=== PATIENT | female | born 1940 | race Caucasian/White ===

== ENCOUNTER → 2016-10-03 | Outpatient (CLI) | payer OTHER, MEDICARE ==
[~2016-10-03] MED LIST: CALC-20 PO; CLTP PO; GABA-112 PO; HYDR-5688 PO; MELO15TA4 PO; NCY50 PO; PRED10TA PO; PRMVC TOP; SIMV20TA2 PO; ULT50 PO; [UNRECOGNIZED DRUG - CODE] PO; citracel PO
--- NOTE | 2016-10-03 14:55 | MAMMOGRAPHY REPORT ---
BILATERAL DIGITAL SCREENING MAMMOGRAM WITH CAD: 10/03/2016 CLINICAL HISTORY: Routine screening. Patient has no complaints. TECHNIQUE: Bilateral CC and MLO views were obtained. Current study was also evaluated with a Comput er Aided Detection (CAD) system. COMPARISON: Comparison is made to exams dated: 10/01/2015 mammogram, 09/23/2014 mammogram, 08/29/2012 mammogram, 08/24/2011 mammogram, and 08/27/2010 mammogram - [facility]. BREAST COMPOSITION: There are scattered areas of fibroglandular density in both breasts. FINDINGS: There are a few scattered benign coarse calcifications and is stable groupings of benign- appearing coarse heterogeneous microcalcifications bilaterally. No new suspicious mass, architectur al distortion or cluster of microcalcifications is seen. IMPRESSION: ACR BI-RADS CATEGORY 1: NEGATIVE There is no mammographic evidence of malignancy. A 1 year screening mammogram is recommended. The p atient will receive written notification of the results. Approximately 10% of breast cancers are not detected with mammography. A negative mammographic repor t should not delay biopsy if a clinically suggestive mass is present. Tamiko Campos M.D. ay/:10/03/2016 12:45:48 Advanced Manufacturing Engineer: Joanne Jonas, [facility] letter sent: Normal 1/2 BI-RADS Code: ACR BI-RADS Category 1: Negative
== END | disposition home or self-care (01) ==
LOC: C.MAMM 10:36
PROVIDERS: ATTEND Internal Medicine
DX: Z12.31 Encounter for screening mammogram for malignant neoplasm of breast (principal)

== ENCOUNTER → 2016-12-28 | Outpatient (CLI) | payer OTHER, MEDICARE ==
--- NOTE | 2016-12-29 08:01 | CODING QUERY NO DIAGNOSIS ---
TREATMENT RENDERED WITHOUT A DIAGNOSIS To promote full compliance with coding requirements relating to patient care, physician participation is requested in all cases of steel manager uncertainty. Please assist us with providing a diagnosis/symptom for the test(s) below: A diagnosis/symptom was not documented on your Order. A valid diagnosis/symptom is required to bill all insurances. Please remember that we are unable to code a diagnosis of rule out, probable, possible, questionable, or suspected. Tests that require a diagnosis: DOS: 12/28/16 * AEROBIC GM STAIN C&S - LEFT FIRST DIGIT DIAGNOSIS: Provider Signature: Date: Thank you Alexandra Leonard [facility] Once completed, please kindly fax back to [phone] For questions please call [phone]
== END | disposition home or self-care (01) ==
LOC: C.LABSPEC 16:56
PROVIDERS: ATTEND Podiatrist Foot & Ankle Surgery
DX: M77.8 Other enthesopathies, not elsewhere classified (principal); M19.071 Primary osteoarthritis, right ankle and foot; Q66.89 Other specified congenital deformities of feet; R26.2 Difficulty in walking, not elsewhere classified

== ENCOUNTER 2017-01-10 00:06 | Emergency (ER) | payer OTHER, MEDICARE ==
[~2017-01-10] VITALS: Ht 152.4 cm; Wt 71.2 kg
[~2017-01-10 00:06] MED LIST changes: -CALC-20 PO; -HYDR-5688 PO; -MELO15TA4 PO; -PRED10TA PO; -ULT50 PO
[2017-01-10 00:09] VITALS: TEMP 36.4; Ht 152.4 cm; Wt 71.2 kg
[2017-01-10] MEDS ORDERED: CYCLOBENZAPRINE HCL 10 MG TAB PO STA (00:32)
[2017-01-10] MEDS ORDERED: METHYLPREDNISOLONE 125 MG VIAL IM STA (00:32)
[2017-01-10] MEDS ORDERED: HYDROCODONE/ACETAMOPHEN 5/325MG TAB PO STA (00:32)
--- NOTE | 2017-01-10 00:44 | EMERGENCY ROOM VISIT NOTE ---
History Report prepared by John: Brad Lowry Under the Supervision of: Dr. Columba Logan M.D. First contact with patient: 00:13 Chief Complaint: HIP PAIN Stated Complaint: RIGHT HIP/BACK PAIN RADIATING DOWN RT LEG History of Present Illness The patient is a 76 year old female who presents to the Emergency Room with complaints of worsening pain in her right lower back that began one night prior to arrival. She describes the pain as "sharp." Per the patient's the patient began to experience pain in the right lower back last night, which worsened throughout the day today. She was not able to lay down comfortably in bed this evening secondary to the pain. The pain is intermittently radiating down her right leg. She does not have good sensation in her right foot, but she notes that this is baseline for her. The patient's states that she did not do anything strenuous to cause the pain, and only went to [employer] and drove home from [place] yesterday. She has a history of right hip replacement and steel logan placement in the lumbar back. Source of History: patient Onset: One night WEASAND TRIMMER Position: back (lower (Right)) Quality: sharp Timing: worsening Note: Shooting down right leg. Review of Systems See HPI for pertinent positives & negatives. A total of 10 systems reviewed and were otherwise negative. Past Medical & Surgical Medical Problems: (1) DJD of left shoulder Surgical Problems: (1) History of hip replacement Family History Cancer Heart disease Hypertension Social History Smoking Status: Never Smoker Drug Use: none Marital Status: Housing Status: lives with significant other Occupation Status: retired Current/Historical Medications Scheduled Calcium Carbonate-Vitamin D (Calcium 600 + D), 1 TAB PO BID Estrogens, Conjugated (Premarin), 0.625 MG TOP 2XWK Gabapentin (Neurontin), 100 MG PO TID Meloxicam (Meloxicam), 15 MG PO DAILY Prednisone (Prednisone), 10 MG PO DIRECTED Simvastatin (Zocor), 20 MG PO QPM Scheduled PRN Hydrocodone/Acetaminophen 5MG/325MG (Emerson 5MG/325MG), 1 TABLET PO Q6 PRN for Pain Tramadol HCl (Tramadol HCl), 50-100 MG PO BID PRN for Pain Allergies Coded Allergies: Adhesives (Verified Allergy, Intermediate, RASH, 01/10/17) THE LONGER THE ADHESIVE IS ON THE SKIN, THE WORSE THE RASH BECOMES Diclofenac (Verified Adverse Reaction, Mild, GI upset, 01/10/17) Oxycodone (Verified Adverse Reaction, Mild, GI upset, 01/10/17) Pregabalin (Verified Adverse Reaction, Mild, GI upset, 01/10/17) Physical Exam Vital Signs Date Time Temp Pulse Resp B/P Pulse Ox O2 Delivery O2 Flow Rate FiO2 01/10/17 02:35 71 18 152/92 97 01/10/17 02:11 71 18 152/92 97 Room Air 01/10/17 00:09 36.4 92 20 171/77 98 Room Air Physical Exam Vital signs reviewed. General: Well-appearing female, in no significant distress. Ambulates with some discomfort HEENT: No scleral icterus, PERRLA, neck supple. Atraumatic. Cardiovascular: Regular rate and rhythm, no extra sounds. Pulmonary: Clear to auscultation bilaterally, normal work of breathing. Abdomen: Soft, nontender, nondistended, positive bowel sounds. Musculoskeletal: Atraumatic, no peripheral edema. Full strength in bilateral lower extremities. Chronic deformity to the bilateral feet Back: Tenderness over the low thoracic spine and the right buttock. Neurologic: Patient awake alert and oriented x 3, equal strength in all 4 extremities. Skin: Warm, dry, no rash Medical Decision & Procedures ER Provider Diagnostic Interpretation: X-ray results as stated below per interpretation by me and the radiologist: Hip X-ray: Mild degenerative changes, total hip arthroplasty in good location, no evidence of dislocation or fracture. Lumbar Spine: Significant degenerative change, post surgical changes, hardware in good position, no acute fracture. Thoracic Spine: Thoracic scoliosis present, significant arthritic change. No acute fracture visualized. Medications Administered Medications (Trade) Dose Ordered Sig/Michael Route Start Time Stop Time Status Last Admin Dose Admin Cyclobenzaprine HCl (Flexeril Tab) 5 mg NOW STAT PO 01/10/17 00:32 01/10/17 00:38 DC 01/10/17 00:46 5 MG Acetaminophen/ Hydrocodone Bitart (Emerson 5/325 Tab) 1 tab NOW STAT PO 01/10/17 00:32 01/10/17 00:38 DC 01/10/17 00:46 1 TAB Methylprednisolone Sodium Succinate (Solu-Medrol IV) 125 mg NOW STAT IM 01/10/17 00:32 01/10/17 00:38 DC 01/10/17 00:46 125 MG ED Course 0027: Past medical records reviewed. The patient was evaluated in room B2. A complete history and physical examination was performed. 0032: Ordered Solu-Medrol 125 mg IM, Acetaminophen 1 tablet PO, Cyclobenzaprine 5 mg PO. 0219: Upon reevaluation, the patient appeared to have improvement of her symptoms. I discussed findings with her and her . They verbalized agreement of the treatment plan. The patient was discharged home. Medical Decision Differential diagnosis: Etiologies such as musculoskeletal, disc herniation, fracture, aortic disease, metastatic disease, cord compression, discitis, infection, renal colic, gastrointestinal, acute exacerbation of chronic back pain, sciatica, cauda equina, as well as others were entertained. This patient was evaluated and appeared to be in no significant distress. Patient ambulated out of the bathroom with her cane. Physical examination reveals significant kyphosis and arthritic changes to the joints. Patient was medicated with oral Flexeril, Emerson and prednisone. X-rays were obtained of the thoracic and lumbar spine. These reveal significant degenerative changes with hardware seemingly in good position. There is no evidence of acute fracture to my interpretation. The x-ray of the right hip reveals hardware in good position. These images will be over read by radiology. On reevaluation, the patient was feeling much improved. She was lying comfortably in bed. She was able to ambulate without difficulty. She was discharged with a prescription for prednisone taper, Emerson to be used as needed for pain. She was discharged care of her and will follow-up with her primary care physician this week. She will return to the ER for worsening of symptoms or any medical concerns. Impression Primary Impression: Lumbar radiculopathy, acute Scribe Attestation The scribe's documentation has been prepared under my direction and personally reviewed by me in its entirety. I confirm that the note above accurately reflects all work, treatment, procedures, and medical decision making performed by me. Departure Information Dispostion Home / Self-Care Prescriptions Hydrocodone/Acetaminophen 5MG/325MG (Emerson 5MG/325MG) Tab 1 TABLET PO Q6 Y for Pain, #20 TAB Prov: Columba Logan M.D. 01/10/17 Prednisone (Prednisone) 10 Mg Tab 10 MG PO DIRECTED, #31 TAB 40 mg for 4 days, 30 mg for 3 days, 20 mg for 2 days, 10 mg for 2 days Prov: Columba Logan M.D. 01/10/17 Referrals Ilan Marina M.D. (PCP) Forms HOME CARE DOCUMENTATION FORM, IMPORTANT VISIT INFORMATION, WORK / SCHOOL INSTRUCTIONS Patient Instructions My [facility] Additional Instructions Diagnosis: Lumbar radiculopathy Prednisone 40 mg for 4 days, 30 mg for 3 days, 20 mg for 2 days, 10 mg for 2 days. Emerson one tablet every 4-6 hours as needed for severe pain. Tramadol every 6 hours as needed for less severe pain. Do not take this with the Emerson. Stop the meloxicam while you're on prednisone. Colace 100 mg twice daily as needed for stool softening. Follow-up with your physician this week for reevaluation. Return to the ER for worsening of symptoms or any medical concerns.
[2017-01-10] MEDS ORDERED: CALC-20 PO (01:01)
[2017-01-10] MEDS ORDERED: MELO15TA4 PO (01:03)
[2017-01-10] MEDS ORDERED: ULT50 PO (01:03)
[2017-01-10] MEDS ORDERED: HYDR-5688 PO (02:23)
[2017-01-10] MEDS ORDERED: PRED10TA PO (02:23)
[2017-01-10 02:35] VITALS: BP 152/92; PULSE 71; O2SAT 97
--- NOTE | 2017-01-10 06:52 | DIAGNOSTIC IMAGING REPORT ---
THORACIC SPINE 3 VIEWS HISTORY: Pain radiculopathy COMPARISON: None. FINDINGS: There is no fracture. Moderate S-shaped scoliosis. Thoracolumbar fixation type hardware. Degenerative disc change throughout. No compression deformity. IMPRESSION: Degenerative and postoperative change. No acute process. Electronically signed by: Glenn Sahu M.D. 01/10/2017 6:50 AM Dictated Date/Time: 01/10/2017 6:50 AM
--- NOTE | 2017-01-10 06:58 | DIAGNOSTIC IMAGING REPORT ---
RIGHT HIP UNILATERAL 2 VIEWS CLINICAL HISTORY: Right hip pain, s/p SULAIMAN Right trauma. Pain. COMPARISON: None. DISCUSSION: Total right hip arthroplasty in good position. No evidence for acetabular protrusion. No acute bony abnormality. There is no evidence for soft tissue swelling. IMPRESSION: No acute process status post total right hip arthroplasty Electronically signed by: Glenn Sahu M.D. 01/10/2017 6:56 AM Dictated Date/Time: 01/10/2017 6:54 AM
--- NOTE | 2017-01-10 07:00 | DIAGNOSTIC IMAGING REPORT ---
LUMBAR SPINE 5 VIEWS HISTORY: Pain lumbar radiculopathy COMPARISON: 08/16/2006 FINDINGS: There is no fracture. Evidence for near complete thoracolumbar decompression laminectomy and fusion. Vertebral body alignment is consistent with a mild levoscoliosis. Bony mineralization is somewhat diminished. There is no acute compression deformity. Degenerative disc changes noted throughout. IMPRESSION: Degenerative and postoperative change. Osteopenia. No acute bony abnormality. Electronically signed by: Glenn Sahu M.D. 01/10/2017 6:58 AM Dictated Date/Time: 01/10/2017 6:57 AM
== END 2017-01-10 02:35 | disposition home or self-care (01) ==
LOC: C.EDB 00:08
DX: M54.16 Radiculopathy, lumbar region (principal); Z96.641 Presence of right artificial hip joint; Z80.9 Family history of malignant neoplasm, unspecified; Z82.49 Family history of ischemic heart disease and other diseases of the circulatory system; Z79.899 Other long term (current) drug therapy

== ENCOUNTER → 2017-02-22 | Outpatient (CLI) | payer OTHER, MEDICARE ==
[~2017-02-22] MED LIST changes: +CALC-20 PO; -CLTP PO; +HYDR-5688 PO; +MELO15TA4 PO; -NCY50 PO; +PRED10TA PO; +ULT50 PO; -[UNRECOGNIZED DRUG - CODE] PO; -citracel PO
== END | disposition home or self-care (01) ==
LOC: C.LABSPEC 17:05
PROVIDERS: ATTEND Podiatrist Foot & Ankle Surgery
DX: L60.0 Ingrowing nail (principal)

== ENCOUNTER → 2017-03-21 | Outpatient (CLI) | payer OTHER, MEDICARE | END | disposition home or self-care (01) | LOC: C.LABSPEC 17:17 | PROVIDERS: ATTEND Podiatrist Foot & Ankle Surgery | DX: L60.0 Ingrowing nail (principal) ==

== ENCOUNTER → 2017-08-03 | Outpatient (CLI) | payer OTHER, MEDICARE ==
[~2017-08-03] MED LIST changes: -HYDR-5688 PO; -PRED10TA PO
[2017-08-03 13:41] LABS: BASO ABS # 0.06 K/uL (0-0.2); COMPLETE YES; EOS % 5.5 %; HEMATOCRIT 43.8 % (37-47); IG% 0.2 %; LYMPH % 32.4 %; LYMPH ABS # 1.95 K/uL (1.2-3.4); MEAN CELL VOLUME 94.4 fL (80-100); MEAN CORPUSCULAR HEMOGLOBIN 30.4 pg (25-34); MEAN CORPUSCULAR HGB CONC 32.2 g/dl (32-36); MEAN PLATELET VOLUME 11.8 fL (7.4-10.4); MONO % 8.1 %; NEUT % 52.8 %; PLATELET COUNT 182 K/uL (130-400); RED BLOOD COUNT 4.64 M/uL (4.2-5.4); WHITE BLOOD COUNT 6.02 K/uL (4.8-10.8)
[2017-08-03 14:13] LABS: ALT/SGPT 23 U/L (12-78); AST/SGOT 22 U/L (15-37); BLOOD UREA NITROGEN 19 mg/dl (7-18); BUN/CREATININE RATIO 20.1 (10-20); CALCIUM 9.1 mg/dl (8.5-10.1); CARBON DIOXIDE 30 mmol/L (21-32); CHLORIDE 106 mmol/L (98-107); CREATININE 0.93 mg/dl (0.60-1.20); GLUCOSE 90 mg/dl (70-99); POTASSIUM 3.7 mmol/L (3.5-5.1); SODIUM 140 mmol/L (136-145)
[2017-08-03 14:16] LABS: ALKALINE PHOSPHATASE 90 U/L (45-117)
== END | disposition home or self-care (01) ==
LOC: C.LABSPEC 12:33
PROVIDERS: ATTEND Internal Medicine
DX: E55.9 Vitamin D deficiency, unspecified (principal)

== ENCOUNTER → 2017-08-08 | Outpatient (CLI) | payer OTHER, MEDICARE | END | disposition home or self-care (01) | LOC: C.LABSPEC 12:50 | PROVIDERS: ATTEND Internal Medicine | DX: Z12.11 Encounter for screening for malignant neoplasm of colon (principal) ==

== ENCOUNTER → 2017-10-05 | Outpatient (CLI) | payer OTHER, MEDICARE ==
--- NOTE | 2017-10-05 14:38 | MAMMOGRAPHY REPORT ---
BILATERAL DIGITAL SCREENING MAMMOGRAM TOMOSYNTHESIS WITH CAD: 10/05/2017 CLINICAL HISTORY: Routine screening. Patient has no complaints. TECHNIQUE: Breast tomosynthesis in addition to standard 2D mammography was performed. Current study was also evaluated with a Computer Aided Detection (CAD) system. COMPARISON: Comparison is made to exams dated: 10/03/2016 mammogram, 10/01/2015 mammogram, 09/23/2014 ma mmogram, 08/30/2013 mammogram, 08/29/2012 mammogram, and 08/24/2011 mammogram - [facility]. BREAST COMPOSITION: There are scattered areas of fibroglandular density in both breasts. FINDINGS: No suspicious masses, calcifications, or areas of architectural distortion are noted in ei ther breast. There has been no significant interval change compared to prior exams. Bilateral asymme tries and bilateral benign-appearing calcifications are not significantly changed. IMPRESSION: ACR BI-RADS CATEGORY 2: BENIGN There is no mammographic evidence of malignancy. A 1 year screening mammogram is recommended. The pa tient will receive written notification of the results. Approximately 10% of breast cancers are not detected with mammography. A negative mammographic report should not delay biopsy if a clinically suggestive mass is present. Liv Patel M.D. /:10/05/2017 13:28:58 Graphic Design Manager: Ashley LAWLER)(Kushal), [facility] letter sent: Normal 1/2 BI-RADS Code: ACR BI-RADS Category 2: Benign
== END | disposition home or self-care (01) ==
LOC: C.MAMM 12:25
PROVIDERS: ATTEND Internal Medicine
DX: Z12.31 Encounter for screening mammogram for malignant neoplasm of breast (principal)

== ENCOUNTER → 2017-11-02 | Outpatient (CLI) | payer OTHER, MEDICARE ==
[~2017-11-02] MED LIST changes: +GADAVIST IV PRN
[2017-11-02 13:38] LABS: BLOOD UREA NITROGEN 19 mg/dl (7-18); CREATININE 1.12 mg/dl (0.60-1.20)
--- NOTE | 2017-11-02 15:59 | DIAGNOSTIC IMAGING REPORT ---
R LOWER EXTREMITY JOINT COM CLINICAL HISTORY: 77 years-old Female with RT ANKLE STRESS FRACTURE. COMPARISON: None. TECHNIQUE: Multiplanar, multi sequence MRI of the acute right ankle pain with concern for stress fracture. ankle was performed both with and without the use of 7 mL Gadavist. FINDINGS: Several sequences are motion degraded. LATERAL LIGAMENT COMPLEX: The anterior talofibular ligament is attenuated and only seen on image 21 series 11 with 5 mm corticated bone fragment seen near its attachment site about the talus suggesting chronic tear with chronic avulsion. The calcaneofibular ligament is also attenuated, likely chronically torn. The posterior talofibular ligament is intact. SYNDESMOTIC LIGAMENTS: The anterior-inferior tibiofibular ligament, interosseous membrane and posterior-inferior tibiofibular ligaments are intact. DELTOID LIGAMENT COMPLEX: The superficial and deep components of the deltoid ligament are thickened and mildly heterogeneous suggesting chronic tear with 4 mm corticated bone fragment along the medial talus at the talar insertion site also suggesting chronic avulsion. ANTERIOR TENDONS: The tibialis anterior, extensor hallucis longus and extensor digitorum longus tendons are normal in position, morphology and signal. LATERAL TENDONS: The peroneus longus and brevis tendons are intact. MEDIAL TENDONS: The posterior tibialis, flexor digitorum longus and flexor hallucis longus tendons are intact. Mild tendinosis of the tibialis posterior. Tenosynovitis of the tibialis posterior tendon. PLANTAR FASCIA: The medial and lateral bundles of the plantar fascia are thickened compatible with chronic plantar fasciitis. Moderate sized plantar enthesophyte. Mild edema is noted adjacent to the medial cord plantar fascia compatible with acute on chronic disease. No evidence of plantar fascial nodules. ACHILLES TENDON: Distal Achilles tendon is mildly thickened suggesting tendinosis. Trace fluid within the pre-Achilles bursa. SINUS TARSI: There is obliteration of the fat signal within the sinus tarsi. The spring ligament appears thickened. TARSAL TUNNEL: There are no obstructing lesions within the tarsal tunnel. BONE MARROW: There are multifocal advanced degenerative changes about the midfoot and hindfoot, notably involving the posterior subtalar joint where there are large subcortical cystic changes, moderate bone marrow edema and chondral thinning. Moderate bone marrow edema seen throughout the talar body with areas of chondral thinning and subchondral cystic change/edema throughout the anterior and middle subtalar joint as well. Moderate bone marrow edema involves the anterior process calcaneus and cuboid as well with severe joint space narrowing, chondral thinning and marginal spurring. No definite acute discrete fracture identified. Pes planus deformity with midfoot remodeling and hindfoot valgus. No osteochondral defect of the talar dome. SOFT TISSUES: Small joint effusion. Fluid is also noted within the posterior recess. Moderate subcutaneous edema is noted throughout the lower leg of unknown etiology. Mild enhancement of the synovium suggests synovitis. IMPRESSION: 1. No definite acute fracture identified. 2. Multifocal severe degenerative changes of the midfoot and hindfoot as above, notably involving the calcaneal cuboid and subtalar joints where there is severe chondral thinning, marginal spurring, joint space narrowing and subcortical cystic change/edema. 3. Pes planus deformity with increased talocalcaneal angle and hindfoot valgus. 4. Additional chronic appearing changes as above. 5. Motion degraded exam. 6. Joint effusion with synovial enhancement suggests synovitis. The above report was generated using voice recognition software. It may contain grammatical, syntax or spelling errors. Electronically signed by: Quirino Joseph M.D. 11/02/2017 3:58 PM Dictated Date/Time: 11/02/2017 2:56 PM
== END | disposition home or self-care (01) ==
LOC: C.MRI 12:39
PROVIDERS: ATTEND Podiatrist Foot & Ankle Surgery
DX: M84.374A Stress fracture, right foot, initial encounter for fracture (principal)

== ENCOUNTER 2022-04-13 15:22 | Inpatient (IN) ==
--- NOTE | 2022-04-13 15:37 | ED Triage Note ---
Date of Service April 13, 2022 History of Present Illness This patient was briefly evaluated while in triage. An abbreviated physical exam was performed. This patient is a 81-year-old Female with past medical history of HTN who presents to the ED for evaluation of elevated blood pressure. She was sent here by the fire investigator, who she was seeing due to an episode of vision changes a few days ago. She is on Lisinopril and states BP is usually well controlled on that. Physical Exam VITALS: Vitals are noted on the nurse's note and reviewed by myself. GENERAL: This is a 81-year-old female, in no acute distress, well-developed well-nourished. SKIN: The skin was without rashes. HEAD: Normocephalic atraumatic. EYES: Pupils equal round and reactive to light and accommodation. MOUTH: Mucous membranes moist. NECK: Supple without nuchal rigidity. HEART: Regular rate and rhythm without murmurs gallops or rubs. LUNGS: Clear to auscultation bilaterally without wheezes, rales or rhonchi. NEURO: Patient was alert and oriented to person place and time. Initial orders for labs and / or imaging were placed and patient was placed in the waiting area until a bed is available. Please see further documentation for the full ED course.
[2022-04-13 16:41] LABS: Basophils # (auto) 0.06 K/uL (0-0.2); Basophils % (auto) 0.8 %; Eosinophils # (auto) 0.24 K/uL (0-0.50); Hematocrit (blood only) 43.1 % (34.1-44.9); Hemoglobin 13.9 g/dl (12.0-16.0); Immature Granulocytes # (auto) 0.02 K/uL (0.00-0.02); Immature Granulocytes % (auto) 0.3 %; Lymphocytes # (auto) 2.21 K/uL (1.2-3.4); Lymphocytes % (auto) 27.8 %; Mean Corpuscular Hemoglobin 29.9 pg (25.0-34.0); Mean Corpuscular Hgb Conc 32.3 g/dL (32.0-36.0); Mean Corpuscular Volume 92.7 fL (80.0-100.0); Mean Platelet Volume 10.7 fL (9.4-12.3); Monocytes # (auto) 0.61 K/uL (0.24-0.82); Monocytes % (auto) 7.7 %; Neutrophils # (auto) 4.81 K/uL (1.4-6.5); Neutrophils % (auto) 60.4 %; Platelet Count 188 K/uL (130-400); RDW Coefficient of Variation 13.5 % (11.5-14.5); RDW Standard Deviation 46.2 fL (36.4-46.3); Red Blood Count 4.65 M/uL (3.93-5.22); White Blood Count 7.95 K/ul (4.8-10.8)
--- NOTE | 2022-04-13 16:56 | CT Scan Report ---
HEAD CT NONCONTRAST CT DOSE: 614.27 mGy.cm HISTORY: Hypertension, vision changes TECHNIQUE: Multiaxial CT images of the head were performed without the use of intravenous contrast. A utomated exposure control was utilized for this study. A dose lowering technique was utilized adheri ng to the principles of ALARA. Comparison: None. Findings: The paranasal sinuses and mastoid air cells are clear. The calvarium and skull base are int act. There is no mass, hematoma, midline shift. No definite acute infarct identified. White matter hy podensity is nonspecific but suggestive of microvascular ischemic change. The ventricles and sulci de monstrate mild age-related involutional changes. 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 Best seen on axial image 14 there appears to be a hyperdense focus in the region of the pr oximal left MCA. This could represent an acute thrombus. Impression: Small hyperdense focus in the region of the proximal left MCA which could represent an acute thrombus . Follow-up brain MRI recommended to exclude the possibility of an acute left MCA territory infarct. ACT 112: Negative or not required by law. Electronically signed by: Larry Torres M.D. 04/13/2022 4:54 PM
--- NOTE | 2022-04-13 16:56 | Electrocardiogram Report ---
Test Reason : Blood Pressure : / mmHG Vent. Rate : 069 BPM Atrial Rate : 069 BPM P-R Int : 198 ms QRS Dur : 088 ms QT Int : 406 ms P-R-T Axes : 055 -06 060 degrees QTc Int : 435 ms Poor data quality, interpretation may be adversely affected Normal sinus rhythm Normal ECG When compared with ECG of 12-NOV-2015 16:04, T wave amplitude has decreased in Inferior leads Nonspecific T wave abnormality, worse in Lateral leads Confirmed by Jose Rosario ([id number]) on 04/13/2022 4:56:29 PM Referred By: Confirmed By:Jose Rosario
[2022-04-13 17:06] LABS: Albumin Globulin Ratio 1.3 (0.9-2); Albumin Level 4.3 gm/dl (3.4-5.0); BUN Creatinine Ratio 27.1 (10-20); Bilirubin,Total 0.7 mg/dl (0.2-1.0); Calcium 10.1 mg/dl (8.5-10.1); Creatinine Clr Calc Pharmacy 39.7 ml/min; Est GFR (African American) 65.2 ml/min; Est GFR (Non-African American) 56.2 ml/min; Globulin 3.3 gm/dl (2.5-4.0); Potassium 3.9 mmol/L (3.5-5.1); Total Protein 7.6 gm/dl (6.0-8.3)
--- NOTE | 2022-04-13 17:46 | XRay Report ---
SINGLE VIEW CHEST CLINICAL HISTORY: Hypertension. FINDINGS: An AP, portable, upright chest radiograph is compared to study dated 10/14/2010. The heart i s enlarged noting atherosclerotic calcification of the thoracic aorta. The pulmonary vasculature is n oncongested. Chronic interstitial thickening is similar to previous. There is elevation of the right hemidiaphragm with bibasilar scarring/atelectasis. The lungs and pleural spaces are otherwise clear. No pneumothorax is seen. The skeletal structures are osteopenic. The bony thorax is grossly intact. A left shoulder arthroplasty is in place. Thoracolumbar spinal fusion hardware is in place. Cholecyste ctomy clips are noted in the right upper quadrant. IMPRESSION: Cardiomegaly with no active disease in the chest. ACT 112: Negative or not required by law. Electronically signed by: Gio Daily M.D. 04/13/2022 5:44 PM
--- NOTE | 2022-04-13 17:58 | Emergency Department Note ---
Impression & Plan Hypertensive emergency, Elevated troponin ED Provider Note NAME: SEVERIANO ANDINO AGE: 81 SEX: F : 1940 ARRIVES VIA: Walk-In INFORMANT: Patient ED PROVIDER(S): Zack Slade DO CHIEF COMPLAINT: HTN and spots in vision HPI: Patient is a 81-year-old female referred in by ophthalmology following evaluation. She was referred in as her blood pressures were elevated. She notes that Monday night through the weekend she was seeing some red spots in her eyes. She denies any headache or change in vision currently. This is all resolved. No chest pain or shortness of breath. No nausea, vomiting, or diarrhea. She does have a history of hypertension and takes lisinopril. No other exacerbating or remitting factors. ROS: See above HPI for pertinent positives & negatives. A total of 10 systems reviewed and were otherwise negative. PAST MEDICAL HISTORY:See Below PAST SURGICAL HISTORY:See Below FAMILY HISTORY:See Below SOCIAL HISTORY:See Below HOME MEDICATIONS:See Below ALLERGIES:See Below VITALS:See Below PHYSICAL EXAMINATION: GENERAL: Sitting up in bed, alert, well appearing, well nourished, no distress, non-toxic EYE EXAM: normal conjunctiva. PERRL and EOM's grossly intact. OROPHARYNX: no exudate, no erythema, lips, buccal mucosa, and tongue normal and mucous membranes are moist NECK: supple, no nuchal rigidity, no adenopathy, non-tender LUNGS: Clear to auscultation. Normal chest wall mechanics HEART: no murmurs, S1 normal and S2 normal ABDOMEN: abdomen soft, non-tender, normo-active bowel sounds, no masses, no rebound or guarding. BACK: Back is symmetrical on inspection and there is no deformity, no midline tenderness, no CVA tenderness. SKIN: no rashes and no bruising UPPER EXTREMITIES: upper extremities are grossly normal. LOWER EXTREMITIES: No pitting edema. NEURO EXAM: Normal sensorium, cranial nerves II-XII grossly intact, normal speech, no gross weakness of arms, no gross weakness of legs. Ambulates without difficulty MEDICAL DECISION MAKING: Patient 81-year-old female who presents ER for above-stated complaint. IV was established blood work is obtained. Systolic blood pressures were 240s. Labs show no significant leukocytosis or anemia. BMP was unremarkable. LFTs and bilirubin were unremarkable as well. Troponin was elevated at 61 which was obtained by the hospitalist upon admission but EKG was fairly unremarkable. CT head s and do favor this likely secondary to the elevated blood pressureshowed questionable occlusion consequently CTAs were obtained which were unremarkable. She had no chest pain or shortness of breath. She no urinary symptoms. COVID was negative. UA did have leuks whites and bacteria. Patient was given 1 dose of hydralazine while in the ER. systolics trended down to the 130s. She was given IV fluids following this by the hospitalist as she got a little lightheaded. Will defer to the hospitalist for treatment of the UA. Triage Nursing notes reviewed. Limited review of prior medical records performed Vital Signs: reviewed and remarkable for HTN Differential diagnosis: Benign hypertension, hypertensive emergency, cardiovascular pathology, toxicologic, pheochromocytoma, electrolyte abnormality, renal disease, endorgan damage, as well as other pathologies. ER treatment provided: See below Diagnostics interpreted by me: ECG: Sinus rhythm rate of 69 Left axis No PVCs QTC 435 Cardiac Monitoring: An order was placed for continuous cardiac monitoring. The monitor shows a rate of 70 with sinus rhythm. Laboratory studies: As stated above and show below. Imaging studies: CT of the head showed a questionable clot in the MCA. CTAs were negative. Consultation(s): Discussed with [facility] who recommended admission for further work-up Discussed with Milo Medel for further evaluation Procedures: none Critical Care: None Past Med/Surg History Medical History Gallbladder disease Osteoarthritis of knees, bilateral Surgical History History of back surgery History of right hip replacement History of shoulder surgery Social History Smoking Status: Never smoker Hx Alcohol Use: No Preferred Language: Belarusian Communication Ability: Effective Beliefs That Will Affect Care: None Current Living Situation: Spouse current occupational status: retired Feels Safe at Home: Yes Allergies Allergies Allergy/AdvReac Type Severity Reaction Status Date / Time adhesive Allergy Intermediate RASH Verified 04/13/22 18:34 capsaicin AdvReac Mild GI upset Verified 04/13/22 18:34 diclofenac AdvReac Mild GI upset Verified 04/13/22 18:34 Diclopak AdvReac Mild GI upset Verified 01/10/17 00:12 oxycodone AdvReac Mild GI upset Verified 04/13/22 18:34 pregabalin AdvReac Mild GI upset Verified 04/13/22 18:34 Home Meds Home Medications Medication Instructions Recorded Confirmed gabapentin 100 mg capsule 100 mg PO TID 07/27/18 04/13/22 meloxicam 15 mg tablet 15 mg PO QAM 07/27/18 04/13/22 simvastatin 20 mg tablet 20 mg PO PM 07/27/18 04/13/22 calcium carbonate 600 mg-vitamin 1 tab PO DAILY 04/13/22 04/13/22 D3 10 mcg (400 unit) tablet (Calcium 600 + D(3)) lisinopril 5 mg tablet 5 mg PO DAILY 04/13/22 04/13/22 multivitamin 1 tab PO DAILY 04/13/22 04/13/22 oxybutynin chloride 5 mg tablet 5 mg PO BID 04/13/22 04/13/22 pantoprazole 40 mg tablet,delayed 40 mg PO DAILY 04/13/22 04/13/22 release Results & Data (ED) Vital Signs Vital Signs - 24 hr 04/13/22 15:33 04/13/22 15:37 04/13/22 18:38 Temperature 36.8 C Temperature Source Temporal Artery Scan Pulse Rate 59 L 76 73 Pulse Rate from SpO2 Sensor Pulse Rhythm Regular Respiratory Rate 18 16 21 Respiratory Effort / Characteristics Non-Labored Spontaneous Respiratory Depth Normal Respiratory Pattern Regular Blood Pressure 208/90 H Blood Pressure Mean 129 Blood Pressure Position Sitting Pulse Oximetry 98 96 Oxygen Delivery Method Room Air Room Air Sepsis Recent Fever Within 48 Hours No Sepsis New/Unexplained Change in Mental Status No Sepsis Action Taken by Nursing No Action Required 04/13/22 18:40 04/13/22 18:50 04/13/22 19:00 Temperature Temperature Source Pulse Rate 72 69 74 Pulse Rate from SpO2 Sensor Pulse Rhythm Respiratory Rate 19 19 23 Respiratory Effort / Characteristics Respiratory Depth Respiratory Pattern Blood Pressure Blood Pressure Mean Blood Pressure Position Pulse Oximetry Oxygen Delivery Method Sepsis Recent Fever Within 48 Hours Sepsis New/Unexplained Change in Mental Status Sepsis Action Taken by Nursing 04/13/22 19:01 04/13/22 19:01 04/13/22 19:10 Temperature Temperature Source Pulse Rate 70 76 Pulse Rate from SpO2 Sensor Pulse Rhythm Respiratory Rate 19 24 Respiratory Effort / Characteristics Respiratory Depth Respiratory Pattern Blood Pressure 256/95 H Blood Pressure Mean 148 Blood Pressure Position Pulse Oximetry Oxygen Delivery Method Sepsis Recent Fever Within 48 Hours Sepsis New/Unexplained Change in Mental Status Sepsis Action Taken by Nursing 04/13/22 19:20 04/13/22 19:33 04/13/22 19:35 Temperature Temperature Source Pulse Rate 82 104 H Pulse Rate from SpO2 Sensor Pulse Rhythm Respiratory Rate 17 Respiratory Effort / Characteristics Respiratory Depth Respiratory Pattern Blood Pressure 125/78 Blood Pressure Mean 93 Blood Pressure Position Pulse Oximetry Oxygen Delivery Method Sepsis Recent Fever Within 48 Hours Sepsis New/Unexplained Change in Mental Status Sepsis Action Taken by Nursing 04/13/22 19:35 04/13/22 19:57 04/13/22 19:57 Temperature Temperature Source Pulse Rate 70 78 Pulse Rate from SpO2 Sensor 78 Pulse Rhythm Respiratory Rate 23 20 Respiratory Effort / Characteristics Respiratory Depth Respiratory Pattern Blood Pressure 162/66 H Blood Pressure Mean 98 Blood Pressure Position Pulse Oximetry 98 Oxygen Delivery Method Sepsis Recent Fever Within 48 Hours Sepsis New/Unexplained Change in Mental Status Sepsis Action Taken by Nursing 04/13/22 20:00 04/13/22 20:00 04/13/22 20:10 Temperature Temperature Source Pulse Rate 80 70 Pulse Rate from SpO2 Sensor 79 70 Pulse Rhythm Respiratory Rate 20 26 H Respiratory Effort / Characteristics Respiratory Depth Respiratory Pattern Blood Pressure 154/101 H Blood Pressure Mean 118 Blood Pressure Position Pulse Oximetry 97 95 Oxygen Delivery Method Sepsis Recent Fever Within 48 Hours Sepsis New/Unexplained Change in Mental Status Sepsis Action Taken by Nursing 04/13/22 20:17 04/13/22 20:17 04/13/22 20:20 Temperature Temperature Source Pulse Rate 68 67 Pulse Rate from SpO2 Sensor Pulse Rhythm Respiratory Rate 21 18 Respiratory Effort / Characteristics Respiratory Depth Respiratory Pattern Blood Pressure 130/51 L Blood Pressure Mean 77 Blood Pressure Position Pulse Oximetry Oxygen Delivery Method Sepsis Recent Fever Within 48 Hours Sepsis New/Unexplained Change in Mental Status Sepsis Action Taken by Nursing 04/13/22 20:30 04/13/22 20:30 04/13/22 20:43 Temperature Temperature Source Pulse Rate 66 Pulse Rate from SpO2 Sensor 64 76 Pulse Rhythm Respiratory Rate 22 Respiratory Effort / Characteristics Respiratory Depth Respiratory Pattern Blood Pressure 151/70 H Blood Pressure Mean 97 Blood Pressure Position Pulse Oximetry 92 88 L Oxygen Delivery Method Sepsis Recent Fever Within 48 Hours Sepsis New/Unexplained Change in Mental Status Sepsis Action Taken by Nursing 04/13/22 20:45 04/13/22 20:45 04/13/22 20:50 Temperature Temperature Source Pulse Rate 70 70 Pulse Rate from SpO2 Sensor 70 71 Pulse Rhythm Respiratory Rate 23 26 H Respiratory Effort / Characteristics Respiratory Depth Respiratory Pattern Blood Pressure 156/85 H Blood Pressure Mean 108 Blood Pressure Position Pulse Oximetry 97 97 Oxygen Delivery Method Sepsis Recent Fever Within 48 Hours Sepsis New/Unexplained Change in Mental Status Sepsis Action Taken by Nursing 04/13/22 21:00 04/13/22 21:31 Temperature Temperature Source Pulse Rate 69 74 Pulse Rate from SpO2 Sensor 69 Pulse Rhythm Respiratory Rate 17 18 Respiratory Effort / Characteristics Respiratory Depth Respiratory Pattern Blood Pressure 140/53 L Blood Pressure Mean Blood Pressure Position Pulse Oximetry 97 97 Oxygen Delivery Method Room Air Sepsis Recent Fever Within 48 Hours Sepsis New/Unexplained Change in Mental Status Sepsis Action Taken by Nursing Laboratory Data Result diagrams: 04/13/22 16:20 04/13/22 16:20 Lab Results 04/13/22 04/13/22 04/13/22 Range/Units 16:20 16:20 16:20 WBC 7.95 (4.8-10.8) K/ul RBC 4.65 (3.93-5.22) M/uL Hgb 13.9 (12.0-16.0) g/dl Hct 43.1 (34.1-44.9) % MCV 92.7 (80.0-100.0) fL MCH 29.9 (25.0-34.0) pg MCHC 32.3 (32.0-36.0) g/dL RDW Std Deviation 46.2 (36.4-46.3) fL RDW Coeff of Ruby 13.5 (11.5-14.5) % Plt Count 188 (130-400) K/uL MPV 10.7 (9.4-12.3) fL Immature Gran % (Auto) 0.3 % Neut % (Auto) 60.4 % Lymph % (Auto) 27.8 % [place] % (Auto) 7.7 % Eos % (Auto) 3.0 % Baso % (Auto) 0.8 % Neut # (Auto) 4.81 (1.4-6.5) K/uL Lymph # (Auto) 2.21 (1.2-3.4) K/uL [place] # (Auto) 0.61 (0.24-0.82) K/uL Eos # (Auto) 0.24 (0-0.50) K/uL Baso # (Auto) 0.06 (0-0.2) K/uL Immature Gran # (Auto) 0.02 (0.00-0.02) K/uL ESR (0-30) mm/hr Sodium 141 (136-145) mmol/L Potassium 3.9 (3.5-5.1) mmol/L Chloride 105 (98-107) mmol/L Carbon Dioxide 29 (21-32) mmol/L Anion Gap 7 (3-11) BUN 26 H (6-23) mg/dl Creatinine 0.96 (0.6-1.2) mg/dl Est Cr Clr Drug Dosing 39.7 ml/min Est GFR ( Amer) 65.2 ml/min Est GFR (Non-Af Amer) 56.2 ml/min BUN/Creatinine Ratio 27.1 H (10-20) Glucose 90 (70-99(Fasting)) mg/dl Calcium 10.1 (8.5-10.1) mg/dl Magnesium 2.0 (1.7-2.4) mg/dl Total Bilirubin 0.7 (0.2-1.0) mg/dl AST 24 (13-39) U/L ALT 15 (7-52) U/L Alkaline Phosphatase 82 (34-104) U/L Troponin I High Sens 11.6 (0-14) pg/ml C-Reactive Protein (0-0.5) mg/dl Total Protein 7.6 (6.0-8.3) gm/dl Albumin 4.3 (3.4-5.0) gm/dl Globulin 3.3 (2.5-4.0) gm/dl Albumin/Globulin Ratio 1.3 (0.9-2) Urine Color Urine Appearance (Clear) Urine pH (4.5-7.5) Ur Specific [place] (1.000-1.030) Urine Protein (Negative) Urine Glucose (UA) (Negative) Urine Ketones (Negative) Urine Blood (Negative) Urine Nitrite (Negative) Urine Bilirubin (Negative) Urine Urobilinogen (Negative) Ur Leukocyte Esterase (Negative) Urine WBC (Auto) (0-5) /hpf Urine RBC (Auto) (0-4) /hpf U Hyaline Cast (Auto) (0-5) /lpf U Epithel Cells (Auto) (0-5) /lpf Urine Bacteria (Auto) (Negative) SARS-CoV-2, RNA, NAAT (NEGATIVE) 04/13/22 04/13/22 04/13/22 Range/Units 16:20 17:48 18:21 WBC (4.8-10.8) K/ul RBC (3.93-5.22) M/uL Hgb (12.0-16.0) g/dl Hct (34.1-44.9) % MCV (80.0-100.0) fL MCH (25.0-34.0) pg MCHC (32.0-36.0) g/dL RDW Std Deviation (36.4-46.3) fL RDW Coeff of Ruby (11.5-14.5) % Plt Count (130-400) K/uL MPV (9.4-12.3) fL Immature Gran % (Auto) % Neut % (Auto) % Lymph % (Auto) % [place] % (Auto) % Eos % (Auto) % Baso % (Auto) % Neut # (Auto) (1.4-6.5) K/uL Lymph # (Auto) (1.2-3.4) K/uL [place] # (Auto) (0.24-0.82) K/uL Eos # (Auto) (0-0.50) K/uL Baso # (Auto) (0-0.2) K/uL Immature Gran # (Auto) (0.00-0.02) K/uL ESR 26 (0-30) mm/hr Sodium (136-145) mmol/L Potassium (3.5-5.1) mmol/L Chloride (98-107) mmol/L Carbon Dioxide (21-32) mmol/L Anion Gap (3-11) BUN (6-23) mg/dl Creatinine (0.6-1.2) mg/dl Est Cr Clr Drug Dosing ml/min Est GFR ( Amer) ml/min Est GFR (Non-Af Amer) ml/min BUN/Creatinine Ratio (10-20) Glucose (70-99(Fasting)) mg/dl Calcium (8.5-10.1) mg/dl Magnesium (1.7-2.4) mg/dl Total Bilirubin (0.2-1.0) mg/dl AST (13-39) U/L ALT (7-52) U/L Alkaline Phosphatase (34-104) U/L Troponin I High Sens 61.2 H* D (0-14) pg/ml C-Reactive Protein 3.76 H (0-0.5) mg/dl Total Protein (6.0-8.3) gm/dl Albumin (3.4-5.0) gm/dl Globulin (2.5-4.0) gm/dl Albumin/Globulin Ratio (0.9-2) Urine Color Yellow Urine Appearance Cloudy A (Clear) Urine pH 7.0 (4.5-7.5) Ur Specific [place] 1.008 (1.000-1.030) Urine Protein Negative (Negative) Urine Glucose (UA) Negative (Negative) Urine Ketones Trace H (Negative) Urine Blood Trace H (Negative) Urine Nitrite Negative (Negative) Urine Bilirubin Negative (Negative) Urine Urobilinogen Negative (Negative) Ur Leukocyte Esterase 3+ H (Negative) Urine WBC (Auto) >30 H (0-5) /hpf Urine RBC (Auto) 0-4 (0-4) /hpf U Hyaline Cast (Auto) 0 (0-5) /lpf U Epithel Cells (Auto) 5-10 H (0-5) /lpf Urine Bacteria (Auto) 4+ H (Negative) SARS-CoV-2, RNA, NAAT (NEGATIVE) 04/13/22 Range/Units 18:35 WBC (4.8-10.8) K/ul RBC (3.93-5.22) M/uL Hgb (12.0-16.0) g/dl Hct (34.1-44.9) % MCV (80.0-100.0) fL MCH (25.0-34.0) pg MCHC (32.0-36.0) g/dL RDW Std Deviation (36.4-46.3) fL RDW Coeff of [place] (11.5-14.5) % Plt Count (130-400) K/uL MPV (9.4-12.3) fL Immature Gran % (Auto) % Neut % (Auto) % Lymph % (Auto) % [place] % (Auto) % Eos % (Auto) % Baso % (Auto) % Neut # (Auto) (1.4-6.5) K/uL Lymph # (Auto) (1.2-3.4) K/uL [place] # (Auto) (0.24-0.82) K/uL Eos # (Auto) (0-0.50) K/uL Baso # (Auto) (0-0.2) K/uL Immature Gran # (Auto) (0.00-0.02) K/uL ESR (0-30) mm/hr Sodium (136-145) mmol/L Potassium (3.5-5.1) mmol/L Chloride (98-107) mmol/L Carbon Dioxide (21-32) mmol/L Anion Gap (3-11) BUN (6-23) mg/dl Creatinine (0.6-1.2) mg/dl Est Cr Clr Drug Dosing ml/min Est GFR ( Amer) ml/min Est GFR (Non-Af Amer) ml/min BUN/Creatinine Ratio (10-20) Glucose (70-99(Fasting)) mg/dl Calcium (8.5-10.1) mg/dl Magnesium (1.7-2.4) mg/dl Total Bilirubin (0.2-1.0) mg/dl AST (13-39) U/L ALT (7-52) U/L Alkaline Phosphatase (34-104) U/L Troponin I High Sens (0-14) pg/ml C-Reactive Protein (0-0.5) mg/dl Total Protein (6.0-8.3) gm/dl Albumin (3.4-5.0) gm/dl Globulin (2.5-4.0) gm/dl Albumin/Globulin Ratio (0.9-2) Urine Color Urine Appearance (Clear) Urine pH (4.5-7.5) Ur Specific [place] (1.000-1.030) Urine Protein (Negative) Urine Glucose (UA) (Negative) Urine Ketones (Negative) Urine Blood (Negative) Urine Nitrite (Negative) Urine Bilirubin (Negative) Urine Urobilinogen (Negative) Ur Leukocyte Esterase (Negative) Urine WBC (Auto) (0-5) /hpf Urine RBC (Auto) (0-4) /hpf U Hyaline Cast (Auto) (0-5) /lpf U Epithel Cells (Auto) (0-5) /lpf Urine Bacteria (Auto) (Negative) SARS-CoV-2, RNA, NAAT NEGATIVE (NEGATIVE) Administered Medications Discontinued Medications Aspirin (Aspirin Chew 324 Mg) 324 mg PO NOW STA Stop: 04/13/22 18:18 Last Admin: 04/13/22 18:32 Dose: 324 mg Documented By: QUINTON Hydralazine HCl (Hydralazine Hcl 20 Mg/Ml Vial) 10 mg IV NOW STA Stop: 04/13/22 18:50 Last Admin: 04/13/22 19:14 Dose: 10 mg Documented By: QUINTON Hydralazine HCl (Hydralazine Hcl 20 Mg/Ml Vial) 10 mg IV NOW STA Stop: 04/13/22 19:19 Last Admin: 04/13/22 19:46 Dose: Not Given Documented By: QUINTON Ioversol (Optiray 320 125ml) 120 ml IV ONCE ONE Stop: 04/13/22 19:49 Last Admin: 04/13/22 19:51 Dose: 120 ml Documented By: [facility] Imaging Data Radiologist's Impression: Chest X-Ray 04/13/22 15:37 SINGLE VIEW CHEST CLINICAL HISTORY: Hypertension. FINDINGS: An AP, portable, upright chest radiograph is compared to study dated 10/14/2010. The heart is enlarged noting atherosclerotic calcification of the thoracic aorta. The pulmonary vasculature is noncongested. Chronic interstitial thickening is similar to previous. There is elevation of the right hemidiaphragm with bibasilar scarring/atelectasis. The lungs and pleural spaces are otherwise clear. No pneumothorax is seen. The skeletal structures are osteopenic. The bony thorax is grossly intact. A left shoulder arthroplasty is in place. Thoracolumbar spinal fusion hardware is in place. Cholecystectomy clips are noted in the right upper quadrant. IMPRESSION: Cardiomegaly with no active disease in the chest. ACT 112: Negative or not required by law. Electronically signed by: Gio Daily M.D. 04/13/2022 5:[address] 04/13/22 15:[address] DOSE: 614.27 mGy.cm HISTORY: Hypertension, vision changes TECHNIQUE: Multiaxial CT images of the head were performed without the use of intravenous contrast. Automated exposure control was utilized for this study. A dose lowering technique was utilized adhering to the principles of ALARA. Comparison: None. Findings: The paranasal sinuses and mastoid air cells are clear. The calvarium and skull base are intact. There is no mass, hematoma, midline shift. No definite acute infarct identified. White matter hypodensity is nonspecific but suggestive of microvascular ischemic change. The ventricles and sulci demonstrate mild age-related involutional changes. 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 Best seen on axial image 14 there appears to be a hyperdense focus in the region of the proximal left MCA. This could represent an acute thrombus. Impression: Small hyperdense focus in the region of the proximal left MCA which could represent an acute thrombus. Follow-up brain MRI recommended to exclude the possibility of an acute left MCA territory infarct. ACT 112: Negative or not required by law. Electronically signed by: Larry Torres M.D. 04/13/2022 4:54 PM Head CTA 04/13/22 19:20 CT ANGIOGRAM OF THE BRAIN; CT ANGIOGRAM OF THE NECK CLINICAL HISTORY: Headache. Hypertension. Abnormal unenhanced CT of the brain. COMPARISON STUDY: Unenhanced CT of the brain performed the same day 04/13/2022. TECHNIQUE: Following the IV administration of 120 of Optiray 320, CT angiogram of the head and neck was performed from the aortic arch to the vertex. Images are reviewed in the axial, sagittal, and coronal planes. 3-D MIPS images are created and assessed. IV contrast was administered without complication. All measurements were calculated based on NASCET criteria. A dose lowering technique was utilized adhering to the principles of ALARA. CT DOSE: 387.03 mGy.cm FINDINGS: Brain parenchyma: There is age-related involutional change noting moderate to advanced subcortical and periventricular microangiopathic disease. There is no evidence of hemorrhage, mass effect, or acute territorial ischemia noting angiographic phase technique. A chronic lacunar infarct is noted in the right centrum semiovale. There is no evidence of enhancing mass lesion on the angiogram phase images. The ventricles, sulci, and cisterns are prominent secondary to involutional change. Palm-white matter differentiation is preserved. No extra-axial fluid collection is seen. Thoracic aorta: Visualized portions of the thoracic aorta are normal in caliber. The aortic arch demonstrates standard 3-vessel anatomy. Right carotid arterial system: The right common carotid artery is widely patent. There is advanced atherosclerotic plaque in the carotid bulb. This causes approximately 75% focal stenosis at the origin of the right internal carotid artery seen on axial image #110. The remainder of the right internal carotid artery is widely patent, as is the right external carotid artery. Left carotid arterial system: The left common carotid artery is widely patent, as are the left internal and external carotid arteries. Vertebral arteries: The vertebral arteries are widely patent bilaterally noting left-sided dominance. Subclavian arteries: Widely patent bilaterally. Intracranial vasculature: There is atherosclerotic calcification of the cavernous carotid arteries. The internal carotid arteries are patent at the skull base, as are the anterior and middle cerebral arteries bilaterally. There is a right posterior communicating artery. The vertebrobasilar system and posterior cerebral arteries are widely patent. The left vertebral artery is dominant. There is no aneurysm, high-grade stenosis, or focal vessel cut off seen throughout the intracranial circulation. Jugular veins: Patent bilaterally. Dural sinuses: Patent. Lung apices: Partially visualized upper lobe lung parenchyma appears clear. Soft tissues: The visualized pharyngeal soft tissues are normal in appearance noting angiographic phase technique. The oropharyngeal airway appears widely patent. The salivary and thyroid glands are normal in appearance. No cervical lymphadenopathy is seen. Skeletal structures: The skeletal structures are osteopenic. The calvarium appears intact. The cervical spine is maintained noting multilevel spondylosis. No lytic or blastic lesion is seen. Orbits: The bony orbits are intact. Orbital contents are normal as visualized noting bilateral ocular lens implants. Sinuses and mastoids: The paranasal sinuses are clear. The mastoid air cells are well pneumatized. IMPRESSION: 1 There is no evidence of hemorrhage, mass effect, or acute territorial ischemia noting angiographic phase technique. 2. Unremarkable CT angiogram of the brain. 3. There is approximately 75% focal stenosis at the origin of the right internal carotid artery. 4. Otherwise unremarkable CT angiogram of the neck. 5. Hyperdensity questioned involving the left middle cerebral artery on the unenhanced examination was artifactual. ACT 112: Negative or not required by law. Electronically signed by: Gio Daily M.D. 04/13/2022 8:15 PM Neck CTA 04/13/22 19:20 CT ANGIOGRAM OF THE BRAIN; CT ANGIOGRAM OF THE NECK CLINICAL HISTORY: Headache. Hypertension. Abnormal unenhanced CT of the brain. COMPARISON STUDY: Unenhanced CT of the brain performed the same day 04/13/2022. TECHNIQUE: Following the IV administration of 120 of Optiray 320, CT angiogram of the head and neck was performed from the aortic arch to the vertex. Images are reviewed in the axial, sagittal, and coronal planes. 3-D MIPS images are created and assessed. IV contrast was administered without complication. All measurements were calculated based on NASCET criteria. A dose lowering technique was utilized adhering to the principles of ALARA. CT DOSE: 387.03 mGy.cm FINDINGS: Brain parenchyma: There is age-related involutional change noting moderate to advanced subcortical and periventricular microangiopathic disease. There is no evidence of hemorrhage, mass effect, or acute territorial ischemia noting angiographic phase technique. A chronic lacunar infarct is noted in the right centrum semiovale. There is no evidence of enhancing mass lesion on the angiogram phase images. The ventricles, sulci, and cisterns are prominent secondary to involutional change. Palm-white matter differentiation is preserved. No extra-axial fluid collection is seen. Thoracic aorta: Visualized portions of the thoracic aorta are normal in caliber. The aortic arch demonstrates standard 3-vessel anatomy. Right carotid arterial system: The right common carotid artery is widely patent. There is advanced atherosclerotic plaque in the carotid bulb. This causes approximately 75% focal stenosis at the origin of the right internal carotid artery seen on axial image #110. The remainder of the right internal carotid artery is widely patent, as is the right external carotid artery. Left carotid arterial system: The left common carotid artery is widely patent, as are the left internal and external carotid arteries. Vertebral arteries: The vertebral arteries are widely patent bilaterally noting left-sided dominance. Subclavian arteries: Widely patent bilaterally. Intracranial vasculature: There is atherosclerotic calcification of the cavernous carotid arteries. The internal carotid arteries are patent at the skull base, as are the anterior and middle cerebral arteries bilaterally. There is a right posterior communicating artery. The vertebrobasilar system and posterior cerebral arteries are widely patent. The left vertebral artery is dominant. There is no aneurysm, high-grade stenosis, or focal vessel cut off seen throughout the intracranial circulation. Jugular veins: Patent bilaterally. Dural sinuses: Patent. Lung apices: Partially visualized upper lobe lung parenchyma appears clear. Soft tissues: The visualized pharyngeal soft tissues are normal in appearance noting angiographic phase technique. The oropharyngeal airway appears widely patent. The salivary and thyroid glands are normal in appearance. No cervical lymphadenopathy is seen. Skeletal structures: The skeletal structures are osteopenic. The calvarium appears intact. The cervical spine is maintained noting multilevel spondylosis. No lytic or blastic lesion is seen. Orbits: The bony orbits are intact. Orbital contents are normal as visualized noting bilateral ocular lens implants. Sinuses and mastoids: The paranasal sinuses are clear. The mastoid air cells are well pneumatized. IMPRESSION: 1 There is no evidence of hemorrhage, mass effect, or acute territorial ischemia noting angiographic phase technique. 2. Unremarkable CT angiogram of the brain. 3. There is approximately 75% focal stenosis at the origin of the right internal carotid artery. 4. Otherwise unremarkable CT angiogram of the neck. 5. Hyperdensity questioned involving the left middle cerebral artery on the unenhanced examination was artifactual. ACT 112: Negative or not required by law. Electronically signed by: Gio Daily M.D. 04/13/2022 8:15 PM Discharge Plan Visit Data Chief Complaint: Abnormal Labs/Diagnostic Testing Stated Complaint: HIGH BP, REF BY ED Provider: Zack Slade Discharge Problem: Hypertensive emergency, Elevated troponin Patient Disposition: Admitted As Inpatient Discharge Instructions Interventions: ED Discharge Assessment Last Done: 04/13/22 21:31 Forms Stand Alone Forms: My [facility] PrintFu Prescriptions Prescriptions: No Action meloxicam 15 mg Tablet 15 mg PO QAM simvastatin 20 mg Tablet 20 mg PO PM gabapentin 100 mg Capsule 100 mg PO TID lisinopril 5 mg tablet 5 mg PO DAILY pantoprazole 40 mg tablet,delayed release (DR/EC) 40 mg PO DAILY oxybutynin chloride 5 mg tablet 5 mg PO BID calcium carbonate-vitamin D3 [Calcium 600 + D(3)] 600 mg-10 mcg (400 unit) Tablet 1 tab PO DAILY multivitamin [One A Day Vitamin] Tablet 1 tab PO DAILY Referrals Referrals: Jose Haile MD [Primary Care Provider] -
[2022-04-13 18:04] LABS: Appearance Urine Cloudy (Clear); Bacteria Urine Automated 4+ (Negative); Bilirubin Urine Negative (Negative); Blood Urine Trace (Negative); Cast Urine Automated 0 /lpf (0-5); Color Urine Yellow; Glucose Urine UA Negative (Negative); Ketones Urine Trace (Negative); Leukocyte Esterase Urine 3+ (Negative); Nitrite Urine Negative (Negative); Protein Urine Negative (Negative); RBC Urine Automated 0-4 /hpf (0-4); Specific Gravity Urine 1.008 (1.000-1.030); Urobilinogen Urine Negative (Negative); WBC Urine Automated >30 /hpf (0-5)
[2022-04-13] MEDS ORDERED: ASPIRIN CHEW 324 MG PO STA (18:17)
[2022-04-13] MEDS ORDERED: hydrALAZINE HCL 20 MG/ML VIAL IV STA ×2 (18:49→19:18)
--- NOTE | 2022-04-13 18:51 | History & Physical Report ---
Date of Service April 13, 2022 Assessment & Plan (1) CVA (cerebral vascular accident): Plan: - Symptoms are intermittent visual disturbances since Monday with no other deficits--NIH score 0 at time of my visit as she is no longer having vision symptoms. - However, CT head with small hyperdense focus in the region of the proximal left MCA which could represent an acute thrombus. * The case was discussed with neurology telehealth provider prior to admission. Given her symptoms have been ongoing since Monday, she would not be a candidate for tPA, recommending neuro workup and gradual lowering of BP. - CTA head/neck done--hypodensity question involving the left MCA on head CT was artifactual; there is 75% stenosis of the right ICA, - MRI, routine, tomorrow to determine whether or not she had a stroke since head CT and head/neck CTA are conflicting. - Echo in a.m. - CBC, BMP, HbA1c, lipid panel in a.m. - PT, OT to evaluate in a.m. - Avoid hypotension, hypoglycemia. - Telemetry for 24 hours, evaluate for episodes of atrial fibrillation. (2) Hypertensive emergency: Plan: - Presenting BP 208/90 with HR 59--has now increased to 256/95 during my visit with patient. - 10 mg IV hydralazine x1 now-if BP still elevated with SBP > 220 given suspected CVA, will repeat this dose. * Patient received this dose, and her repeat blood pressure shortly after was 120/70s. She is feeling dizzy and complaining of blurred vision. * 500 cc IV bolus ordered, however when BP was checked prior to fluids, pressure was back up to 160s/90s--therefore will cancel bolus fluids and start on gentle IVF -- 80 cc/hr for 1 L * Would recommend not giving IV hydralazine in the future for her. - She is on 5 mg of lisinopril at home. - Initial trop 11.6--repeat now and if rising, trend. She is without anginal symptoms or anginal equivalent. (3) Vision disturbance: Plan: - Intermittent red spots in both eyes mostly at night since Monday--ddx includes hypertensive emergency vs giant cell arteritis. - Patient claims her BP is very well controlled, typically 130/70s at her PCP. She is on a very low dose of lisinopril. If patient is hypertensive during stay, may need her dose increased. - Will check ESR and CRP. (4) UTI (urinary tract infection) due to Enterococcus: Plan: - Patient asymptomatic at this time, without leukocytosis, but UA with >30 WBCs, 4+ bacteria. Urine cx pending. - Will start on Rocephin. (5) Hyperlipidemia: Plan: - Continue simvastatin 20 mg daily for now but likely needs to be placed on high intensity statin. (6) GERD (gastroesophageal reflux disease): Plan: - Continue pantoprazole 40mg daily. (7) Overactive bladder: Plan: - Continue oxybutynin 5 mg BID. (8) Neuropathy: Plan: - Continue gabapentin 100 mg TID. (9) Osteoporosis: Plan: - Continue calcium and vit D 600 mg BID. (10) Osteoarthritis of knees, bilateral: Plan: - Has been taking tramadol 50 mg BID and meloxicam 15 mg daily--hold for concerns for acute CVA. Plan - Admit to PCU - SCDs for VTE ppx. - Full Code. History of Present Illness Chief Complaint: severe hypertension at [employer] appt this afternoon Primary Care Provider: Jose Haile MD Nicole Torres is a 81 female PMH of hypertension, hyperlipidemia, peripheral neuropathy, GERD, overactive bladder who presents today for elevated blood pressure. 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 During triage, later blood pressure noted systolic was in 200s, therefore recommended immediate referral to the ED for further evaluation. He has had no other symptoms, she de nies any numbness tingling, weakness, dizziness, balance issues, gait issues, headache, or vomiting. No chest pain, palpitations, shortness of breath. She has never had a stroke or blood clot. States she takes lisinopril for blood pressure and is always in the 130s at her doctor appointments. In the ED, she presented initially very hypertensive with a BP recorded at 208/90, heart rate 59. Head CT showed a small hyperdense focus in the region of the proximal left MCA which could represent an acute thrombus. Labs largely unremarkable, no electrolyte abnormalities, renal function at baseline. UA with >30 WBCs, 4+ bacteria, 3+ leuk esterase. Allergies Allergy/AdvReac Type Severity Reaction Status Date / Time adhesive Allergy Intermediate RASH Verified 04/13/22 18:34 capsaicin AdvReac Mild GI upset Verified 04/13/22 18:34 diclofenac AdvReac Mild GI upset Verified 04/13/22 18:34 Diclopak AdvReac Mild GI upset Verified 01/10/17 00:12 oxycodone AdvReac Mild GI upset Verified 04/13/22 18:34 pregabalin AdvReac Mild GI upset Verified 04/13/22 18:34 Home Medications Medication Instructions Recorded Confirmed Type gabapentin 100 mg capsule 100 mg PO TID 07/27/18 04/13/22 History meloxicam 15 mg tablet 15 mg PO QAM 07/27/18 04/13/22 History simvastatin 20 mg tablet 20 mg PO PM 07/27/18 04/13/22 History calcium carbonate 600 mg-vitamin 1 tab PO DAILY 04/13/22 04/13/22 History D3 10 mcg (400 unit) tablet (Calcium 600 + D(3)) lisinopril 5 mg tablet 5 mg PO DAILY 04/13/22 04/13/22 History multivitamin 1 tab PO DAILY 04/13/22 04/13/22 History oxybutynin chloride 5 mg tablet 5 mg PO BID 04/13/22 04/13/22 History pantoprazole 40 mg tablet,delayed 40 mg PO DAILY 04/13/22 04/13/22 History release Past Med/Surg History Medical History Gallbladder disease Osteoarthritis of knees, bilateral Surgical History History of back surgery History of right hip replacement History of shoulder surgery Family History Mother , age 75 of uterine cancer Uterine cancer Father , age 65 of an [place] Myocardial infarction Social History Smoking Status: Never smoker Hx Alcohol Use: No Hx Substance Use: No Preferred Language: [place] Communication Ability: Effective Well Surveying Engineer Required: No Beliefs That Will Affect Care: None marital status: Current Living Situation: Spouse current occupational status: retired 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, 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64 Other Information That Helps Us Care for You: No Feels Safe at Home: Yes Safety Concerns: Feels Safe At This Time Assistive Devices: Cane and Walker Review of Systems Review of Systems: Constitutional: No fever/chills, weakness, fatigue, myalgias, anorexia, night sweats Eyes: red spot in both eyes on and off since Monday ENT: normal hearing, no trouble swallowing Respiratory: No cough, sputum, dyspnea at rest or on exertion Cardiovascular: No chest pain, tightness or palpitations Abdomen: No pain, nausea, vomiting, diarrhea or constipation : Denies dysuria, hematuria, increased urgency/frequency, urinary retention Musculoskeletal: No joint pain, calf pain, swelling Neurologic: No weakness, numbness/tingling, or balance problems Psychiatric: No anxiety or depression Skin: No rash or itch Physical Exam Physical Exam: General: awake, alert, no apparent distress Head: Normocephalic, atraumatic ENT: PERRL, EOMI, no pharyngeal exudate, mucous membranes moist Chest: Clear to auscultation, on room air, no adventitious breath sounds Cardiac: Regular rate and rhythm, no murmur, no JVD, normal peripheral pulses, good capillary refill Abdominal: NABS x 4 quadrants, soft, nontender to palpation, no rebound, guarding or tenderness Extremities: Normal inspection, no peripheral edema or erythema, calfs nontender to palpation Psych: Normal mood and affect Neuro: AAO x 3, strength intact bilaterally and rated 5/5, no motor deficits, speech is clear, no peripheral sensory deficits Skin: no rash or erythema Results & Data Results & Data ([facility]) Vital Signs (Past 12 Hours) Vital Signs Temp Pulse Resp BP Pulse Ox O2 Del Method 04/13/22 15:33 36.8 C 59 L 18 208/90 H 98 Room Air Laboratory Results Abnormal lab results 04/13/22 04/13/22 Range/Units 16:20 17:48 BUN 26 H (6-23) mg/dl BUN/Creatinine Ratio 27.1 H (10-20) Urine Appearance Cloudy A (Clear) Urine Ketones Trace H (Negative) Urine Blood Trace H (Negative) Ur Leukocyte Esterase 3+ H (Negative) Urine WBC (Auto) >30 H (0-5) /hpf U Epithel Cells (Auto) 5-10 H (0-5) /lpf Urine Bacteria (Auto) 4+ H (Negative) Diagnostic Findings Chest X-Ray 04/13/22 15:37 SINGLE VIEW CHEST CLINICAL HISTORY: Hypertension. FINDINGS: An AP, portable, upright chest radiograph is compared to study dated 10/14/2010. The heart is enlarged noting atherosclerotic calcification of the thoracic aorta. The pulmonary vasculature is noncongested. Chronic interstitial thickening is similar to previous. There is elevation of the right hemidiaphragm with bibasilar scarring/atelectasis. The lungs and pleural spaces are otherwise clear. No pneumothorax is seen. The skeletal structures are osteopenic. The bony thorax is grossly intact. A left shoulder arthroplasty is in place. Thoracolumbar spinal fusion hardware is in place. Cholecystectomy clips are noted in the right upper quadrant. IMPRESSION: Cardiomegaly with no active disease in the chest. ACT 112: Negative or not required by law. Electronically signed by: Gio Daily M.D. 04/13/2022 5:[address] 04/13/22 15:[address] DOSE: 614.27 mGy.cm HISTORY: Hypertension, vision changes TECHNIQUE: Multiaxial CT images of the head were performed without the use of intravenous contrast. Automated exposure control was utilized for this study. A dose lowering technique was utilized adhering to the principles of ALARA. Comparison: None. Findings: The paranasal sinuses and mastoid air cells are clear. The calvarium and skull base are intact. There is no mass, hematoma, midline shift. No definite acute infarct identified. White matter hypodensity is nonspecific but suggestive of microvascular ischemic change. The ventricles and sulci demonstrate mild age-related involutional changes. 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 Best seen on axial image 14 there appears to be a hyperdense focus in the region of the proximal left MCA. This could represent an acute thrombus. Impression: Small hyperdense focus in the region of the proximal left MCA which could represent an acute thrombus. Follow-up brain MRI recommended to exclude the possibility of an acute left MCA territory infarct. ACT 112: Negative or not required by law. Electronically signed by: Larry Torres M.D. 04/13/2022 4:54 PM ECG Additional Comments: Normal sinus rhythm Normal ECG Code Status & VTE Plan Code Status Full code Supervising Physician Co-Signing Physician Notes Attending addendum: I have physically seen this patient, have supervised the OMAIRA's activities, and agree with the H&P unless as otherwise noted. Assessment and Plan: CVA versus TIA- CT of head suggestive of hyperdense focus in the region of the proximal left MCA which could represent an acute thrombus CTA head and neck reports that this area is likely artifactual. 75% stenosis of right ICA Stroke without tPA order set The patient will be admitted to telemetry for serial cardiac enzymes, serial EKG's, cardiac rhythm monitoring and a 2-D echocardiogram with Dopplers. Order MRI brain without contrast Check a hemoglobin A1c and fasting lipid panel Consult PT/OT Permissive hypertension Avoidance of hypotension as noted in note. Patient did have a significant response to 10 mg of IV hydralazine Continue IV fluids overnight Urinary tract infection- Enterococcus and culture Ceftriaxone IV as noted Remaining orders and notations as noted PG Care Time/CCT Total # of Minutes Spent Total Time Spent with Patient: Total time spent is greater than 50% in coordination of care (as documented) at patient's floor/unit and/or counseling patient: Coding Level of Care Code 69790 Initial Inpt Care Lvl 3 Diagnoses CVA (cerebral vascular accident) I63.9 Hypertensive emergency I16.1 Vision disturbance H53.9 UTI (urinary tract infection) due to Enterococcus N39.0; B95.2 Hyperlipidemia E78.5 GERD (gastroesophageal reflux disease) K21.9 Overactive bladder N32.81 Neuropathy G62.9 Osteoporosis M81.0 Osteoarthritis of knees, bilateral M17.0
[2022-04-13 18:55] LABS: Troponin I High Sensitivity 11.6 pg/ml (0-14)
[2022-04-13] MEDS ORDERED: NORMOSOL-R 500 ML IV ONE (19:41)
[2022-04-13] MEDS ORDERED: OPTIRAY 320 125ml IV ONE (19:48)
[2022-04-13] MEDS ORDERED: LACTATED RINGER'S 1,000 ML IV SCH (20:15)
--- NOTE | 2022-04-13 20:17 | CT Scan Report ---
CT ANGIOGRAM OF THE BRAIN; CT ANGIOGRAM OF THE NECK CLINICAL HISTORY: Headache. Hypertension. Abnormal unenhanced CT of the brain. COMPARISON STUDY: Unenhanced CT of the brain performed the same day 04/13/2022. TECHNIQUE: Following the IV administration of 120 of Optiray 320, CT angiogram of the head and neck w as performed from the aortic arch to the vertex. Images are reviewed in the axial, sagittal, and gabriel nal planes. 3-D MIPS images are created and assessed. IV contrast was administered without complicati on. All measurements were calculated based on NASCET criteria. A dose lowering technique was utilize d adhering to the principles of ALARA. CT DOSE: 387.03 mGy.cm FINDINGS: Brain parenchyma: There is age-related involutional change noting moderate to advanced subcortical an d periventricular microangiopathic disease. There is no evidence of hemorrhage, mass effect, or acute territorial ischemia noting angiographic phase technique. A chronic lacunar infarct is noted in the right centrum semiovale. There is no evidence of enhancing mass lesion on the angiogram phase images. The ventricles, sulci, and cisterns are prominent secondary to involutional change. Palm-white matte r differentiation is preserved. No extra-axial fluid collection is seen. Thoracic aorta: Visualized portions of the thoracic aorta are normal in caliber. The aortic arch demo nstrates standard 3-vessel anatomy. Right carotid arterial system: The right common carotid artery is widely patent. There is advanced at herosclerotic plaque in the carotid bulb. This causes approximately 75% focal stenosis at the origin of the right internal carotid artery seen on axial image #110. The remainder of the right internal ca rotid artery is widely patent, as is the right external carotid artery. Left carotid arterial system: The left common carotid artery is widely patent, as are the left internal medicine doctor al and external carotid arteries. Vertebral arteries: The vertebral arteries are widely patent bilaterally noting left-sided dominance. Subclavian arteries: Widely patent bilaterally. Intracranial vasculature: There is atherosclerotic calcification of the cavernous carotid arteries. T he internal carotid arteries are patent at the skull base, as are the anterior and middle cerebral ar teries bilaterally. There is a right posterior communicating artery. The vertebrobasilar system and p osterior cerebral arteries are widely patent. The left vertebral artery is dominant. There is no aneu rysm, high-grade stenosis, or focal vessel cut off seen throughout the intracranial circulation. Jugular veins: Patent bilaterally. Dural sinuses: Patent. Lung apices: Partially visualized upper lobe lung parenchyma appears clear. Soft tissues: The visualized pharyngeal soft tissues are normal in appearance noting angiographic pha se technique. The oropharyngeal airway appears widely patent. The salivary and thyroid glands are nor mal in appearance. No cervical lymphadenopathy is seen. Skeletal structures: The skeletal structures are osteopenic. The calvarium appears intact. The cervic al spine is maintained noting multilevel spondylosis. No lytic or blastic lesion is seen. Orbits: The bony orbits are intact. Orbital contents are normal as visualized noting bilateral ocular lens implants. Sinuses and mastoids: The paranasal sinuses are clear. The mastoid air cells are well pneumatized. IMPRESSION: 1 There is no evidence of hemorrhage, mass effect, or acute territorial ischemia noting angiographic phase technique. 2. Unremarkable CT angiogram of the brain. 3. There is approximately 75% focal stenosis at the origin of the right internal carotid artery. 4. Otherwise unremarkable CT angiogram of the neck. 5. Hyperdensity questioned involving the left middle cerebral artery on the unenhanced examination wa s artifactual. ACT 112: Negative or not required by law. Electronically signed by: Gio Daily M.D. 04/13/2022 8:15 PM
[2022-04-13 21:30] LABS: C Reactive Protein 3.76 mg/dl (0-0.5)
[2022-04-13 21:37] LABS: Troponin I High Sensitivity 61.2 pg/ml (0-14)
[2022-04-13] MEDS ORDERED: ONDANSETRON INJ 2 MG/ML 2 ML VIAL IV PRN (22:41)
[2022-04-13] MEDS ORDERED: ACETAMINOPHEN 325 MG TAB PO PRN (22:41)
[2022-04-13] MEDS ORDERED: POLYETHYLENE (MIRALAX) 17 GM PACK PO PRN (22:41)
[2022-04-13] MEDS ORDERED: PHARMACIST DISCHARGE MED REC CONSULT PRN (22:41)
[2022-04-13] MEDS: SIMVASTATIN 20 MG TAB PO SCH (23:57)
[2022-04-13] MEDS: OXYBUTYNIN CHLORIDE 5 MG TAB PO SCH (23:57)
[2022-04-13] MEDS: GABAPENTIN 100 MG CAP PO SCH (23:57)
[2022-04-13] MEDS: cefTRIAXone SODIUM 1,000 MG in DEXTROSE 5% 50 ML IV SCH (23:57)
[2022-04-14] MEDS: cefTRIAXone SODIUM 1,000 MG in DEXTROSE 5% 50 ML IV SCH ×2 (00:07→23:27)
[2022-04-14 06:44] LABS: Prothrombin Time 10.9 Seconds (9.0-12.0)
[2022-04-14 06:59] LABS: BUN Creatinine Ratio 25.3 (10-20); Chol HDL Ratio 2.2 (0-5); Creatinine Clr Calc Pharmacy 39.9 ml/min; Potassium 3.8 mmol/L (3.5-5.1); Troponin I High Sensitivity 22.2 pg/ml (0-14)
[2022-04-14 07:07] LABS: Basophils # (auto) 0.05 K/uL (0-0.2); Basophils % (auto) 0.7 %; Eosinophils % (auto) 1.4 %; Estimated Average Glucose 126 mg/dl; Hematocrit (blood only) 38.5 % (34.1-44.9); Hemoglobin 12.8 g/dl (12.0-16.0); Immature Granulocytes # (auto) 0.02 K/uL (0.00-0.02); Immature Granulocytes % (auto) 0.3 %; Lymphocytes # (auto) 2.18 K/uL (1.2-3.4); Lymphocytes % (auto) 30.7 %; Mean Corpuscular Hgb Conc 33.2 g/dL (32.0-36.0); Mean Corpuscular Volume 90.2 fL (80.0-100.0); Monocytes # (auto) 0.72 K/uL (0.24-0.82); Monocytes % (auto) 10.1 %; Neutrophils # (auto) 4.03 K/uL (1.4-6.5); Neutrophils % (auto) 56.8 %; Platelet Count 173 K/uL (130-400); RDW Coefficient of Variation 13.9 % (11.5-14.5); RDW Standard Deviation 45.8 fL (36.4-46.3); Red Blood Count 4.27 M/uL (3.93-5.22)
--- NOTE | 2022-04-14 08:19 | Neurology Consultation ---
Date of Consultation April 14, 2022 Assessment & Plan (1) Hypertensive emergency: (2) Vision disturbance: (3) Neuropathy: (4) Gait disturbance: Plan Patient had 2 episodes of visual disturbance consisting of a background of her seeing red and some dark spots lasting intermittently in the middle of the night 2 nights in a row about 6 days ago. She has not had any visual disturbance since and ophthalmological examination apparently was unremarkable ( I do not have those records ). The patient has no focal findings on neurologic examination good meningeal signs, or encephalopathy. Her blood pressure was markedly elevated and remains elevated. I believe her visual symptoms were due to hypertension. MRI of the brain shows no evidence of stroke but does show old small vessel ischemia and age-related changes. 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 Her risk factors for stroke therefore are hypertension, dyslipidemia (which is quite controlled on low-dose simvastatin ) and advancing age. She has no history of cigarette smoking, diabetes, or heart disease. 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 Recommendations: 1. 81 mg aspirin tablet daily. 2. Control blood pressure as you are doing aiming for a mean arterial pressure of 100. Avoid over-correction. 3. I do not believe there is any indication for surgical consult for the carotid artery stenosis. I would follow this over time however. 4. Keep simvastatin 20 mg daily. There is no indication to increase this and she is probably at risk for bleeding with high-dose statins. 5. Increase activity as able. She may do better with a 4 wheeled walker than a cane for ambulation. 6.Awaiting echocardiogram and final MRI report. Overall, I spent a total of 60 minutes with this case including review of records, review of MRI and CT films, direct evaluation the patient at bedside, and discussion of the case with the patient and RN at bedside, and Dr. Balderas, including differential diagnosis and treatment options. History of Present Illness Reason for Consultation: Patient is a 81-year-old, was asked to see at the request of Dr. Medel, for neurologic consultation regarding significant hypertension and possible stroke. Requesting Physician: Dr. Medel Attending Physician: Norberto Balderas History of Present Illness This patient has a history of hypertension and dyslipidemia being on low-dose lisinopril and simvastatin for as much as 10 years. She has a history of osteoporosis, degenerative T7 scoliosis, and spinal binta nosis post L3 through L5 laminectomy and [place] [address] Dillon, followed his 2nd surgery in 2010 for L2-3 spinal stenosis, with removal of previous instrumentation and re-fusion throughout the entire lumbar spine. She is also post left total shoulder arthroplasty by Dr. Viera in 2016 and a right total hip replacement. Patient has been on low-dose gabapentin 100 mg 3 times a day and meloxicam 15 mg a day for chronic pain control regarding her joints and spine. she has been fairly stable with her blood pressure as far she is aware. On the evening of April 08, she went to bed as usual and woke up sometime after midnight with dark spots in her vision bilaterally and her visual campbell had a red background. Everything appeared "read". She went back to bed and woke up without issue. After going to bed on the evening April 09, she woke up to go to the bathroom again in the middle the night and had the same vision issues. Going back to sleep she woke up the next morning without symptoms. They have not returned since. She saw Dr. Cruz, Ophthalmology, on April 13 and he informed with her eyes were unremarkable but he was concerned about her elevated blood pressure and sent her to the emergency room. She arrived to the emergency room April 13 at 3:33 p.m. with a temperature of 36.8, pulse 59 and regular, respiratory rate 18, blood pressure 208/90, and O2 saturation 98%. She was asymptomatic otherwise and her neurologic examination was unremarkable without focal findings, meningeal signs, or encephalopathy. CBC was unremarkable. Chem profile was unremarkable and sed rate was 26. Urinalysis was unremarkable. CRP was elevated at 3.76 and troponin was elevated at 61. CT scan of the head showed no acute changes except for a possible left middle cerebral artery lesion suggesting thrombus. CT angiography of the head and neck showed that the finding on CT scan of the head was artifactual and there was no stenoses in the major vessels of the head. There was, however, 75% stenosis at the origin of the right internal carotid artery. Otherwise there were no significant vascular stenoses. MRI of the brain was obtained and final report is pending but there seems to be no evidence of stroke. She has mild generalized atrophy and moderate old small vessel ischemia. chest x-ray showed cardiomegaly Blood pressure has varied in the emergency room and since admission. Currently it is 144/113. She denies pain, headaches, blurry vision, dizziness, double vision, redness to her vision, weakness, numbness, or confusion. She does have some history of urinary incontinence and takes oxybutynin. She has a history of abnormal gait and uses a cane. Allergies Allergy/AdvReac Type Severity Reaction Status Date / Time adhesive Allergy Intermediate RASH Verified 04/13/22 18:34 capsaicin AdvReac Mild GI upset Verified 04/13/22 18:34 diclofenac AdvReac Mild GI upset Verified 04/13/22 18:34 Diclopak AdvReac Mild GI upset Verified 01/10/17 00:12 oxycodone AdvReac Mild GI upset Verified 04/13/22 18:34 pregabalin AdvReac Mild GI upset Verified 04/13/22 18:34 Home Medications Medication Instructions Recorded Confirmed Type gabapentin 100 mg capsule 100 mg PO TID 07/27/18 04/13/22 History meloxicam 15 mg tablet 15 mg PO QAM 07/27/18 04/13/22 History simvastatin 20 mg tablet 20 mg PO PM 07/27/18 04/13/22 History calcium carbonate 600 mg-vitamin 1 tab PO DAILY 04/13/22 04/13/22 History D3 10 mcg (400 unit) tablet (Calcium 600 + D(3)) lisinopril 5 mg tablet 5 mg PO DAILY 04/13/22 04/13/22 History multivitamin 1 tab PO DAILY 04/13/22 04/13/22 History oxybutynin chloride 5 mg tablet 5 mg PO BID 04/13/22 04/13/22 History pantoprazole 40 mg tablet,delayed 40 mg PO DAILY 04/13/22 04/13/22 History release Patient History Medical History Gallbladder disease Osteoarthritis of knees, bilateral Surgical History History of back surgery History of right hip replacement History of shoulder surgery Family History Mother , age 75 of uterine cancer Uterine cancer Father , age 65 of an [place] Myocardial infarction Social History Smoking Status: Never smoker Hx Alcohol Use: No Hx Substance Use: No Preferred Language: Bulgarian Communication Ability: Effective Teacher Of The Emotionally Disturbed Required: No Beliefs That Will Affect Care: None Current Living Situation: Spouse current occupational status: retired 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, 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64 Other Information That Helps Us Care for You: No Feels Safe at Home: Yes Safety Concerns: Feels Safe At This Time Assistive Devices: Cane and Glasses Review of Systems Constitutional: no fever, no fatigue and no weakness Eyes: no diplopia, no eye pain and no worsening vision Ear, Nose, Mouth, Throat: + hearing loss; no ear pain, no tinnitus, no dizziness, no snoring, no hoarseness and no dysphagia Respiratory: no cough and no dyspnea Cardiovascular: no chest pain, no palpitations and no lightheadedness Gastrointestinal: no abdominal pain, no nausea and no vomiting Genitourinary: no dysuria, no urinary frequency and no urinary incontinence Musculoskeletal: + back pain and + joint pain; no neck pain, no radicular pain and no myalgia Integumentary: no rash and no lesions Neurologic: + gait abnormality; no localized weakness, no generalized weakness, no tingling, no numbness, no tremor(s), no abnormal movements, no headache(s), no abnormal speech, no confusion and no memory loss Psychiatric: no depression, no irritability, no anxiety, no difficulty concentrating, no confusion and no hallucinations Endocrine: no fatigue and no flushing Hematologic / Lymphatic: no easy bleeding and no easy bruising Allergy / Immunological: no urticaria and no problem reported Exam (Neuro) Physical Exam: The patient is left-handed. The patient is awake, alert, and attentive. Speech is normal without any aphasia or dysarthria. The patient can name objects, repeat phrases, and has normal spontaneous speech. Mentation and thought processes are intact, with orientation to person, place and time, and normal fund of knowledge. Attention and concentration are normal. Mood and affect are normal and appropriate. General appearance and grooming are normal. Short and long-term memory seem intact to conversation. Pupils are 3 mm bilaterally and reactive to light. Extraocular eye muscles are intact without nystagmus. Visual acuity and visual campbell seem normal grossly to confrontation. There are no deficits to sensation in the face in all 3 distributions of the fifth cranial nerve bilaterally. Corneal reflexes are positive bilaterally. F acial strength and symmetry was normal bilaterally. Hearing is decreased bilaterally. Palate moves well without asymmetry. There is normal sternocleidomastoid and trapezius (shoulder shrug) strength bilaterally. Tongue is midline with good strength bilaterally. Neck has a full range of motion without discomfort. There are no cervical bruits bilaterally. There are no cranial or ocular bruits. Heart is without murmur. There is a regular rhythm and rate. Cervical, thoracic, and lumbar spine are nontender to palpation. Gait was not tested because her stance was so poor. She could not put her feet together and stand eyes open. She was very cautious in attempting a step. Stance sitting up with feet dangling was quite normal. With outstretched arms there is no drift. There are no resting, postural, or action tremors. There is no ataxia with finger to nose testing. There is good facility in the hands. No other abnormal involuntary movements are noted. Motor strength is 5/5 diffusely in the arms bilaterally including deltoids, biceps, triceps, brachioradialis, wrist flexors and extensors, clipper and turner, and intrinsic hand muscles. Motor strength is 5/5 diffusely in the legs bilaterally including hip flexors, quadriceps, hamstrings, gastrocnemius, tibialis anterior, tibialis posterior, and Peroneii muscles. Toe extensors are normal and there is good bulk in the extensor digitorum brevis muscles bilaterally. The limbs have good tone without rigidity or spasticity. There is no atrophy noted in the muscles. Muscle bulk is normal, there is no tenderness to palpation, no myotonia to percussion, and no fasciculations seen. Sensory examination is intact to touch and pin throughout all 4 limbs diffusely. Reflexes are 2/4 in the biceps, triceps, brachioradialis, and quadriceps tendons bilaterally. Achilles tendon reflexes were absent bilaterally. There is no clonus bilaterally. Toes are downgoing with plantar stimulation bilaterally. Peripheral pulses are present and of normal quality distally in all 4 limbs. There is no peripheral edema noted in the limbs. Results & Data ([facility]) Vital Signs (Past 12 Hours) Vital Signs Temp Pulse Pulse Resp BP BP Pulse Ox 04/14/22 07:16 36.7 C 65 18 144/113 H 95 04/14/22 03:37 36.9 C 67 18 133/65 99 04/13/22 22:30 04/14/22 00:13 36.9 C 80 18 169/74 H 96 04/14/22 00:11 75 04/13/22 22:10 37 C 75 20 169/74 H 96 04/13/22 21:31 74 18 140/53 L 97 04/13/22 21:00 69 17 97 04/13/22 20:50 70 26 H 97 04/13/22 20:45 156/85 H 04/13/22 20:45 70 23 97 04/13/22 20:43 88 L 04/13/22 20:30 66 22 92 04/13/22 20:30 151/70 H 04/13/22 20:20 67 18 04/13/22 20:17 68 21 04/13/22 20:17 130/51 L 04/13/22 20:10 70 26 H 95 04/13/22 20:00 80 20 97 04/13/22 20:00 154/101 H 04/13/22 19:57 78 20 98 04/13/22 19:57 162/66 H O2 Del Method 04/14/22 07:16 Room Air 04/14/22 03:37 Room Air 04/13/22 22:30 Room Air 04/14/22 00:13 Room Air 04/14/22 00:11 04/13/22 22:10 Room Air 04/13/22 21:31 Room Air 04/13/22 21:00 04/13/22 20:50 04/13/22 20:45 04/13/22 20:45 04/13/22 20:43 04/13/22 20:30 04/13/22 20:30 04/13/22 20:20 04/13/22 20:17 04/13/22 20:17 04/13/22 20:10 04/13/22 20:00 04/13/22 20:00 04/13/22 19:57 04/13/22 19:57 PG Care Time/CCT Total # of Minutes Spent Total Time Spent with Patient: Total time spent is greater than 50% in coordination of care (as documented) at patient's floor/unit and/or counseling patient: Coding Level of Care Code 39725 Initial Inpt Care Lvl 3 Diagnoses Hypertensive emergency I16.1 Vision disturbance H53.9 Neuropathy G62.9 Gait disturbance R26.9 Time Spent (min) 60
[2022-04-14] MEDS: OXYBUTYNIN CHLORIDE 5 MG TAB PO SCH ×2 (09:05→20:48)
[2022-04-14] MEDS: GABAPENTIN 100 MG CAP PO SCH ×3 (09:06→20:48)
[2022-04-14] MEDS: CALCIUM 600MG + VIT D 400 IU TAB PO SCH (09:06)
[2022-04-14] MEDS: PANTOprazole 40 MG TAB PO SCH (09:06)
--- NOTE | 2022-04-14 11:20 | Magnetic Resonance Report ---
Brain MRI WITHOUT CONTRAST HISTORY: Intermittent visual disturbances. Hypertension. Acute CVA TECHNIQUE: Multiplanar multisequence MRI of the brain was performed without the use of contrast. COMPARISON STUDY: Head CT 04/13/2022. FINDINGS: No areas of restricted diffusion to suggest acute infarction. Moderate central canal narrow ing at C3-C4 due to a broad-based posterior disc osteophyte complex. Otherwise, the midline structure s are intact. The ventricles and sulci demonstrate mild age-related involutional changes. There is no mass, hematoma, midline shift. Patchy periventricular white matter T2 hyperintensity is nonspecific but favors mild to moderate microvascular ischemic changes. 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 The major vascular flow-voids at the skull base are well-maintained. Evidence for prior b ilateral lens replacement. The paranasal sinuses and mastoid air cells are clear. IMPRESSION: No acute intracranial abnormality. Scattered foci of T2 hyperintensity seen within the periventricula r and subcortical white matter are nonspecific but favor microvascular ischemic change. ACT 112: Negative or not required by law. Electronically signed by: Larry Torres M.D. 04/14/2022 11:19 AM
[2022-04-14] MEDS ORDERED: lisinopril 10 MG TAB PO SCH (12:30)
[2022-04-14] MEDS ORDERED: hydroCHLOROthiazide 25 MG TAB PO STA (16:20)
--- NOTE | 2022-04-14 17:58 | XCELERA ---
[id number] \\[id number]
[2022-04-14] MEDS: SIMVASTATIN 20 MG TAB PO SCH (20:48)
[2022-04-14] MEDS: lisinopril 10 MG TAB PO SCH (20:48)
--- NOTE | 2022-04-14 21:05 | Hospitalist Progress Note ---
Date of Service April 14, 2022 Assessment & Plan (1) Hypertensive emergency: Plan: Peak BP 256/95 while in the ER. Presented with visual disturbance (see below). BPs are improved but still quite high and not optimal. Plan - * initially increased lisinopril to 10mg daily without any appreciable effect on BP; thus, increased to 10mg BID * add HCTZ 12.5mg daily - this will help with edema & BP * add low-dose coreg next if additional BP control needed * check TSH in am * check renin/yinka levels in am * consider renal artery dopplers * await echo results (2) Vision disturbance: Plan: Intermittent red spots in both eyes mostly at night since Monday of last week CVA w/u negative; CVA NOT found on MRI brain By pt's report her eye exam just prior to admission was wnl Sed rate/crp wnl -- temporal arteritis unlikely No h/o migraine headache Seen by neurology today - felt this issue was likely 2nd to #1 above. Thus, improved BP control needed. (3) Hyperlipidemia: Plan: Continue simvastatin 20 mg daily LDL 56 and thus at goal No changes at this time (4) GERD (gastroesophageal reflux disease): Plan: Continue pantoprazole 40mg daily (5) Overactive bladder: Plan: Continue oxybutynin 5 mg BID (6) Neuropathy: Plan: Continue gabapentin 100 mg TID (7) Osteoarthritis of knees, bilateral: Plan: Had been taking tramadol 50 mg BID and meloxicam 15 mg daily at home. Latter could be making BPs worse. Holding both meds. (8) Elevated troponin: Plan: Likely myocardial demand ischemia in setting of #1 above. No evidence of ACS. Await echo. (9) UTI (urinary tract infection): Plan: Cont rocephin. Change to PO abx once full culture has returned. (10) Chronic kidney disease, stage 3a: Plan: Baseline CrCl 40s/50s BMP am (11) DVT prophylaxis: Plan: if patient stays beyond tomorrow will add once daily lovenox (12) Stenosis of right internal carotid artery: Plan: 75%. nothing acute to do at this time. however, cont statin, and control the BP. should be on low-dose asa 81mg daily. will need surveillance of this issue as outpatient. Plan updated at bedside case d/w Dr Sue from neurology Admission and Anticipated Discharge Date Admission Date: April 13, 2022 Subjective patient without complaints at bedside understandably the patient was upset because they were supposed to travel tomorrow to attend a family reunion this weekend she is sad she likely won't be able to attend this event visual disturbance is fully resolved she did confirm that she had full eye exam by her eye doctor just prior to admission tele overnight wnl Review of Systems Review of Systems: gen - no fever, good appetite cv - no chest pain; edema present LLE>RLE for several months pulm - no cough or dyspnea GI - no abd pain, nausea, emesis Physical Exam Physical Exam: gen - NAD, not anxious neck - no JVD mouth - MMM heart - RRR, s1 s2, no murmur lungs - scant crackles bases, CTA b/l otherwise abd - soft NT ND BS+ ext - 1+ edema, pulses 2+ b/l psych - a/o x 3 Results & Data Results & Data ([facility]) Vital Signs (Past 12 Hours) Vital Signs Temp Pulse Pulse Resp BP Pulse Ox O2 Del Method 04/14/22 19:31 36.7 C 60 20 185/84 H 96 Room Air 04/14/22 18:42 206/76 H 04/14/22 16:04 36.9 C 69 20 238/86 H 99 Room Air 04/14/22 14:49 71 04/14/22 12:04 36.9 C 67 18 193/74 H 94 Room Air 04/14/22 09:23 73 Laboratory Results Laboratory Results - last 24 hr 04/13/22 04/13/22 04/14/22 16:20 18:21 05:38 WBC 7.10 RBC 4.27 Hgb 12.8 Hct 38.5 MCV 90.2 MCH 30.0 MCHC 33.2 RDW Std Deviation 45.8 RDW Coeff of Ruby 13.9 Plt Count 173 MPV 11.0 Immature Gran % (Auto) 0.3 Neut % (Auto) 56.8 Lymph % (Auto) 30.7 Davidson % (Auto) 10.1 Eos % (Auto) 1.4 Baso % (Auto) 0.7 Neut # (Auto) 4.03 Lymph # (Auto) 2.18 Davidson # (Auto) 0.72 Eos # (Auto) 0.10 Baso # (Auto) 0.05 Immature Gran # (Auto) 0.02 ESR 26 PT INR Sodium Potassium Chloride Carbon Dioxide Anion Gap BUN Creatinine Est Cr Clr Drug Dosing Est GFR ( Amer) Est GFR (Non-Af Amer) BUN/Creatinine Ratio Glucose Estimat Average Glucose Hemoglobin A1c Calcium Troponin I High Sens 61.2 H* D C-Reactive Protein 3.76 H Triglycerides Cholesterol LDL Cholesterol, Calc VLDL Cholesterol, Calc HDL Cholesterol Cholesterol/HDL Ratio 04/14/22 04/14/22 04/14/22 05:38 05:38 05:38 WBC RBC Hgb Hct MCV MCH MCHC RDW Std Deviation RDW Coeff of Ruby Plt Count MPV Immature Gran % (Auto) Neut % (Auto) Lymph % (Auto) Davidson % (Auto) Eos % (Auto) Baso % (Auto) Neut # (Auto) Lymph # (Auto) Davidson # (Auto) Eos # (Auto) Baso # (Auto) Immature Gran # (Auto) ESR PT 10.9 INR 1.0 Sodium 140 Potassium 3.8 Chloride 107 Carbon Dioxide 26 Anion Gap 7 BUN 24 H Creatinine 0.95 Est Cr Clr Drug Dosing 39.9 Est GFR ( Amer) 66.0 Est GFR (Non-Af Amer) 57.0 BUN/Creatinine Ratio 25.3 H Glucose 97 Estimat Average Glucose 126 Hemoglobin A1c 6.0 H Calcium 9.0 Troponin I High Sens 22.2 H D C-Reactive Protein Triglycerides 59 Cholesterol 123 LDL Cholesterol, Calc 56 VLDL Cholesterol, Calc 12 HDL Cholesterol 55 Cholesterol/HDL Ratio 2.2 04/14/22 04/14/22 05:38 11:49 WBC RBC Hgb Hct MCV MCH MCHC RDW Std Deviation RDW Coeff of Ruby Plt Count MPV Immature Gran % (Auto) Neut % (Auto) Lymph % (Auto) Davidson % (Auto) Eos % (Auto) Baso % (Auto) Neut # (Auto) Lymph # (Auto) Davidson # (Auto) Eos # (Auto) Baso # (Auto) Immature Gran # (Auto) ESR PT INR Sodium Potassium Chloride Carbon Dioxide Anion Gap BUN Creatinine Est Cr Clr Drug Dosing Est GFR ( Amer) Est GFR (Non-Af Amer) BUN/Creatinine Ratio Glucose Estimat Average Glucose Hemoglobin A1c Calcium Troponin I High Sens Cancelled 19.5 H C-Reactive Protein Triglycerides Cholesterol LDL Cholesterol, Calc VLDL Cholesterol, Calc HDL Cholesterol Cholesterol/HDL Ratio PG Care Time/CCT Total # of Minutes Spent Total Time Spent with Patient: Total time spent is greater than 50% in coordination of care (as documented) at patient's floor/unit and/or counseling patient: Coding Level of Care Code 06684 Subseq Hosp Care Lvl 3 Diagnoses Hypertensive emergency I16.1 Vision disturbance H53.9 Hyperlipidemia E78.5 GERD (gastroesophageal reflux disease) K21.9 Overactive bladder N32.81 Neuropathy G62.9 Osteoarthritis of knees, bilateral M17.0 Elevated troponin R77.8 UTI (urinary tract infection) N39.0 Chronic kidney disease, stage 3a N18.31 DVT prophylaxis Z29.9 Stenosis of right internal carotid artery I65.21
[2022-04-15 06:30] LABS: BUN Creatinine Ratio 26.2 (10-20); Creatinine Clr Calc Pharmacy 35.4 ml/min; Est GFR (African American) 57.2 ml/min; Est GFR (Non-African American) 49.3 ml/min; Potassium 3.8 mmol/L (3.5-5.1)
[2022-04-15 06:45] LABS: Thyroid Stimulating Hormone 6.011 uIu/ml (0.300-4.500)
[2022-04-15 07:21] LABS: T4 Free Thyroxine 1.2 ng/dl (0.61-1.60)
--- NOTE | 2022-04-15 08:26 | Neurology Progress Note ---
Date of Service April 15, 2022 Assessment & Plan (1) Hypertensive emergency: (2) Vision disturbance: (3) Neuropathy: (4) Gait disturbance: Plan About 1 week ago, the patient had 2 episodes of visual disturbance, consisting of a reddish background in both eyes with some dark spots, occurring in the middle of the night, 2 nights in a row. She has not had any visual disturbance since and ophthalmological examination 04-13 apparently was unremarkable ( I do not have those records ). Since admission, the patient has no focal findings on neurologic examination, no meningeal signs, or encephalopathy. Her blood pressure was markedly elevated and remains elevated. I believe her visual symptoms were due to hypertension. MRI of the brain shows no evidence of stroke but does show old small vessel ischemia and age-related changes. 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 Her risk factors for stroke are hypertension, dyslipidemia (which is quite controlled on low-dose simvastatin ), and advancing age. She has no history of cigarette smoking, diabetes, or heart disease. Patient has a gait disturbance which is likely multifactorial from her back issues and a sensory polyneuropathy. Recommendations: 1. 81 mg aspirin tablet daily. 2. Control blood pressure as you are doing aiming for a mean arterial pressure of 100. Avoid over-correction. 3. I do not believe there is any indication for surgical consult for the carotid artery stenosis. I would follow this over time however. 4. Keep simvastatin 20 mg daily. There is no indication to increase this and she is probably at risk for bleeding with high-dose statins. 5. Increase activity as able. She may do better with a 4 wheeled walker than a cane for ambulation. 6. I have no further neurologic testing or treatment recommendations to make at this time. Please contact me if I can be of further assistance on this case. Overall, I spent a total of 25 minutes with this case including review of records, direct evaluation the patient at bedside, and discussion of the case with the patient, granddaughter, and RN at bedside, and Dr. Balderas, including differential diagnosis and treatment options. Admission and Anticipated Discharge Date Admission Date: April 13, 2022 Subjective the patient feels very well, with no pain, headache, dizziness, lightheadedness, vision disturbance, weakness, numbness, or confusion. Blood pressure this morning was 181/73 with a pulse in the 50s. She had a very small episode of PAT lasting several seconds just after noon time yesterday but she was up moving at the time and this was not clear. Otherwise she has been in normal sinus rhythm in 60s. MRI of the brain was for acute stroke Echocardiogram showed no change from the previous study October 2021. There is no evidence for [id number] shunt there was some moderate left atrial dilation before. TSH was 6.0 Results & Data ([facility]) Vital Signs (Past 12 Hours) Vital Signs Temp Pulse Pulse Resp BP Pulse Ox O2 Del Method 04/15/22 08:04 37.1 C 57 L 19 181/73 H 94 Room Air 04/15/22 07:06 58 L 04/15/22 03:34 36.9 C 69 18 179/67 H 94 Room Air 04/14/22 22:16 63 04/14/22 23:14 36.5 C 63 20 204/96 H 95 Room Air Exam (Neuro) Physical Exam: she is awake and alert. Speech is without aphasia or dysa rthria. Mood and affect are normal appropriate. Thought processes are intact with good long and short-term memory. Extraocular muscles are intact without nystagmus. There is no facial droop. He tongue is midline. Coordination is normal in the arms without tremor or ataxia. Strength is symmetrical in the limbs. Stance sitting up in bed is normal. PG Care Time/CCT Total # of Minutes Spent Total Time Spent with Patient: Total time spent is greater than 50% in coordination of care (as documented) at patient's floor/unit and/or counseling patient: Coding Level of Care Code 43219 Subseq Hosp Care Lvl 2 Diagnoses Hypertensive emergency I16.1 Vision disturbance H53.9 Neuropathy G62.9 Gait disturbance R26.9 Time Spent (min) 25
[2022-04-15] MEDS: CALCIUM 600MG + VIT D 400 IU TAB PO SCH (09:01)
[2022-04-15] MEDS: lisinopril 10 MG TAB PO SCH ×2 (09:01→21:03)
[2022-04-15] MEDS: ASPIRIN 81 MG ECTAB PO SCH (09:01)
[2022-04-15] MEDS: GABAPENTIN 100 MG CAP PO SCH ×3 (09:01→21:03)
[2022-04-15] MEDS: PANTOprazole 40 MG TAB PO SCH (09:02)
[2022-04-15] MEDS: OXYBUTYNIN CHLORIDE 5 MG TAB PO SCH ×2 (09:02→21:03)
[2022-04-15] MEDS ORDERED: hydroCHLOROthiazide 25 MG TAB PO STA (09:48)
[2022-04-15] MEDS ORDERED: FAMOTIDINE 20 MG TAB PO ONE (17:24)
[2022-04-15] MEDS: cephALEXin 500 MG CAP PO SCH (21:03)
[2022-04-15] MEDS: SIMVASTATIN 20 MG TAB PO SCH (21:03)
--- NOTE | 2022-04-15 21:09 | Hospitalist Progress Note ---
Date of Service April 15, 2022 Assessment & Plan (1) Hypertensive emergency: Plan: IMPROVED/resolving. Peak BP 256/95 while in the ER. Presented with visual disturbance (see below). Plan - * continue lisinopril 10mg BID * increase HCTZ to 25mg daily; check BMP/mag am * TSH without hyperthyroidism * renin/yinka levels pending * defer on renal artery dopplers * echo with preserved EF and normal LV wall motion (2) Vision disturbance: Plan: Present on admission - intermittent red spots in both eyes mostly at night since Monday of last week. Resolved shortly after admission. CVA w/u negative; CVA NOT found on MRI brain By pt's report her eye exam just prior to admission was wnl Sed rate/crp wnl -- temporal arteritis unlikely No h/o migraine headache Neurology feels this symptom was 2nd to #1 above. Continue BP control. (3) Hyperlipidemia: Plan: Continue simvastatin 20 mg daily LDL 56 and thus at goal No changes at this time (4) GERD (gastroesophageal reflux disease): Plan: Continue pantoprazole 40mg daily Added pepcid 20mg po x 1 this afternoon for reflux symptoms (5) Overactive bladder: Plan: Continue oxybutynin 5 mg BID (6) Neuropathy: Plan: Continue gabapentin 100 mg TID (7) Osteoarthritis of knees, bilateral: Plan: Had been taking tramadol 50 mg BID and meloxicam 15 mg daily at home. Latter could be making BPs worse. Holding both meds. (8) Elevated troponin: Plan: Likely myocardial demand ischemia in setting of #1 above. No evidence of ACS. Echo with preserved EF and normal LV wall motion. (9) UTI (urinary tract infection): Plan: 2nd e.coli d/c rocephin change to keflex 500mg BID x 5 days complete 7 days in total of Rx (IV/PO) (10) Chronic kidney disease, stage 3a: Plan: Baseline CrCl 40s/50s BMP remains stable BMP again in am (11) Stenosis of right internal carotid artery: Plan: 75%. nothing acute to do at this time. however, cont statin, and control the BP. should be on low-dose asa 81mg daily. will need surveillance of this issue as outpatient. Plan updated at bedside case d/w Dr Sue from neurology hopefully d/c home tomorrow Admission and Anticipated Discharge Date Admission Date: April 13, 2022 Subjective tele wnl overnight feels good overall although is having reflux after eating a burger with fries for dinner gets occasional reflux at home no nausea no dyspnea no diaphoresis EKG obtained due to the above "reflux" symptoms - NSR, LVH, no ST changes patient without visual changes Review of Systems Review of Systems: gen - feels good cv - no substernal cp, no orthopnea; edema improved pulm - no cough, no dyspnea GI - no vomiting Physical Exam Physical Exam: gen - NAD, looks great neck - no JVD mouth - MMM heart - RRR, s1 s2, no murmur lungs - CTA b/l otherwise abd - soft NT ND BS+ ext - trace edema b/l, pulses 2+ b/l psych - a/o x 3 Results & Data Results & Data ([facility]) Vital Signs (Past 12 Hours) Vital Signs Temp Pulse Pulse Resp BP Pulse Ox O2 Del Method 04/15/22 19:00 37.0 C 63 18 156/74 H 96 Room Air 04/15/22 15:32 36.7 C 59 L 18 161/83 H 97 Room Air 04/15/22 14:48 60 04/15/22 11:37 36.8 C 61 20 191/90 H 96 Room Air 04/15/22 09:24 Room Air Laboratory Results Laboratory Results - last 24 hr 04/15/22 04/15/22 04/15/22 05:51 05:51 05:51 Sodium 139 Potassium 3.8 Chloride 107 Carbon Dioxide 27 Anion Gap 5 BUN 28 H Creatinine 1.07 Est Cr Clr Drug Dosing 35.4 Est GFR ( Amer) 57.2 Est GFR (Non-Af Amer) 49.3 BUN/Creatinine Ratio 26.2 H Glucose 98 Calcium 9.0 Renin Activity Pending Aldosterone Pending TSH 6.011 H Free T4 1.20 PG Care Time/CCT Total # of Minutes Spent Total Time Spent with Patient: Total time spent is greater than 50% in coordination of care (as documented) at patient's floor/unit and/or counseling patient: Coding Level of Care Code 62049 Subseq Hosp Care Lvl 3 Diagnoses Hypertensive emergency I16.1 Vision disturbance H53.9 Hyperlipidemia E78.5 GERD (gastroesophageal reflux disease) K21.9 Overactive bladder N32.81 Neuropathy G62.9 Osteoarthritis of knees, bilateral M17.0 Elevated troponin R77.8 UTI (urinary tract infection) N39.0 Chronic kidney disease, stage 3a N18.31 Stenosis of right internal carotid artery I65.21
[2022-04-16 07:01] LABS: Calcium 9.6 mg/dl (8.5-10.1); Creatinine Clr Calc Pharmacy 36.7 ml/min; Est GFR (African American) 59.2 ml/min; Est GFR (Non-African American) 51.1 ml/min
[2022-04-16] MEDS: OXYBUTYNIN CHLORIDE 5 MG TAB PO SCH (08:24)
[2022-04-16] MEDS: cephALEXin 500 MG CAP PO SCH (08:25)
[2022-04-16] MEDS: GABAPENTIN 100 MG CAP PO SCH ×2 (08:25→13:10)
[2022-04-16] MEDS: CALCIUM 600MG + VIT D 400 IU TAB PO SCH (08:26)
[2022-04-16] MEDS: ASPIRIN 81 MG ECTAB PO SCH (08:26)
[2022-04-16] MEDS: lisinopril 10 MG TAB PO SCH (08:26)
[2022-04-16] MEDS: PANTOprazole 40 MG TAB PO SCH (08:26)
[2022-04-16] MEDS ORDERED: hydroCHLOROthiazide 25 MG TAB PO SCH (09:15)
--- NOTE | 2022-04-16 09:38 | Electrocardiogram Report ---
Test Reason : Blood Pressure : / mmHG Vent. Rate : 061 BPM Atrial Rate : 061 BPM P-R Int : 198 ms QRS Dur : 086 ms QT Int : 428 ms P-R-T Axes : 056 001 048 degrees QTc Int : 430 ms Normal sinus rhythm Voltage criteria for left ventricular hypertrophy When compared with ECG of 13-APR-2022 16:03, No significant change was found Confirmed by Td Mcclendon ([id number]) on 04/16/2022 9:37:49 AM Referred By: REFERRED SELF Confirmed By:Td Mcclendon
--- NOTE | 2022-04-16 14:32 | Discharge Summary ---
Date of Service April 16, 2022 Admission HPI Per Admitting Provider Nicole Torres is a 81 female PMH of hypertension, hyperlipidemia, peripheral neuropathy, GERD, overactive bladder who presents today for elevated blood pressure. 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 During triage, later blood pressure noted systolic was in 200s, therefore recommended immediate referral to the ED for further evaluation. He has had no other symptoms, she denies any numbness tingling, weakness, dizziness, balance issues, gait issues, headache, or vomiting. No chest pain, palpitations, shortness of breath. She has never had a stroke or blood clot. States she takes lisinopril for blood pressure and is always in the 130s at her doctor appointments. In the ED, she presented initially very hypertensive with a BP recorded at 208/90, heart rate 59. Head CT showed a small hyperdense focus in the region of the proximal left MCA which could represent an acute thrombus. Labs largely unremarkable, no electrolyte abnormalities, renal function at baseline. UA with >30 WBCs, 4+ bacteria, 3+ leuk esterase. Discharge Exam gen - NAD, looks great neck - no JVD mouth - MMM heart - RRR, s1 s2, no murmur lungs - CTA b/l otherwise abd - soft NT ND BS+ ext - trace edema b/l, pulses 2+ b/l psych - a/o x 3 Discharge Data Allergies Allergy/AdvReac Type Severity Reaction Status Date / Time adhesive Allergy Intermediate RASH Verified 04/13/22 18:34 capsaicin AdvReac Mild GI upset Verified 04/13/22 18:34 diclofenac AdvReac Mild GI upset Verified 04/13/22 18:34 Diclopak AdvReac Mild GI upset Verified 01/10/17 00:12 oxycodone AdvReac Mild GI upset Verified 04/13/22 18:34 pregabalin AdvReac Mild GI upset Verified 04/13/22 18:34 Consultations 04/13/22 18:13 ED Decision to Admit Stat 04/13/22 22:41 Consult Neurology Routine Ordered Studies 04/13/22 15:37 CT head/brain wo con Stat 04/13/22 19:20 CT angio head w con Stat CT angio neck with con Stat 04/13/22 22:41 MR brain wo con Routine Hospital Course (1) Hypertensive emergency: IMPROVED/resolving. Peak BP 256/95 while in the ER. Presented with visual disturbance (see below). Plan - * continue lisinopril 10mg BID * increase HCTZ to 25mg daily; check BMP/mag am * TSH without hyperthyroidism * renin/yinka levels pending * defer on renal artery dopplers * echo with preserved EF and normal LV wall motion (2) Vision disturbance: Present on admission - intermittent red spots in both eyes mostly at night since Monday of last week. Resolved shortly after admission. CVA w/u negative; CVA NOT found on MRI brain By pt's report her eye exam just prior to admission was wnl Sed rate/crp wnl -- temporal arteritis unlikely No h/o migraine headache Neurology feels this symptom was 2nd to #1 above. Continue BP control. (3) Hyperlipidemia: Continue simvastatin 20 mg daily LDL 56 and thus at goal No changes at this time (4) GERD (gastroesophageal reflux disease): Continue pantoprazole 40mg daily Added pepcid 20mg po x 1 this afternoon for reflux symptoms (5) Overactive bladder: Continue oxybutynin 5 mg BID (6) Neuropathy: Continue gabapentin 100 mg TID (7) Osteoarthritis of knees, bilateral: Had been taking tramadol 50 mg BID and meloxicam 15 mg daily at home. Latter could be making BPs worse. Holding both meds. (8) Elevated troponin: Likely myocardial demand ischemia in setting of #1 above. No evidence of ACS. Echo with preserved EF and normal LV wall motion. (9) UTI (urinary tract infection): 2nd e.coli d/c rocephin change to keflex 500mg BID x 5 days complete 7 days in total of Rx (IV/PO) (10) Chronic kidney disease, stage 3a: Baseline CrCl 40s/50s BMP remains stable BMP again in am (11) Stenosis of right internal carotid artery: 75%. nothing acute to do at this time. however, cont statin, and control the BP. should be on low-dose asa 81mg daily. will need surveillance of this issue as outpatient. Plan updated at bedside case d/w Dr Sue from neurology hopefully d/c home tomorrow Discharge Plan Discharge Items Reason For Visit: CVA Follow-up/Referrals: Jose Haile MD [Primary Care Provider] - Medications and DC Order Prescriptions: No Action meloxicam 15 mg Tablet 15 mg PO QAM simvastatin 20 mg Tablet 20 mg PO PM gabapentin 100 mg Capsule 100 mg PO TID lisinopril 5 mg tablet 5 mg PO DAILY pantoprazole 40 mg tablet,delayed release (DR/EC) 40 mg PO DAILY oxybutynin chloride 5 mg tablet 5 mg PO BID calcium carbonate-vitamin D3 [Calcium 600 + D(3)] 600 mg-10 mcg (400 unit) Tablet 1 tab PO DAILY multivitamin [One A Day Vitamin] Tablet 1 tab PO DAILY Krames/Other Patient Handouts: Prediabetes, 5 Steps for Eating Healthier Admission Data Admit Date/Time: 04/13/22 19:52 Attending Provider: Norberto Balderas Admit Provider: Milo Medel Primary Care Provider: Jose Haile Other Providers: Milo Medel ; Yash Sue Coding Diagnoses Hypertensive emergency I16.1 Vision disturbance H53.9 Hyperlipidemia E78.5 GERD (gastroesophageal reflux disease) K21.9 Overactive bladder N32.81 Neuropathy G62.9 Osteoarthritis of knees, bilateral M17.0 Elevated troponin R77.8 UTI (urinary tract infection) N39.0 Chronic kidney disease, stage 3a N18.31 Stenosis of right internal carotid artery I65.21
== END 2022-04-16 16:00 | disposition home or self-care (01) | DRG 305 ==
LOC: ED 15:22 → SUATTDRO 19:52 → 2E 19:52

== ENCOUNTER 2024-07-01 11:00 | Observation (INO) ==
[2024-07-01 12:09] LABS: Hematocrit (blood only) 38.8 % (37.0-47.0); Hemoglobin 12.4 g/dl (12.0-16.0); Mean Corpuscular Hemoglobin 29.7 pg (25.0-34.0); Mean Platelet Volume 10.1 fL (9.4-12.4); Platelet Count 185 K/uL (130-400); RDW Coefficient of Variation 14.1 % (11.5-14.5); RDW Standard Deviation 48.6 fL (36.4-46.3); Red Blood Count 4.17 M/uL (4.20-5.40); White Blood Count 9.76 K/ul (4.8-10.8)
--- NOTE | 2024-07-01 12:30 | Emergency Department Note ---
Impression & Plan Stroke-like symptoms ED Provider Note Name: SEVERIANO ANDINO Age: 84 Sex: Female Arrives Via: Walk-In Informant: Patient and . ED Provider: Simon Howard MD Chief Complaint: Strokelike symptoms Impression: As per impressions above Medical Decision Makin-year-old female with history of known carotid artery stenosis, hypertension, dyslipidemia arrives for evaluation of strokelike symptoms that occurred last evening which have resolved. NIH is 0 on arrival. Patient without any complaints. Last evening patient had slurred speech, facial droop, left arm weakness. Initially refused ER evaluation last night but willing to come in today. Laboratory workup and CT head are unremarkable. Given her high risk situation hospitalization is indicated. Triage/Nursing Notes reviewed by Me Differential:Infection, dehydration, metabolic abnormality, hypo/hyperglycemia, electrolyte disturbance, anemia, hypoxia, cardiac sources, intracerebral event, toxicologic, neurologic, as well as other pathologies. Vital Signs: reviewed and remarkable for no significant abnormalities Labs:ED labs Reviewed by me and remarkable for no significant abnormalities Imaging:CT of the head without contrast as per my informal interpretation reveals no intracranial hemorrhage or mass effect. Confirmed by radiology EKG:As per my interpretation. Indication stroke evaluation. Sinus rhythm at 73 bpm with a first-degree AV block that begins to have some. QTc of 442. No ischemia appreciated. Similar to EKG of 06/20/2024 but no ectopy Cardiac/Tele Monitoring: Cardiac Monitoring: An Order was placed for continuous cardiac monitoring. The monitor shows a rate of 70 with a normal sinus rhythm. Consults:Dr Priscilla TORIBIO Hospitalist -discussed case with them and they will further evaluate and bring in for further workup Plan: Disposition:Hospitalization. Condition: Good History of Present Illness: 84-year-old female arrives for evaluation of strokelike symptoms. Patient lives with family last evening when she fell asleep. Family notes that she seemed confused on waking and had drooping of the left side of her face as well as some weakness of the left hand. Noted to be slurring her speech at that time as well. Resolved shortly thereafter. EMS had been called however given resolution of symptoms of patient refusal she did not get transported to the hospital. Patient this morning was advised from PCP office to come to the ER for further evaluation. She denies any current symptoms. Denies any headache, neck pain, chest pain, shortness of breath, palpitations or other concerning signs or symptoms. Patient has no history of stroke or cardiac disease. She had dyslipidemia and hypertension. Her father of a heart attack. Patient has a known stenosis of bilateral coronaries Past Medical History:See Below Home Medications:See Below Allergies:See Below Vitals:Blood Pressure: 171/87, Pulse 67, RR 14, T 36.6C, O2 99% on RA Physical Exam: GENERAL: Patient is well appearing and in no acute distress. RESPIRATORY: No dyspnea. Clear to auscultation and equal bilaterally. CARDIOVASCULAR: Regular rate and rhythm.No murmur appreciated. GASTROINTESTINAL: Abdomen soft, non-tender, no peritonitis. EXTREMITIES: Normal motion all extremities, no cyanosis, no edema. NEUROLOGIC: Alert and oriented. No focal neurologic deficits appreciated SKIN: No rash, no jaundice, no diaphoresis. PSYCH: Appropriate GCS: 15 ED Course: Times/Reassessments: Patient stable she reluctantly agrees to hospitalization for stroke workup and evaluation. Simon Howard MD Past Med/Surg History Problem List (Updated 07/01/24 @ 17:29 by Simon Howard MD) Stroke-like symptoms (Acute) Hypertension controlled, stable per pt Carotid artery stenosis Stroke-like symptom Encounter for pre-operative examination Ischial bursitis of left side Hamstring tear Hip bursitis, left Leg wound, left (Acute) Osteoarthritis of right knee Tricompartment osteoarthritis of left knee Tendinopathy of gluteus medius Tear of gluteus medius tendon Tendinitis of left triceps Left elbow tendonitis Post-operative state (Acute 10/07/13) DJD of left shoulder Medical History Hearing loss chronic Urinary urgency Irregular heart beat no cards Hypertension controlled, stable per pt Stenosis of right internal carotid artery "75% blockage" Osteoporosis Neuropathy feet GERD (gastroesophageal reflux disease) controlled, stable per pt Hyperlipidemia Osteoarthritis of knees, bilateral Surgical History History of hysterectomy History of carpal tunnel release right/left History of cholecystectomy History of colonoscopy History of tooth extraction History of cataract surgery right/left History of shoulder surgery left History of right hip replacement History of back surgery x 2 *lower back fusion (hardware intact) Family History Mother , age 75 of uterine cancer Uterine cancer Father , age 65 of an [place] Myocardial infarction Social History Smoking Status: Never smoker Second Hand Exposure: Yes (in the past); Do You Dip or Chew Tobacco: No; Hx Alcohol Use: No Hx Substance Use: No Preferred Language: Frisian Communication Ability: Effective [employer] Required: No Beliefs That Will Affect Care: None marital status: Current Living Situation: Spouse current occupational status: retired 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, 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64 Feels Safe at Home: Yes Assistive Devices: Cane, Glasses and Walker Allergies Allergies Allergy/AdvReac Type Severity Reaction Status Date / Time adhesive Allergy Mild RASH Verified 07/01/24 14:44 capsaicin AdvReac Mild GI upset Verified 07/01/24 14:44 diclofenac AdvReac Mild GI upset Verified 07/01/24 14:44 Diclopak AdvReac Mild GI upset Verified 01/10/17 00:12 oxycodone AdvReac Mild GI upset Verified 07/01/24 14:44 pregabalin AdvReac Mild GI upset Verified 07/01/24 14:44 Home Meds Home Medications Medication Instructions Recorded Confirmed gabapentin 100 mg capsule 200 mg PO BID 07/27/18 07/01/24 simvastatin 20 mg tablet 20 mg PO QAM 07/27/18 07/01/24 calcium 600 mg (as 1 tab PO BID 04/13/22 07/01/24 carbonate)-vitamin D3 10 mcg (400 unit) tablet (Calcium 600 + D(3)) multivitamin 1 tab PO DAILY 04/13/22 07/01/24 oxybutynin chloride 5 mg tablet 5 mg PO BID 04/13/22 07/01/24 pantoprazole 40 mg tablet,delayed 40 mg PO DAILY 04/13/22 07/01/24 release alendronate 35 mg tablet 35 mg PO .weekly 09/08/23 07/01/24 amlodipine 2.5 mg tablet 2.5 mg PO QAM 11/27/23 07/01/24 meloxicam 15 mg tablet 15 mg PO QAM 11/27/23 07/01/24 lisinopril 5 mg tablet 5 mg PO QAM 06/18/24 07/01/24 vitamins A,C,J-selc-mdwluv 2,148 1 tab PO DAILY 06/18/24 07/01/24 mcg-113 mg-45 mg-17.4 mg tablet (PreserVision AREDS) Previous Rx's Medication Instructions Recorded aspirin 81 mg tablet,delayed 81 mg PO QAM #90 tabs 04/16/22 release hydrochlorothiazide 25 mg tablet 25 mg PO QAM #30 tabs 04/16/22 Results & Data (ED) Vital Signs Vital Signs - 24 hr 07/01/24 11:30 07/01/24 11:54 07/01/24 12:05 Temperature 36.6 C Temperature Source Temporal Artery Scan Pulse Rate 62 71 67 Pulse Rate [Apical] Pulse Rhythm Regular Pulse Rhythm [Apical] Pulse Strength [Apical] Respiratory Rate 18 14 Respiratory Effort / Characteristics Non-Labored Spontaneous Respiratory Depth Normal Respiratory Pattern Regular Blood Pressure 171/87 H Blood Pressure [Right Arm] Blood Pressure Mean 115 Blood Pressure Mean [Right Arm] Blood Pressure Position [Right Arm] Pulse Oximetry 96 99 Oxygen Delivery Method Room Air Room Air Sepsis Recent Fever Within 48 Hours No Sepsis New/Unexplained Change in Mental Status No Sepsis Action Taken by Nursing No Action Required 07/01/24 12:52 07/01/24 13:55 07/01/24 16:02 Temperature Temperature Source Pulse Rate Pulse Rate [Apical] 67 68 70 Pulse Rhythm Pulse Rhythm [Apical] Regular Pulse Strength [Apical] Normal Respiratory Rate 16 15 19 Respiratory Effort / Characteristics Non-Labored Respiratory Depth Normal Respiratory Pattern Regular Blood Pressure Blood Pressure [Right Arm] 182/110 H 152/69 H 111/84 Blood Pressure Mean Blood Pressure Mean [Right Arm] 134 96 93 Blood Pressure Position [Right Arm] Lying Pulse Oximetry 99 97 96 Oxygen Delivery Method Room Air Room Air Room Air Sepsis Recent Fever Within 48 Hours Sepsis New/Unexplained Change in Mental Status Sepsis Action Taken by Nursing Laboratory Data 07/01/24 11:46 07/01/24 12:31 Lab Results 07/01/24 07/01/24 Range/Units 11:46 12:31 WBC 9.76 (4.8-10.8) K/ul RBC 4.17 L (4.20-5.40) M/uL Hgb 12.4 (12.0-16.0) g/dl Hct 38.8 (37.0-47.0) % MCV 93.0 (80.0-100.0) fL MCH 29.7 (25.0-34.0) pg MCHC 32.0 (32.0-36.0) g/dL RDW Std Deviation 48.6 H (36.4-46.3) fL RDW Coeff of Ruby 14.1 (11.5-14.5) % Plt Count 185 (130-400) K/uL MPV 10.1 (9.4-12.4) fL PT Cancelled 10.3 INR Cancelled 0.9 APTT Cancelled 25 PTT Ratio Cancelled 0.9 Sodium 140 (136-145) mmol/L Potassium 4.0 (3.5-5.1) mmol/L Chloride 102 (98-107) mmol/L Carbon Dioxide 28 (21-32) mmol/L Anion Gap 10 (3-11) BUN 40 H (6-23) mg/dl Creatinine 1.15 (0.6-1.2) mg/dl Est Cr Clr Drug Dosing 31.3 ml/min eGFR 47.56 BUN/Creatinine Ratio 34.8 H (10-20) Glucose 99 (70-99(Fasting)) mg/dl Calcium 9.9 (8.6-10.3) mg/dl Magnesium 1.9 (1.7-2.4) mg/dl Total Bilirubin 0.6 (0.2-1.0) mg/dl AST 22 (13-39) U/L ALT 15 (7-52) U/L Alkaline Phosphatase 62 (34-104) U/L Troponin I High Sens 15.1 H (0-14) pg/ml Total Protein 7.2 (6.0-8.3) gm/dl Albumin 4.3 (3.4-5.0) gm/dl Globulin 2.9 (2.5-4.0) gm/dl Albumin/Globulin Ratio 1.5 (0.9-2) Administered Medications Discontinued Medications Ioversol (Optiray 320 125ml) 112 ml IV ONCE ONE Stop: 07/01/24 14:08 Last Admin: 07/01/24 14:07 Dose: 112 ml Documented By: FREDI Imaging Data Radiologist's Impression: Chest X-Ray 07/01/24 11:35 XR chest 1V portable CLINICAL HISTORY: stroke alert TECHNIQUE: Single frontal radiograph of the chest was obtained. Comparison: Comparison is made to chest radiograph 06/20/2024 FINDINGS: Left reverse shoulder arthroplasty is seen. Posterior spinal fixation hardware is seen. The cardiomediastinal silhouette is normal. The lungs are clear. No evidence of pleural effusion or pneumothorax. IMPRESSION: No acute chest disease. ACT 112: Negative or not required by law. Electronically signed by: Brandon Black M.D. 07/01/2024 12:[address] 07/01/24 12:28 CT head/brain wo con CLINICAL HISTORY: 84 years-old Female with stroke like symptoms 12 hrs ago. Acute stroke or symptoms TECHNIQUE: Multiple axial CT images of the head were obtained without contrast. A dose lowering technique was utilized adhering to the principles of ALARA. CT DOSE: 547.75 mGy.cm COMPARISON: Brain MRI 04/13/2022 FINDINGS: No acute intracranial hemorrhage, midline shift, intracranial mass, hydrocephalus, territorial ischemia or abnormal extra-axial collection. Involutional changes with chronic microvascular ischemic disease. The calvarium is intact. The paranasal sinuses, mastoid air cells, and middle ear cavities are clear. IMPRESSION: No acute intracranial abnormality. ACT 112: Negative or not required by law. The above report was generated using voice recognition software. It may contain grammatical, syntax or spelling errors. Electronically signed by: Shreyas Joseph M.D. 07/01/2024 12:51 PM Head CTA 07/01/24 13:58 CT angio head w con CLINICAL HISTORY: 84 years-old Female with left facial droop, left arm weakness. Acute stroke like symptoms COMPARISON STUDY: Head CT of same day TECHNIQUE: Following the IV administration of 112 cc of Optiray, CT angiogram of the brain was performed from the skull base to the vertex. Images are reviewed in the axial, sagittal, and coronal planes. 3-D MIPS images are created and assessed. IV contrast was administered without complication. All measurements were obtained according to NASCET criteria. A dose lowering technique was utilized adhering to the principles of ALARA. CT DOSE: 426.58 mGy.cm FINDINGS: CT ANGIOGRAM OF THE BRAIN: The imaged bilateral internal carotid arteries are patent. The bilateral anterior and middle cerebral arteries are also patent. The vertebrobasilar system and posterior cerebral arteries are widely patent. There is no aneurysm, high-grade stenosis, or proximal branch occlusion identified. Dural sinuses appear patent. 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 IMPRESSION: Unremarkable CTA of the head. ACT 112: Negative or not required by law. The above report was generated using voice recognition software. It may contain grammatical, syntax or spelling errors. Electronically signed by: Shreyas Joseph M.D. 07/01/2024 2:45 PM Neck CTA 07/01/24 13:58 CT ANGIOGRAM OF THE NECK CLINICAL HISTORY: Left arm weakness. Left-sided facial droop. COMPARISON STUDY: CT angiogram of the neck dated 04/13/2022. TECHNIQUE: Following the IV administration of 112 of Optiray 320, CT angiogram of the neck was performed from the aortic arch to the skull base. Images are reviewed in the axial, sagittal, and coronal planes. 3-D MIPS images are created and assessed. IV contrast was administered without complication. All measurements were calculated based on NASCET criteria. A dose lowering technique was utilized adhering to the principles of ALARA. FINDINGS: Thoracic aorta: Visualized portions of the thoracic aorta are normal in caliber. The aortic arch demonstrates standard 3-vessel anatomy. Right carotid arterial system: The right common carotid artery is widely patent. Advanced atherosclerotic plaque is seen in the carotid bulb. This causes approximately 75% focal stenosis at the origin of the right internal carotid artery through the mid to distal portions of the right internal carotid artery are widely patent, as is the right external carotid artery. Left carotid arterial system: The left common carotid artery is widely patent, as are the left internal and external carotid arteries. Vertebral arteries: Widely patent bilaterally noting left-sided dominance. Subclavian arteries: Widely patent bilaterally. Intracranial vasculature: The visualized intracranial vessels at the skull base are patent. Jugular veins: Widely patent bilaterally. Brain parenchyma: The visualized brain parenchyma the skull base is within normal limits. Lung apices: Partially visualized upper lobe lung parenchyma appears clear. Soft tissues: The visualized pharyngeal soft tissues are normal in appearance noting angiographic phase technique. The oropharyngeal airway appears widely patent. The salivary and thyroid glands are normal in appearance. No cervical lymphadenopathy is seen. Skeletal structures: The skeletal structures are osteopenic. The visualized calvarium at the skull base appears intact. The imaged cervical spine is maintained noting advanced multilevel spondylosis. Sinuses and mastoids: The visualized paranasal sinuses are clear. The mastoid air cells are well pneumatized. IMPRESSION: 1. There is approximately 75% focal stenosis at the origin of the right internal carotid artery. This is similar to previous. 2. Otherwise unremarkable CT angiogram of the neck. ACT 112: Negative or not required by law. Electronically signed by: Gio Daily M.D. 07/01/2024 2:57 PM Discharge Plan Visit Data Chief Complaint: Referred by Doctor Stated Complaint: REF BY DR BERNARD FOR POSSIBLE MINI STROKE ED Provider: Simon Howard Discharge Problem: Stroke-like symptoms Discharge Instructions Interventions: ED Discharge Assessment Last Done: 07/01/24 17:27 Forms Stand Alone Forms: [employer] Prescriptions Prescriptions: No Action alendronate 35 mg tablet 35 mg PO .weekly Patient Comments: takes on mondays simvastatin 20 mg Tablet 20 mg PO QAM gabapentin 100 mg Capsule 200 mg PO BID pantoprazole 40 mg tablet,delayed release (DR/EC) 40 mg PO DAILY Patient Comments: lunch time oxybutynin chloride 5 mg tablet 5 mg PO BID calcium carbonate-vitamin D3 [Calcium 600 + D(3)] 600 mg-10 mcg (400 unit) Tablet 1 tab PO BID multivitamin Tablet 1 tab PO DAILY Patient Comments: lunch time aspirin 81 mg Tablet,Delayed Release (Dr/Ec) 81 mg PO QAM Qty: 90 3RF Rx Instructions: purchase [id number] hydrochlorothiazide 25 mg Tablet 25 mg PO QAM Qty: 30 2RF Rx Instructions: for high blood pressure meloxicam [Mobic] 15 mg Tablet 15 mg PO QAM amlodipine 2.5 mg tablet 2.5 mg PO QAM lisinopril 5 mg Tablet 5 mg PO QAM PreserVision AREDS 2,148 mcg-113 mg-45 mg-17.4mg Tablet 1 tab PO DAILY Patient Comments: lunch time Rx Instructions: administer with AM and PM meals Referrals Referrals: Kelechi Bernard MD [Primary Care Provider] -
--- NOTE | 2024-07-01 12:34 | XRay Report ---
XR chest 1V portable CLINICAL HISTORY: stroke alert TECHNIQUE: Single frontal radiograph of the chest was obtained. Comparison: Comparison is made to chest radiograph 06/20/2024 FINDINGS: Left reverse shoulder arthroplasty is seen. Posterior spinal fixation hardware is seen. The cardiomed iastinal silhouette is normal. The lungs are clear. No evidence of pleural effusion or pneumothorax. IMPRESSION: No acute chest disease. ACT 112: Negative or not required by law. Electronically signed by: Brandon Black M.D. 07/01/2024 12:33 PM
--- NOTE | 2024-07-01 12:52 | CT Scan Report ---
CT head/brain wo con CLINICAL HISTORY: 84 years-old Female with stroke like symptoms 12 hrs ago. Acute stroke or symptoms TECHNIQUE: Multiple axial CT images of the head were obtained without contrast. A dose lowering tech nique was utilized adhering to the principles of ALARA. CT DOSE: 547.75 mGy.cm COMPARISON: Brain MRI 04/13/2022 FINDINGS: No acute intracranial hemorrhage, midline shift, intracranial mass, hydrocephalus, territorial ischem ia or abnormal extra-axial collection. Involutional changes with chronic microvascular ischemic disea se. The calvarium is intact. The paranasal sinuses, mastoid air cells, and middle ear cavities are clear . IMPRESSION: No acute intracranial abnormality. ACT 112: Negative or not required by law. The above report was generated using voice recognition software. It may contain grammatical, syntax o r spelling errors. Electronically signed by: Shreyas Joseph M.D. 07/01/2024 12:51 PM
[2024-07-01 13:12] LABS: Albumin Globulin Ratio 1.5 (0.9-2); Albumin Level 4.3 gm/dl (3.4-5.0); BUN Creatinine Ratio 34.8 (10-20); Bilirubin,Total 0.6 mg/dl (0.2-1.0); Calcium 9.9 mg/dl (8.6-10.3); Creatinine Clr Calc Pharmacy 31.3 ml/min; Globulin 2.9 gm/dl (2.5-4.0); Magnesium 1.9 mg/dl (1.7-2.4); Total Protein 7.2 gm/dl (6.0-8.3)
[2024-07-01 13:13] LABS: Troponin I High Sensitivity 15.1 pg/ml (0-14)
[2024-07-01 13:24] LABS: INR 0.9 (0.9-1.1); Partial Thromboplastin Ratio 0.9; Partial Thromboplastin Time 25 Seconds (21-31); Prothrombin Time 10.3 Seconds (9.0-12.0)
[2024-07-01] MEDS: OPTIRAY 320 125ml IV ONE (14:07)
--- NOTE | 2024-07-01 14:21 | History & Physical Report ---
Date of Service July 01, 2024 Assessment & Plan (1) Stroke-like symptom: Plan: - patient with episode last night of feeling 'dopey'/off and unresponsive for a few seconds; family stated symptoms resolved in < 10 mins - history of right carotid artery 75% stenosis, no history of previous CVA or DM, no previous anticoagulation - likely TIA secondary to carotid artery stenosis - ABCD2 score 2 = low risk - CT and CTA of head negative for acute findings - continue home statin - Q4H neuro checks, elevate HOB, permissive HTN - Lipid panel and A1C with AM labs - MRI pending - neurology consulted (2) Carotid artery stenosis: Plan: - history of right carotid artery 75% stenosis; CTA of neck on admission similar to previous scan with 75% stenosis - following out pt with potential surgical management - recently had pre-op eval - continue home statin and aspirin - lipid panel with AM labs (3) Hypertension: Plan: - stable - continue home amlodipine, HCTZ, and lisinopril Plan VTE ppx: SCDs Diet: heart healthy Code status: Full Dispo: obs overnight in med/surg Chronic stable diagnoses: HLD - continue home statin GERD - continue home pantoprazole Overactive bladder - continue home oxybutynin Admission and Anticipated Discharge Date Admission Date: 07/01/24 History of Present Illness Chief Complaint: Strokelike symptoms Primary Care Provider: Kelechi Haile MD Patient is an 84-year-old female past medical history of carotid artery stenosis, hypertension, hyperlipidemia, GERD, overactive bladder, and osteoarthritis of right knee. She presents today with strokelike symptoms that lasted for less than 10 minutes last night when she was with her family. Patient stated that she felt 'dopey' for just a few seconds. She stated that her said that she was not responding to him for a few seconds. her family then called an ambulance but her symptoms were resolved when they arrived. As per the patient's daughter her symptoms do not last for more than 10 minutes. Patient denies dizziness, lightheadedness, headache, vision changes, weakness, numbness, tingling, facial droop, slurred speech, gait abnormalities. Patient denies fever, dyspnea, chest pain, abdominal pain, nausea, vomiting, diarrhea, constipation. She has chronic edema in which she elevates her legs; ongoing for multiple years after hip replacement, no past history of CHF. She is to have a knee replacement next week. She denies a history of VTE, VA, CVA, DM, and cancer. She does not smoke tobacco or drink alcohol. She took all of her home medications this morning. She does not use oxygen at baseline. 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 Patient assessed at bedside with daughter present who works in the ER. Allergies Allergy/AdvReac Type Severity Reaction Status Date / Time adhesive Allergy Mild RASH Verified 07/01/24 14:44 capsaicin AdvReac Mild GI upset Verified 07/01/24 14:44 diclofenac AdvReac Mild GI upset Verified 07/01/24 14:44 Diclopak AdvReac Mild GI upset Verified 01/10/17 00:12 oxycodone AdvReac Mild GI upset Verified 07/01/24 14:44 pregabalin AdvReac Mild GI upset Verified 07/01/24 14:44 Home Medications Medication Instructions Recorded Confirmed Type gabapentin 100 mg capsule 200 mg PO BID 07/27/18 07/01/24 History simvastatin 20 mg tablet 20 mg PO QAM 07/27/18 07/01/24 History calcium 600 mg (as 1 tab PO BID 04/13/22 07/01/24 History carbonate)-vitamin D3 10 mcg (400 unit) tablet (Calcium 600 + D(3)) multivitamin 1 tab PO DAILY 04/13/22 07/01/24 History oxybutynin chloride 5 mg tablet 5 mg PO BID 04/13/22 07/01/24 History pantoprazole 40 mg tablet,delayed 40 mg PO DAILY 04/13/22 07/01/24 History release hydrochlorothiazide 25 mg tablet 25 mg PO QAM #30 tabs 04/16/22 07/01/24 Rx alendronate 35 mg tablet 35 mg PO .weekly 09/08/23 07/01/24 History lisinopril 5 mg tablet 5 mg PO QAM 06/18/24 07/01/24 History vitamins A,C,E-icmb-ootunw 2,148 1 tab PO DAILY 06/18/24 07/01/24 History mcg-113 mg-45 mg-17.4 mg tablet (PreserVision AREDS) amlodipine 5 mg tablet (Norvasc) 5 mg PO QAM #30 tabs 07/02/24 Rx clopidogrel 75 mg tablet 75 mg PO QAM #30 tabs 07/02/24 Rx Past Med/Surg History Problem List (Updated 07/02/24 @ 10:14 by Dinae Ordoñez PA-C) Hyperlipidemia Stroke-like symptoms (Acute) Hypertension controlled, stable per pt Carotid artery stenosis Stroke-like symptom Encounter for pre-operative examination Ischial bursitis of left side Hamstring tear Hip bursitis, left Leg wound, left (Acute) Osteoarthritis of right knee Tricompartment osteoarthritis of left knee Tendinopathy of gluteus medius Tear of gluteus medius tendon Tendinitis of left triceps Left elbow tendonitis Post-operative state (Acute 10/07/13) DJD of left shoulder Medical History Hearing loss chronic Urinary urgency Irregular heart beat no cards Stenosis of right internal carotid artery "75% blockage" Osteoporosis Neuropathy feet GERD (gastroesophageal reflux disease) controlled, stable per pt Hyperlipidemia Osteoarthritis of knees, bilateral Surgical History History of hysterectomy History of carpal tunnel release right/left History of cholecystectomy History of colonoscopy History of tooth extraction History of cataract surgery right/left History of shoulder surgery left History of right hip replacement History of back surgery x 2 *lower back fusion (hardware intact) Family History Mother , age 75 of uterine cancer Uterine cancer Father , age 65 of an VA Myocardial infarction Social History Smoking Status: Never smoker Second Hand Exposure: Yes (in the past); Do You Dip or Chew Tobacco: No; Hx Alcohol Use: No Hx Substance Use: No Preferred Language: Irish Communication Ability: Effective Parts Consultant Required: No Beliefs That Will Affect Care: None marital status: Current Living Situation: Spouse current occupational status: retired 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 Non-toxic appearing. HEENT- EOMI, mucous membranes moist. Hearing grossly intact. Heart-normal S1 and S2. No murmurs, rubs or gallops. Lungs-clear bilaterally, no respiratory distress, no accessory muscle use. Abdomen-normal bowel sounds and soft. No ascites noted. Non-tender. Extremities- no clubbing, cyanosis. Mild nonpitting edema of bilateral LE. Rheumatologic-normal range of motion. Psychiatric-normal affect. Musculoskeletal: Extremities: strength 5/5 throughout Neurologic: PERRL, EOMI, accommodation nl, no face palsy, no dysarthria normal touch/pain/proprioception, CN's II-XI intact bilaterally, moves all extremities and awake; no focal motor deficits and not confused Speech / Cognition: normal speech Motor/Sensory: normal movement Results & Data Results & Data Vital Signs (Past 12 Hours) Vital Signs Temp Pulse Pulse Resp BP BP Pulse Ox 07/01/24 13:55 68 15 152/69 H 97 07/01/24 12:52 67 16 182/110 H 99 07/01/24 12:05 67 07/01/24 11:54 71 14 99 07/01/24 11:30 36.6 C 62 18 171/87 H 96 O2 Del Method 07/01/24 13:55 Room Air 07/01/24 12:52 Room Air 07/01/24 12:05 07/01/24 11:54 Room Air 07/01/24 11:30 Room Air Laboratory Results Reviewed CBC, BMP, coagulation studies Code Status & VTE Plan Code Status Full code VTE Prophylaxis Plan VTE Prophylaxis will be ordered: Yes Supervising Physician Co-Signing Physician Notes I personally saw and examined the patient. I independently reviewed the labs, EKG, imaging, problem list, medication list, past medical history and family history. I verified all zelaya points and agree with Diane Ordoñez PA-C with the following exceptions and/or additions: 84 year old presents to the ER with 10-15 minute episode of facial droop yesterday. Currently she feels back to her baseline. Known right carotid artery stenosis. O/E HS RRR, no murmurs, Chest CTAB, Abdo SNT, CN2-> 12 intact, no extremity weakness of change in sensation A/P Stroke-like symptoms - possibly concerning for TIA. Stroke without tPA order set used. CTA head/neck, Brain MRI, TTE. Consult n.eurology PG Care Time/CCT Total # of Minutes Spent Total Time Spent with Patient: Total time spent is greater than 50% in coordination of care (as documented) at patient's floor/unit and/or counseling patient: Coding Level of Care Code None Diagnoses Stroke-like symptom R29.90 Carotid artery stenosis I65.29 Hypertension I10
--- NOTE | 2024-07-01 14:48 | CT Scan Report ---
CT angio head w con CLINICAL HISTORY: 84 years-old Female with left facial droop, left arm weakness. Acute stroke like symptoms COMPARISON STUDY: Head CT of same day TECHNIQUE: Following the IV administration of 112 cc of Optiray, CT angiogram of the brain was perfor med from the skull base to the vertex. Images are reviewed in the axial, sagittal, and coronal planes . 3-D MIPS images are created and assessed. IV contrast was administered without complication. All me asurements were obtained according to NASCET criteria. A dose lowering technique was utilized adherin g to the principles of ALARA. CT DOSE: 426.58 mGy.cm FINDINGS: CT ANGIOGRAM OF THE BRAIN: The imaged bilateral internal carotid arteries are patent. The bilateral anterior and middle cerebral arteries are also patent. The vertebrobasilar system and posterior cerebral arteries are widely anglin nt. There is no aneurysm, high-grade stenosis, or proximal branch occlusion identified. Dural sinuses appear patent. 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 IMPRESSION: Unremarkable CTA of the head. ACT 112: Negative or not required by law. The above report was generated using voice recognition software. It may contain grammatical, syntax o r spelling errors. Electronically signed by: Shreyas Joseph M.D. 07/01/2024 2:45 PM
--- NOTE | 2024-07-01 14:58 | CT Scan Report ---
CT ANGIOGRAM OF THE NECK CLINICAL HISTORY: Left arm weakness. Left-sided facial droop. COMPARISON STUDY: CT angiogram of the neck dated 04/13/2022. TECHNIQUE: Following the IV administration of 112 of Optiray 320, CT angiogram of the neck was perfor med from the aortic arch to the skull base. Images are reviewed in the axial, sagittal, and coronal p lanes. 3-D MIPS images are created and assessed. IV contrast was administered without complication. A ll measurements were calculated based on NASCET criteria. A dose lowering technique was utilized adh ering to the principles of ALARA. FINDINGS: Thoracic aorta: Visualized portions of the thoracic aorta are normal in caliber. The aortic arch demo nstrates standard 3-vessel anatomy. Right carotid arterial system: The right common carotid artery is widely patent. Advanced atheroscler otic plaque is seen in the carotid bulb. This causes approximately 75% focal stenosis at the origin o f the right internal carotid artery through the mid to distal portions of the right internal carotid artery are widely patent, as is the right external carotid artery. Left carotid arterial system: The left common carotid artery is widely patent, as are the left compliance intern al and external carotid arteries. Vertebral arteries: Widely patent bilaterally noting left-sided dominance. Subclavian arteries: Widely patent bilaterally. Intracranial vasculature: The visualized intracranial vessels at the skull base are patent. Jugular veins: Widely patent bilaterally. Brain parenchyma: The visualized brain parenchyma the skull base is within normal limits. Lung apices: Partially visualized upper lobe lung parenchyma appears clear. Soft tissues: The visualized pharyngeal soft tissues are normal in appearance noting angiographic pha se technique. The oropharyngeal airway appears widely patent. The salivary and thyroid glands are nor mal in appearance. No cervical lymphadenopathy is seen. Skeletal structures: The skeletal structures are osteopenic. The visualized calvarium at the skull ba se appears intact. The imaged cervical spine is maintained noting advanced multilevel spondylosis. Sinuses and mastoids: The visualized paranasal sinuses are clear. The mastoid air cells are well pneu matized. IMPRESSION: 1. There is approximately 75% focal stenosis at the origin of the right internal carotid artery. This is similar to previous. 2. Otherwise unremarkable CT angiogram of the neck. ACT 112: Negative or not required by law. Electronically signed by: Gio Daily M.D. 07/01/2024 2:57 PM
--- NOTE | 2024-07-01 16:18 | Electrocardiogram Report ---
Test Reason : Blood Pressure : */* mmHG Vent. Rate : 73 BPM Atrial Rate : 73 BPM P-R Int : 214 ms QRS Dur : 86 ms QT Int : 402 ms P-R-T Axes : 79 8 61 degrees QTcB Int : 442 ms Sinus rhythm with 1st degree A-V block with occasional Premature ventricular complexes and Premature atrial complexes Abnormal ECG When compared with ECG of 20-Jun-2024 11:42, Premature ventricular complexes are now Present Premature atrial complexes are now Present Confirmed by Chacho Mariee ([id number]) on 07/01/2024 4:18:43 PM Referred By: Kelechi Haile Confirmed By: Chacho Mariee
[2024-07-01] MEDS ORDERED: PHARMACIST DISCHARGE MED REC CONSULT PRN (17:50)
--- OUTSIDE RECORDS SUMMARY | 2024-07-01 18:09 | External Medical Summary | Continuity of Care Document ---
Author Name Unknown Organization [facility] [address] [facility] Address [address] [place], [place] [id number] Care Team Providers Care Vehicle Washer Name Role Phone MicDanieldwaine Primary Care Physician [phone] [id number] Date(s): 06/24/24 - 06/24/[address] YUSUF A [address] [address] [phone] Encounter Diagnosis Leg pain(Discharge Diagnosis) - 06/24/24 Discharge Disposition: Home or Self Care Attending Physician: BREANNA Douglas Danielle B Allergies, Adverse Reactions, Alerts Substance Criticality Severity Reaction Reaction Severity Status Latex rash Active Lyrica emotional Active oxyCODONE vomiting Active Assessment and Plan Extracted from: Title:Acute Visit Note Author:BREANNA Douglas Dani elle B Date:06/24/24 1.Leg pain Suspectleft medial upperhamstring tendinopathy due to potentialovercompensationas patient is having knee replacement of same legon07/12.Will order x-ray of pelvis to be doneto rule out structural changes. Also recommended the patientschedule appointment withorthopedics prior to anyreplacement surgery on 07/12to have a hamstring area evaluatedto make sure it is not something that wouldimpact surgery date. -In the meantime,can use heat and ice, Tylenol for pain. -Follow-up if symptoms worsen or fail to improve. - Patient verbalizes understanding regarding plan ofcare and all questions answered. Immunizations Given and Recorded Vaccine Date Status Refusal Reason zoster vaccine, inactivated 08/29/23 Recorded tetanus/diphtheria/pertuss, acel (Tdap) 08/29/23 R ecorded influenza virus vaccine, inactivated 08/24/23 Give n influenza virus vaccine, inactivated 08/15/22 Give n SARS-CoV-2 (COVID-19) mRNA-1273 vaccine 1 09/01/21 Recorded SARS-CoV-2 (COVID-19) mRNA-1273 vaccine 2 11/30/20 Recorded SARS-CoV-2 (COVID-19) mRNA-1273 vaccine 3 11/02/20 Recorded 1Result Comment: 2021-11-25: Historical information-source unspecified 2Result Comment: 2021-11-25: Historical information-source unspecified 3Result Comment: 2021-11-25: Historical information-source unspecified Medications alendronate 35 mg oral tablet Start: 08/24/23 11:33:00 AM EST, 1 tab, PO, q7days, Disp# 12 tab, Refills: 4, Pharmacy: [facility] Start Date: 08/24/23 Stop Date: 10/17/24 Status: Ordered amLODIPine 2.5 mg oral tablet Start: 04/22/24 3:43:00 PM EDT, 1 tab, PO, Daily, Disp# 90 tab, Refills: 3, Pharmacy: [facility] Start Date: 04/22/24 Status: Ordered aspirin 81 mg oral delayed release tablet Start: 08/15/22 2:13:00 PM EST, 1 tab, PO, Daily, Disp# 90 tab Start Date: 08/15/22 Stop Date: 11/13/22 Status: Ordered [place] Calcium with Vitamin D Start: 02/22/18 12:51:00 PM EDT, 2 tab, PO, Daily Start Date: 02/22/18 Status: Ordered gabapentin 100 mg oral capsule Start: 02/05/24 3:53:00 PM EDT, 1 cap, PO, tid, Disp# 270 cap, Refills: 4, Pharmacy: [facility] Start Date: 02/05/24 Status: Ordered hydroCHLOROthiazide 25 mg oral tablet Start: 03/04/24 9:06:00 AM EDT, 1 tab, PO, Daily, Disp# 90 tab, Refills: 4, Pharmacy: [facility] Start Date: 03/04/24 Status: Ordered lisinopril 10 mg oral tablet Start: 08/04/23 5:09:00 PM EST, 1 tab, PO, bid, Disp# 180 tab, Refills: 4, Pharmacy: [facility] Start Date: 08/04/23 Status: Ordered magnesium oxide 400 mg (241.3 mg elemental magnesium) oral tablet Start: 04/19/22 8:56:00 AM EDT, 1 tab, PO, Daily Start Date: 04/19/22 Status: Ordered meloxicam 15 mg oral tablet Start: 02/06/24 1:14:00 PM EDT, 1 tab, PO, Daily, Disp# 90 tab, Refills: 3, Pharmacy: [facility] Start Date: 02/06/24 Status: Ordered multivitamin Start: 04/19/22 8:57:00 AM EDT, 1 tab, PO, Daily Start Date: 04/19/22 Status: Ordered oxyBUTYnin 5 mg oral tablet Start: 07/20/23 5:18:00 PM EDT, 1 tab, PO, bid, Disp# 180 tab, Refills: 3, PRN: NEEDED FOR URINARY DISCOMFORT, Pharmacy: [facility] Start Date: 07/20/23 Status: Ordered pantoprazole 40 mg oral delayed release tablet Start: 02/26/24 4:40:00 PM EDT, 1 tab, PO, Daily, Disp# 90 tab, Refills: 3, Pharmacy: [facility] Start Date: 02/26/24 Status: Ordered PreserVision AREDS Start: 08/15/22 1:37:00 PM EST Start Date: 08/15/22 Status: Ordered simvastatin 20 mg oral tablet Start: 09/20/23 2:37:00 PM EST, 1 tab, PO, qhs, Disp# 90 tab, Refills: 0, Pharmacy: [facility] Start Date: 09/20/23 Status: Ordered Mental Status 06/24/24 Barriers to Learning one year None evide nt Mandatory Health Literacy Documentation Yes Health Literacy Communication Barriers N ever Primary Language Malawian Problem List Condition Confirmation Course Effective Dates Status Health St atus Informant Flat foot [pes planus] (acquired), right foot 1 Confirmed Active Benign essential hypertension Confirmed Active Edema of left lower leg Confirmed Active Systolic murmur Confirmed Active Chronic joint pain Confirmed Active Actinic keratoses Confirmed Active Degenerative arthritis Confirmed Active Stenosis of right carotid artery greater than 50% Confirmed Active Ambulatory dysfunction Confirmed Active 1end-stage posterior tibial tendon dysfunction acquired flatfoot of adulthood Diagnosis Diagnosis Type Effective Dates Health Status Clini d[facility] Service Informant Leg pain Discharge Diagnosis 06/24/24 Non-Specified Procedures Procedure Date Related Diagnosis Body Site Status KUB X-ray 1 03/27/23 Completed KUB X-ray 2 08/15/22 Completed Chest x-ray 3 04/13/[address] angiography of head and n leo with contrast 4 04/13/[address] of head 5 04/13/22 Completed MRI of brain 6 04/13/22 Completed Shave biopsy and cauterization of skin 12/30/21 Completed Mammogram - screening 7 12/24/21 C ompleted Left shoulder 2015 Completed Right hip 8 2013 Completed Vitrectomy 2012 Completed Back 9 2008 Completed CTR - Carpal tunnel release 10 2007 Completed Hysterectomy 2006 Completed Hysteroscopy 2002 Completed Cholecystectomy 2000 Completed Colonoscopy 2000 Completed 1IMPRESSION: 1. No evidence for a bowel obstruction. 2. Large amount of stool within the colon and rectum. 2Postoperavtive findingd within the spine, cholecystectomy clips and right hip arthroplasty are incidentaly noted. There is no evidence for bowel obstruction. Large amount of stool within the colon and rectum is present. Moderate left hip osteoarthritis is noted. 3Cardiomegaly with no active disease in the chest. 41 There is no evidence of hemorrhage, mass effect, or acute territorial ischemia noting angiographic phase technique. 2. Unremarkable CT angiogram of the brain. 3. There is approximately 75% focal stenosis at the origin of the right internal carotid artery. 4. Otherwise unremarkable CT angiogram of the neck. 5. Hyperdensity questioned involving the left middle cerebral artery on the unenhanced examination was artifactual. 5Small hyperdense focus in the region of the proximal left MCA which could represent an acute thrombus. Follow-up brain MRI recommended to exclude the possibility of an acute left MCA territory infarct. 6No acute intracranial abnormality. Scattered foci of T2 hyperintensity seen within the periventricular and subcortical white matter are nonspecific but favor microvascular ischemic change. 7ACR BI-RADS CATEGORY 2: BENIGN There is no mammographic evidence of malignancy. A 1 year screening mammogram is recommended.(12/25/2022) 8replacemnt & 2010 10September and December Vital Signs Most recent to oldest [Reference Range]: 1 Patient Weight 70.8 kg (06/24/24 1:02 PM) Heart Rate 62 bpm (06/24/24 1:02 PM) Respiratory Rate 18 br/min (06/24/24 1:02 PM) Blood Pressure 140/56mmHg (06/24/24 1:02 PM) Cuff Pulse Pressure 84 mmHg (06/24/24 1:02 PM) Social History Social History Type Response Smoking Status Never smoked cigaret darwin Sex Female Sex Representation Female (finding) [facility] Outpt Note * BREANNA Douglas Danielle B: PERFORM Event Display: [facility] Outpt Note Authored Date: [id number] Chief Complaint has pain under left butt cheek. feels like a rubber band snapping. had same issue earlier this year. diclofenac gel did not help. History of Present Illness Patient is an 84-year-old female here forleftmedialupper hamstring insertion. She statesshe had similar symptoms in Novemberwh it was suspected that shepartially torehamstring. Saw orthopedicswith Richard Dietrich at that timeand didat home PT. Patient states symptoms completely resolveduntil 1 to 2 weeks ago. States she has noticed pain when she wakes up in the morning;feels likea rubber bandsnapping under left buttockswhen she moves her leg. Pain slightly improved throughout the day but does not resolve. Pain exacerbated withgoing into sitting position, going from sitting to standing, sitting on hard surface. No known trauma. Denies leg weakness,paresthesias,back pain. Has tried diclofenac gel without relief. Review of Systems Negative unless stated in HPI. Physical Exam Vitals & Measurements HR:62(Monitored) RR:18 BP:140/56 SpO2:98% WT:70.8kg WT:70.800kg(Dosing) PHQ2 Data(Data Documented on:06/24/2024 13:02) Emotional health assessment NEGATIVE CONSTITUTIONAL: Well-developed, well nourished. No acute distress. NEUROLOGICAL: Patient alert, orientated, memory intact. MUSCULOSKELETAL/EXTREMITIES: Extremities are intact, no redness or edema noted of upper or lower extremity. Pain with palpation left medial upper hamstring head insertion. No pain with heel to butt. INTEGUMENTARY: Skin dry, warm to touch. No rash, wounds, lesions noted on visible skin. PSYCHOSOCIAL: Calm and cooperative, interacts appropriately withstaff. Assessment/Plan 1.Leg pain Suspectleft medial upperhamstring tendinopathy due to potentialovercompensationas patientis having knee replacement of same legon07/12.Will order x-ray of pelvis to be doneto rule out structural changes. Also recommended the patientschedule appointment withorthopedics prior to anyreplacement surgery on 07/12to have a hamstring area evaluatedto make sure it is not something that wouldimpact surgery date. -In the meantime,can use heat and ice, Tylenol for pain. -Follow-up if symptoms worsen or fail to improve. - Patient verbalizes understanding regarding plan ofcare and all questions answered. Problem List/Past Medical History Ongoing Actinic keratoses Ambulatory dysfunction Benign essential hypertension Chronic joint pain Deformity of right foot Degenerative arthritis Edema of left lower leg Flat foot [pes planus] (acquired), right foot Hypercholesterolemia Palpitations Stenosis of right carotid artery greater than 50% Systolic murmur Resolved Hypertensive crisis Procedure/Surgical History KUB X-ray| Service Date: 03/27/2023UB X-ray| Service Date: 08/15/2022MRI of brain| Service Date: 04/13/2022T angiography of head and neck with contrast| Service Date: 04/13/2022hestx-ray| Service Date: 04/13/2022T of head| Service Date: 04/13/2022have biopsy and cauterizat ion of skin| Service Date: 12/30/2021Mammogram - screening| Service Date: 12/24/2021Left shoulder| Service Date: 2015Right hip| Service Date: 2013Vitrectomy| Service Date: ack| Service Date: 2008CTR - Carpal tunnel release| Service Date: 2007Hysterectomy| Service Date: 2006 Hysteroscopy| Service Date: 2002Colonoscopy| Service Date: 2000Cholecystectomy| Service Date: 2000 Medications alendronate(alendronate 35 mg oral tablet), 35 mg= 1 tab, PO, q7days, 4 refills amLODIPine(amLODIPine 2.5 mg oral tablet), 1 tab, PO, Daily aspirin(aspirin 81 mg oral delayed release tablet), 81 mg= 1 tab, PO, Daily calcium-vitamin D([place] Calcium with Vitamin D), 2 tab, PO, Daily gabapentin(gabapentin 100 mg oral capsule), 1 cap, PO, tid hydroCHLOROthiazide(hydroCHLOROthiazide 25 mg oral tablet), 1 tab, PO, Daily lisinopril(lisinopril 10 mg oral tablet), 1 tab, PO, bid magnesium oxide(magnesium oxide 400 mg (241.3 mg elemental magnesium) oral tablet), 400 mg= 1 tab, PO, Daily meloxicam(meloxicam 15 mg oral tablet), 1 tab, PO, Daily multivitamin, 1 tab, PO, Daily multivitamin with minerals(PreserVision AREDS) oxyBUTYnin(oxyBUTYnin 5 mg oral tablet), 1 tab, PO, bid, PRN pantoprazole(pantoprazole 40 mg oral delayed release tablet), 1 tab, PO, Daily simvastatin(simvastatin 20 mg oral tablet), 1 tab, PO, qhs Allergies Latexrash Lyricaemotional oxyCODONEvomiting Social History Smoking Status Never smoked cigarettes Alcohol - Denies Alcohol Use Employment/School - Not employed or in school Exercise Times per week:1-2 times/week Nutrition/Health - Low Risk Sexual - Low Risk Substance Abuse - Denies Substance Abuse Tobacco - Denies Tobacco Use Family History Family history is negative Immunizations Vaccine Date Status zoster vaccine, inactivated 08/29/2023 Recorded tetanus/diphtheria/pertuss, acel (Tdap) 08/29/2023 Recorded influenza virus vaccine, inactivated 08/24/2023 Given influenza virus vaccine, inactivated 08/15/2022 Given SARS-CoV-2 (COVID-19) mRNA-1273 vaccine 09/01/2021 Recorded Comments : 2021-11-25: Historical information-source unspecified SARS-CoV-2 (COVID-19) mRNA-1273 vaccine 11/30/2020 Recorded Comments : 2021-11-25: Historical information-source unspecified SARS-CoV-2 (COVID-19) mRNA-1273 vaccine 11/02/2020 Recorded Comments : 2021-11-25: Historical information-source unspecified Recommendations Health Maintenance Pending(in the next year) OverDue Adult Influenza Vaccine due03/24/24and every 1year Due Adult COVID-19 Vaccination due06/24/24Unknown Frequency Adult Social Determinants of Health Screening due06/24/24Unknown Frequency Falls Plan of Care due06/24/24Unknown Frequency Pneumococcal Vaccine Older Adults due06/24/24One-time only Shingles Vaccine due06/24/24One-time only Due In Future Medicare Annual Wellness Visit not due until02/25/25and every 1year Satisfied(in the past 1 year) Satisfied Adult Influenza Vaccine on08/24/23.Satisfied by PORFIRIO Salcido Joy Adult Tdap/Td Vaccine on08/29/23.Satisfied by MD Haile Christopher Body Mass Index on02/26/24.Satisfied by PORFIRIO Leslie Kyla Medicare Annual Wellness Visit on02/26/24.Satisfied by MD Haile Christopher Shingles Vaccine on08/29/23.Satisfied by MD Haile Christopher Electronic Signature on File Electronically Reviewed/Signed by: BREANNA Feng Author Signature Dt/Tm:06/24/2024 03:29 PM Family Medicine DBN Patient Care team information Care Team Personnel Name: MD Courtney, Dwight Callahan Position: Physician - Orthopaedic Surg Member Role: Lifetime Relationship Address: [address] [place] [id number] [place] Name: MD Haile Christopher Position: Physician - Family Med Member Role: Primary Care Provider Address: [address] [address] [place] Name: Prosper Culver MD, [facility] Position: Resident Member Role: Lifetime Relationship Address: [address] [facility] [address] [place] [address] [place] Care Team Related Persons Name: KARL ANDINO Name: MAX ANDINO"
[2024-07-01] MEDS: CALCIUM 600MG + VIT D 400 IU TAB PO SCH (21:01)
[2024-07-01] MEDS: GABAPENTIN 100 MG CAP PO SCH (21:01)
[2024-07-01] MEDS: oxyBUTYnin chloride 5 MG TAB PO SCH (21:01)
--- NOTE | 2024-07-01 21:50 | Magnetic Resonance Report ---
Exam(s): MRI HEAD Without Contrast EXAM: MR Head Without Intravenous Contrast CLINICAL HISTORY: Reason for exam: left facial droop, left arm weakness. TECHNIQUE: Magnetic resonance images of the head/brain without intravenous contrast in multiple planes. COMPARISON: CT head on 07/01/2024 FINDINGS: Brain: No acute infarct or hemorrhage identified. No extra-axial fluid collection. No mass effect or midline shift. Scattered areas of hypoattenuation in the supratentorial white matter likely represent chronic small vessel ischemic changes. Ventricles and sulci: Prominence of the ventricles and sulci is likely secondary to cerebral volume loss. Bones: Normal. No bony lesion or acute fracture. Subcutaneous tissues: Normal. Sinuses: Normal. No air-fluid levels or mucosal thickening. Mastoid air cells: Normal. Orbits: Bilateral lens implants. Other: Atherosclerotic calcifications in the intracranial vasculature. IMPRESSION: 1. No acute intracranial abnormality. 2. Chronic small vessel ischemic changes and cerebral volume loss. Electronically signed by: Carmen Mena M.D. 07/01/24 21:49 PM
[2024-07-02 06:57] LABS: Hematocrit (blood only) 31.7 % (37.0-47.0); Hemoglobin 10.6 g/dl (12.0-16.0); Mean Corpuscular Hgb Conc 33.4 g/dL (32.0-36.0); Mean Corpuscular Volume 89.8 fL (80.0-100.0); Mean Platelet Volume 10.3 fL (9.4-12.4); Platelet Count 183 K/uL (130-400); RDW Coefficient of Variation 14.3 % (11.5-14.5); RDW Standard Deviation 46.8 fL (36.4-46.3); Red Blood Count 3.53 M/uL (4.20-5.40); White Blood Count 6.03 K/ul (4.8-10.8)
[2024-07-02 07:20] LABS: BUN Creatinine Ratio 28.7 (10-20); Calcium 9.2 mg/dl (8.6-10.3); Chol HDL Ratio 2.2 (0-5); Creatinine Clr Calc Pharmacy 32.7 ml/min; Potassium 4.3 mmol/L (3.5-5.1)
[2024-07-02 07:39] LABS: Estimated Average Glucose 126 mg/dl
[2024-07-02] MEDS: amLODIPine BESYLATE 5 MG TAB PO SCH (08:05)
[2024-07-02] MEDS: SIMVASTATIN 20 MG TAB PO SCH (08:06)
[2024-07-02] MEDS: PANTOprazole 40 MG TAB PO SCH (08:06)
[2024-07-02] MEDS: hydroCHLOROthiazide 25 MG TAB PO SCH (08:07)
[2024-07-02] MEDS: ASPIRIN 81 MG ECTAB PO SCH (08:07)
[2024-07-02] MEDS: MELOXICAM 7.5 MG TAB PO SCH (08:07)
[2024-07-02] MEDS: lisinopril 5 MG TAB PO SCH (08:07)
--- NOTE | 2024-07-02 09:36 | Neurology Consultation ---
Date of Consultation July 02, 2024 Assessment & Plan (1) Stroke-like symptoms: (2) Hypertension: (3) Carotid artery stenosis: Plan This patient had a few symptoms in the evening of June 30 which were somewhat strokelike including left facial droop, left hand weakness and some slurred speech. The sleepiness is noted but was nonspecific. The whole spell only lasted a few minutes and she was back to baseline fairly quickly. She has had no more events or spells and is back to baseline ever since. MRI of the brain did not show any new stroke. 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 Her risk factors for stroke include hypertension and dyslipidemia. Her blood pressure has been elevated some during this hospitalization. The etiology of this spell is likely a TIA. Hypertension could have caused vasospasm and symptoms and her blood pressure came back to a lower level by the time she came to the emergency room. Vasospasm such as migraine is possible but she did not have any headache. There is no sign of embolic phenomenon and her right carotid stenosis (75% of the origin) has not changed over the last 2 years. The patient has a history of polyneuropathy involving predominantly sensory fibers which can affect her gait as well. She has a history of low back pain and uses a walker for support. Recommendations: 1. Discontinue aspirin 2. Initiate clopidogrel 75 mg daily. This may help "open up" the carotid artery over time and may do better in preventing TIAs. 3. Total cholesterol is down to 113. The case could be made that she is being overcorrected and her simvastatin should be decreased to 10 mg daily. Given her age, she should not be on a high dose statin especially with a total cholesterol of less than 150. This would increase a possible risk of CAR WRECKER hemorrhage 4. Control blood pressure as you are doing, aiming for a mean arterial pressure of approximately 95-100. 5. Increase activity as able. 6. Awaiting echocardiogram results from this morning. 7. Otherwise, I have no further neurologic testing or treatment recommendations to make at this time. Overall, I spent a total of 110 minutes with this case including review of records, review of MRI films, direct evaluation of the patient at bedside, report generation, and discussion of the case with the patient and RN at bedside and Diane Ordoñez PA-C, including differential diagnosis and treatment options. History of Present Illness Reason for Consultation: Patient is an 84-year-old, who I was asked to see at the request of Diane Ordoñez PA-C, for neurologic evaluation regarding strokelike symptoms. Requesting Physician: Diane Ordoñez PA-C Attending Physician: Zehra Jimenez MD History of Present Illness I first saw this patient in March 2022. At that time she had 2 episodes of visual disturbance along with some gait issues and significant hypertension. Evaluation at that time revealed 75% stenosis at the origin of the right internal carotid artery. MRI of the brain showed old small vessel ischemic disease and some atrophy but new stroke. Hypertension was controlled and she was initiated on 81 mg aspirin tablet daily. I have not seen her since. The patient has a history of hypertension, dyslipidemia, and has been on simvastatin 20 mg daily and lisinopril 5 mg daily. She continues to take the 81 mg aspirin tablet daily. Patient was doing fairly well until the evening of June 30. Around 0, the patient was sitting and suddenly was somewhat sleepy with her head drooped down and apparently not responsive very well to her 's voice. She did get arouse and seemed confused with some slurred speech and there was felt to be a left facial droop and possibly some left hand weakness. It lasted for several minutes and then resolved. By the time the EMS people arrived it was gone. She was given the option and declined to go to the emergency room. She was convinced that she was sleepy and "a little dopey" before it happened and that there were no other symptoms that the described. She went to bed with no further issue and woke up feeling fine on July 01. After a discussion with her primary care physician she was encouraged to go to the emergency room. She arrived to the emergency room July 01 at 1130 with a temperature of 36.6, pulse 62 and regular, respiratory rate 18, blood pressure 171/87, and O2 saturation 96%. There were no focal findings on examination and no meningeal signs or encephalopathy. NIH stroke scale score was 0. CBC was normal CHEM profile showed an elevated BUN of 40 and a troponin of 15. Chest x-ray was unremarkable. CT scan of the head was unremarkable. CT angiography of the head was normal with no vascular anomalies or stenoses. CT angiography of the neck revealed the 75% stenosis at the origin of the right internal carotid artery (as before). MRI of the brain showed no new stroke with mild to moderate old small vessel ischemic disease and mild generalized atrophy. I reviewed these films. She feels well with no further symptoms or problems and back to baseline. This morning, BUN was 31 otherwise CHEM profile and CBC were unremarkable. She has been in normal sinus rhythm in the 50s and 60s overnight with no dysrhythmia. Hemoglobin A1c was 6.0, triglycerides 76, and total cholesterol 113. Allergies Allergy/AdvReac Type Severity Reaction Status Date / Time adhesive Allergy Mild RASH Verified 07/01/24 14:44 capsaicin AdvReac Mild GI upset Verified 07/01/24 14:44 diclofenac AdvReac Mild GI upset Verified 07/01/24 14:44 Diclopak AdvReac Mild GI upset Verified 01/10/17 00:12 oxycodone AdvReac Mild GI upset Verified 07/01/24 14:44 pregabalin AdvReac Mild GI upset Verified 07/01/24 14:44 Home Medications Medication Instructions Recorded Confirmed Type gabapentin 100 mg capsule 200 mg PO BID 07/27/18 07/01/24 History simvastatin 20 mg tablet 20 mg PO QAM 07/27/18 07/01/24 History calcium 600 mg (as 1 tab PO BID 04/13/22 07/01/24 History carbonate)-vitamin D3 10 mcg (400 unit) tablet (Calcium 600 + D(3)) multivitamin 1 tab PO DAILY 04/13/22 07/01/24 History oxybutynin chloride 5 mg tablet 5 mg PO BID 04/13/22 07/01/24 History pantoprazole 40 mg tablet,delayed 40 mg PO DAILY 04/13/22 07/01/24 History release aspirin 81 mg tablet,delayed 81 mg PO QAM #90 tabs 04/16/22 07/01/24 Rx release hydrochlorothiazide 25 mg tablet 25 mg PO QAM #30 tabs 04/16/22 07/01/24 Rx alendronate 35 mg tablet 35 mg PO .weekly 09/08/23 07/01/24 History amlodipine 2.5 mg tablet 2.5 mg PO QAM 11/27/23 07/01/24 History meloxicam 15 mg tablet 15 mg PO QAM 11/27/23 07/01/24 History lisinopril 5 mg tablet 5 mg PO QAM 06/18/24 07/01/24 History vitamins A,C,X-gmmv-ueesng 2,148 1 tab PO DAILY 06/18/24 07/01/24 History mcg-113 mg-45 mg-17.4 mg tablet (PreserVision AREDS) Patient History Medical History Hearing loss chronic Urinary urgency Irregular heart beat no cards Stenosis of right internal carotid artery "75% blockage" Osteoporosis Neuropathy feet GERD (gastroesophageal reflux disease) controlled, stable per pt Hyperlipidemia Osteoarthritis of knees, bilateral Surgical History History of hysterectomy History of carpal tunnel release right/left History of cholecystectomy History of colonoscopy History of tooth extraction History of cataract surgery right/left History of shoulder surgery left History of right hip replacement History of back surgery x 2 *lower back fusion (hardware intact) Family History Mother , age 75 of uterine cancer Uterine cancer Father , age 65 of an HI Myocardial infarction Social History Smoking Status: Never smoker Second Hand Exposure: Yes (in the past); Do You Dip or Chew Tobacco: No; Hx Alcohol Use: No Hx Substance Use: No Preferred Language: Azerbaijani Communication Ability: Effective Log Rafter Required: No Beliefs That Will Affect Care: None marital status: Current Living Situation: Spouse current occupational status: retired 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, 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64 Other Information That Helps Us Care for You: No Feels Safe at Home: Yes Safety Concerns: Feels Safe At This Time Assistive Devices: Glasses and Walker Review of Systems Constitutional: no fever, no fatigue and no weakness Eyes: no diplopia, no eye pain and no worsening vision Ear, Nose, Mouth, Throat: no ear pain, no tinnitus, no hearing loss, no dizziness, no snoring, no hoarseness and no dysphagia Respiratory: no cough and no dyspnea Cardiovascular: no chest pain, no palpitations and no lightheadedness Gastrointestinal: no abdominal pain, no nausea and no vomiting Genitourinary: no dysuria, no urinary frequency and no urinary incontinence Musculoskeletal: + back pain; no neck pain, no radicular pain, no joint pain and no myalgia Integumentary: no rash and no lesions Neurologic: no gait abnormality, no localized weakness, no generalized weakness, no tingling, no numbness, no tremor(s), no abnormal movements, no headache(s), no abnormal speech, no confusion and no memory loss Psychiatric: no depression, no irritability, no anxiety, no difficulty concentrating, no confusion and no hallucinations Endocrine: no fatigue and no flushing Hematologic / Lymphatic: no easy bleeding and no easy bruising Allergy / Immunological: no urticaria and no problem reported Exam (Neuro) Physical Exam: The patient is left-handed. The patient is awake, alert, and attentive. Speech is normal without any aphasia or dysarthria. Mentation and thought processes are intact, with full orientation and normal fund of knowledge. Mood and affect are normal and appropriate. Appearance and grooming are normal. Short and long-term memory are intact. Pupils are 3 mm bilaterally and reactive to light. Extraocular eye muscles are intact without nystagmus. Visual acuity and visual campbell seem normal grossly to confrontation. There are no deficits to sensation in the face in all 3 distributions of the fifth cranial nerve bilaterally. Corneal reflexes are positive bilaterally. Facial strength and symmetry was normal bilaterally. Hearing is decreased bilaterally. Palate moves well without asymmetry. There is normal sternocleidomastoid and trapezius strength bilaterally. Tongue is midline with good strength bilaterally. Neck has a full range of motion without discomfort. There are no cervical bruits bilaterally. There are no cranial or ocular bruits. Heart is without murmur. There is a regular rhythm and rate. Cervical, thoracic, and lumbar spine are nontender to palpation. Gait is difficult and cautious. She needs a walker for support or the assistance of at least 1. Stance with feet together and eyes open is somewhat poor and she is very slow and deliberate with walking. With outstretched arms there is no drift. There are no resting, postural, or action tremors. There is no ataxia with finger to nose testing. There is good facility in the hands. No other abnormal involuntary movements are noted. Motor strength is 5/5 diffusely in the arms bilaterally including deltoids, biceps, triceps, brachioradialis, wrist flexors and extensors, [employer], and intri nsic hand muscles. Motor strength is 5/5 diffusely in the legs bilaterally including hip flexors, quadriceps, hamstrings, gastrocnemius, tibialis anterior, tibialis posterior, and Peroneii muscles bilaterally. Toe extensors are normal and there is good bulk in the extensor digitorum brevis muscles bilaterally. The limbs have good tone without rigidity or spasticity. There is no atrophy noted in the muscles. Muscle bulk is normal, there is no tenderness to palpation, no myotonia to percussion, and no fasciculations seen. Sensory examination is intact to touch and pin throughout all 4 limbs diffusely. Reflexes are 2/4 in the biceps, triceps, brachioradialis tendons bilaterally. The left quadriceps and right Achilles tendon reflexes were 1/4 and the right quadriceps and left Achilles tendon reflexes were absent bilaterally. Toes are downgoing with plantar stimulation bilaterally. Peripheral pulses are present and of normal quality distally in all 4 limbs. There is no peripheral edema noted in the limbs. Results & Data Vital Signs (Past 12 Hours) Vital Signs Temp Pulse Pulse Resp BP Pulse Ox O2 Del Method 07/02/24 07:22 36.7 C 65 14 149/74 H 97 Room Air 07/02/24 07:20 Room Air 07/02/24 07:14 56 L 07/02/24 04:17 36.7 C 56 L 18 133/74 94 Room Air 07/01/24 23:19 36.7 C 62 18 123/58 L 97 Room Air 07/01/24 22:02 59 L PG Care Time/CCT Total # of Minutes Spent Total Time Spent with Patient: Total time spent is greater than 50% in coordination of care (as documented) at patient's floor/unit and/or counseling patient: Coding Level of Care Code 25260 INT INP/OBS CARE 3/75MIN Diagnoses Stroke-like symptoms R29.90 Hypertension I10 Carotid artery stenosis I65.29
--- NOTE | 2024-07-02 09:40 | Discharge Summary ---
Discharge Summary Date of Service July 02, 2024 Principal Dx & Hospital Course #1 = Principal Diagnosis (1) Stroke-like symptom: Transient ischemic attack - patient with episode last night of feeling 'dopey'/off and unresponsive for a few seconds; family stated symptoms resolved in < 10 mins - history of right carotid artery 75% stenosis, no history of previous CVA or DM, no previous anticoagulation - ABCD2 score 2 = low risk - CT and CTA of head negative for acute findings, MRI negative for acute findings - Q4H neuro checks, elevate HOB - reviewed lipid panel WNL and A1C 6.0% - PT/OT recommending patient is cleared to go home with assistance from - continue home statin - home aspirin changed to Plavix - echo similar to previous and no right to left shunt - neurology consulted - will be set up with 14 day Holter monitor; recommend terminal operations manager monitoring with possible loop recorder with PCP (2) Carotid artery stenosis: - history of right carotid artery 75% stenosis; CTA of neck on admission similar to previous scan with 75% stenosis - following out pt with potential surgical management - recently had pre-op eval - lipid panel WNL - continue home statin - Discontinued aspirin and started on Plavix; Loading dose of 300 mg given 07/02 and to continue with 75 mg daily - continue to follow with vascular out patient; referral placed by PCP in April (3) Hypertension: - elevated during hospitalization - continue home HCTZ and lisinopril - increased amlodipine from 2.5 mg to 5 mg (4) Hyperlipidemia: - recent lipid panel reviewed; WNL, total cholesterol is borderline overcorrected, want to avoid cholesterol below 100 - continue with statin and close PCP monitoring Plan Chronic stable diagnoses: GERD - continue home pantoprazole Overactive bladder - continue home oxybutynin Tele: Sinus rhythm with 1st degree, occasional PAC's and PVC's , rate 50-60s VTE ppx: SCDs Diet: heart healthy Code status: Full Dispo: discharge home Notes For Next Care Provider Patient was set up with 14 day Holter monitor; recommend terminal operations manager monitoring with possible loop recorder with PCP. Medication Changes From Visit Aspirin and Meloxicam discontinued Started on Plavix 75 mg daily Amlodipine increased to 5 mg daily Admission HPI Per Admitting Provider Patient is an 84-year-old female past medical history of carotid artery stenosis, hypertension, hyperlipidemia, GERD, overactive bladder, and osteoarthritis of right knee. She presents today with strokelike symptoms that lasted for less than 10 minutes last night when she was with her family. Patient stated that she felt 'dopey' for just a few seconds. She stated that her said that she was not responding to him for a few seconds. her family then called an ambulance but her symptoms were resolved when they arrived. As per the patient's daughter her symptoms do not last for more than 10 minutes. Patient denies dizziness, lightheadedness, headache, vision changes, weakness, numbness, tingling, facial droop, slurred speech, gait abnormalities. Patient denies fever, dyspnea, chest pain, abdominal pain, nausea, vomiting, diarrhea, constipation. She has chronic edema in which she elevates her legs; o ngoing for multiple years after hip replacement, no past history of CHF. She is to have a knee replacement next week. She denies a history of VTE, HI, CVA, DM, and cancer. She does not smoke tobacco or drink alcohol. She took all of her home medications this morning. She does not use oxygen at baseline. She has a medical living will and wished to be full code but no nursing home ventilation. Patient assessed at bedside with daughter present who works in the ER. Admission Exam Per Admitting Provider The patient is awake, alert and oriented 3, well developed and well nourished, normocephalic and atraumatic, in no acute distress. Non-toxic appearing. HEENT- EOMI, mucous membranes moist. Hearing grossly intact. Heart-normal S1 and S2. No murmurs, rubs or gallops. Lungs-clear bilaterally, no respiratory distress, no accessory muscle use. Abdomen-normal bowel sounds and soft. No ascites noted. Non-tender. Extremities- no clubbing, cyanosis. Mild nonpitting edema of bilateral LE. Rheumatologic-normal range of motion. Psychiatric-normal affect. Musculoskeletal: Extremities: strength 5/5 throughout Neurologic: PERRL, EOMI, accommodation nl, no face palsy, no dysarthria normal touch/pain/proprioception, CN's II-XI intact bilaterally, moves all extremities and awake; no focal motor deficits and not confused Speech / Cognition: normal speech Motor/Sensory: normal movement Discharge Exam The patient is awake, alert and oriented 3, well developed and well nourished, normocephalic and atraumatic, in no acute distress. Non-toxic appearing. HEENT- EOMI, mucous membranes moist. Hearing grossly intact. Heart-normal S1 and S2. No murmurs, rubs or gallops. Lungs-clear bilaterally, no respiratory distress, no accessory muscle use. Abdomen-normal bowel sounds and soft. No ascites noted. Non-tender. Extremities- no clubbing, cyanosis. Mild nonpitting edema of bilateral LE. Rheumatologic-normal range of motion. Psychiatric-normal affect. Neurologic Speech / Cognition: normal speech Motor/Sensory: normal movement Discharge Plan Discharge Items Patient Disposition: Home - Self-Care Reason For Visit: STROKELIKE SYMPTOMS Discharge Diagnosis: 1. Transient ischemic attack 2. carotid artery stenosis 3. hypertension 4. hyperlipidemia Condition on Discharge: Good Activity: Resume your previous activity Non-emergency contact: Primary Care Provider and Neurologist Call non-emergency contact if: you have any medication questions and your symptoms worsen Follow-up/Referrals: Kelechi Haile MD [Primary Care Provider] - 07/08/24 9:45 am () Diet: Heart Healthy Addtl Attending Provider Instructions: You were hospitalized for a workup of stroke like symptoms. The CT scans and MRI of your brain were negative for acute changes, indicating that you did not have stroke, but rather a transient ischemic attack. You were evaluated by neurology who recommended to discontinue aspirin and you were started on Plavix 75 mg daily. This is an antiplatelet that will hopefully help with your diagnosed carotid artery stenosis. It is part of the TIA workup to have a heart event monitor to evaluate cardiac causes of the TIA. The CTA of your neck showed that your right carotid artery stenosis remained at 75% occlusion, as it was on previous scans. Continue to follow up in the out patient setting regarding the planned management for this with vascular surgery. You PCP made a referral last month to Vascular surgery. Your Meloxicam is discontinued because we do not recommend nursing home daily NSAID use. You can take Tylenol as needed for pain. You can also consider alteratives like Voltaren gel or Fish oil. Your amlodipine was increased from 2.5 to 5 mg due to your blood pressure being elevated. A new prescription was sent to your pharmacy. Your Orthopedic Surgery should be delayed for at least a month because of your TIA as we discussed. It is recommended that you follow up with your PCP in 1-2 weeks after being discharged. Pending Studies at Discharge: No Stand-Alone Forms: My [facility], Medications to Prevent Stroke Medications and DC Order Prescriptions: New clopidogrel 75 mg Tablet 75 mg PO QAM Qty: 30 0RF amlodipine [Norvasc] 5 mg Tablet 5 mg PO QAM Qty: 30 0RF Continued alendronate 35 mg tablet 35 mg PO .weekly Patient Comments: takes on mondays simvastatin 20 mg Tablet 20 mg PO QAM gabapentin 100 mg Capsule 200 mg PO BID pantoprazole 40 mg tablet,delayed release (DR/EC) 40 mg PO DAILY Patient Comments: lunch time oxybutynin chloride 5 mg tablet 5 mg PO BID calcium carbonate-vitamin D3 [Calcium 600 + D(3)] 600 mg-10 mcg (400 unit) Tablet 1 tab PO BID multivitamin Tablet 1 tab PO DAILY Patient Comments: lunch time hydrochlorothiazide 25 mg Tablet 25 mg PO QAM Qty: 30 2RF Rx Instructions: for high blood pressure lisinopril 5 mg Tablet 5 mg PO QAM PreserVision AREDS 2,148 mcg-113 mg-45 mg-17.4mg Tablet 1 tab PO DAILY Patient Comments: lunch time Rx Instructions: administer with AM and PM meals Discontinued aspirin 81 mg Tablet,Delayed Release (Dr/Ec) 81 mg PO QAM Qty: 90 3RF Rx Instructions: purchase bghr-pda-htlsylm meloxicam [Mobic] 15 mg Tablet 15 mg PO QAM amlodipine 2.5 mg tablet 2.5 mg PO QAM Discharge Orders: Discharge Order (Routine); Ordered 07/02/24 Ordered By: Zehra Reyes/Other Patient Handouts: Carotid Artery Problems: Stroke, TIA Dc Admission Data Admit Date/Time: 07/01/24 15:33 Attending Provider: Zehra Jimenez Admit Provider: Norberto Wells Primary Care Provider: Kelechi Haile Other Providers: Norberto Wells; Yash Sue Other Interventions: Discharge Summary Assessment (RN) Last Done: 07/02/24 14:48 Hospital Stay Data Consultations 07/01/24 13:58 ED Decision to Admit Stat 07/01/24 17:50 Consult Neurology Routine Diagnostic Imagining Performed Chest X-Ray 07/01/24 11:35 XR chest 1V portable CLINICAL HISTORY: stroke alert TECHNIQUE: Single frontal radiograph of the chest was obtained. Comparison: Comparison is made to chest radiograph 06/20/2024 FINDINGS: Left reverse shoulder arthroplasty is seen. Posterior spinal fixation hardware is seen. The cardiomediastinal silhouette is normal. The lungs are clear. No evidence of pleural effusion or pneumothorax. IMPRESSION: No acute chest disease. ACT 112: Negative or not required by law. Electronically signed by: Brandon Black M.D. 07/01/2024 12:[address] 07/01/24 12:28 CT head/brain wo con CLINICAL HISTORY: 84 years-old Female with stroke like symptoms 12 hrs ago. Acute stroke or symptoms TECHNIQUE: Multiple axial CT images of the head were obtained without contrast. A dose lowering technique was utilized adhering to the principles of ALARA. CT DOSE: 547.75 mGy.cm COMPARISON: Brain MRI 04/13/2022 FINDINGS: No acute intracranial hemorrhage, midline shift, intracranial mass, hydrocephalus, territorial ischemia or abnormal extra-axial collection. Involutional changes with chronic microvascular ischemic disease. The calvarium is intact. The paranasal sinuses, mastoid air cells, and middle ear cavities are clear. IMPRESSION: No acute intracranial abnormality. ACT 112: Negative or not required by law. The above report was generated using voice recognition software. It may contain grammatical, syntax or spelling errors. Electronically signed by: Shreyas Joseph M.D. 07/01/2024 12:51 PM Brain MRI 07/01/24 13:58 Exam(s): MRI HEAD Without Contrast EXAM: MR Head Without Intravenous Contrast CLINICAL HISTORY: Reason for exam: left facial droop, left arm weakness. TECHNIQUE: Magnetic resonance images of the head/brain without intravenous contrast in multiple planes. COMPARISON: CT head on 07/01/2024 FINDINGS: Brain: No acute infarct or hemorrhage identified. No extra-axial fluid collection. No mass effect or midline shift. Scattered areas of hypoattenuation in the supratentorial white matter likely represent chronic small vessel ischemic changes. Ventricles and sulci: Prominence of the ventricles and sulci is likely secondary to cerebral volume loss. Bones: Normal. No bony lesion or acute fracture. Subcutaneous tissues: Normal. Sinuses: Normal. No air-fluid levels or mucosal thickening. Mastoid air cells: Normal. Orbits: Bilateral lens implants. Other: Atherosclerotic calcifications in the intracranial vasculature. IMPRESSION: 1. No acute intracranial abnormality. 2. Chronic small vessel ischemic changes and cerebral volume loss. Electronically signed by: Carmen Mena M.D. 07/01/24 21:49 PM Head CTA 07/01/24 13:58 CT angio head w con CLINICAL HISTORY: 84 years-old Female with left facial droop, left arm weakness. Acute stroke like symptoms COMPARISON STUDY: Head CT of same day TECHNIQUE: Following the IV administration of 112 cc of Optiray, CT angiogram of the brain was performed from the skull base to the vertex. Images are reviewed in the axial, sagittal, and coronal planes. 3-D MIPS images are created and assessed. IV contrast was administered without complication. All measurements were obtained according to NASCET criteria. A dose lowering technique was utilized adhering to the principles of ALARA. CT DOSE: 426.58 mGy.cm FINDINGS: CT ANGIOGRAM OF THE BRAIN: The imaged bilateral internal carotid arteries are patent. The bilateral anterior and middle cerebral arteries are also patent. The vertebrobasilar system and posterior cerebral arteries are widely patent. There is no aneurysm, high-grade stenosis, or proximal branch occlusion identified. Dural sinuses appear patent. 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 IMPRESSION: Unremarkable CTA of the head. ACT 112: Negative or not required by law. The above report was generated using voice recognition software. It may contain grammatical, syntax or spelling errors. Electronically signed by: Shreyas Joseph M.D. 07/01/2024 2:45 PM Neck CTA 07/01/24 13:58 CT ANGIOGRAM OF THE NECK CLINICAL HISTORY: Left arm weakness. Left-sided facial droop. COMPARISON STUDY: CT angiogram of the neck dated 04/13/2022. TECHNIQUE: Following the IV administration of 112 of Optiray 320, CT angiogram of the neck was performed from the aortic arch to the skull base. Images are reviewed in the axial, sagittal, and coronal planes. 3-D MIPS images are created and assessed. IV contrast was administered without complication. All measurements were calculated based on NASCET criteria. A dose lowering technique was utilized adhering to the principles of ALARA. FINDINGS: Thoracic aorta: Visualized portions of the thoracic aorta are normal in caliber. The aortic arch demonstrates standard 3-vessel anatomy. Right carotid arterial system: The right common carotid artery is widely patent. Advanced atherosclerotic plaque is seen in the carotid bulb. This causes approximately 75% focal stenosis at the origin of the right internal carotid artery through the mid to distal portions of the right internal carotid artery are widely patent, as is the right external carotid artery. Left carotid arterial system: The left common carotid artery is widely patent, as are the left internal and external carotid arteries. Vertebral arteries: Widely patent bilaterally noting left-sided dominance. Subclavian arteries: Widely patent bilaterally. Intracranial vasculature: The visualized intracranial vessels at the skull base are patent. Jugular veins: Widely patent bilaterally. Brain parenchyma: The visualized brain parenchyma the skull base is within normal limits. Lung apices: Partially visualized upper lobe lung parenchyma appears clear. Soft tissues: The visualized pharyngeal soft tissues are normal in appearance noting angiographic phase technique. The oropharyngeal airway appears widely patent. The salivary and thyroid glands are normal in appearance. No cervical lymphadenopathy is seen. Skeletal structures: The skeletal structures are osteopenic. The visualized calvarium at the skull base appears intact. The imaged cervical spine is maintained noting advanced multilevel spondylosis. Sinuses and mastoids: The visualized paranasal sinuses are clear. The mastoid air cells are well pneumatized. IMPRESSION: 1. There is approximately 75% focal stenosis at the origin of the right internal carotid artery. This is similar to previous. 2. Otherwise unremarkable CT angiogram of the neck. ACT 112: Negative or not required by law. Electronically signed by: Gio Daily M.D. 07/01/2024 2:57 PM ECHO Discharge Instructions Given to Patient (Per Discharging Provider) You were hospitalized for a workup of stroke like symptoms. The CT scans and MRI of your brain were negative for acute changes, indicating that you did not have stroke, but rather a transient ischemic attack. You were evaluated by neurology who recommended to discontinue aspirin and you were started on Plavix 75 mg daily. This is an antiplatelet that will hopefully help with your diagnosed carotid artery stenosis. It is part of the TIA workup to have a heart event monitor to evaluate cardiac causes of the TIA. The CTA of your neck showed that your right carotid artery stenosis remained at 75% occlusion, as it was on previous scans. Continue to follow up in the out patient setting regarding the planned management for this with vascular surgery. You PCP made a referral last month to Vascular surgery. Your Meloxicam is discontinued because we do not recommend nursing home daily NSAID use. You can take Tylenol as needed for pain. You can also consider alteratives like Voltaren gel or Fish oil. Your amlodipine was increased from 2.5 to 5 mg due to your blood pressure being elevated. A new prescription was sent to your pharmacy. Your Orthopedic Surgery should be delayed for at least a month because of your TIA as we discussed. It is recommended that you follow up with your PCP in 1-2 weeks after being discharged. Supervising Physician Co-Signing Physician Notes RADHA Supervision Note: I personally saw and examined the patient. I verified all zelaya points and agree with RADHA Ordoñez with the following exceptions and/or additions: S-Pt feeling well, no weakness or slurred speech. Feels well O- Vitals reviewed Gen: [AAOx3, NAD] HEENT: [anicteric sclerae, EOMI] CV: [RRR no mgr nl S1S2] Pulm: [CTAB no wcr] Abd: [+BS soft NT ND no masses or hernias] Ext: [no edema, 2+ DP pulses] Skin: [no rashes, warm/dry] Neuro: [full strength throughout] A/P-84 yo female here with brief episode of altered mentation along with possible facial droop and slurred speech. Likely TIA. CHanged ASA to Plavix but kept same statin due to low cholesterol and advanced age. Needs ongoing eval with vascular Surgery as an outpt to consider carotid intervention for [place] Needs nursing home cardiac monitoring after discharge Needs improved BP control-increased amlodipine Stable for dc to home Total Time Total Time Spent Total Time Spent (In Minutes): 35 mins Total Time Includes: Examination of the Patient, Discharge Planning, Medication Reconciliation and Communication With Other Providers (Neurology) Coding [place] [address] INP/OBS DISCH >30 MIN Patient Type Established Medical Decision Making High Complexity Diagnoses Stroke-like symptom R29.90 Carotid artery stenosis I65.29 Hypertension I10 Hyperlipidemia E78.5
[2024-07-02 10:37] VITALS: BP 113/67; RESP 16; TEMP 97.9; O2SAT 98
[2024-07-02] MEDS: amLODIPine BESYLATE 5 MG TAB PO ONE (10:37)
[2024-07-02] MEDS: CLOPIDOGREL BISULFATE 300 MG TAB PO STA (10:37)
--- NOTE | 2024-07-02 10:45 | Pharmacy Report ---
- Date of Service July 02, 2024 - Pharmacy CVA/TIA Medication Review Medications to Prevent Stroke handout has been added to the patients discharge packet. Antiplatelet(s) * Plavix 75 mg once daily Cholesterol * High intensity statin deferred due to age >75 * Simvastatin 20 mg once daily DVT Prophylaxis * SCDs ordered Therapeutic Anticoagulation * No history of Afib/Aflutter noted Type 2 Diabetes * Patient does not have T2DM
--- NOTE | 2024-07-02 13:17 | XCELERA ---
[id number]
[2024-07-02] MEDS ORDERED: STROKE PATIENT DISCHARGE STA (14:37)
[2024-07-02 14:38] VITALS: PULSE 57
--- NOTE | 2024-07-02 16:27 | Billing Data ---
Date of Service July 01, 2024 Coding Level of Care Code 82496 INT INP/OBS CARE
[2024-07-03] MEDS ORDERED: amLODIPine BESYLATE 5 MG TAB PO SCH (09:00)
[2024-07-03] MEDS ORDERED: CLOPIDOGREL BISULFATE 75 MG TAB PO SCH (09:00)
== END 2024-07-02 15:06 | disposition home or self-care (01) ==
LOC: ED 11:00 → 2N 11:00 → SUATTDRO 15:33 → 2N 17:27

== ENCOUNTER 2024-07-17 10:28 | Inpatient (IN) ==
--- NOTE | 2024-07-11 16:18 | Anesthesiology Consultation ---
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 Chart Review Chart Review: Acceptable Risk for Surgery and Patient NOT seen in Pre Admission Testing History Surgery Operation Date: 07/17/24 12:40 Proposed Procedures p Right Carotid Endarterectomy - Carlos Diaz MD Height/Weight Height: 4 ft 10 in Weight: 63.503 kg Allergies Allergy/AdvReac Type Severity Reaction Status Date / Time adhesive Allergy Mild RASH Verified 07/11/24 15:22 capsaicin AdvReac Mild GI upset Verified 07/11/24 15:22 diclofenac AdvReac Mild GI upset Verified 07/11/24 15:22 Diclopak AdvReac Mild GI upset Verified 01/10/17 00:12 oxycodone AdvReac Mild GI upset Verified 07/11/24 15:22 pregabalin AdvReac Mild GI upset Verified 07/11/24 15:22 Medications Home Medications Medication Instructions Recorded Confirmed Last Taken gabapentin 100 mg capsule 300 mg PO BID 07/27/18 07/11/24 07/01/24 simvastatin 20 mg tablet 20 mg PO HS 07/27/18 07/11/24 07/01/24 calcium 600 mg (as 1 tab PO BID 04/13/22 07/11/24 07/01/24 carbonate)-vitamin D3 10 mcg (400 unit) tablet (Calcium 600 + D(3)) multivitamin 1 tab PO DAILY 04/13/22 07/11/24 07/01/24 oxybutynin chloride 5 mg tablet 5 mg PO QAM 04/13/22 07/11/24 07/01/24 pantoprazole 40 mg tablet,delayed 40 mg PO QDL 04/13/22 07/11/24 07/01/24 release hydrochlorothiazide 25 mg tablet 25 mg PO QAM #30 tabs 04/16/22 07/11/24 07/01/24 alendronate 35 mg tablet 35 mg PO .weekly 09/08/23 07/11/24 07/01/24 lisinopril 5 mg tablet 10 mg PO BID 06/18/24 07/11/24 07/01/24 vitamins A,C,N-jdic-untbsx 2,148 1 tab PO DAILY 06/18/24 07/11/24 07/01/24 mcg-113 mg-45 mg-17.4 mg tablet (PreserVision AREDS) amlodipine 5 mg tablet (Norvasc) 5 mg PO QAM #30 tabs 07/02/24 07/11/24 Unknown clopidogrel 75 mg tablet 75 mg PO QAM #30 tabs 07/02/24 07/11/24 Unknown aspirin 81 mg capsule 81 mg PO QAM 07/11/24 07/11/24 Unknown Past Medical History Medical History (Updated 07/11/24 @ 16:12 by Jazzmine Jordan PA-C) GERD (gastroesophageal reflux disease) controlled, stable per pt Hearing loss chronic Hip bursitis, left Hyperlipidemia Hypertension Irregular heart beat no cardio, pt. 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" Stroke-like symptoms admit to [facility] - no stroke - no current symptoms Tricompartment osteoarthritis of left knee Urinary urgency Past Family History Family History Mother , age 75 of uterine cancer Uterine cancer Father , age 65 of an [place] Myocardial infarction Past Surgical History Surgical History History of back surgery x 2 *lower back fusion (hardware intact) History of carpal tunnel release right/left History of cataract surgery right/left History of cholecystectomy History of colonoscopy History of hysterectomy History of right hip replacement History of shoulder surgery left History of tooth extraction Social History Smoking Status: Never smoker Do You Dip or Chew Tobacco: No Hx Alcohol Use: No Hx Substance Use: No substance use type: does not use Lab Results Anesthesia Preop Results Results Anesthesia Widget: WBC 8.38 K/ul (4.8-10.8) 07/11/24 Hgb 13.2 g/dl (12.0-16.0) 07/11/24 Hct 39.3 % (37.0-47.0) 07/11/24 Plt 215 K/uL (130-400) 07/11/24 Na 140 mmol/L (136-145) 07/11/24 K 4.2 mmol/L (3.5-5.1) 07/11/24 Cl 102 mmol/L (98-107) 07/11/24 CO2 30 mmol/L (21-32) 07/11/24 BUN 31 mg/dl (6-23) H 07/11/24 Creat 1.13 mg/dl (0.6-1.2) 07/11/24 Glucose Level 133 mg/dl (70-99(Fasting)) H 07/11/24 PT 10.3 Seconds (9.0-12.0) 07/11/24 PTT 25 Seconds (21-31) 07/11/24 INR 0.9 (0.9-1.1) 07/11/24 HA1c 6.0 % (4.5-5.6) H 07/02/24 Blood Type O Positive 07/11/24 Antibody Screen NEGATIVE 07/11/24 Testing Electrocardiogram Date: 07/01/24 Sinus rhythm with 1st degree AV block with occasional PVCs and PACs, rate 73 bpm Chest X-Ray Date: 07/01/24 *1view* No acute chest disease. Echocardiogram Date: 07/02/24 EF 60-65% No LV regional wall motion abnormalities Mild cLVH Mild tricuspid regurgitation Other Testing Head CT 07/01/24 No acute intracranial abnormality. Brain MRI 07/01/24 1. No acute intracranial abnormality. 2. Chronic small vessel ischemic changes and cerebral volume loss. Head and neck CTA 07/01/24 1. There is approximately 75% focal stenosis at the origin of the right internal carotid artery. This is similar to previous. 2. Otherwise unremarkable CT angiogram of the neck. Unremarkable CTA of the head.
--- NOTE | 2024-07-17 07:40 | History & Physical Report ---
Date of Service July 17, 2024 History of Present Illness Primary Care Provider: Kelechi Haile MD Name: SEVERIANO TORRES Patient Number: [id number] : 1940 Date of Service: 07/11/2024 Chief Complaint: _New patient consultation for right ICA stenosis HPI: _Ms. Torres is an elderly female who presents to Dr. Diaz's vascular surgery clinic today as a new patient in consultation for severe right ICA stenosis. Patient states that she has been aware of a stenosis in her right carotid artery for at least the last 2 years, after they found it on a scan of her neck in 2021. At that time she was admitted for uncontrolled hypertension, but denies any TIA or CVA symptoms at the time. She was scheduled for left knee surgery with Dr. De tomorrow in the operating room, and was evaluated in the preanesthesia office a few weeks ago, where they were concerned about her history of carotid stenosis and wanted her to be evaluated by Dr. Diaz. In the meantime, patient developed possible TIA symptoms at home a little over a week ago. The patient herself is unable to relate the exact problem, she just states that she was feeling very sleepy. Her , however, states that she fell asleep while sitting at the table having a conversation with family. He states that she was kind of leaning her head toward the left, and it took them 5 minutes to wake her up. When she did wake, the left side of her face seemed to be drooping, and her speech was mumbling. He states that this is very unusual for her, as she usually wakes up with no problems. Patient herself denies any associated headache, amaurosis, unilateral arm or leg weakness. Her states that her symptoms lasted approximately 10 minutes before resolving completely. The following day she did go to the emergency room where she was admitted overnight for evaluation. Her echocardiogram demonstrated no thrombus. MRI of the brain demonstrated no CVA. CTA of the neck demonstrates about 80% stenosis of her right ICA. Patient does state that she had an abscess in her right great toe which was drained yesterday by her ranch rider, she had no associated fever or systemic symptoms from that. She admits chronic edema of her bilateral lower extremities, chronic left knee pain, as well as some balance difficulties for which she uses a rolling walker. Patient denies fever, recent illness, chest pain, shortness of breath, abdominal pain, nausea, vomiting, rest pain, claudication, nonhealing wounds or ulcers, other complaints. Review of systems: A total of 14 systems were reviewed and are negative aside from what is related in her HPI Imaging: Patient had a CTA of the neck performed at [facility] which demonstrates at least 80% stenosis of her right ICA. Her left ICA demonstrates less than 50% stenosis. Emotional Assessment (PHQ-2) (Data Documented on:07/08/2024 09:53) [place] down or depressed over last 2 weeks? 0 - Not at All Little interest in doing things? 0 - Not at All PHQ-2 Score: 0 - Emotional health assessment NEGATIVE Current Home Meds: (Last Updated 07/11 09:38) alendronate (alendronate 35 mg oral tablet) 35 mg PO q7days amLODIPine (amLODIPine 5 mg oral tablet) 5 mg PO Daily calcium-vitamin D (Gulf Calcium with Vitamin D) 2 tab PO Daily 600 mg bid - D Bupp 02/22 12:52 clopidogrel (clopidogrel 75 mg oral tablet) 75 mg PO Daily gabapentin (gabapentin 300 mg oral capsule) 300 mg PO bid hydroCHLOROthiazide (hydroCHLOROthiazide 25 mg oral tablet) 1 tab PO Daily lisinopril (lisinopril 10 mg oral tablet) 1 tab PO bid multivitamin with minerals (PreserVision AREDS) multivitamin 1 tab PO Daily oxyBUTYnin (oxyBUTYnin 5 mg oral tablet) 1 tab PO bid PRN: NEEDED FOR URINARY DISCOMFORT pantoprazole (pantoprazole 40 mg oral delayed release tablet) 1 tab PO Daily simvastatin (simvastatin 20 mg oral tablet) 1 tab PO qhs Allergies and Sensitivities: Lyrica(emotional) oxyCODONE(vomiting) Latex(rash) Problems: Bilateral carotid artery stenosis Venous stasis Hip pain, left Hx of transient ischemic attack (TIA) Edema of left lower leg Stenosis of right carotid artery greater than 50% Flat foot [pes planus] (acquired), right foot Benign essential hypertension Degenerative arthritis Ambulatory dysfunction Actinic keratoses Chronic joint pain Systolic murmur Hypercholesterolemia Palpitations Deformity of right foot Surgical history: Positive for lower back fusion x 2, bilateral carpal tunnel release, bilateral cataract surgery, cholecystectomy, colonoscopy, hysterectomy, right total hip arthroplasty, left shoulder surgery, dental extraction Family history: Positive for uterine cancer in her mother, myocardial infarction in her father. Social history: Patient is and with her . She is a lifelong non- smoker. She does not use alcohol or illicit drugs. OBJECTIVE Vitals: Last Updated 07/11/24 09:56 Date Temp BP Location Pulse RR SpO2 Pain 07/11/24 126/54 Right Arm 07/11/24 112/58 Left Arm 58 98 07/08/24 102/68 71 18 95 Vital Signs are the last 3 documented. No Orthostatic Data Available Height and Weight: Last Updated 06/24/24 13:02 Date BMI Wt(kg) Wt(lb) Method Ht(cm) (ft-in) Method 06/24/24 70.8 156 Standing Scale 02/26/24 32.6 69.5 153 Standing Scale 146 4-9 Standing 11/24/23 68.9 152 Standing Scale Heights and Weights are the last 3 documented. Physical Exam Constitutional: In general patient is an overweight but healthy-appearing well- nourished well-developed elderly female no distress. She ambulates with a rolling walker. Is alert and oriented without any focal deficits. Her right neck does demonstrate a carotid bruit. Her left does not. Her heart is regular, her lungs are decreased lightly but clear. Her abdomen is soft nontender with normoactive bowel sounds in all 4 quadrants. Brachial and radial pulses are +3. Femoral pulses are +4. Lower extremity distal pulses on the right are nonpalpable DP, +1 PT. Left lower extremity distal pulses are +1 DP +1 PT. She has brisk capillary fill to the toes and no sign of ischemia. She does have a tight dressing to the right great toe which was not removed today. There is no visible erythema or odor. She does have +3 pitting edema of the lower extremities bilaterally. ASSESSMENT: _ PLAN: _ 1 ) _symptomatic right ICA stenosis Patient does have a significant right ICA stenosis, and symptoms which may have been TIA. Due to the severity of her right ICA stenosis and it possibly being symptomatic, would recommend that she undergo surgical intervention to prevent further risk of CVA. She was started on clopidogrel 75 mg daily at the hospital, but patient states that she was told to stop taking her 81 mg aspirin at that time. We advised her that taking both the clopidogrel and the baby aspirin will give her the best prevention for any further cerebrovascular event at least until her surgery. She states that she will restart taking her 81 mg aspirin today. In reviewing her CTA, TCAR is not an option due to a anatomical restrictions. We therefore discussed carotid endarterectomy with the patient and her . The procedure was discussed at length with both of them, and all of their questions were answered. The benefits, alternatives, and risks, including but not limited to bleeding, infection, blood clots, nerve damage, CVA, heart attack, , were discussed at length with the patient by myself at Dr. Diaz's request. Patient expresses understanding and agreement to proceed. This will occur in the next few weeks at the patient's convenience. Her was also present for this discussion today. There were advised to call any other questions. Thank you for letting us participate in the care of this patient. I have personally spent_48__ minutes performing [id number] and ovu-fgah-fl-face activities on this date of service.Time does not include separately reported services. Activities Include: _x_ review of the medical record _x_ obtaining a history _x_ physical exam/evaluation __ review labs _x_ review radiology reports _x_ counseling/educating patient/family/caregiver __ discussion/referral to other healthcare professional x__ documenting care in the medical record __ independent interpretation of results _x_ communication of results to patient/family/caregiver _x_ coordination of care Signature Line Electronic Signature on File CC: Kelechi Haile MD [id number] [facility] [address] Electronically Reviewed/Signed by: Kimberlee Qiu PA-C Author Signature Dt/Tm:07/11/2024 11:27 AM [facility] [address], [address] [place] [address] LM Result Type: HVI Outpt Note Date of Service: July 11, 2024 10:58 EDT Authorization Status: Final Author or Import Date: BRIE Qiu Lynn on July 11, 2024 11:27 EDT Verified By: BRIE Qiu Lynn on July 11, 2024 11:27 EDT Encounter info: [id number], [place] [id number], Clinic, 07/11/2024 - 07/11/2024 Allergies Allergy/AdvReac Type Severity Reaction Status Date / Time adhesive Allergy Mild RASH Verified 07/11/24 15:22 capsaicin AdvReac Mild GI upset Verified 07/11/24 15:22 diclofenac AdvReac Mild GI upset Verified 07/11/24 15:22 Diclopak AdvReac Mild GI upset Verified 01/10/17 00:12 oxycodone AdvReac Mild GI upset Verified 07/11/24 15:22 pregabalin AdvReac Mild GI upset Verified 07/11/24 15:22 Home Medications Medication Instructions Recorded Confirmed Type gabapentin 100 mg capsule 300 mg PO BID 07/27/18 07/11/24 History simvastatin 20 mg tablet 20 mg PO HS 07/27/18 07/11/24 History calcium 600 mg (as 1 tab PO BID 04/13/22 07/11/24 History carbonate)-vitamin D3 10 mcg (400 unit) tablet (Calcium 600 + D(3)) multivitamin 1 tab PO DAILY 04/13/22 07/11/24 History oxybutynin chloride 5 mg tablet 5 mg PO QAM 04/13/22 07/11/24 History pantoprazole 40 mg tablet,delayed 40 mg PO QDL 04/13/22 07/11/24 History release hydrochlorothiazide 25 mg tablet 25 mg PO QAM #30 tabs 04/16/22 07/11/24 Rx alendronate 35 mg tablet 35 mg PO .weekly 09/08/23 07/11/24 History lisinopril 5 mg tablet 10 mg PO BID 06/18/24 07/11/24 History vitamins A,C,T-splc-uefxtq 2,148 1 tab PO DAILY 06/18/24 07/11/24 History mcg-113 mg-45 mg-17.4 mg tablet (PreserVision AREDS) amlodipine 5 mg tablet (Norvasc) 5 mg PO QAM #30 tabs 07/02/24 07/11/24 Rx clopidogrel 75 mg tablet 75 mg PO QAM #30 tabs 07/02/24 07/11/24 Rx aspirin 81 mg capsule 81 mg PO QAM 07/11/24 07/11/24 History Past Med/Surg History Problem List (Updated 07/11/24 @ 16:12 by Jazzmine Jordan PA-C) Carotid artery stenosis Encounter for pre-operative examination Hypertension controlled, stable per pt Ischial bursitis of left side Hamstring tear Hip bursitis, left Leg wound, left (Acute) Osteoarthritis of right knee Tricompartment osteoarthritis of left knee Tendinopathy of gluteus medius Hyperlipidemia Tear of gluteus medius tendon Tendinitis of left triceps Left elbow tendonitis Post-operative state (Acute 10/07/13) DJD of left shoulder Medical History (Updated 07/11/24 @ 16:12 by Jazzmine Jordan PA-C) Tricompartment osteoarthritis of left knee Ischial bursitis of left side Hyperlipidemia Hip bursitis, left Hypertension Stroke-like symptoms admit to [facility] - no stroke - no current symptoms Hearing loss chronic Urinary urgency Irregular heart beat no cardio, pt. states she is waiting for a holter monitor to come in the mail Stenosis of right internal carotid artery "75% blockage" Osteoporosis Neuropathy feet GERD (gastroesophageal reflux disease) controlled, stable per pt Osteoarthritis of knees, bilateral Surgical History History of hysterectomy History of carpal tunnel release right/left History of cholecystectomy History of colonoscopy History of tooth extraction History of cataract surgery right/left History of shoulder surgery left History of right hip replacement History of back surgery x 2 *lower back fusion (hardware intact) Family History Mother , age 75 of uterine cancer Uterine cancer Father , age 65 of an [place] Myocardial infarction Social History Smoking Status: Never smoker Second Hand Exposure: No; Do You Dip or Chew Tobacco: No; Tobacco Cessation Education Requested by Patient: No Hx Alcohol Use: No Hx Substance Use: No Preferred Language: Mozambican Communication Ability: Effective 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
[2024-07-17 11:32] LABS: BUN Creatinine Ratio 35.2 (10-20); Calcium 9.9 mg/dl (8.6-10.3); Potassium 4.4 mmol/L (3.5-5.1)
--- NOTE | 2024-07-17 11:59 | History & Physical Bridge Note ---
Date of Service July 17, 2024 History & Physical Bridge Note I have examined the patient, reviewed the History & Physical and in the interval since the performance of the History & Physical I have noted the following changes of clinical significance: no changes noted
[2024-07-17] MEDS ORDERED: ATROPINE SULFATE 0.1 MG/ML 10ML SYR IV PRN (12:42)
[2024-07-17] MEDS ORDERED: ePHEDrine sulfate 50 MG/ML AMP IV PRN (12:42)
[2024-07-17] MEDS ORDERED: fentaNYL citrate PF 100 MCG/2 ML VIAL IV PRN (12:42)
[2024-07-17] MEDS ORDERED: fentaNYL citrate PF 100 MCG/2 ML VIAL ONE ×2 (12:46→14:07)
[2024-07-17] MEDS ORDERED: PROPOFOL IV EMULSION 10 MG/ML 20 ML VIAL IV ONE (12:50)
[2024-07-17] MEDS ORDERED: LIDOCAINE 2% 2 ML VIAL/AMP(20MG/ML) INFIL ONE (12:50)
[2024-07-17] MEDS ORDERED: DEXAMETHASONE SOD INJ 4 MG/ML VIAL ONE (12:50)
[2024-07-17] MEDS ORDERED: ONDANSETRON INJ 2 MG/ML 2 ML VIAL ONE (12:50)
[2024-07-17] MEDS: ceFAZolin 2000MG 2,000 MG/15 ML SYR IV SCH ×2 (13:06→20:02)
[2024-07-17] MEDS ORDERED: ePHEDrine sulfate 50 MG/ML AMP ONE (13:42)
[2024-07-17] MEDS ORDERED: SODIUM CHLORIDE 0.9% PF INJ 10 ML VIAL ONE (13:42)
[2024-07-17] MEDS ORDERED: HEPARIN SOD (PORCINE) 1000 UNIT/ML ONE ×2 (13:43)
[2024-07-17] MEDS ORDERED: GLYCOPYRROLATE 0.2 MG/ML VIAL ONE ×2 (14:01→14:52)
[2024-07-17] MEDS ORDERED: ROCURONIUM BROMIDE 10 MG/ML 5 ML VIAL IV ONE ×2 (14:04)
[2024-07-17] MEDS ORDERED: SUGAMMADEX SODIUM 200 MG/2 ML VIAL IV ONE (14:32)
[2024-07-17] MEDS ORDERED: PHENYLEPHRINE 100MCG/ML 10ML SYR IV ONE (14:42)
[2024-07-17] MEDS: THROMBIN FOR SOLN 20000 UNIT KIT ONE (14:52)
[2024-07-17] MEDS ORDERED: NEOSTIGMINE METHYLSULFATE 1 MG/ML 10ML VIAL ONE (14:52)
[2024-07-17] MEDS: LIDOCAINE 1% LOCAL 20 ML VIAL ONE (14:52)
[2024-07-17] MEDS: GELATIN SPONGE SZ 100 ONE (14:52)
[2024-07-17] MEDS: HEPARIN (PORCINE) 1000 UNIT/ML 10 ML (CATH LAB USE ONLY) ONE (14:53)
[2024-07-17] MEDS: ceFAZolin 330 MG/ML 1 GM VIAL ONE (14:53)
--- NOTE | 2024-07-17 14:59 | Post Operative Brief Note ---
Immediate Post Op Note Date of Surgery July 17, 2024 Pre & Post Diagnosis Operation Date: 07/17/24 12:40 Pre-Op Diagnosis: Right Internal Carotid Artery Stenosis Post-Op Diagnosis: Right Internal Carotid Artery Stenosis I identified the patient and participated in the time-out.: Yes Procedure Operation Date: 07/17/24 12:40 Actual Procedures p Right Carotid Endarterectomy(Right) - Carlos Diaz MD Surgeon Carols Diaz MD Director Religious Education MD Ihsan L.Minarchick,PAC Estimated Blood Loss 50 Findings Consistent with Post-Op Diagnosis Anesthesia Type General Complications none Disposition Accompanied Patient To Recovery: No Disposition: Recovery Room
--- NOTE | 2024-07-17 15:02 | Operative Report ---
Post Operative Report Pre & Post Diagnosis Operation Date: 07/17/24 12:40 Pre-Op Diagnosis: Right Internal Carotid Artery Stenosis Post-Op Diagnosis: Right Internal Carotid Artery Stenosis I identified the patient and participated in the time-out.: Yes Procedure Operation Date: 07/17/24 12:40 Actual Procedures p Right Carotid Endarterectomy(Right) - Carlos Diaz MD Surgeon Carlos Diaz MD Endoscopic Technician Brandon Keiht MD; Kimberlee Qiu PA-C Estimated Blood Loss 50 Findings Consistent with Post-Op Diagnosis Severe stenosis of the common carotid artery at the bifurcation with heavily calcified ulcerated plaque Specimens None Anesthesia Type General Complications None Disposition Accompanied Patient To Recovery: Yes Indications Severe greater than eighty percent stenosis of the right carotid artery, asymptomatic Description of Procedure The patient was taken to the operating room and placed in supine position. Aft er general anesthesia was accomplished the right-side of the neck was prepped and draped in a sterile manner. A time-out was performed. A longitudinal neck incision was then made coursing along the medial border of the sternocleidomastoid muscle. The incision was taken down through the platysmal layer. The facial vein was identified, ligated, and divided. The common carotid artery was then seen. It was dissected free down to the omohyoid muscle. The dissection was carried upward until the external carotid artery and superior thyroid artery was seen. The superior thyroid artery was slung with a 2-0 silk suture. The external carotid was slung with a red rubber vessel loop. Next the dissection was carried up along the internal carotid artery. This was carried upward to beyond the area of narrowing. The hypoglossal nerve was seen and preserved. The patient was heparinized. After adequate heparinization was accomplished, the internal, external, and common carotid arteries were clamped. A longitudinal arteriotomy was started on the common carotid artery and extended upward along the internal carotid artery to a point beyond the area of narrowing. There was calcified plaque of the internal carotid artery origin causing approximately 85-90% narrowing. A Sun shunt was then placed in the internal, followed by the common carotid artery and held in place with Marco A clamps. There was good back bleeding seen from the internal carotid artery. The endarterectomy was then started in the appropriate plane on the common carotid artery. This was carried upward and the external carotid was everted and endarterectomized. The endarterectomy was then carried up along the internal carotid artery till a nice feathering breakoff point was accomplished beyond the end of the plaque. The endarterectomy was then carried down further on the common carotid artery. At end of the arteriotomy, the plaque was then transected. Under loop magnification, all loose debris and flaps were removed. There is no distal flap seen at the end of the endarterectomy site. The arteriotomy then closed using a bovine carotid patch and a running 6-0 Prolene suture. This was done in the usual vascular fashion. Prior to completing the closure, the Sun shunt was removed and the internal and common carotid arteries were reclamped. Backbleeding and forward bleeding was allowed to occur. The flow surface was irrigated with heparinized saline. The final few sutures were then placed and securely tied. Clamps were then removed off the external and common carotid arteries. The clamp was then removed the internal carotid artery. Good distal flow was seen. Adequate hemostasis was seen of the patch. The wound was inspected and adequate hemostasis was obtained. The wound was irrigated with antibiotic solution. It was then closed with a running 3-0 Vicryl suture for the platysmal layer and a 4-0 subcuticular Vicryl suture for the skin edges. Dermabond was used for dressing. The patient left the operating room in satisfactory condition and tolerated the procedure well. Dr. Diaz was present and scrubbed for the entire procedure. Kimberlee Qiu Pac assisted due to lack of resident availability and was necessary for prepping, draping, retraction, wound closure defects, subQ and skin closure and was necessary for the case. I attest to the content of the Intraoperative Record and any orders documented therein. Any exceptions are noted below. Supervising Physician Co-Signing Physician Notes Carlos Diaz MD
[2024-07-17] MEDS: BUPIVACAINE/EPINEPHRINE 0.5% MPF 1:200,000 30 ML VIAL ONE (15:05)
--- NOTE | 2024-07-17 15:40 | Anesthesiology Progress Note ---
Date of Service July 17, 2024 Anesthesia Post Procedure Vital Signs Vital Signs: Temp Pulse Pulse Resp BP BP BP 07/17/24 15:25 89 16 115/47 L 122/55 L 07/17/24 15:18 36.0 C L 88 16 127/50 L 123/61 07/17/24 11:17 36.6 C 74 20 160/67 H 171/70 H Pulse Ox O2 Del Method O2 Flow Rate 07/17/24 15:25 97 Oxymask 4 07/17/24 15:18 98 Oxymask 6 07/17/24 11:17 97 Room Air Pain Intensity Bilateral Knee: Pain Intensity: 2 Transfer of Care Handoff Completed per policy Notes Mental Status: alert / awake / arousable Patient Amnestic to Procedure: Yes Nausea / Vomiting: adequately controlled Pain: adequately controlled Airway Patency, RR, SpO2: stable & adequate BP & HR: stable & adequate Hydration State: stable & adequate Anesthetic Complications: no major complications apparent
[2024-07-17] MEDS ORDERED: oxyCODONE/ACETAMINOPHEN 5mg/325mg TAB PO PRN (16:51)
[2024-07-17] MEDS ORDERED: PHENYLEPHRINE/NSS 25 MG/250 ML BAG IV PRN (16:51)
[2024-07-17] MEDS ORDERED: ONDANSETRON INJ 2 MG/ML 2 ML VIAL IV PRN (16:51)
[2024-07-17] MEDS ORDERED: STAT IV Infusion **Titration per Protocol STA (16:51)
[2024-07-17] MEDS: LACTATED RINGER'S 1,000 ML IV SCH (17:16)
[2024-07-17] MEDS: ONDANSETRON INJ 2 MG/ML 2 ML VIAL IV PRN (17:18)
[2024-07-17 17:55] VITALS: TEMP 97.7
[2024-07-17] MEDS: GABAPENTIN 300 MG CAP PO SCH (20:01)
[2024-07-17] MEDS: CALCIUM 600MG + VIT D 400 IU TAB PO SCH (20:01)
[2024-07-17] MEDS: SIMVASTATIN 20 MG TAB PO SCH (20:02)
[2024-07-17] MEDS: lisinopril 10 MG TAB PO SCH (20:02)
--- NOTE | 2024-07-17 20:11 | Critical Care Consultation ---
Date of Consultation July 17, 2024 Assessment & Plan (1) Carotid artery stenosis: (2) Hypertension: Plan Postop day 0 status post right carotid endarterectomy. Radial arterial line in place. Hemodynamically she is stable. Continue frequent neurovascular checks. Patient has been restarted on home antihypertensive regimen and dual antiplatelet therapy per vascular surgery. Patient has also been restarted on home statin. Will defer labs and routine medications to the vascular surgical team. ICU services are available should critical care needs arise. Thank you for the consult. Will follow along with you as long as she remains under ICU status. History of Present Illness Reason for Consultation: Status post right carotid endarterectomy Attending Physician: Carlos Diaz MD History of Present Illness 84-year-old female who had a TIA earlier this month and was found to have carotid artery stenosis on the right. She underwent elective carotid endarterectomy today. This procedure was largely uneventful. She is seen in the ICU postoperatively and denies any significant complaints. She denies any swelling in her neck, numbness or tingling of her extremities or face, chest pain, shortness of breath, fever or chills. Hemodynamically she is stable arterial line is in place. Allergies Allergy/AdvReac Type Severity Reaction Status Date / Time adhesive Allergy Mild RASH Verified 07/17/24 11:07 capsaicin AdvReac Mild GI upset Verified 07/17/24 11:07 diclofenac AdvReac Mild GI upset Verified 07/17/24 11:07 Diclopak AdvReac Mild GI upset Verified 01/10/17 00:12 oxycodone AdvReac Mild GI upset Verified 07/17/24 11:07 pregabalin AdvReac Mild GI upset Verified 07/17/24 11:07 Home Medications Medication Instructions Recorded Confirmed Type gabapentin 100 mg capsule 300 mg PO BID 07/27/18 07/17/24 History simvastatin 20 mg tablet 20 mg PO HS 07/27/18 07/17/24 History calcium 600 mg (as 1 tab PO BID 04/13/22 07/17/24 History carbonate)-vitamin D3 10 mcg (400 unit) tablet (Calcium 600 + D(3)) multivitamin 1 tab PO DAILY 04/13/22 07/17/24 History oxybutynin chloride 5 mg tablet 5 mg PO QAM 04/13/22 07/17/24 History pantoprazole 40 mg tablet,delayed 40 mg PO QDL 04/13/22 07/17/24 History release hydrochlorothiazide 25 mg tablet 25 mg PO QAM #30 tabs 04/16/22 07/17/24 Rx alendronate 35 mg tablet 35 mg PO .weekly 09/08/23 07/17/24 History lisinopril 5 mg tablet 10 mg PO BID 06/18/24 07/17/24 History vitamins A,C,O-oqnx-cncuye 2,148 1 tab PO DAILY 06/18/24 07/17/24 History mcg-113 mg-45 mg-17.4 mg tablet (PreserVision AREDS) amlodipine 5 mg tablet (Norvasc) 5 mg PO QAM #30 tabs 07/02/24 07/17/24 Rx clopidogrel 75 mg tablet 75 mg PO QAM #30 tabs 07/02/24 07/17/24 Rx aspirin 81 mg capsule 81 mg PO QAM 07/11/24 07/17/24 History Patient History Medical History Tricompartment osteoarthritis of left knee Ischial bursitis of left side Hyperlipidemia Hip bursitis, left Hypertension Stroke-like symptoms admit to [facility] - no stroke - no current symptoms Hearing loss chronic Urinary urgency Irregular heart beat no cardio, pt. states she is waiting for a holter monitor to come in the mail Stenosis of right internal carotid artery "75% blockage" Osteoporosis Neuropathy feet GERD (gastroesophageal reflux disease) controlled, stable per pt Osteoarthritis of knees, bilateral Surgical History History of hysterectomy History of carpal tunnel release right/left History of cholecystectomy History of colonoscopy History of tooth extraction History of cataract surgery right/left History of shoulder surgery left History of right hip replacement History of back surgery x 2 *lower back fusion (hardware intact) Family History Mother , age 75 of uterine cancer Uterine cancer Father , age 65 of an [place] Myocardial infarction Social History Smoking Status: Never smoker Second Hand Exposure: No; Do You Dip or Chew Tobacco: No; Tobacco Cessation Education Requested by Patient: No Hx Alcohol Use: No Hx Substance Use: No Preferred Language: Dutch Communication Ability: Effective Bus Operator Required: No Beliefs That Will Affect Care: None marital status: Current Living Situation: Spouse current occupational status: 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 Patient is in no apparent distress. Patient is well-developed. Eyes: Pupils are equal round and reactive to light. Conjunctivae are normal. Anicteric sclera. Ears nose, mouth and throat: Right carotid artery incision noted with small amount of ecchymosis. Incision is clean dry and intact. Neck: Trachea is midline. Visual inspection is normal. Respiratory: Clear to auscultation bilaterally. No use of accessory muscles. No significant clubbing noted. Cardiovascular: Regular rate and rhythm. No murmurs. No edema. Gastrointestinal: Normal bowel sounds, soft, nontender and nondistended. No hepatosplenomegaly noted. Musculoskeletal: No cyanosis. Patient is able to move all extremities. Strength is 5 out of 5 in the upper and lower extremities. Skin: No rashes, warm dry and intact. Neurologic: No obvious focal neurological deficits seen. Psychiatric: Alert and oriented x3 with a euthymic affect. Results & Data Results & Data Vital Signs (Past 12 Hours) Vital Signs Temp Pulse Pulse Pulse Resp BP BP 07/17/24 18:06 74 21 07/17/24 18:00 117/55 L 07/17/24 17:15 85 18 07/17/24 17:00 127/56 L 07/17/24 17:00 127/56 L 07/17/24 16:39 75 16 07/17/24 16:15 07/17/24 16:15 36.5 C 07/17/24 16:14 142/57 H 07/17/24 16:00 76 20 07/17/24 15:45 36.4 C L 84 18 07/17/24 15:35 82 16 07/17/24 15:25 89 16 07/17/24 15:18 36.0 C L 88 16 07/17/24 11:17 36.6 C 74 20 160/67 H BP BP Pulse Ox O2 Del Method O2 Flow Rate 07/17/24 18:06 97 07/17/24 18:00 07/17/24 17:15 97 07/17/24 17:00 07/17/24 17:00 07/17/24 16:39 98 Nasal Cannula 2 07/17/24 16:15 Nasal Cannula 2 07/17/24 16:15 07/17/24 16:14 07/17/24 16:00 117/47 L 127/53 L 97 Nasal Cannula 2 07/17/24 15:45 116/44 L 127/59 L 96 Room Air 07/17/24 15:35 123/46 L 126/53 L 99 Oxymask 4 07/17/24 15:25 115/47 L 122/55 L 97 Oxymask 4 07/17/24 15:18 127/50 L 123/61 98 Oxymask 6 07/17/24 11:17 171/70 H 97 Room Air Coding Level of Care Code 58865 IN/OBS CONSULT LVL 2,35M Diagnoses Carotid artery stenosis I65.29 Hypertension I10
--- OUTSIDE RECORDS SUMMARY | 2024-07-17 20:35 | External Medical Summary | Continuity of Care Document ---
Author Name Unknown Organization [facility] [address] Address [address] [place], [place] [id number] Care Team Providers Care Angle Roll Operator Name Role Phone Kelechi Haile Primary Care Physician [phone] [id number] Date(s): 07/11/24 - 07/11/24 [facility] [address], [address] [place] [address] [phone] Encounter Diagnosis Bilateral carotid artery stenosis(Discharge Diagnosis) - 07/11/24 Discharge Disposition: Home or Self Care Attending Physician: MD Diaz Eugene J Referring Physician: MD Haile Christopher Allergies, Adverse Reactions, Alerts Substance Criticality Severity Reaction Reaction Severity Status Latex rash Active Lyrica emotional Active oxyCODONE vomiting Active Assessment and Plan Extracted from: Title:Clinical Document Author:BRIE Qiu Lynn Date:07/11/24 [facility] OUTPATIENT NOTE Name: SEVERIANO ANDINO Patient Number: [id number] : 1940 Date of Service: 07/11/2024 Chief Complaint: _New patient consultation for right ICA stenosis HPI: _Ms. Andino is an elderly female who presents to Dr. Diaz's vascular surgery clinic today as a new patient in consultation for severe right ICA stenosis. Patient states that she has been aware of a stenosis in her right carotid artery for at least the last 2 years, after they found it on a scan of her neck in 2021. At that time she was admitted for uncontrolled hypertension, but denies any TIA or CVA symptoms at the time. She was scheduled for left knee surgery with Dr. De tomorrow in the operating room, and was evaluated in the preanesthesia office a few weeks ago, where they were concerned about her history of carotid stenosis and wanted her to be evaluated by Dr. Diaz. In the meantime, patient developed possible TIA symptoms at home a little over a week ago. The patient herself is unable to relate the exact problem, she just states that she was feeling very sleepy. Her , however, states that she fell asleep while sitting at the table having a conversation with family. He states that she was kind of leaning her head toward the left, and it took them 5 minutes to wake her up. When she did wake, the left side of her face seemed to be drooping, and her speech was mumbling. He states that this is very unusual for her, as she usually wakes up with no problems. Patient herself denies any associated headache, amaurosis, unilateral arm or leg weakness. Her states that her symptoms lasted approximately 10 minutes before resolving completely. The following day she did go to the emergency room where she was admitted overnight for evaluation. Her echocardiogram demonstrated no thrombus. MRI of the brain demonstrated no CVA. CTA of the neck demonstrates about 80% stenosis of her right ICA. Patient does state that she had an abscess in her right great toe which was drained yesterday by her wood tank builder, she had no associated fever or systemic symptoms from that. She admits chronic edema of her bilateral lower extremities, chronic left knee pain, as well as some balance difficulties for which she uses a rolling walker. Patient denies fever, recent illness, chest pain, shortness of breath, abdominal pain, nausea, vomiting, rest pain, claudication, nonhealing wounds or ulcers, other complaints. Review of systems: A total of 14 systems were reviewed and are negative aside from what is related in her HPI Imaging: Patient had a CTA of the neck performed at [facility] which demonstrates at least 80% stenosis of her right ICA. Her left ICA demonstrates less than 50% stenosis. Emotional Assessment (PHQ-2) (Data Documented on:07/08/2024 09:53) [place] down or depressed over last 2 weeks? 0 - Not at All Little interest in doing things? 0 - Not at All PHQ-2 Score: 0 - Emotional health assessment NEGATIVE Current Home Meds: (Last Updated 07/11 09:38) alendronate (alendronate 35 mg oral tablet) 35 mg PO q7days amLODIPine (amLODIPine 5 mg oral tablet) 5 mg PO Daily calcium-vitamin D ([place] Calcium with Vitamin D) 2 tab PO Daily 600 mg bid - D Bupp 02/22 12:52 clopidogrel (clopidogrel 75 mg oral tablet) 75 mg PO Daily gabapentin (gabapentin 300 mg oral capsule) 300 mg PO bid hydroCHLOROthiazide (hydroCHLOROthiazide 25 mg oral tablet) 1 tab PO Daily lisinopril (lisinopril 10 mg oral tablet) 1 tab PO bid multivitamin with minerals (PreserVision AREDS) multivitamin 1 tab PO Daily oxyBUTYnin (oxyBUTYnin 5 mg oral tablet) 1 tab PO bid PRN: NEEDED FOR URINARY DISCOMFORT pantoprazole (pantoprazole 40 mg oral delayed release tablet) 1 tab PO Daily simvastatin (simvastatin 20 mg oral tablet) 1 tab PO qhs Allergies and Sensitivities: Lyrica(emotional) oxyCODONE(vomiting) Latex(rash) Problems: Bilateral carotid artery stenosis Venous stasis Hip pain, left Hx of transient ischemic attack (TIA) Edema of left lower leg Stenosis of right carotid artery greater than 50% Flat foot [pes planus] (acquired), right foot Benign essential hypertension Degenerative arthritis Ambulatory dysfunction Actinic keratoses Chronic joint pain Systolic murmur Hypercholesterolemia Palpitations Deformity of right foot Surgical history: Positive for lower back fusion x 2, bilateral carpal tunnel release, bilateral cataract surgery, cholecystectomy, colonoscopy, hysterectomy, right total hip arthroplasty, left shoulder surgery, dental extraction Family history: Positive for uterine cancer in her mother, myocardial infarction in her father. Social history: Patient is and with her . She is a lifelong non-smoker. She does not use alcohol or illicit drugs. OBJECTIVE Vitals: Last Updated 07/11/24 09:56 Date Temp BP Location Pulse RR SpO2 Pain 07/11/24 126/54 Right Arm 07/11/24 112/58 Left Arm 58 98 07/08/24 102/68 71 18 95 Vital Signs are the last 3 documented. No Orthostatic Data Available Height and Weight: Last Updated 06/24/24 13:02 Date BMI Wt(kg) Wt(lb) Method Ht(cm) (ft-in) Method 06/24/24 70.8 156 Standing Scale 02/26/24 32.6 69.5 153 Standing Scale 146 4-9 Standing 11/24/23 68.9 152 Standing Scale Heights and Weights are the last 3 documented. Physical Exam Constitutional: In general patient is an overweight but healthy-appearing well-nourished well-developed elderly female no distress. She ambulates with a rolling walker. Is alert and oriented without any focal deficits. Her right neck does demonstrate a carotid bruit. Her left does not. Her heart is regular, her lungs are decreased lightly but clear. Her abdomen is soft nontender with normoactive bowel sounds in all 4 quadrants. Brachial and radial pulses are +3. Femoral pulses are +4. Lower extremity distal pulses on the right are nonpalpable DP, +1 PT. Left lower extremity distal pulses are +1 DP +1 PT. She has brisk capillary fill to the toes and no sign of ischemia. She does have a tight dressing to the right great toe which was not removed today. There is no visible erythema or odor. She does have +3 pitting edema of the lower extremities bilaterally. ASSESSMENT: _ PLAN: _ 1 ) _symptomatic right ICA stenosis Patient does have a significant right ICA stenosis, and symptoms which may have been TIA. Due to the severity of her right ICA stenosis and it possibly being symptomatic, would recommend that she undergo surgical intervention to prevent further risk of CVA. She was started on clopidogrel 75 mg daily at the hospital, but patient states that she was told to stop taking her 81 mg aspirin at that time. We advised her that taking both the clopidogrel and the baby aspirin will give her the best prevention for any further cerebrovascular event at least until her surgery. She states that she will restart taking her 81 mg aspirin today. In reviewing her CTA, TCAR is not an option due to a anatomical restrictions. We therefore discussed carotid endarterectomy with the patient and her . The procedure was discussed at length with both of them, and all of their questions were answered. The benefits, alternatives, and risks, including but not limited to bleeding, infection, blood clots, nerve damage, CVA, heart attack, , were discussed at length with the patient by myself at Dr. Diaz's request. Patient expresses understanding and agreement to proceed. This will occur in the next few weeks at the patient's convenience. Her was also present for this discussion today. There were advised to call any other questions. Thank you for letting us participate in the care of this patient. I have personally spent_48__ minutes performing [id number]-ej-hrux and uqs-jckx-ht-face activities on this date of service.Time does not include separately reported services. Activities Include: _x_ review of the medical record _x_ obtaining a history _x_ physical exam/evaluation __ review labs _x_ review radiology reports _x_ counseling/educating patient/family/caregiver __ discussion/referral to other healthcare professional x__ documenting care in the medical record __ independent interpretation of results _x_ communication of results to patient/family/caregiver _x_ coordination of care Immunizations Given and Recorded Vaccine Date Status [...] 08/24/23 Stop Date: 10/17/24 Status: Ordered amLODIPine 5 mg oral tablet Start: 07/08/24 10:55:00 AM EDT, 1 tab, PO, Daily, Disp# 90 tab, Refills: 4, Pharmacy: [facility] Start Date: 07/08/24 Status: Ordered [place] Calcium with Vitamin D Start: 02/22/18 12:51:00 PM EDT, 2 tab, PO, Daily Start Date: 02/22/18 Status: Ordered clopidogrel 75 mg oral tablet Start: 07/08/24 10:54:00 AM EDT, 1 tab, PO, Daily, Disp# 90 tab, Refills: 4, Pharmacy: [facility] Start Date: 07/08/24 Status: Ordered gabapentin 300 mg oral capsule Start: 07/08/24 10:59:00 AM EDT, 1 cap, PO, bid, Disp# 90 cap, Refills: 4, Pharmacy: [facility]/pharmacy #[id number] Start Date: 07/08/24 Status: Ordered hydroCHLOROthiazide 25 mg oral tablet Start: 03/04/24 9:06:00 AM EDT, 1 tab, PO, Daily, Disp# 90 tab, Refills: 4, Pharmacy: [facility] Start Date: 03/04/24 Status: Ordered lisinopril 10 mg oral tablet Start: 08/04/23 5:09:00 PM EST, 1 tab, PO, bid, Disp# 180 tab, Refills: 4, Pharmacy: [facility] Start Date: 08/04/23 Status: Ordered multivitamin Start: 04/19/22 8:57:00 AM [...] Home Delivery Start Date: 09/20/23 Status: Ordered Problem List Condition Confirmation Course Effective Dates Status Health St atus Informant Flat foot [pes planus] (acquired), right foot 1 Confirmed Active Benign essential hypertension Confirmed Active Bilateral carotid artery stenosis Confirmed Active Edema of left lower leg Confirmed Active Systolic murmur Confirmed Active Chronic joint pain Confirmed Active Hip pain, left Confirmed Active Hx of transient ischemic attack (TIA) Confirmed Active Actinic keratoses Confirmed Active Degenerative arthritis Confirmed Active Stenosis of right carotid artery greater than 50% Confirmed Active Venous stasis Confirmed Active Ambulatory dysfunction Confirmed Active 1end-stage posterior tibial tendon dysfunction acquired flatfoot of adulthood Diagnosis Diagnosis Type Effective Dates Health Status Cl inical Service Informant Bilateral carotid artery stenosis Discharge Diagnosis 07/11/24 Procedures Procedure Date Related Diagnosis Body Site [...] 2008 Completed CTR - Carpal tunnel release 2007 Completed Hysterectomy 2006 Completed Hysteroscopy 2002 [...] screening mammogram is recommended.(12/25/2022) 8replacemnt & 2010 10Jan and December Vital Signs Most recent to oldest [Reference Range]: 1 2 Heart Rate 58 bpm (07/11/24 9:54 AM) Blood Pressure 126/54mmHg (07/11/24 9:56 AM) 112/58mmHg (07/11/24 9:54 AM) Cuff Pulse Pressure 72 mmHg (07/11/24 9:56 AM) 54 mmHg (07/11/24 9:54 AM) BP Location # 1 Right Arm (07/11/24 9:56 AM) Left Arm (07/11/24 9:54 AM) Social History Social History Type Response Smoking Status Never smoked cigaret darwin Sex Female Sex Representation Female (finding) [facility] Outpt Note * BRIE Qiu Lynn: PERFORM Event Display: [facility] Outpt Note Authored Date: [id number] [facility] OUTPATIENT NOTE Name: SEVERIANO ANDINO Patient Number: [id number] : 1940 Date of Service: 07/11/2024 Chief Complaint: _New patient consultation for right ICA stenosis HPI: _Ms. Andino is an elderly female who presents to Dr. Diaz's vascular surgery clinic today as anew patient in consultation for severe right ICA stenosis. Patient states that she has been aware of a stenosis in her right carotid artery for at least the last 2 years, after they found it on a scan of her neck in 2021. At that time she was admitted for uncontrolled hypertension, but denies any TIA or CVA symptoms at the time. She was scheduled for left knee surgery with Dr. De tomorrow in the operating room, and was evaluated in the preanesthesia office a few weeks ago, where they were concerned about her history of carotid stenosis and wanted her to be evaluated by Dr. Diaz. In the meantime, patient developed possible TIA symptoms at home a little over a week ago. The patient herself is unable to relate the exact problem, she just states that she was feeling very sleepy. Her , however, states that she fell asleep while sitting at the table having a conversation with family. He states that she was kind of leaning her head toward the left, and it took them 5 minutes to wake her up. When she did wake, the left side of her face seemed to be drooping, and her speech was mumbling. He states that this is very unusual for her, as she usually wakes up with no problems. Patient herself denies any associated headache, amaurosis, unilateral arm or leg weakness. Her s tates that her symptoms lasted approximately 10 minutes before resolving completely. The following day she did go to the emergency room where she was admitted overnight for evaluation. Her echocardiogram demonstrated no thrombus. MRI of the brain demonstrated no CVA. CTA of the neck demonstrates about 80% stenosis of her right ICA. Patient does state that she had an abscess in her right great toewhich was drained yesterday by her wood tank builder, she had no associated fever or systemic symptoms from that. She admits chronic edema of her bilateral lower extremities, chronic left knee pain, as wellas some balance difficulties for which she uses a rolling walker. Patient denies fever, recent illness, chest pain, shortness of breath, abdominal pain, nausea, vomiting, rest pain, claudication, nonhealing wounds or ulcers, other complaints. Review of systems: A total of 14 systems were reviewed and are negative aside from what is related in her HPI Imaging: Patient had a CTA of the neck performed at [facility] which demonstratesat least 80% stenosis of her right ICA. Her left ICA demonstrates less than 50% stenosis. Emotional Assessment (PHQ-2) (Data Documented on:07/08/2024 09:53) [place] down or depressed over last 2 weeks? 0 - Not at All Little interest in doing things? 0 - Not at All PHQ-2 Score: 0 - Emotional health assessment NEGATIVE Current Home Meds: (Last Updated 07/11 09:38) alendronate (alendronate 35 mg oral tablet) 35 mg PO q7days amLODIPine (amLODIPine 5 mg oral tablet) 5 mg PO Daily calcium-vitamin D ([place] Calcium with Vitamin D) 2 tab PO Daily 600 mg bid - D Bupp 02/22 12:52 clopidogrel (clopidogrel 75 mg oral tablet) 75 mg PO Daily gabapentin (gabapentin 300 mg oral capsule) 300 mg PO bid hydroCHLOROthiazide (hydroCHLOROthiazide 25 mg oral tablet) 1 tab PO Daily lisinopril (lisinopril 10 mg oral tablet) 1 tab PO bid multivitamin with minerals (PreserVision AREDS) multivitamin 1 tab PO Daily oxyBUTYnin (oxyBUTYnin 5 mg oral tablet) 1 tab PO bid PRN: NEEDED FOR URINARY DISCOMFORT pantoprazole (pantoprazole 40 mg oral delayed release tablet) 1 tab PO Daily simvastatin (simvastatin 20 mg oral tablet) 1 tab PO qhs Allergies and Sensitivities: Lyrica(emotional) oxyCODONE(vomiting) Latex(rash) Problems: Bilateral carotid artery stenosis Venous stasis Hip pain, left Hx of transient ischemic attack (TIA) Edema of left lower leg Stenosis of right carotid artery greater than 50% Flat foot [pes planus] (acquired), right foot Benign essential hypertension Degenerative arthritis Ambulatory dysfunction Actinic keratoses Chronic joint pain Systolic murmur Hypercholesterolemia Palpitations Deformity of right foot Surgical history: Positive for lower back fusion x 2, bilateral carpal tunnel release, bilateral cataract surgery, cholecystectomy, colonoscopy, hysterectomy, right total hip arthroplasty, left shoulder surgery, dental extraction Family history: Positive for uterine cancer in her mother, myocardial infarction in her father. Social history: Patient is and with her . She is a lifelong non- smoker. She does notuse alcohol or illicit drugs. OBJECTIVE Vitals: Last Updated 07/11/24 09:56 Date Temp BP Location Pulse RR SpO2 Pain 07/11/24 126/54 Right Arm 07/11/24 112/58 Left Arm 58 98 07/08/24 102/68 71 18 95 Vital Signs are the last 3 documented. No Orthostatic Data Available Height and Weight: Last Updated 06/24/24 13:02 Date BMI Wt(kg) Wt(lb) Method Ht(cm) (ft-in) Method 06/24/24 70.8 156 Standing Scale 02/26/24 32.6 69.5 153 Standing Scale 146 4-9 Standing 11/24/23 68.9 152 Standing Scale Heights and Weights are the last 3 documented. Physical Exam Constitutional: In general patient is an overweight but healthy-appearing well- nourished well-developed elderly female no distress. She ambulates with a rolling walker. Is alert and oriented without any focal deficits. Her right neck does demonstrate a carotid bruit. Her left does not. Her heart isregular, her lungs are decreased lightly but clear. Her abdomen is soft nontender with normoactive bowel sounds in all 4 quadrants. Brachial and radial pulses are +3. Femoral pulses are +4. Lower extremity distal pulses on the right are nonpalpable DP, +1 PT. Left lower extremity distal pulses are +1 DP +1 PT. She has brisk capillary fill to the toes and no sign of ischemia. She does have a tightdressing to the right great toe which was not removed today. There is no visible erythema or odor. She does have +3 pitting edema of the lower extremities bilaterally. ASSESSMENT: _ PLAN: _ 1 ) _symptomatic right ICA stenosis Patient does have a significant right ICA stenosis, and symptoms which may have been TIA. Due to the severity of her right ICA stenosis and it possibly being symptomatic, would recommend that she undergo surgical intervention to prevent further risk of CVA. She was started on clopidogrel 75 mg daily at the hospital, but patient states that she was told to stop taking her 81 mg aspirin at that time. We advised her that taking both the clopidogrel and the baby aspirin will give her the best prevention for any further cerebrovascular event at least until her surgery. She states that she will restart taking her 81 mg aspirin today. In reviewing her CTA, TCAR is not an option due to a anatomical restrictions. We therefore discussed carotid endarterectomy with the patient and her . The procedure was discussed at length with both of them, and all of their questions were answered. The benefits, alternatives, and risks, including but not limited to bleeding, infection, blood clots, nerve damage, CVA, heart attack, , were discussed at length with the patient by myself at Dr. Diaz 's request. Patient expresses understanding and agreement to proceed. This will occur in the next few weeks at the patient's convenience. Her was also present for this discussion today. Therewere advised to call any other questions. Thank you for letting us participate in the care of this patient. I have personally spent_48__ minutes performing mdnp-hw-rbck and ius-nhti-db-face activities on this date of service.Time does not include separately reported services. Activities Include: _x_ review of the medical record _x_ obtaining a history _x_ physical exam/evaluation __ review labs _x_ review radiology reports _x_ counseling/educating patient/family/caregiver __ discussion/referral to other healthcare professional x__ documenting care in the medical record __ independent interpretation of results _x_ communication of results to patient/family/caregiver _x_ coordination of care Electronic Signature on File CC: Kelechi Haile MD [id number] [facility] [address] [facility] [address] Electronically Reviewed/Signed by: Kimberlee Qiu PA-C Author Signature Dt/Tm:07/11/2024 11:27 AM [facility] [address] [facility], [address] [place] 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
--- NOTE | 2024-07-18 09:18 | Critical Care Progress Note ---
Date of Service July 18, 2024 Assessment & Plan (1) Carotid artery stenosis: (2) Hypertension: Plan Postop day 1 status post right carotid endarterectomy. Radial arterial line in place. Hemodynamically she is stable. Continue frequent neurovascular checks. Patient has been restarted on home antihypertensive regimen and dual antiplatelet therapy per vascular surgery. Patient has also been restarted on home statin. Will defer labs and routine medications to the vascular surgical team. Creatinine noted to be mildly elevated compared to prior. Urine output has been adequate. Suspect mild volume depletion. Push p.o. fluids. Suspect patient will be discharged home by vascular surgical team later today. ICU services to sign off at this time. Please call with questions. Thank you for the consult. Admission and Anticipated Discharge Date Admission Date: July 17, 2024 Subjective Patient seen examined. No acute events overnight. Doing well and slept well overnight. Denies any pain. Review of Systems Review of Systems: All systems reviewed & are unremarkable except as noted in HPI & below Physical Exam Physical Exam: Constitutional: Patient appears to be of their stated age. Patient is in no apparent distress. Patient is well-developed. Eyes: Pupils are equal round and reactive to light. Conjunctivae are normal. Anicteric sclera. Ears nose, mouth and throat: Right carotid artery incision noted with small amount of ecchymosis. Incision is clean dry and intact. Neck: Trachea is midline. Visual inspection is normal. Respiratory: Clear to auscultation bilaterally. No use of accessory muscles. No significant clubbing noted. Cardiovascular: Regular rate and rhythm. No murmurs. No edema. Gastrointestinal: Normal bowel sounds, soft, nontender and nondistended. No hepatosplenomegaly noted. Musculoskeletal: No cyanosis. Patient is able to move all extremities. Strength is 5 out of 5 in the upper and lower extremities. Skin: No rashes, warm dry and intact. Neurologic: No obvious focal neurological deficits seen. Psychiatric: Alert and oriented x3 with a euthymic affect. Results & Data Results & Data Vital Signs (Past 12 Hours) Vital Signs Temp Pulse Pulse Resp BP BP BP 07/18/24 08:00 07/18/24 08:00 68 126/50 L 07/18/24 08:00 72 07/18/24 06:00 36.5 C 68 13 126/50 L 07/18/24 05:00 72 15 127/50 L 07/18/24 04:00 72 14 140/57 L 07/18/24 03:00 36.5 C 71 13 124/50 L 07/18/24 02:00 74 15 136/52 L 07/18/24 01:00 74 14 135/53 L 07/18/24 00:00 70 12 133/50 L 07/17/24 23:26 73 07/17/24 23:00 36.5 C 73 97 H 133/58 L 143/83 H 07/17/24 22:00 77 18 131/54 L Pulse Ox O2 Del Method O2 Flow Rate 07/18/24 08:00 Room Air 07/18/24 08:00 07/18/24 08:00 07/18/24 06:00 96 Nasal Cannula 1 07/18/24 05:00 96 Nasal Cannula 1 07/18/24 04:00 96 Nasal Cannula 1 07/18/24 03:00 95 Nasal Cannula 1 07/18/24 02:00 97 Nasal Cannula 1 07/18/24 01:00 96 Nasal Cannula 1 07/18/24 00:00 97 Nasal Cannula 1 07/17/24 23:26 07/17/24 23:00 97 Nasal Cannula 1 07/17/24 22:00 98 Nasal Cannula 1 Coding Level of Care Code 88426 SUB INP/OBS CARE 2/35MIN Diagnoses Carotid artery stenosis I65.29 Hypertension I10
[2024-07-18 10:06] VITALS: BP 114/61; PULSE 68; RESP 15; O2SAT 97
[2024-07-18] MEDS: ASPIRIN 81 MG ECTAB PO SCH (10:14)
[2024-07-18] MEDS: CEROVITE ADV FORMULA TAB PO SCH (10:14)
[2024-07-18] MEDS: CLOPIDOGREL BISULFATE 75 MG TAB PO SCH (10:14)
[2024-07-18] MEDS: amLODIPine BESYLATE 5 MG TAB PO SCH (10:15)
[2024-07-18] MEDS: oxyBUTYnin chloride 5 MG TAB PO SCH (10:15)
[2024-07-18] MEDS: hydroCHLOROthiazide 25 MG TAB PO SCH (10:15)
[2024-07-18] MEDS: MULTIVITAMIN TAB PO SCH (10:50)
[2024-07-18] MEDS ORDERED: PANTOprazole 40 MG TAB PO SCH (11:30)
--- NOTE | 2024-07-18 13:12 | Surgery Progress Note ---
Date of Service July 18, 2024 Assessment & Plan (1) S/P carotid endarterectomy: Plan: Patient POD #1 from a right carotid endart. She is doing well without any complications. Plan is D/C today. Admission and Anticipated Discharge Date Admission Date: July 17, 2024 Subjective Patient without complaints. Denies any focal neuro deficits. Physical Exam Constitutional: WD/WN, vitals as above Neck: trachea midline Respiratory: normal respiratory effort; no respiratory distress Cardiovascular: Rate/Rhythm: regular rate and regular rhythm Skin: + wound (dry and clean) Neurologic: CN's II-XI intact bilaterally and moves all extremities Psychiatric: A+Ox3, euthymic affect Results & Data Vital Signs (Past 12 Hours) Vital Signs Temp Pulse Pulse Resp BP BP BP 07/18/24 10:05 68 15 136/55 L 114/61 07/18/24 08:15 72 14 07/18/24 08:01 137/69 07/18/24 08:00 36.5 C 07/18/24 08:00 07/18/24 08:00 68 126/50 L 07/18/24 08:00 72 07/18/24 07:03 71 19 07/18/24 07:00 136/59 L 07/18/24 06:00 36.5 C 68 13 126/50 L 07/18/24 05:00 72 15 127/50 L 07/18/24 04:00 72 14 140/57 L 07/18/24 03:00 36.5 C 71 13 124/50 L 07/18/24 02:00 74 15 136/52 L Pulse Ox O2 Del Method O2 Flow Rate 07/18/24 10:05 97 Room Air 07/18/24 08:15 95 07/18/24 08:01 07/18/24 08:00 07/18/24 08:00 Room Air 07/18/24 08:00 07/18/24 08:00 07/18/24 07:03 97 07/18/24 07:00 07/18/24 06:00 96 Nasal Cannula 1 07/18/24 05:00 96 Nasal Cannula 1 07/18/24 04:00 96 Nasal Cannula 1 07/18/24 03:00 95 Nasal Cannula 1 07/18/24 02:00 97 Nasal Cannula 1
--- NOTE | 2024-07-18 13:17 | Discharge Summary ---
Date of Service July 18, 2024 Admission HPI Per Admitting Provider Name: SEVERIANO ANDINO Patient Number: [id number] : 1940 Date of Service: 07/11/2024 Chief Complaint: _New patient consultation for right ICA stenosis HPI: _Ms. Andino is an elderly female who presents to Dr. Diaz's vascular surgery clinic today as a new patient in consultation for severe right ICA stenosis. Patient states that she has been aware of a stenosis in her right carotid artery for at least the last 2 years, after they found it on a scan of her neck in 2021. At that time she was admitted for uncontrolled hypertension, but denies any TIA or CVA symptoms at the time. She was scheduled for left knee surgery with Dr. De tomorrow in the operating room, and was evaluated in the preanesthesia office a few weeks ago, where they were concerned about her history of carotid stenosis and wanted her to be evaluated by Dr. Diaz. In the meantime, patient developed possible TIA symptoms at home a little over a week ago. The patient herself is unable to relate the exact problem, she just states that she was feeling very sleepy. Her , however, states that she fell asleep while sitting at the table having a conversation with family. He states that she was kind of leaning her head toward the left, and it took them 5 minutes to wake her up. When she did wake, the left side of her face seemed to be drooping, and her speech was mumbling. He states that this is very unusual for her, as she usually wakes up with no problems. Patient herself denies any associated headache, amaurosis, unilateral arm or leg weakness. Her states that her symptoms lasted approximately 10 minutes before resolving completely. The following day she did go to the emergency room where she was admitted overnight for evaluation. Her echocardiogram demonstrated no thrombus. MRI of the brain demonstrated no CVA. CTA of the neck demonstrates about 80% stenosis of her right ICA. Patient does state that she had an abscess in her right great toe which was drained yesterday by her doper, she had no associated fever or systemic symptoms from that. She admits chronic edema of her bilateral lower extremities, chronic left knee pain, as well as some balance difficulties for which she uses a rolling walker. Patient denies fever, recent illness, chest pain, shortness of breath, abdominal pain, nausea, vomiting, rest pain, claudication, nonhealing wounds or ulcers, other complaints. Review of systems: A total of 14 systems were reviewed and are negative aside from what is related in her HPI Imaging: Patient had a CTA of the neck performed at [facility] which demonstrates at least 80% stenosis of her right ICA. Her left ICA demonstrates less than 50% stenosis. Emotional Assessment (PHQ-2) (Data Documented on:07/08/2024 09:53) [place] down or depressed over last 2 weeks? 0 - Not at All Little interest in doing things? 0 - Not at All PHQ-2 Score: 0 - Emotional health assessment NEGATIVE Current Home Meds: (Last Updated 07/11 09:38) alendronate (alendronate 35 mg oral tablet) 35 mg PO q7days amLODIPine (amLODIPine 5 mg oral tablet) 5 mg PO Daily calcium-vitamin D ([place] Calcium with Vitamin D) 2 tab PO Daily 600 mg bid - D Bupp 02/22 12:52 clopidogrel (clopidogrel 75 mg oral tablet) 75 mg PO Daily gabapentin (gabapentin 300 mg oral capsule) 300 mg PO bid hydroCHLOROthiazide (hydroCHLOROthiazide 25 mg oral tablet) 1 tab PO Daily lisinopril (lisinopril 10 mg oral tablet) 1 tab PO bid multivitamin with minerals (PreserVision AREDS) multivitamin 1 tab PO Daily oxyBUTYnin (oxyBUTYnin 5 mg oral tablet) 1 tab PO bid PRN: NEEDED FOR URINARY DISCOMFORT pantoprazole (pantoprazole 40 mg oral delayed release tablet) 1 tab PO Daily simvastatin (simvastatin 20 mg oral tablet) 1 tab PO qhs Allergies and Sensitivities: Lyrica(emotional) oxyCODONE(vomiting) Latex(rash) Problems: Bilateral carotid artery stenosis Venous stasis Hip pain, left Hx of transient ischemic attack (TIA) Edema of left lower leg Stenosis of right carotid artery greater than 50% Flat foot [pes planus] (acquired), right foot Benign essential hypertension Degenerative arthritis Ambulatory dysfunction Actinic keratoses Chronic joint pain Systolic murmur Hypercholesterolemia Palpitations Deformity of right foot Surgical history: Positive for lower back fusion x 2, bilateral carpal tunnel release, bilateral cataract surgery, cholecystectomy, colonoscopy, hysterectomy, right total hip arthroplasty, left shoulder surgery, dental extraction Family history: Positive for uterine cancer in her mother, myocardial infarction in her father. Social history: Patient is and with her . She is a lifelong non- smoker. She does not use alcohol or illicit drugs. OBJECTIVE Vitals: Last Updated 07/11/24 09:56 Date Temp BP Location Pulse RR SpO2 Pain 07/11/24 126/54 Right Arm 07/11/24 112/58 Left Arm 58 98 07/08/24 102/68 71 18 95 Vital Signs are the last 3 documented. No Orthostatic Data Available Height and Weight: Last Updated 06/24/24 13:02 Date BMI Wt(kg) Wt(lb) Method Ht(cm) (ft-in) Method 06/24/24 70.8 156 Standing Scale 02/26/24 32.6 69.5 153 Standing Scale 146 4-9 Standing 11/24/23 68.9 152 Standing Scale Heights and Weights are the last 3 documented. Physical Exam Constitutional: In general patient is an overweight but healthy-appearing well- nourished well-developed elderly female no distress. She ambulates with a rolling walker. Is alert and oriented without any focal deficits. Her right neck does demonstrate a carotid bruit. Her left does not. Her heart is regular, her lungs are decreased lightly but clear. Her abdomen is soft nontender with normoactive bowel sounds in all 4 quadrants. Brachial and radial pulses are +3. Femoral pulses are +4. Lower extremity distal pulses on the right are nonpalpable DP, +1 PT. Left lower extremity distal pulses are +1 DP +1 PT. She has brisk capillary fill to the toes and no sign of ischemia. She does have a tight dressing to the right great toe which was not removed today. There is no visible erythema or odor. She does have +3 pitting edema of the lower extremities bilaterally. ASSESSMENT: _ PLAN: _ 1 ) _symptomatic right ICA stenosis Patient does have a significant right ICA stenosis, and symptoms which may have been TIA. Due to the severity of her right ICA stenosis and it possibly being symptomatic, would recommend that she undergo surgical intervention to prevent further risk of CVA. She was started on clopidogrel 75 mg daily at the hospital, but patient states that she was told to stop taking her 81 mg aspirin at that time. We advised her that taking both the clopidogrel and the baby aspirin will give her the best prevention for any further cerebrovascular event at least until her surgery. She states that she will restart taking her 81 mg aspirin today. In reviewing her CTA, TCAR is not an option due to a anatomical restrictions. We therefore discussed carotid endarterectomy with the patient and her . The procedure was discussed at length with both of them, and all of their questions were answered. The benefits, alternatives, and risks, including but not limited to bleeding, infection, blood clots, nerve damage, CVA, heart attack, , were discussed at length with the patient by myself at Dr. Diaz's request. Patient expresses understanding and agreement to proceed. This will occur in the next few weeks at the patient's convenience. Her was also present for this discussion today. There were advised to call any other questions. Thank you for letting us participate in the care of this patient. I have personally spent_48__ minutes performing [id number] and [id number] activities on this date of service.Time does not include separately reported services. Activities Include: _x_ review of the medical record _x_ obtaining a history _x_ physical exam/evaluation __ review labs _x_ review radiology reports _x_ counseling/educating patient/family/caregiver __ discussion/referral to other healthcare professional x__ documenting care in the medical record __ independent interpretation of results _x_ communication of results to patient/family/caregiver _x_ coordination of care Signature Line Electronic Signature on File CC: Kelechi Haile MD [id number] [facility] [address] Electronically Reviewed/Signed by: Kimberlee Qiu PA-C Author Signature Dt/Tm:07/11/2024 11:27 AM [facility] [address], [address] [place] [address] LM Result Type: HVI Outpt Note Date of Service: July 11, 2024 10:58 EDT Authorization Status: Final Author or Import Date: BRIE Qiu Lynn on July 11, 2024 11:27 EDT Verified By: BRIE Qiu Lynn on July 11, 2024 11:27 EDT Encounter info: [id number], [place] [address], Clinic, 07/11/2024 - 07/11/2024 Admission Exam Per Admitting Provider Constitutional: In general patient is an overweight but healthy-appearing well- nourished well-developed elderly female no distress. She ambulates with a rolling walker. Is alert and oriented without any focal deficits. Her right neck does demonstrate a carotid bruit. Her left does not. Her heart is regular, her lungs are decreased lightly but clear. Her abdomen is soft nontender with normoactive bowel sounds in all 4 quadrants. Brachial and radial pulses are +3. Femoral pulses are +4. Lower extremity distal pulses on the right are nonpalpable DP, +1 PT. Left lower extremity distal pulses are +1 DP +1 PT. She has brisk capillary fill to the toes and no sign of ischemia. She does have a tight dressing to the right great toe which was not removed today. There is no visible erythema or odor. She does have +3 pitting edema of the lower extremities bilaterally. Principal Diagnosis Right carotid stenosis Discharge Exam Constitutional WD/WN, vitals as above Neck trachea midline Respiratory normal respiratory effort; no respiratory distress Cardiovascular Rate/Rhythm: regular rate and regular rhythm Skin + wound (dry and clean) Neurologic CN's II-XI intact bilaterally and moves all extremities Psychiatric A+Ox3, euthymic affect Discharge Data Allergies Allergy/AdvReac Type Severity Reaction Status Date / Time adhesive Allergy Mild RASH Verified 07/17/24 11:07 capsaicin AdvReac Mild GI upset Verified 07/17/24 11:07 diclofenac AdvReac Mild GI upset Verified 07/17/24 11:07 Diclopak AdvReac Mild GI upset Verified 01/10/17 00:12 oxycodone AdvReac Mild GI upset Verified 07/17/24 11:07 pregabalin AdvReac Mild GI upset Verified 07/17/24 11:07 Consultations 07/17/24 16:51 Consult [employer] Routine Procedures Performed Operation Date: 07/17/24 12:40 Actual Procedures p Right Carotid Endarterectomy(Right) - Carlos Diaz MD Hospital Course (1) S/P carotid endarterectomy: Patient POD #1 from a right carotid endart. She is doing well without any complications. Plan is D/C today. Total Time Total Time Spent Total Time Spent (In Minutes): x Discharge Plan Discharge Items Patient Disposition: Home - Self-Care Reason For Visit: Right Internal Carotid Artery Stenosis Discharge Diagnosis: Right internal carotid artery stenosis Activity: Per Instructions section Non-emergency contact: Surgeon Call non-emergency contact if: your temperature is above 101.5, your wound has increased redness, your wound has increased drainage and your wound pain has increased Follow-up/Referrals: Kelechi Haile MD [Primary Care Provider] - Diet: Heart Healthy Addtl Attending Provider Instructions: SPECIAL CARE INSTRUCTIONS: Diet: * You may return to previous diet. Medications: * Continue to take Aspirin, plavix and statin as directed. Incision Care: * You may shower, but do not rub incision. You may let the warm soapy water run over it. Be sure to dry the incision well after bathing. * Do not shave directly over the incision until it is healed. * DO NOT IMMERSE THE INCISION IN A TUB/POOL/etc. UNTIL HEALED. Restrictions: * Do not drive for at least one week or if you are still taking any narcotic pain medication. * Do not lift anything heavier than a gallon of milk for one week after going home. Possible Complications: * Numbness - It is normal to have some numbness around the incision. Numbness can extend beyond the incision to areas of the neck, ear and face. The numbness is due to bruising of nerves during the surgery and will gradually improve over a period of months. * Hoarseness/Difficulty Speaking and Swallowing - The bruising of nerves in the neck can also cause a hoarse voice, difficulty speaking or swallowing. This may improve over time, HOWEVER, if it continues for more than a few days please contact our office ([phone]). * Excessive Swelling - There will be some swelling immediately after surgery which usually resolves within one week. If you notice that the swelling is getting worse, notify your surgeon ([phone]). * Drainage/Bleeding - If there is any drainage or bleeding, it should be a very small amount (less than a teaspoon per day). If you have excessive bleeding or drainage from the incision, call your surgeon ([phone]) right away. ACTIVATION OF EMERGENCY MEDICAL SYSTEM: Call 911, immediately, if you experience any of the following: Warning Signs and Symptoms of Stroke: * Sudden numbness or weakness of the face, arm or leg, especially on one side of the body * Sudden confusion, trouble speaking or understanding * Sudden trouble seeing in one or both eyes * Sudden trouble walking, dizziness, loss of balance or coordination * Sudden severe headache with no cause Do not delay calling 911 if you experience any warning signs or symptoms of a stroke. Delay in seeking medical attention may affect what treatments can be given to you. Risk Factors for Stroke: You can reduce your chances of stroke by working with your medical provider to adopt a healthy lifestyle. Some specific ways to lower your chance of stroke are: * If you are a smoker, now is the time to stop smoking cigarettes * If you are diabetic, improve the control of your blood sugars * Avoid excessive amounts of alcohol * Control high blood pressure * Lose weight if you are overweight * Be sure to lead an active lifestyle * Eat a healthy diet low in salt, cholesterol and fat You should know about other risk factors for stroke that you are unable to control. These include: * Age 55 years or older * Male gender * Certain racial groups: , or / * Family History of Stroke, Mini stroke or Heart Attack * Sickle Cell Disease You will be receiving a call from the Vascular Surgery Nurse after you are discharged. FOLLOW UP VISIT: It is important for you to keep your follow up appointments with your medical provider. Keep any scheduled doctor appointments. Call [phone] to schedule a follow up appointment if one not already scheduled. Pending Studies at Discharge: No Stand-Alone Forms: [facility], Smoking Cessation Medications and DC Order Prescriptions: New oxycodone-acetaminophen [Percocet] 5-325 mg tablet 1 tab PO Q8H PRN (Reason: pain) Qty: 7 0RF Continued alendronate 35 mg tablet 35 mg PO .weekly Patient Comments: takes on mondays simvastatin 20 mg Tablet 20 mg PO HS gabapentin 100 mg Capsule 300 mg PO BID pantoprazole 40 mg tablet,delayed release (DR/EC) 40 mg PO QDL Patient Comments: lunch time oxybutynin chloride 5 mg tablet 5 mg PO QAM calcium carbonate-vitamin D3 [Calcium 600 + D(3)] 600 mg-10 mcg (400 unit) Tablet 1 tab PO BID multivitamin Tablet 1 tab PO DAILY Patient Comments: lunch time hydrochlorothiazide 25 mg Tablet 25 mg PO QAM Qty: 30 2RF Rx Instructions: for high blood pressure lisinopril 5 mg Tablet 10 mg PO BID PreserVision AREDS 2,148 mcg-113 mg-45 mg-17.4mg Tablet 1 tab PO DAILY Patient Comments: lunch time Rx Instructions: administer with AM and PM meals aspirin 81 mg Capsule 81 mg PO QAM clopidogrel 75 mg Tablet 75 mg PO QAM Qty: 30 0RF amlodipine [Norvasc] 5 mg Tablet 5 mg PO QAM Qty: 30 0RF Discharge Orders: Discharge Order (Routine); Ordered 07/18/24 Ordered By: Carlos Diaz Admission Data Admit Date/Time: 07/17/24 11:59 Attending Provider: Carlos Diaz Admit Provider: Carlos Diaz Primary Care Provider: Kelechi Haile Other Providers: Nirmala Bowen; Mathieu Talamantes; Darlin Zhao; Kelechi Dillon; Jose De Dios; Edna Villalta; Ama Bagley V.; Trista Cannon; Bradley Kulkarni; Abigail Bauman; Angelica Chang; Mehnaz Garay; Yenni Mcgill; Karena Burns; Madi Canales; Luciana Thomson; Tripp Laird; Mike Chan; Christie Benjamin; Geovani Yanes; Orlin Gee; Brittni Rosario; Loretta Berman
== END 2024-07-18 14:20 | disposition home or self-care (01) | DRG 39 ==
LOC: ASU 10:28 → 1E 11:59

== ENCOUNTER 2024-10-02 05:10 | Observation (INO) ==
--- NOTE | 2024-06-18 15:03 | PAT Medication Instructions ---
Medication Instructions Date of Service June 18, 2024 Home Medications Medication Instructions Recorded aspirin 81 mg tablet,delayed 81 mg PO QAM #90 tabs 04/16/22 release hydrochlorothiazide 25 mg tablet 25 mg PO QAM #30 tabs 04/16/22 gabapentin 100 mg capsule 200 mg PO BID simvastatin 20 mg tablet 20 mg PO QAM calcium carbonate 600 mg-vitamin D3 10 mcg (400 unit) tablet (Calcium 600 + D(3)) 1 tab PO BID multivitamin 1 tab PO DAILY oxybutynin chloride 5 mg tablet 5 mg PO BID pantoprazole 40 mg tablet,delayed release 40 mg PO DAILY aspirin 81 mg tablet,delayed release 81 mg PO QAM hydrochlorothiazide 25 mg tablet 25 mg PO QAM alendronate 35 mg tablet 35 mg PO .weekly amlodipine 2.5 mg tablet 2.5 mg PO QAM meloxicam 15 mg tablet 15 mg PO QAM lisinopril 5 mg tablet 5 mg PO QAM vitamins A,C,T-wfwf-vaqpkz 2,148 mcg-113 mg-45 mg-17.4 mg tablet (PreserVision AREDS) 1 tab PO DAILY ASK your surgeon for instructions meloxicam 15 mg tablet 15 mg PO QAM ASK your prescriber and surgeon aspirin 81 mg tablet,delayed release 81 mg PO QAM STOP taking 2 weeks before surgery (or as soon as possible if surgery is within 2 weeks) vitamins A,C,Z-hbcj-zerzui 2,148 mcg-113 mg-45 mg-17.4 mg tablet (PreserVision AREDS) 1 tab PO DAILY DO NOT take the morning of surgery calcium carbonate 600 mg-vitamin D3 10 mcg (400 unit) tablet (Calcium 600 + D(3)) 1 tab PO BID multivitamin 1 tab PO DAILY oxybutynin chloride 5 mg tablet 5 mg PO BID hydrochlorothiazide 25 mg tablet 25 mg PO QAM alendronate 35 mg tablet 35 mg PO .weekly lisinopril 5 mg tablet 5 mg PO QAM Take morning of surgery With a small sip of water, OTHERWISE NOTHING TO EAT OR DRINK AFTER MIDNIGHT: gabapentin 100 mg capsule 200 mg PO BID simvastatin 20 mg tablet 20 mg PO QAM pantoprazole 40 mg tablet,delayed release 40 mg PO DAILY amlodipine 2.5 mg tablet 2.5 mg PO QAM Take evening before surgery gabapentin 100 mg capsule 200 mg PO BID calcium carbonate 600 mg-vitamin D3 10 mcg (400 unit) tablet (Calcium 600 + D(3)) 1 tab PO BID oxybutynin chloride 5 mg tablet 5 mg PO BID Other Notes If you have any questions please call us at [phone] or [phone] or [phone] or [phone]
--- NOTE | 2024-06-20 11:42 | Anesthesiology Consultation ---
Date of Service June 20, 2024 Assessment & Plan (1) Encounter for pre-operative examination: Plan - awaiting vascular surgery evaluation prior to surgery. - left internal carotid artery stenosis, approx 75% on 04/13/2022 neck CTA, carotid bruit is present. Patient denies pursuing further evaluation/imaging since that time. Denies dizziness, lightheadedness, visual or speech changes, numbness or change in chronic bilateral leg weakness or gait (uses rolling walker to ambulate). Patient and her were advised this will need further evaluated/managed prior to surgery and emphasized the importance of ongoing monitoring/management given associated morbidity and potential mortality. Case discussed in detail with Dr. Sellers who advised patient will need to have a pre-operative evaluation. I called [facility] vascular surgery who requested form be faxed to their office which has been completed and [facility] senior informatica etl developer notified. Patient made aware, she denied questions or concerns. Surgeon's office made aware. Chart Review Chart Review: Pending: Refer to Additional Notes / Consult section and Patient seen in Pre Admission Testing Teaching & Discussion Pre-Anesthesia Teaching/Discussion Notes: Instructed NPO after midnight before surgery, except medications with 15 cc of water. Medication instructions provided according to the PAT guidelines. History Surgery Operation Date: 07/12/24 08:50 Proposed Procedures p Left Total Knee Arthroplasty - Randy De MD Height/Weight Height: 4 ft 10 in Weight: 69.7 kg Allergies Allergy/AdvReac Type Severity Reaction Status Date / Time adhesive Allergy Mild RASH Verified 06/18/24 10:44 capsaicin AdvReac Mild GI upset Verified 06/18/24 10:44 diclofenac AdvReac Mild GI upset Verified 06/18/24 10:44 Diclopak AdvReac Mild GI upset Verified 01/10/17 00:12 oxycodone AdvReac Mild GI upset Verified 06/18/24 10:44 pregabalin AdvReac Mild GI upset Verified 06/18/24 10:44 Medications Home Medications Medication Instructions Recorded Confirmed Last Taken gabapentin 100 mg capsule 200 mg PO BID 07/27/18 06/18/24 04/13/22 simvastatin 20 mg tablet 20 mg PO QAM 07/27/18 06/18/24 04/12/22 calcium carbonate 600 mg-vitamin 1 tab PO BID 04/13/22 06/18/24 04/13/22 D3 10 mcg (400 unit) tablet (Calcium 600 + D(3)) multivitamin 1 tab PO DAILY 04/13/22 06/18/24 04/13/22 oxybutynin chloride 5 mg tablet 5 mg PO BID 04/13/22 06/18/24 04/13/22 pantoprazole 40 mg tablet,delayed 40 mg PO DAILY 04/13/22 06/18/24 04/13/22 release aspirin 81 mg tablet,delayed 81 mg PO QAM #90 tabs 04/16/22 06/18/24 Unknown release hydrochlorothiazide 25 mg tablet 25 mg PO QAM #30 tabs 04/16/22 06/18/24 Unknown alendronate 35 mg tablet 35 mg PO .weekly 09/08/23 06/18/24 Unknown amlodipine 2.5 mg tablet 2.5 mg PO QAM 11/27/23 06/18/24 Unknown meloxicam 15 mg tablet 15 mg PO QAM 11/27/23 06/18/24 Unknown lisinopril 5 mg tablet 5 mg PO QAM 06/18/24 06/18/24 Unknown vitamins A,C,X-wctl-sdqtkd 2,148 1 tab PO DAILY 06/18/24 06/18/24 Unknown mcg-113 mg-45 mg-17.4 mg tablet (PreserVision AREDS) Past Medical History Medical History GERD (gastroesophageal reflux disease) controlled, stable per pt Hearing loss chronic Hyperlipidemia Hypertension controlled, stable per pt Irregular heart beat no cards Neuropathy feet Osteoarthritis of knees, bilateral Osteoporosis Stenosis of right internal carotid artery "75% blockage" Urinary urgency Patient denies h/o stroke, seizures, heart attack, heart failure, DM, HTN, blood clots/DVTs or blood transfusions. Exercise / Class Metabolic Activity III < 4 Walking/Shop/Light housework (ambulates with rolling walker, denies chest discomfort or shortness of breath with usual activities) Past Family History Family History Mother , age 75 of uterine cancer Uterine cancer Father , age 65 of an [place] Myocardial infarction Past Surgical History Surgical History History of back surgery x 2 *lower back fusion (hardware intact) History of carpal tunnel release right/left History of cataract surgery right/left History of cholecystectomy History of colonoscopy History of hysterectomy History of right hip replacement History of shoulder surgery left History of tooth extraction Past Anesthesia History No Hx of Anesthesia Complications and No Family Hx of Anesthesia Complications History of PONV No Hx of PONV and No Hx of Motion Sickness Social History Smoking Status: Never smoker Do You Dip or Chew Tobacco: No Hx Alcohol Use: No Hx Substance Use: No substance use type: does not use Review of Systems Snoring, denies witnessed apneas. Patient denies chest pain, shortness of breath, dyspnea on exertion, fever, chills, cough, wheezing, or palpitations. Physical Exam Vital Signs Vitals BP 147/82 P 71 TEMP 98.2 SP02 99% on RA RESP 17 Physical Patient resting comfortably in chair in no acute distress, alert and oriented, normal speech, responding appropriately throughout visit Full cervical extension range of motion without pain TMD 3.5 finger breadths Mallampati Score 2 Dentition: one crown; denies chipped or loose teeth, caps, implants or bridges Lungs: normal respiratory effort. Good air movement, clear throughout to auscultation, no adventitious breath sounds Cardiac: regular rate and rhythm, no murmurs noted Carotid arteries: right carotid bruit, no bruit left carotid Lab Results Anesthesia Preop Results Results Anesthesia Widget: WBC 8.21 K/ul (4.8-10.8) 06/20/24 Hgb 12.4 g/dl (12.0-16.0) 06/20/24 Hct 37.6 % (37.0-47.0) 06/20/24 Plt 187 K/uL (130-400) 06/20/24 Na 139 mmol/L (136-145) 06/20/24 K 4.2 mmol/L (3.5-5.1) 06/20/24 Cl 102 mmol/L (98-107) 06/20/24 CO2 30 mmol/L (21-32) 06/20/24 BUN 28 mg/dl (6-23) H 06/20/24 Creat 1.03 mg/dl (0.6-1.2) 06/20/24 Glucose Level 112 mg/dl (70-99(Fasting)) H 06/20/24 PT 10.4 Seconds (9.0-12.0) 06/20/24 PTT 26 Seconds (21-31) 06/20/24 INR 1.0 (0.9-1.1) 06/20/24 Blood Type O Positive 06/20/24 Antibody Screen NEGATIVE 06/20/24 Testing Electrocardiogram Date: 06/20/24 Sinus rhythm with 1st degree AV block, rate 61 bpm Chest X-Ray Date: 06/20/24 No active disease in the chest. Echocardiogram Date: 04/14/22 EF 65-70% No LV regional wall motion abnormalities Mild cLVH Moderate LA dilation Mild mitral regurgitation Type 2 diastolic dysfunction Other Testing Head and neck CTA 04/13/22 1 There is no evidence of hemorrhage, mass effect, or acute territorial ischemia noting angiographic phase technique. 2. Unremarkable CT angiogram of the brain. 3. There is approximately 75% focal stenosis at the origin of the right internal carotid artery. 4. Otherwise unremarkable CT angiogram of the neck. 5. Hyperdensity questioned involving the left middle cerebral artery on the unenhanced examination was artifactual.
--- NOTE | 2024-08-29 14:24 | Anesthesiology Consultation ---
Date of Service August 29, 2024 Assessment & Plan (1) Encounter for pre-operative examination: Plan - Case discussed in detail with Dr. Haynes who advised nothing additional is needed prior to surgery. Bolus not ordered until confirmation on if patient held plavix DOS. - clopidogrel/Plavix: patient and her were advised and it is documented on medication instructions provided to patient that medication would need held for 7 days if approved by prescribing provider. Patient and her state that Dr. Diaz's office was contacted and patient is awaiting response. - Outpatient joint assessment: Patient is currently scheduled for inpatient pathway. If re-evaluated and patient/surgeon requests outpatient pathway, patient is not advised candidate for outpatient joint program from anesthesia standpoint. Chart Review Chart Review: Acceptable Risk for Surgery and Patient seen in Pre Admission Testing Teaching & Discussion Pre-Anesthesia Teaching/Discussion Notes: Instructed NPO after midnight before surgery, except medications with 15 cc of water. Medication instructions provided according to the PAT guidelines. History Surgery Operation Date: 10/02/24 08:50 Proposed Procedures p Left Total Knee Arthroplasty - Randy De MD Height/Weight Height: 4 ft 10 in Weight: 65.5 kg Allergies Allergy/AdvReac Type Severity Reaction Status Date / Time adhesive Allergy Mild RASH Verified 08/20/24 14:29 capsaicin AdvReac Mild GI upset Verified 08/20/24 14:29 diclofenac AdvReac Mild GI upset Verified 08/20/24 14:29 Diclopak AdvReac Mild GI upset Verified 01/10/17 00:12 oxycodone AdvReac Mild GI upset Verified 08/20/24 14:29 pregabalin AdvReac Mild GI upset Verified 08/20/24 14:29 Medications Home Medications Medication Instructions Recorded Confirmed Last Taken gabapentin 100 mg capsule 100 mg PO BID 07/27/18 08/20/24 07/16/24 22:00 simvastatin 20 mg tablet 20 mg PO HS 07/27/18 08/20/24 07/16/24 22:00 calcium 600 mg (as 1 tab PO BID 04/13/22 08/20/24 07/11/24 carbonate)-vitamin D3 10 mcg (400 unit) tablet (Calcium 600 + D(3)) multivitamin 1 tab PO DAILY 04/13/22 08/20/24 07/11/24 oxybutynin chloride 5 mg tablet 5 mg PO QAM 04/13/22 08/20/24 07/16/24 06:30 pantoprazole 40 mg tablet,delayed 40 mg PO QDL 04/13/22 08/20/24 07/16/24 12:00 release hydrochlorothiazide 25 mg tablet 25 mg PO QAM #30 tabs 04/16/22 08/20/24 07/16/24 07:30 alendronate 35 mg tablet 35 mg PO .weekly 09/08/23 08/20/24 07/15/24 07:30 lisinopril 5 mg tablet 10 mg PO BID 06/18/24 08/20/24 07/17/24 09:00 vitamins A,C,Q-voor-masjwq 2,148 1 tab PO DAILY 06/18/24 08/20/24 07/11/24 mcg-113 mg-45 mg-17.4 mg tablet (PreserVision AREDS) amlodipine 5 mg tablet (Norvasc) 5 mg PO QAM #30 tabs 07/02/24 08/20/24 07/17/24 09:00 clopidogrel 75 mg tablet 75 mg PO QAM #30 tabs 07/02/24 08/20/24 07/16/24 07:45 oxycodone-acetaminophen 5 mg-325 1 tab PO Q8H PRN pain #7 tabs 07/18/24 08/20/24 Unknown mg tablet (Percocet) Past Medical History Medical History (Updated 08/29/24 @ 14:34 by Jazzmine Jordan PA-C) Carotid artery stenosis s/p carotid endarterectomy 06/2024 [facility] GERD (gastroesophageal reflux disease) controlled, stable per pt Hearing loss chronic Hyperlipidemia Hypertension controlled, stable per pt Irregular heart beat no cardio, pt. states she is waiting for a holter monitor to come in the mail Neuropathy feet Osteoporosis Tricompartment osteoarthritis of left knee Urinary urgency Patient denies h/o stroke, seizures, heart attack, heart failure, DM, blood clots/DVTs or blood transfusions. Exercise / Class Metabolic Activity III < 4 Walking/Shop/Light housework (ambulates with rolling walker, denies chest discomfort or shortness of breath with usual activities) Past Family History Family History (Updated 08/29/24 @ 14:34 by Jazzmine Jordan PA-C) Mother , age 75 of uterine cancer Uterine cancer Father , age 65 of an [place] Myocardial infarction Daughter Diabetes Past Surgical History Surgical History (Updated 08/29/24 @ 14:35 by Jazzmine Jordan PA-C) History of back surgery x 2 *lower back fusion (hardware intact) History of carpal tunnel release right/left History of cataract surgery right/left History of cholecystectomy History of colonoscopy History of hysterectomy History of right hip replacement History of shoulder surgery left History of tooth extraction S/P carotid endarterectomy (07/18/24) right, Dr Diaz Past Anesthesia History No Hx of Anesthesia Complications and No Family Hx of Anesthesia Complications History of PONV No Hx of PONV and No Hx of Motion Sickness Social History Smoking Status: Never smoker Do You Dip or Chew Tobacco: No Hx Alcohol Use: No Hx Substance Use: No substance use type: does not use Review of Systems Snoring, denies witnessed apneas. Patient denies chest pain, shortness of breath, dyspnea on exertion, fever, c hills, cough, wheezing, or palpitations. Physical Exam Vital Signs Vitals BP 116/68 P 61 TEMP 97.8 SP02 98% on RA RESP 19 Physical Patient resting comfortably in chair in no acute distress, alert and oriented, responding appropriately throughout visit Full cervical extension range of motion without pain TMD 3.5 finger breadths Mallampati Score 2 Dentition: chipped tooth and several caps, denies loose teeth, crowns, implants or bridges Lungs: normal respiratory effort. Good air movement, clear throughout to auscultation, no adventitious breath sounds Cardiac: regular rate and rhythm, no murmurs noted Carotid arteries: negative bruit bilat Lab Results Anesthesia Preop Results Results Anesthesia Widget: WBC 9.34 K/ul (4.8-10.8) 08/26/24 Hgb 12.7 g/dl (12.0-16.0) 08/26/24 Hct 39.4 % (37.0-47.0) 08/26/24 Plt 249 K/uL (130-400) 08/26/24 Na 139 mmol/L (136-145) 08/26/24 K 4.3 mmol/L (3.5-5.1) 08/26/24 Cl 100 mmol/L (98-107) 08/26/24 CO2 29 mmol/L (21-32) 08/26/24 BUN 32 mg/dl (6-23) H 08/26/24 Creat 1.14 mg/dl (0.6-1.2) 08/26/24 Glucose Level 115 mg/dl (70-99(Fasting)) H 08/26/24 POC Glucose 175 mg/dl (70-99) H 07/17/24 PT 10.4 Seconds (9.0-12.0) 08/29/24 PTT 25 Seconds (21-31) 08/29/24 INR 1.0 (0.9-1.1) 08/29/24 HA1c 6.0 % (4.5-5.6) H 07/02/24 Blood Type O Positive 08/29/24 Antibody Screen NEGATIVE 08/29/24 Testing Electrocardiogram Date: 07/01/24 Sinus rhythm with 1st degree AV block with occasional PVCs and PACs, rate 73 bpm Chest X-Ray Date: 07/01/24 *1view* No active disease in the chest. Echocardiogram Date: 04/14/22 EF 65-70% No LV regional wall motion abnormalities Mild cLVH Moderate LA dilation Mild mitral regurgitation Type 2 diastolic dysfunction Other Testing Head CT 07/01/24 No acute intracranial abnormality. Brain MRI 07/01/24 1. No acute intracranial abnormality. 2. Chronic small vessel ischemic changes and cerebral volume loss. Head and neck CTA 07/01/24 1. There is approximately 75% focal stenosis at the origin of the right internal carotid artery. This is similar to previous. (s/p right carotid endarterectomy 06/2024) 2. Otherwise unremarkable CT angiogram of the neck. Unremarkable CTA of the head.
--- NOTE | 2024-08-29 14:46 | PAT Medication Instructions ---
Medication Instructions Date of Service August 29, 2024 Home Medications Medication Instructions Recorded hydrochlorothiazide 25 mg tablet 25 mg PO QAM #30 tabs 04/16/22 amlodipine 5 mg tablet (Norvasc) 5 mg PO QAM #30 tabs 07/02/24 clopidogrel 75 mg tablet 75 mg PO QAM #30 tabs 07/02/24 oxycodone-acetaminophen 5 mg-325 1 tab PO Q8H PRN pain #7 tabs 07/18/24 mg tablet (Percocet) gabapentin 100 mg capsule 100 mg PO BID simvastatin 20 mg tablet 20 mg PO HS calcium 600 mg (as carbonate)-vitamin D3 10 mcg (400 unit) tablet (Calcium 600 + D(3)) 1 tab PO BID multivitamin 1 tab PO DAILY oxybutynin chloride 5 mg tablet 5 mg PO QAM pantoprazole 40 mg tablet,delayed release 40 mg PO QDL hydrochlorothiazide 25 mg tablet 25 mg PO QAM alendronate 35 mg tablet 35 mg PO .weekly lisinopril 5 mg tablet 10 mg PO BID vitamins A,C,N-rheg-ifjayf 2,148 mcg-113 mg-45 mg-17.4 mg tablet (PreserVision AREDS) 1 tab PO DAILY amlodipine 5 mg tablet (Norvasc) 5 mg PO QAM clopidogrel 75 mg tablet 75 mg PO QAM oxycodone-acetaminophen 5 mg-325 mg tablet (Percocet) 1 tab PO Q8H PRN Continue as directed pantoprazole 40 mg tablet,delayed release 40 mg PO QDL ASK your prescriber and surgeon clopidogrel 75 mg tablet 75 mg PO QAM(in order for spinal or epidural anesthesia, clopidogrel/Plavix needs to be stopped 7 days before surgery. Please check if okay with doctor that prescribes this to you) STOP taking 2 weeks before surgery (or as soon as possible if surgery is within 2 weeks) vitamins A,C,H-ymub-cqvsry 2,148 mcg-113 mg-45 mg-17.4 mg tablet (PreserVision AREDS) 1 tab PO DAILY DO NOT take the morning of surgery calcium 600 mg (as carbonate)-vitamin D3 10 mcg (400 unit) tablet (Calcium 600 + D(3)) 1 tab PO BID multivitamin 1 tab PO DAILY oxybutynin chloride 5 mg tablet 5 mg PO QAM hydrochlorothiazide 25 mg tablet 25 mg PO QAM alendronate 35 mg tablet 35 mg PO .weekly lisinopril 5 mg tablet 10 mg PO BID Take morning of surgery With a small sip of water, OTHERWISE NOTHING TO EAT OR DRINK AFTER MIDNIGHT: gabapentin 100 mg capsule 100 mg PO BID amlodipine 5 mg tablet (Norvasc) 5 mg PO QAM oxycodone-acetaminophen 5 mg-325 mg tablet (Percocet) 1 tab PO Q8H PRN(if needed) Take evening before surgery gabapentin 100 mg capsule 100 mg PO BID simvastatin 20 mg tablet 20 mg PO HS calcium 600 mg (as carbonate)-vitamin D3 10 mcg (400 unit) tablet (Calcium 600 + D(3)) 1 tab PO BID lisinopril 5 mg tablet 10 mg PO BID oxycodone-acetaminophen 5 mg-325 mg tablet (Percocet) 1 tab PO Q8H PRN(if needed) Other Notes If you have any questions please call us at [phone] or [phone] or [phone] or [phone]
--- NOTE | 2024-09-28 18:31 | History & Physical Report ---
Date of Service September 28, 2024 Assessment & Plan (1) Left knee DJD: 84-year-old female with advanced left knee arthritis. She has failed conservative treatment. Is limiting her lifestyle and she like to have her left knee replaced. She is discussing with her primary care physician and they have elected that that that knee replacement is the best option to keep her active. Plan: Orgran taken to the operating do [facility] explained. The patient understands and desires to proceed. She did recently have a carotid endarterectomy about 2 and half months ago. She is on Plavix. I discussed this with Dr. Diaz and it has been okay for her to go off the Plavix 1 week before hand. Will start her on this back 24 hours postop. She has been to be discharged to home using [facility] health program and her 's assistance. (2) Hypertension: (3) Hyperlipidemia: (4) Osteoporosis: (5) GERD (gastroesophageal reflux disease): History of Present Illness Chief Complaint: . Persistent left knee pain and discomfort. Primary Care Provider: Kelechi Haile MD . The patient is an 84-year-old female whose had a host of orthopedic issues over the years. She now presents with persistent progressive left knee pain and discomfort. This is gradual gotten worse over the past several years. She been through extensive conservative treatment which would become less successful. Does she is got global pain in the knee. Hurts more when she is up and walking. Does she limps more as the day goes on. That she is talk with her primary care doctor and that they have elected proceed with total knee replacement to keep her active. Allergies Allergy/AdvReac Type Severity Reaction Status Date / Time adhesive Allergy Mild RASH Verified 08/20/24 14:29 capsaicin AdvReac Mild GI upset Verified 08/20/24 14:29 diclofenac AdvReac Mild GI upset Verified 08/20/24 14:29 Diclopak AdvReac Mild GI upset Verified 01/10/17 00:12 oxycodone AdvReac Mild GI upset Verified 08/20/24 14:29 pregabalin AdvReac Mild GI upset Verified 08/20/24 14:29 Home Medications Medication Instructions Recorded Confirmed Type gabapentin 100 mg capsule 100 mg PO BID 07/27/18 08/20/24 History simvastatin 20 mg tablet 20 mg PO HS 07/27/18 08/20/24 History calcium 600 mg (as 1 tab PO BID 04/13/22 08/20/24 History carbonate)-vitamin D3 10 mcg (400 unit) tablet (Calcium 600 + D(3)) multivitamin 1 tab PO DAILY 04/13/22 08/20/24 History oxybutynin chloride 5 mg tablet 5 mg PO QAM 04/13/22 08/20/24 History pantoprazole 40 mg tablet,delayed 40 mg PO QDL 04/13/22 08/20/24 History release hydrochlorothiazide 25 mg tablet 25 mg PO QAM #30 tabs 04/16/22 08/20/24 Rx alendronate 35 mg tablet 35 mg PO .weekly 09/08/23 08/20/24 History lisinopril 5 mg tablet 10 mg PO BID 06/18/24 08/20/24 History vitamins A,C,F-gnws-fueoiv 2,148 1 tab PO DAILY 06/18/24 08/20/24 History mcg-113 mg-45 mg-17.4 mg tablet (PreserVision AREDS) amlodipine 5 mg tablet (Norvasc) 5 mg PO QAM #30 tabs 07/02/24 08/20/24 Rx clopidogrel 75 mg tablet 75 mg PO QAM #30 tabs 07/02/24 08/20/24 Rx oxycodone-acetaminophen 5 mg-325 1 tab PO Q8H PRN pain #7 tabs 07/18/24 08/20/24 Rx mg tablet (Percocet) Past Med/Surg History Problem List (Updated 09/28/24 @ 18:29 by Randy De MD) Left knee DJD Shoulder arthritis Hypertension controlled, stable per pt Hamstring tear Hyperlipidemia DJD of left shoulder Medical History Carotid artery stenosis s/p carotid endarterectomy 06/2024 [facility] Tricompartment osteoarthritis of left knee Hyperlipidemia Hypertension controlled, stable per pt Hearing loss chronic Urinary urgency Irregular heart beat no cardio, pt. states she is waiting for a holter monitor to come in the mail Osteoporosis Neuropathy feet GERD (gastroesophageal reflux disease) controlled, stable per pt Surgical History S/P carotid endarterectomy (07/18/24) right, Dr Diaz History of hysterectomy History of carpal tunnel release right/left History of cholecystectomy History of colonoscopy History of tooth extraction History of cataract surgery right/left History of shoulder surgery left History of right hip replacement History of back surgery x 2 *lower back fusion (hardware intact) Family History Mother , age 75 of uterine cancer Uterine cancer Father , age 65 of an [place] Myocardial infarction Daughter Diabetes Social History Smoking Status: Never smoker Second Hand Exposure: No; Do You Dip or Chew Tobacco: No; Tobacco Cessation Education Requested by Patient: No Hx Alcohol Use: No Hx Substance Use: No Preferred Language: Arabic Communication Ability: Effective Carbide Die Maker Required: No Beliefs That Will Affect Care: None marital status: Current Living Situation: Spouse current occupational status: 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 Physical Exam . Physical examination reveals a pleasant elderly female. Examination of the left knee reveals the pain she ambulates with use of cane for balance purposes. Their left knee reveals fairly neutral to slight valgus alignment to the knee. Moderate soft tissue envelope. Fairly thin skin. Small knee effusion. Range of motion 5-1 20. No instability. No pain with hip motion. Constitutional WD/WN, vitals as above Neck trachea midline, no thyromegaly Respiratory normal respiratory effort, lungs clear to auscultation Cardiovascular RRR, no murmur, no edema Gastrointestinal (Abdomen) normal bowel sounds, soft, nontender, no hepatosplenomegaly Neurologic patellar DTR's 2+ bilat, sensation intact and PERRL, EOMI, accommodation nl, no face palsy, no dysarthria Results & Data Results & Data Laboratory Results . Diagnostic Findings . X-rays of the left knee were reviewed. She has advanced left knee DJD. She is got complete loss of medial joint space. Little bit of tibiofemoral subluxation. Diffuse osteopenia. PG Care Time/CCT Total # of Minutes Spent Total Time Spent with Patient: Total time spent is greater than 50% in coordination of care (as documented) at patient's floor/unit and/or counseling patient: Coding Level of Care Code None Diagnoses Left knee DJD M17.12 Hypertension I10 Hyperlipidemia E78.5 Osteoporosis M81.0 GERD (gastroesophageal reflux disease) K21.9
[2024-10-02] MEDS: ACETAMINOPHEN 500 MG TAB PO SCH ×2 (06:07→11:58)
[2024-10-02] MEDS: LR 15ML/HR IV SCH (06:07)
[2024-10-02] MEDS: METOCLOPRAMIDE HCL 10 MG TABLET PO SCH (06:09)
[2024-10-02] MEDS: FAMOTIDINE 20 MG TAB PO SCH (06:09)
[2024-10-02] MEDS: dexAMETHasone**PF** 10 MG/ML VIAL IV SCH (06:11)
[2024-10-02] MEDS: LR 60ML/HR IV SCH (06:11)
[2024-10-02] MEDS ORDERED: BUPIVACAINE 0.25% PF 30 ML VIAL ONE (06:18)
[2024-10-02] MEDS ORDERED: BUPIVACAINE 0.5 % 5 MG/1 ML PF 10ML VIAL ONE (06:18)
[2024-10-02] MEDS: CeleBREX 200 MG CAP PO SCH (06:34)
[2024-10-02] MEDS ORDERED: fentaNYL citrate PF 100 MCG/2 ML VIAL ONE ×2 (06:37→07:33)
[2024-10-02] MEDS ORDERED: MIDAZOLAM HCL 1 MG/ML 2ML VIAL ONE (06:39)
[2024-10-02] MEDS ORDERED: PROPOFOL IV EMULSION 10 MG/ML 20 ML VIAL IV ONE ×2 (06:40→06:53)
[2024-10-02] MEDS ORDERED: ONDANSETRON INJ 2 MG/ML 2 ML VIAL IV PRN (06:52)
[2024-10-02] MEDS ORDERED: fentaNYL citrate PF 100 MCG/2 ML VIAL IV PRN (06:52)
[2024-10-02] MEDS ORDERED: ePHEDrine sulfate 50 MG/ML AMP IV PRN (06:52)
[2024-10-02] MEDS ORDERED: ATROPINE SULFATE 0.1 MG/ML 10ML SYR IV PRN (06:52)
[2024-10-02] MEDS ORDERED: LIDOCAINE 2% 2 ML VIAL/AMP(20MG/ML) INFIL ONE (06:53)
--- NOTE | 2024-10-02 06:55 | History & Physical Bridge Note ---
Date of Service October 02, 2024 History & Physical Bridge Note I have examined the patient, reviewed the History & Physical and in the interval since the performance of the History & Physical I have noted the following changes of clinical significance: no changes noted
[2024-10-02] MEDS: ceFAZolin 2000MG 2,000 MG/15 ML SYR IV SCH (07:02)
[2024-10-02] MEDS ORDERED: PHENYLEPHRINE 100MCG/ML 5ML SYR ONE (07:14)
[2024-10-02] MEDS ORDERED: ePHEDrine sulfate 50 MG/5 ML SYR ONE (07:26)
[2024-10-02] MEDS: ORTHO JOINT ANESTHETIC ONE (07:47)
[2024-10-02] MEDS: ROPIV 0.5% 246mg, Ketorolac 30mg, EPINEPHrine 0.5mg in NSS INFIL SCH (07:47)
[2024-10-02] MEDS: TRANEXAMIC ACID 1,000 MG **IV Intra-op IV SCH (08:07)
[2024-10-02] MEDS ORDERED: ONDANSETRON INJ 2 MG/ML 2 ML VIAL ONE (08:47)
--- NOTE | 2024-10-02 09:02 | Operative Report ---
PG Post Operative Report Pre & Post Diagnosis Operation Date: 10/02/24 07:00 Pre-Op Diagnosis: Left Knee Osteoarthritis Post-Op Diagnosis: Left Knee Osteoarthritis I identified the patient and participated in the time-out.: Yes Procedure Operation Date: 10/02/24 07:00 Actual Procedures p Left Total Knee Arthroplasty(Left) - Randy De MD Surgeon Randy De MD Optometry Doctor [facility], Estimated Blood Loss 50 Findings Consistent with Post-Op Diagnosis Operative plan: EGD. Extensive grade 4 [id number]-ud-ikri disease in all 3 compartments. Osteophytes in all 3 compartments. Moderate-sized joint eff usion. Fairly significant 10 to 15 degree flexion contracture. Diffuse osteopenia. Specimens None Anesthesia Type General Regional Complications none Indications The patient is an 84-year-old female send post of orthopedic problems over the years. For the past several years she developed increased pain discomfort in her left knee. Did do extensive conservative treatment in the successful over time. After extensive discussion with her primary care doctor and they have elected to proceed with total knee arthroplasty in order to maintain a more active comfortable lifestyle. Description of Procedure Operative implants consist of: 1 Biomet Vanguard size 57.5 left posterior stabilized femoral component. 2. Biomet size 63 tibial tray. 3. 10 mm posterior stabilized polyethylene insert. 4. 28 x 8 all poly patella. The patient was taken the operating, identified, placed on the operating table in the supine position. All conductors were appropriately padded. IV antibiotics fibra anesthesia team. A adductor canal block had provided in the holding area. A general anesthetic was implemented that she has had multiple spine surgeries in the past. Shelton catheter was placed in sterile fashion. The left factor was then placed to the left lower extremities and prepped draped in usual sterile fashion. The left leg was elevated and exsanguinated with use of an Esmarch and the turn was placed at 300 mmHg. An anterior approach to the left knee was then performed to longitudinal incision centered over the patella. Sharp dissection was carried through subcutaneous tissue down the extensor mechanism. A medial parapatellar arthrotomy incision was made. Some subperiosteal dissection was carried out medially. The fat pad was dissected beneath patella tendon. Lateral patellofemoral ligament was released. Patella subluxated laterally and the knee was flexed with the osteophytes. Patella taken off distal femur. ACL PCL then released from distal femur the tibia subluxated anteriorly. The external tibial alignment jig was then placed on the interface the tibia adjusted 12 mm medially. Proximal tibial cut was made. 3 mm both medial side. Tibia status post right 63. That she was fairly osteopenic we will try to maximize coverage. Attention drawn the femur. The distal femur examined the sharp drill over the intramedullary canal was suction a left 5 degree valgus cutting guide was placed per the distal femoral cutting block. He was placed. This femoral cut was made additional 3 mm of bone off distal femur. Femur was excised to a size 50]. Prior axis which was a 3. Defect, which was custom made. The box cutting guide was placed and adjusted slightly laterally. The box cut was made. It was flexed. The remnants of the medial lateral kidney parenchyma posterior aspect of femur. A trial femoral component was placed. Tibial tray was pinned Jessica external rotation and the drill and stem punch used. Defect in proximal tibia for the tibial tray. This was then trialed and the 10 mm). Conservative measures appropriately. Attention then drawn to the patella. The patella was cleaned of all soft tissue. Patella thickness measured 18 mm in thickness. This was cut down to about 12 mm in thickness. The [id number] 28 patella. The lug holes were drilled for the 28 patella. The lateral aspect removed. Patella was placed. Knee was taken through range of motion. Nicely with no thumbs test. Attention drawn to place the permanent components. A Biomet Vanguard size 57.5 left posterior Byce femoral component, size 63 tibial tray, a 10 mm posterior Byce polyethylene insert, and a 28 x 8 all poly patella then cemented in place bilaterally for extension till cement hardened. Final cement check performed. The pericapsular tissues were injected with total 100 cc of Ortho mix. Patient did receive 1 g tranexamic acid. The parent was then let down for approximately 7 minutes. Hemostasis assured with cautery. Extensor [place] closed with combination of fashion.-Checked intact. Continues to present for this is 2. In a buried fashion skin was closed skin melonie. Leg was then cleaned and dried and sterile dressed with Xeroform, four-port, sterile, Roberto Bandage Were Applied. Patient Transferred to Recovery in Stable Condition. Patient Tolerated Procedure Well and There Were No Complications. Dragan Almendarez, my physician product development assistant, was present for the entire procedure. His assistance was essential and required for appropriate patient positioning, prepping and draping, surgical exposure, performing the technical details of the operation, placement the implants, closure of the wound, and placement of the sterile bandage. I attest to the content of the Intraoperative Record and any orders documented therein. Any exceptions are noted below.
--- OUTSIDE RECORDS SUMMARY | 2024-10-02 09:05 | External Medical Summary | Continuity of Care Document ---
Author Name Unknown Organization [facility] [address] [facility] Address [address] [place], [place] [id number] Care Team Providers Care Colorist Photography Name Role Phone Kelechi Haile Primary Care Physician [phone] Encounter [facility] [id number] Date(s): 09/26/24 - 09/26/24 [facility] [address], [address] [place] [address] [phone] Encounter Diagnosis Bilateral stenosis of carotid arteries greater than 50%(Discharge Diagnosis) - 09/26/24 Discharge Disposition: Home or Self Care Attending Physician: MD Diaz Eugene J Referring Physician: MD Haile Christopher Allergies, Adverse Reactions, Alerts Substance Criticality Severity Reaction Reaction Severity Status Latex rash Active Lyrica emotional Active oxyCODONE vomiting Active Assessment and Plan Extracted from: Title:Clinical Document Author:BRIE Qiu Lynn Date:09/26/24 [facility] OUTPATIENT NOTE Name: SEVERIANO TORRES Patient Number: [id number] : 1940 Date of Service: 09/26/2024 Chief Complaint: _Follow-up for carotid stenosis HPI: _Ms. Torres is an elderly female who presents Dr. Diaz's vascular surgery clinic today for 2-month follow-up visit regarding her history of right carotid endarterectomy. Patient denies any new significant complaints or concerns at this time, including amaurosis, unilateral extremity weakness numbness or tingling, difficulty speaking or swallowing, facial droop, sudden onset confusion. She has minimal incisional discomfort at this point. Her carotid ultrasound performed prior to today's appointment demonstrates widely patent right carotid endarterectomy site without evidence of restenosis. Current Home Meds: (Last Updated 09/26 14:54) alendronate (alendronate 35 mg oral tablet) 35 mg PO q7days amLODIPine (amLODIPine 5 mg oral tablet) 5 mg PO Daily aspirin (aspirin 81 mg oral delayed release tablet) 81 mg PO Daily calcium-vitamin D ([place] Calcium with Vitamin D) 2 tab PO Daily 600 mg bid - D Bupp 02/22 12:52 clopidogrel (clopidogrel 75 mg oral tablet) 75 mg PO Daily ferrous gluconate (ferrous gluconate 240 mg (27 mg elemental iron) oral tablet) 240 mg PO Daily gabapentin (gabapentin 100 mg oral capsule) 300 mg PO bid [...] qhs Allergies and Sensitivities: Lyrica(emotional) oxyCODONE(vomiting) Latex(rash) Past Medical History: Problems: Hip pain, left Bilateral carotid artery stenosis Venous stasis Hx of transient ischemic attack (TIA) Edema of left lower leg Stenosis of right carotid artery greater than 50% Flat foot [pes planus] (acquired), right foot Benign essential hypertension Degenerative arthritis Ambulatory dysfunction Actinic keratoses Chronic joint pain Systolic murmur Hypercholesterolemia Palpitations Deformity of right foot OBJECTIVE Vitals: Last Updated 09/26/24 14:54 Date Temp BP Location Pulse RR SpO2 Pain 09/26/24 132/56 Left Arm 61 98 0 08/26/24 124/68 64 18 95 5 08/05/24 102/72 97 Vital Signs are the last 3 documented. No Orthostatic Data Available Height and Weight: Last Updated 08/26/24 15:15 Date BMI Wt(kg) Wt(lb) Method Ht(cm) (ft-in) Method 08/26/24 67.4 148 Standing Scale 08/05/24 32.42 67.7 149 Standing Scale 144.5 4-9 Standing 07/25/24 67.9 149 Standing Scale Heights and Weights are the last 3 documented. Physical Exam Constitutional: In general patient is a healthy-appearing well-nourished well-developed elderly female in no distress. She is alert and oriented without any focal deficits. Her right neck surgical incision is well-healed with faint bruit over this area. There is no erythema ecchymosis tenderness or discharge. ASSESSMENT: _ PLAN: _ 1 ) _status post right carotid endarterectomy Patient is doing well postprocedure. She has no new concerning symptoms and her ultrasound demonstrates a widely patent surgical site. We would have her return here in 6 months for evaluation with a new carotid ultrasound prior to that office visit. Patient is agreeable to this plan. She will call any other questions. Thank you for letting us participate in the care of this patient. Immunizations Given and Recorded Vaccine Date Status Refusal Reason influenza virus vaccine, inactivated 07/25/24 Give n influenza virus vaccine, inactivated 08/24/23 Give n influenza virus vaccine, inactivated 08/15/22 Give n zoster vaccine, inactivated 08/29/23 Recorded tetanus/diphtheria/pertuss, acel (Tdap) 08/29/23 R ecorded SARS-CoV-2 (COVID-19) mRNA-1273 vaccine 1 09/01/21 Recorded [...] Home Delivery Start Date: 07/08/24 Status: Ordered aspirin 81 mg oral delayed release tablet Start: 07/25/24 1:46:00 PM EDT, 1 tab, PO, Daily Start Date: 07/25/24 Status: Ordered [place] Calcium with Vitamin D Start: 02/22/18 12:51:00 PM EDT, 2 tab, PO, Daily Start Date: 02/22/18 Status: Ordered clopidogrel 75 mg oral tablet Start: 07/08/24 10:54:00 AM EDT, 1 tab, PO, Daily, Disp# 90 tab, Refills: 4, Pharmacy: [facility] Start Date: 07/08/24 Status: Ordered ferrous gluconate 240 mg (27 mg elemental iron) oral tablet Start: 08/26/24 4:16:00 PM EST, 1 tab, PO, Daily, Disp# 90 tab, Refills: 4, Pharmacy: [facility]/pharmacy #[id number] Start Date: 08/26/24 Stop Date: 11/19/25 Status: Ordered gabapentin 100 mg oral capsule Start: 07/25/24 2:30:00 PM EDT, 3 cap, PO, bid, Disp# 90 cap, Refills: 5, Pharmacy: [facility] Start Date: 07/25/24 Status: Ordered hydroCHLOROthiazide 25 mg oral tablet Start: 03/04/24 9:06:00 AM EDT, 1 tab, PO, Daily, Disp# 90 tab, Refills: 4, Pharmacy: [facility] Start Date: 03/04/24 Status: Ordered lisinopril 10 mg oral tablet Start: 09/02/24 10:05:00 AM EST, 1 tab, PO, bid, Disp# 180 tab, Refills: 4, Pharmacy: [facility] Start Date: 09/02/24 Status: Ordered multivitamin Start: 04/19/22 8:57:00 AM EDT, 1 tab, PO, Daily Start Date: 04/19/22 Status: Ordered oxyBUTYnin 5 mg oral tablet Start: 07/26/24 3:54:00 PM EDT, 1 tab, PO, bid, Disp# 180 tab, Refills: 0, PRN: NEEDED FOR URINARY DISCOMFORT, Pharmacy: [facility] Start Date: 07/26/24 Status: Ordered pantoprazole 40 mg oral delayed release tablet Start: 02/26/24 4:40:00 PM EDT, 1 tab, PO, Daily, Disp# 90 tab, Refills: 3, Pharmacy: [facility] Start Date: 02/26/24 Status: Ordered PreserVision AREDS Start: 08/15/22 1:37:00 PM EST Start Date: 08/15/22 Status: Ordered simvastatin 20 mg oral tablet Start: 08/19/24 8:47:00 AM EST, 1 tab, PO, qhs, Disp# 90 tab, Refills: 3, Pharmacy: [facility] Start Date: 08/19/24 Status: Ordered Mental Status 09/26/24 Barriers to Learning one year None evide nt Mandatory Health Literacy Documentation Yes Health Literacy Communication Barriers N ever Primary Language Swedish Problem List Condition Confirmation Course Effective Dates [...] Health Status Cl inical Service Informant Bilateral stenosis of carotid arteries greater than 50% Discharge Diagnosis 09/26/24 Procedures Procedure Date Related Diagnosis Body Site Status Right CEA - Carotid endarterectomy 07/17/24 Completed KUB X-ray 1 03/27/23 Completed KUB X-ray 2 08/15/22 Completed Chest x-ray 3 04/13/[address] angiography of head and n leo with contrast 4 04/13/[address] of head 5 04/13/22 Completed MRI of brain 6 04/13/22 Completed Shave biopsy and cauterization of skin 12/30/21 Completed Mammogram - screening 7 12/24/21 C ompleted Left shoulder 2016 Completed Right hip 8 2013 Completed Vitrectomy 2013 Completed Back 9 2008 Completed CTR - [...] screening mammogram is recommended.(12/25/2022) 8replacemnt & 2010 and December Vital Signs Most recent to oldest [Reference Range]: 1 Heart Rate 61 bpm (09/26/24 2:54 PM) Blood Pressure 132/56mmHg (09/26/24 2:54 PM) Cuff Pulse Pressure 76 mmHg (09/26/24 2:54 PM) BP Location # 1 Left Arm (09/26/24 2:54 PM) Social History Social History Type Response Smoking Status Never smoked cigaret darwin Sex Female Sex Representation Female (finding) [facility] Outpt Note * BRIE Qiu Lynn: PERFORM Event Display: [facility] Outpt Note Authored Date: [id number] [facility] OUTPATIENT NOTE Name: SEVERIANO TORRES Patient Number: [id number] : 1940 Date of Service: 09/26/2024 Chief Complaint: _Follow-up for carotid stenosis HPI: _Ms. Torres is an elderly female who presents Dr. Diaz's vascular surgery clinic today for 2-month follow-up visit regarding her history of right carotid endarterectomy. Patient denies any new significant complaints or concerns at this time, including amaurosis, unilateral extremity weakness numbness or tingling, difficulty speaking or swallowing, facial droop, sudden onset confusion. She has minimal incisional discomfort at this point. Her carotid ultrasound performed prior to today's appointment demonstrates widely patent right carotid endarterectomy site without evidence of restenosis. Current Home Meds: (Last Updated 09/26 14:54) alendronate (alendronate 35 mg oral tablet) 35 mg PO q7days amLODIPine (amLODIPine 5 mg oral tablet) 5 mg PO Daily aspirin (aspirin 81 mg oral delayed release tablet) 81 mg PO Daily calcium-vitamin D ([place] Calcium with Vitamin D) 2 tab PO Daily 600 mg bid - D Bupp 02/22 12:52 clopidogrel (clopidogrel 75 mg oral tablet) 75 mg PO Daily ferrous gluconate (ferrous gluconate 240 mg (27 mg elemental iron) oral tablet) 240 mg PO Daily gabapentin (gabapentin 100 mg oral capsule) 300 mg PO bid [...] qhs Allergies and Sensitivities: Lyrica(emotional) oxyCODONE(vomiting) Latex(rash) Past Medical History: Problems: Hip pain, left Bilateral carotid artery stenosis Venous stasis Hx of transient ischemic attack (TIA) Edema of left lower leg Stenosis of right carotid artery greater than 50% Flat foot [pes planus] (acquired), right foot Benign essential hypertension Degenerative arthritis Ambulatory dysfunction Actinic keratoses Chronic joint pain Systolic murmur Hypercholesterolemia Palpitations Deformity of right foot OBJECTIVE Vitals: Last Updated 09/26/24 14:54 Date Temp BP Location Pulse RR SpO2 Pain 09/26/24 132/56 Left Arm 61 98 0 08/26/24 124/68 64 18 95 5 08/05/24 102/72 97 Vital Signs are the last 3 documented. No Orthostatic Data Available Height and Weight: Last Updated 08/26/24 15:15 Date BMI Wt(kg) Wt(lb) Method Ht(cm) (ft-in) Method 08/26/24 67.4 148 Standing Scale 08/05/24 32.42 67.7 149 Standing Scale 144.5 4-9 Standing 07/25/24 67.9 149 Standing Scale Heights and Weights are the last 3 documented. Physical Exam Constitutional: In general patient is a healthy-appearing well-nourished well- developed elderly female in no distress. She is alert and oriented without any focal deficits. Her right neck surgical incision is well-healed with faint bruit over this area. There is no erythema ecchymosis tenderness ordischarge. ASSESSMENT: _ PLAN: _ 1 ) _status post right carotid endarterectomy Patient is doing well postprocedure. She has no new concerning symptoms and her ultrasound demonstrates a widely patent surgical site. We would have her return here in 6 months for evaluation with a new carotid ultrasound prior to that office visit. Patient is agreeable to this plan. She will call any other questions. Thank you for letting us participate in the care of this patient. Electronic Signature on File CC: Kelechi Haile MD [address] [place] [address] Electronically Reviewed/Signed by: Kimberlee Qiu PA-C Author Signature Dt/Tm:09/26/2024 03:12 PM [facility] [place] [address] Patient Care team information Care Team Personnel Name: MD Baljeet, Norberto Bergeron Position: Physician - Family Med Member Role: Lifetime Relationship Address: [address] [address] [place] Name: MD Courtney, Dwight Callahan Position: Physician - Orthopaedic Surg Member Role: Lifetime Relationship Address: [address] [address] [place] Name: MD Haile Christopher Position: Physician - Family Med Member Role: Primary Care Provider Address: [address] [address] [place] Name: BRIE Qiu Lynn Position: Physician Tire Adjuster Exempt - Vasc Surg Member Role: Lifetime Relationship Address: [address] [place] [address] [place] Name: Prosper Culver MD, Yue Position: Resident Member Role: Lifetime Relationship Address: [address] [place] [address] [place] Care Team Related Persons Name: KARL TORRES Name: MAX TORRES
--- OUTSIDE RECORDS SUMMARY | 2024-10-02 09:05 | External Medical Summary | Continuity of Care Document ---
Author Name Unknown Organization [facility] [address] Address [address] [place], [place] [id number] Care Team Providers Care Belt Molder Name Role Phone Kelechi Haile Primary Care Physician [phone] [id number] Date(s): 09/20/24 - 09/20/24 [facility] [address], [address] [place] [address] [phone] Discharge Disposition: Home or Self Care Attending Physician: MD Diaz Eugene J Referring Physician: MD Diaz Eugene J Allergies, Adverse Reactions, Alerts Substance Criticality Severity Reaction Reaction Severity Status Latex rash Active Lyrica emotional Active oxyCODONE vomiting Active Immunizations Given and Recorded Vaccine Date Status [...] Daily, Disp# 90 tab, Refills: 4, [facility]acy[facility] Start Date: 07/08/24 Status: Ordered aspirin 81 mg oral delayed release tablet Start: 07/25/24 1:46:00 PM EDT, 1 tab, PO, Daily Start Date: 07/25/24 Status: Ordered [place] Calcium with Vitamin D Start: 02/22/18 12:51:00 PM EDT, 2 tab, PO, Daily Start Date: 02/22/18 Status: Ordered clopidogrel 75 mg oral tablet Start: 07/08/24 10:54:00 AM EDT, 1 tab, PO, Daily, Disp# 90 tab, Refills: 4, Pharmacy: [facility] Start Date: 07/08/24 Status: Ordered ferrous gluconate 240 mg (27 mg elemental iron) oral tablet Start: 08/26/24 4:16:00 PM EST, 1 tab, PO, Daily, Disp# 90 tab, Refills: 4, Pharmacy: [facility]/pharmacy #[id number] Start Date: 08/26/24 Stop Date: 11/19/25 Status: Ordered gabapentin 100 mg oral capsule Start: 07/25/24 2:30:00 PM EDT, 3 cap, PO, bid, Disp# 90 cap, Refills: 5, Pharmacy: [facility] Start Date: 07/25/24 Status: Ordered hydroCHLOROthiazide 25 mg oral tablet Start: 03/04/24 9:06:00 AM EDT, 1 tab, PO, Daily, Disp# 90 tab, Refills: 4, Pharmacy: [facility] Start Date: 03/04/24 Status: Ordered lisinopril 10 mg oral tablet Start: 09/02/24 10:05:00 AM EST, 1 tab, PO, bid, Disp# 180 tab, Refills: 4, Pharmacy: [facility] Start Date: 09/02/24 Status: Ordered [...] Home Delivery Start Date: 08/19/24 Status: Ordered Problem List Condition Confirmation Course [...] tibial tendon dysfunction acquired flatfoot of adulthood Procedures Procedure Date Related Diagnosis Body Site [...] Carpal tunnel release 10 2007 Completed Hysterectomy 2007 Completed Hysteroscopy 2003 Completed Cholecystectomy 2000 Completed Colonoscopy 2000 Completed [...] recommended.(12/25/2022) 8replacemnt & 2010 10September and December Social History Social History Type Response Smoking Status Never smoked cigaret darwin Sex Female Sex Representation Female (finding) Patient Care team information Care Team Personnel Name: MD Baljeet, Norberto Bergeron Position: Physician - Family Med Member Role: Lifetime Relationship Address: [address] [place] [address] [place] Name: MD Courtney, Dwight Callahan Position: Physician - Orthopaedic Surg Member Role: Lifetime Relationship Address: [address] [facility] [address] [place] [address] [place] Name: MD Haile Christopher Position: Physician - Family Med Member Role: Primary Care Provider Address: [address] [address] [place] Name: BRIE Qiu Lynn Position: Physician Airline Stewardess Exempt - Vasc Surg Member Role: Lifetime Relationship Address: [address] [facility] [address] [place] [address] [place] Name: Prosper Culver MD, Yue Position: Resident Member Role: Lifetime Relationship Address: [address] [place] [address] [place] Care Team Related Persons Name: KARL ANDINO Name: MAX ANDINO
--- NOTE | 2024-10-02 10:37 | Anesthesiology Progress Note ---
Date of Service October 02, 2024 Anesthesia Post Procedure Vital Signs Vital Signs: Temp Pulse Pulse Resp BP Pulse Ox O2 Del Method 10/02/24 09:45 36.6 C 78 18 120/53 L 97 Nasal Cannula 10/02/24 09:35 73 19 114/53 L 96 Nasal Cannula 10/02/24 09:25 74 18 120/49 L 96 Nasal Cannula 10/02/24 09:15 74 19 126/53 L 94 Oxymask 10/02/24 09:05 75 17 123/51 L 94 Oxymask 10/02/24 08:58 36.5 C 80 16 132/60 94 Oxymask 10/02/24 05:51 36.8 C 78 20 182/78 H 98 Room Air O2 Flow Rate 10/02/24 09:45 2 10/02/24 09:35 2 10/02/24 09:25 2 10/02/24 09:15 7 10/02/24 09:05 7 10/02/24 08:58 7 10/02/24 05:51 Transfer of Care Handoff Completed per policy Notes Mental Status: alert / awake / arousable and participated in evaluation Patient Amnestic to Procedure: Yes Nausea / Vomiting: adequately controlled Pain: adequately controlled Airway Patency, RR, SpO2: stable & adequate BP & HR: stable & adequate Hydration State: stable & adequate Anesthetic Complications: no major complications apparent and Pt Satisfied with anesthetic care
[2024-10-02] MEDS ORDERED: ALUMINUM/MAGNESIUM SUSP 30 ML UDC PO PRN (10:58)
[2024-10-02] MEDS ORDERED: NALOXONE HCL 0.4 MG/1 ML VIAL/CARP IV PRN (10:58)
[2024-10-02] MEDS ORDERED: traMADol HCL 50 MG TABLET PO PRN (10:58)
[2024-10-02] MEDS ORDERED: bisacodyL 10 MG SUPP PR PRN (10:58)
[2024-10-02] MEDS ORDERED: METOCLOPRAMIDE HCL INJ 5 MG/ML 2 ML VIAL IV PRN (10:58)
[2024-10-02] MEDS ORDERED: MAGNESIUM HYDROXIDE SUSP 30 ML UDC PO PRN (10:58)
[2024-10-02] MEDS ORDERED: NON-FORMULARY MEDICATION (Multivitamin Tablet) PO SCH (10:58)
[2024-10-02] MEDS ORDERED: SENNA 8.6 MG TAB PO SCH (10:58)
[2024-10-02] MEDS ORDERED: HYDROmorphone INJ 0.5 MG/0.5 ML SYR IV PRN (10:58)
--- NOTE | 2024-10-02 11:24 | XRay Report ---
XR knee LT 1 or 2V routine CLINICAL HISTORY: Surgical Post Op COMPARISON: Left knee radiographs February 23, 2021 and June 06, 2024. FINDINGS: Alignment of the total left knee arthroplasty is anatomic. There is no periprosthetic frac ture or unexpected radiopaque foreign body. There are skin melonie. IMPRESSION: Expected findings following total left knee arthroplasty. ACT 112: Negative or not required by law. Electronically signed by: Franko Bauman M.D. 10/02/2024 11:23 AM
[2024-10-02] MEDS: lisinopril 10 MG TAB PO SCH (11:52)
[2024-10-02] MEDS: GABAPENTIN 100 MG CAP PO SCH (11:53)
[2024-10-02] MEDS: amLODIPine BESYLATE 5 MG TAB PO SCH (11:57)
[2024-10-02] MEDS: CEROVITE ADV FORMULA TAB PO SCH (11:57)
[2024-10-02] MEDS: PANTOprazole 40 MG TAB PO SCH (11:57)
[2024-10-02] MEDS: KETOROLAC TROMETHAMINE 15 MG/ML VIAL IV SCH (11:57)
[2024-10-02] MEDS: DOCUSATE SODIUM 100 MG CAP PO SCH (11:57)
[2024-10-02] MEDS: hydroCHLOROthiazide 25 MG TAB PO SCH (11:57)
[2024-10-02] MEDS: MULTIVITAMIN TAB PO SCH (11:57)
[2024-10-02] MEDS: CALCIUM 600MG + VIT D 400 IU TAB PO SCH (11:57)
[2024-10-02] MEDS: oxyBUTYnin chloride 5 MG TAB PO SCH (11:57)
[2024-10-02 12:12] VITALS: RESP 16
[2024-10-02] MEDS: ceFAZolin 1000MG 1,000 MG/7.5 ML SYR IV SCH (14:12)
[2024-10-02] MEDS: TRANEXAMIC ACID / 0.7% NACL 1,000 MG/100 ML BAG IV SCH (14:12)
[2024-10-02] MEDS: ONDANSETRON INJ 2 MG/ML 2 ML VIAL IV PRN (14:51)
[2024-10-02] MEDS: ASCORBIC ACID 500 MG TAB PO SCH (18:38)
[2024-10-02] MEDS: SIMVASTATIN 20 MG TAB PO SCH (21:39)
[2024-10-02] MEDS: SENNA 8.6 MG TAB PO SCH (21:39)
[2024-10-03 06:05] LABS: Hematocrit (blood only) 27.6 % (37.0-47.0); Mean Corpuscular Hemoglobin 29.7 pg (25.0-34.0); Mean Corpuscular Hgb Conc 32.6 g/dL (32.0-36.0); Mean Corpuscular Volume 91.1 fL (80.0-100.0); Mean Platelet Volume 10.3 fL (9.4-12.4); Platelet Count 187 K/uL (130-400); RDW Coefficient of Variation 14.6 % (11.5-14.5); RDW Standard Deviation 48.4 fL (36.4-46.3); Red Blood Count 3.03 M/uL (4.20-5.40); White Blood Count 11.36 K/ul (4.8-10.8)
[2024-10-03 06:23] LABS: BUN Creatinine Ratio 27.3 (10-20); Calcium 8.6 mg/dl (8.6-10.3); Creatinine Clr Calc Pharmacy 24.9 ml/min; Potassium 4.1 mmol/L (3.5-5.1)
--- NOTE | 2024-10-03 07:28 | Orthopedic Progress Note ---
Date of Service October 03, 2024 Assessment & Plan (1) Status post left knee replacement: Plan: 84-year-old female postop day 1 from left knee replacement doing pretty well. Pains controlled. She is neurologically intact. Creatinine is up just a little bit and we will hold any NSAIDs. Will resume the DVT prophylaxis and start her back on her Plavix today. Plan: 1. DVT prophylaxis including Thiede teds, SCDs, back on her Plavix. 2. PT/OT. Weight-bear as tolerated. Left total knee protocol. 3. Pain control doing okay with current pain regimen. 4. Slightly elevated creatinine. Will encourage p.o. intake. We will stop and the Toradol. 5. Disposition plan is discharge to home with home health and her 's assistance. Admission and Anticipated Discharge Date Admission Date: October 02, 2024 Subjective 84-year-old female postop day 1 from left knee replacement. She is doing pretty well this morning. Reports no significant pain. Denies any chest pain or shortness of breath. Not feeling dizzy or lightheaded. Physical Exam Physical Exam: Physical examination is a pleasant elderly female. She is lying in bed looks pretty comfortable. Examination of the left leg reveals the leg to be well aligned. Dressings clean dry and intact. She can dorsiflex and plantarflex her foot appropriately. She can do a straight leg raise. Respiratory: normal respiratory effort, lungs clear to auscultation Cardiovascular: RRR, no murmur, no edema Gastrointestinal (Abdomen): normal bowel sounds, soft, nontender, no he patosplenomegaly Results & Data Vital Signs (Past 12 Hours) Vital Signs Temp Pulse Resp BP Pulse Ox O2 Del Method 10/03/24 03:32 37.0 C 73 16 111/64 96 Room Air 10/02/24 23:05 36.5 C 71 16 100/57 L 96 Room Air Laboratory Results Hemoglobin is 9.0. Hematocrit is 27.6. Electrolytes are stable. Creatinine just slightly elevated.
[2024-10-03 07:48] VITALS: TEMP 98.2
[2024-10-03] MEDS: dexAMETHasone 10 MG in SYRINGE 0 ML IV SCH (08:35)
[2024-10-03] MEDS: CLOPIDOGREL BISULFATE 75 MG TAB PO SCH (08:36)
[2024-10-03 12:34] VITALS: BP 121/68; PULSE 72; O2SAT 94
--- NOTE | 2024-10-08 14:36 | Discharge Summary ---
Date of Service October 08, 2024 Admission HPI (Per Admitting) . The patient is an 84-year-old female whose had a host of orthopedic issues over the years. She now presents with persistent progressive left knee pain and discomfort. This is gradual gotten worse over the past several years. She been through extensive conservative treatment which would become less successful. Does she is got global pain in the knee. Hurts more when she is up and walking. Does she limps more as the day goes on. That she is talk with her primary care doctor and that they have elected proceed with total knee replacement to keep her active. Admission Exam (Per Admitting) . Physical examination reveals a pleasant elderly female. Examination of the left knee reveals the pain she ambulates with use of cane for balance purposes. Their left knee reveals fairly neutral to slight valgus alignment to the knee. Moderate soft tissue envelope. Fairly thin skin. Small knee effusion. Range of motion 5-1 20. No instability. No pain with hip motion. Principal Diagnosis Same as "Discharge Diagnosis" noted below under Discharge Instructions. Discharge Data Procedures Performed Operation Date: 10/02/24 07:00 Actual Procedures p Left Total Knee Arthroplasty(Left) - Randy De MD Ordered Studies 10/02/24 05:00 US - OR guided needle placemen Routine Hospital Course (1) Status post left knee replacement: This is a 84 year old patient admitted on 10/02/24 and underwent total knee arthroplasty. She tolerated the procedure well and there were no complications. Transferred to the PACU post op and later to the orthopedic floor for further care. She was given ancef for antibiotic prophylaxis. She was also given RHEA stockings, SCDs, and plavix for DVT prophylaxis. Hemoglobin, hematocrit, and vital signs were monitored during her hospital stay and remained stable. Did not require any blood transfusions. There were no complications during her hospital stay. By post op day #1 the patient was tolerating a regular diet, pain was reasonably controlled with oral pain medicine, and she was participating in physical therapy. On post op day #1 the patient was discharged home and set up with home health care. She was given printed discharge instructions including prescriptions for extra strength tylenol, cefadroxil, zofran, senokot, and tramadol. Continue physical therapy, weight bearing as tolerated. Continue RHEA stockings. Follow up approximately 2 weeks post op or sooner if there are problems or concerns. Discharge Plan Discharge Items Patient Disposition: Home - Home Health Services Reason For Visit: Left Knee Osteoarthritis Discharge Diagnosis: Left Knee Replacement Activity: Per Instructions section Weightbearing: Full weightbearing Non-emergency contact: Surgeon Call non-emergency contact if: you have any medication questions Follow-up/Referrals: Kelechi Haile MD [Primary Care Provider] - Diet: Regular Addtl Attending Provider Instructions: ACTIVITY RECOMMENDATIONS: Diet: * You may resume previous diet. Physical Therapy: * You will go to physical therapy three times each week for four to six weeks after your surgery in order to regain your knee range of motion and to retrain your knee to work properly. * It is just as important to make sure you are getting your knee perfectly straight as it is to regain your knee bend. * Taking a pain pill an hour before therapy can help you have a more productive and comfortable therapy session. Home Exercise: * You were shown a series of exercises (heel props, heel slides, etc.) in the hospital. Do these exercises three to four times each day including the exercises you were shown in physical therapy. Walking: * Get up and walk several times each day. For the first four weeks, try not to stand or walk for more than one hour at a time. If you do stand or walk for more than one hour, you will not hurt anything, but your knee and leg will likely swell. * As you feel comfortable, you may change from the walker or crutches to a cane and then to independent walking. MEDICATIONS: New Medicine: * You will likely be taking one or more of these medications: 1. Tramadol - A quick and shorter-acting pain medication. Take one to two tablets every six hours to lessen your pain. 2. Aspirin - Thins your blood to lessen the chance of forming a blood clot. * The most common side effects of pain medicine and iron are nausea and constipation. If nausea or constipation is too much of a problem or if you have any questions about your new medicines or doses, call [facility] at . We will try to help you manage these issues. "VERY IMPORTANT TO READ AND REVIEW" Pain: * The immediate post-operative period after knee replacement surgery is often quite painful. * You are given a prescription for pain medicine. You should take it, as directed, when you need it, especially before physical therapy and before going to bed. Pain that interferes with sleep is very common and can last several months. * You will likely need pain medicine for the first four to six weeks. It will not stop all of the pain. The pain will lessen and as you feel better, you may change to milder pain medicine such as Tylenol. * The most common side effects of pain medicine are nausea and constipation, so don't take more than you need. SPECIAL CARE INSTRUCTIONS: TEDs/Elastic Stockings: * The white elastic stockings help limit swelling and prevent blood clots from forming in your legs. The more you wear them, the more they work. * Wear them for six weeks after knee replacement surgery and four weeks after partial knee replacement. Incision Site Care: * Remove dressing postoperative day 2 and then shower. Keep direct shower pressure off the incision site. * After showering, cover melonie with dry gauze and change daily or more frequently if the dressing is getting saturated with drainage. * Use the RHEA stockings to hold dressing in place. DO NOT apply tape on the skin. * May completely stop using bandage if wound is dry and no drainage * [place] are removed between 2 and 3 weeks post-op. If your follow-up appointment is made before 2 weeks, please have your appointment re- scheduled. It is too early to remove the melonie. Prevention of Infection: * Take antibiotics one hour before any dental cleaning, dental work, urological procedure, gastrointestinal procedure or any invasive surgery in order to prevent your new joint from getting infected. * You may get the antibiotics from the doctor performing the procedure or you may call our office at [phone] before and we will call in a prescription to the pharmacy of your choice. Things to Watch For: * Drainage from the incision site that occurs more than one week after your surgery. * Severely increased knee/leg pain or swelling. * Increased redness at the incision site. * Fever above 102 degrees Fahrenheit. * Unusual chest pain or shortness of breath. * Unusual pain or burning with urination. Call [facility] at [phone] with any of the above problems or if you have any questions about your medicines or recovery. FOLLOW UP VISIT: Make an appointment to see your doctor for approximately two weeks after surgery for a progress check and staple removal by calling the office at [phone]. Pending Studies at Discharge: No Stand-Alone Forms: My [facility], Smoking Cessation Medications and DC Order Prescriptions: Continued tramadol 50 mg tablet 50 - 100 mg PO Q6 PRN (Reason: pain) Qty: 40 0RF Rx Instructions: Take as needed for pain ondansetron 4 mg tablet,disintegrating 4 mg PO Q8 PRN (Reason: nausea) Qty: 20 1RF Rx Instructions: Take as needed for nausea sennosides [Senokot] 8.6 mg tablet 8.6 mg PO BID 14 Days Qty: 28 0RF Rx Instructions: Take two times a day to prevent/treat constipation acetaminophen [Tylenol Extra Strength] 500 mg tablet 1,000 mg PO TID 30 Days Qty: 180 0RF Rx Instructions: Take 3 times per day to lessen pain. cefadroxil 500 mg capsule 500 mg PO BID 7 Days Qty: 14 0RF Rx Instructions: Take 1 cap twice a day to prevent infection alendronate 35 mg tablet 35 mg PO .weekly Patient Comments: takes on mondays simvastatin 20 mg Tablet 20 mg PO HS gabapentin 100 mg Capsule 100 mg PO BID pantoprazole 40 mg tablet,delayed release (DR/EC) 40 mg PO QDL Patient Comments: lunch time oxybutynin chloride 5 mg tablet 5 mg PO QAM calcium carbonate-vitamin D3 [Calcium 600 + D(3)] 600 mg-10 mcg (400 unit) Tablet 1 tab PO BID multivitamin Tablet 1 tab PO DAILY Patient Comments: lunch time hydrochlorothiazide 25 mg Tablet 25 mg PO QAM Qty: 30 2RF Rx Instructions: for high blood pressure lisinopril 5 mg Tablet 10 mg PO BID PreserVision AREDS 2,148 mcg-113 mg-45 mg-17.4mg Tablet 1 tab PO DAILY Patient Comments: lunch time Rx Instructions: administer with AM and PM meals clopidogrel 75 mg Tablet 75 mg PO QAM Qty: 30 0RF amlodipine [Norvasc] 5 mg Tablet 5 mg PO QAM Qty: 30 0RF Discontinued oxycodone-acetaminophen [Percocet] 5-325 mg tablet 1 tab PO Q8H PRN (Reason: pain) Qty: 7 0RF Krames/Other Patient Handouts: Knee Surg Exercise After Admission Data Admit Date/Time: 10/02/24 08:53 Attending Provider: Randy De Admit Provider: Randy De Primary Care Provider: Kelechi Haile Other Providers: [facility],Home Health Other Interventions: Discharge Summary Assessment (RN) Last Done: 10/03/24 10:11
== END 2024-10-03 13:08 | disposition home health service (06) ==
LOC: ASU 05:10 → 3E 05:10
DX: K21.9 Gastro-esophageal reflux disease without esophagitis; Z88.5 Allergy status to narcotic agent; Z88.8 Allergy status to other drugs, medicaments and biological substances; Z79.899 Other long term (current) drug therapy; M81.0 Age-related osteoporosis without current pathological fracture; M17.12 Unilateral primary osteoarthritis, left knee; G62.9 Polyneuropathy, unspecified; E78.5 Hyperlipidemia, unspecified; I10 Essential (primary) hypertension; Z86.73 Personal history of transient ischemic attack (TIA), and cerebral infarction without residual deficits

== ENCOUNTER 2025-04-25 18:45 | Inpatient (IN) ==
[2025-04-25 19:24] LABS: Hematocrit (blood only) 37.5 % (37.0-47.0); Hemoglobin 12.2 g/dl (12.0-16.0); Immature Granulocytes # (auto) 0.01 K/uL (0.01-0.20); Immature Granulocytes % (auto) 0.2 %; Mean Corpuscular Hemoglobin 29.3 pg (25.0-34.0); Mean Corpuscular Volume 90.1 fL (80.0-100.0); Platelet Count 177 K/uL (130-400); RDW Standard Deviation 48.8 fL (36.4-46.3); Red Blood Count 4.16 M/uL (4.20-5.40); White Blood Count 6.47 K/ul (4.8-10.8)
--- NOTE | 2025-04-25 19:26 | Emergency Department Note ---
Impression & Plan Generalized weakness, Chills, Elevated troponin ED Provider Note NAME: SEVERIANO ANDINO AGE: 84 SEX: Female INFORMANT: Patient ED PROVIDER(S): Ralf Carmichael MD CHIEF COMPLAINT: Weakness PLAN: Disposition: Admitted Outpatient prescription management: none Referral: None MEDICAL DECISION MAKING: Patient presented because of feeling weak. A workup was initiated. She had an unremarkable CBC. Lactate was mildly elevated but cleared with fluid hydration. Patient's cardiac troponin was mildly elevated but no acute ischemia seen on ECG. The patient had repeat cardiac troponin and it was noted to go up. Urinalysis was mildly abnormal but not clearly indicative of infection. Given the patient's recent dental treatment and her illness and elevated lactate there was concerns for possible bacteremia or other occult infection. Patient was given a dose of IV Rocephin. Repeat ECG did not reveal any obvious ischemia/ST elevation. Consultation was made with Dr. Milo Medel of the [facility] service. Patient was evaluated in the ER for further management. Care/management discussed with: manpower development specialist manager Level of care consideration(s): After review of the information above and other included data, I feel the patient requires escalation of care to admission Triage Nursing notes: reviewed and agree them. Vital Signs: reviewed and remarkable for hypertension Additional History obtained from: Family Chronic Medical/Social Conditions affecting care: Hyperlipidemia, hypertension Prior/ Outside/ External records reviewed: none Differential Diagnosis: Infection, dehydration, metabolic abnormality, hypo/hyperglycemia, electrolyte disturbance, anemia, hypoxia, cardiac sources, intracerebral event, toxicologic, neurologic, as well as other pathologies. Diagnostics, independently interpreted by me: ECG: Twelve-lead ECG #1 reveals sinus rhythm with frequent PVCs at [address] 12-lead ECG 2 reveals sinus rhythm with premature complexes noted [address] No ST elevation. Cardiac Monitoring: Cardiac monitoring ordered by me: The patient was placed on continuous cardiac monitoring and observed. It revealed a sinus rhythm PVCs at 76 bpm. Medical decision rules: none Imaging studies: Chest x-ray. Findings: A chest x-ray was performed and revealed no pneumothorax, effusion, infiltrate, pulmonary edema, free air under the diaphragm, or wide mediastinum. Impression: No acute disease. HPI: 84 year old Female arrives for evaluation of generalized weakness. This started when the patient was out for dinner just prior to arrival and is described as her legs feeling weak and the patient could not get up. She does note having some chills recently. states that she has had some mild cough and cold symptoms as well. Patient initially declined testing transport but then was in agreement. No medications given prehospital. Prehospital stroke scale 0. The patient also notes the following associated symptoms, chronic back pain and chronic leg swelling which is worse on the left. The patient has no relieving factors. Patient denies any new pain. On further questioning patient does note having some loose stool recently but notes nothing significant. She was on antibiotics over a week ago for dental extraction. Pt denies LOC, headache, fever, diaphoresis, visual changes, neck pain, chest pain, breathing difficulties, nausea, vomiting, abdominal pain, new back pain, melena, hematochezia, urinary symptoms, numbness, lymphadenopathy, rash, or other complaints. PAST MEDICAL HISTORY: See Below, hypertension, high cholesterol PAST SURGICAL HISTORY: See Below, knee replacement SOCIAL HISTORY: See Below, HOME MEDICATIONS: See Below ALLERGIES: See Below VITALS: See Below PHYSICAL EXAMINATION: GENERAL: Awake, tired appearing, in no distress HENT: Normocephalic, atraumatic. Oropharynx unremarkable. EYES: Normal conjunctiva. Sclera non-icteric. PERRLA. NECK: Inspection normal. Non-tender. Supple. No nuchal rigidity. FROM. No masses. RESPIRATORY: Clear to auscultation. No wheezes. No rales. Normal respiratory effort. CARDIAC: Normal rate. Normal rhythm. No murmurs. No rubs. Extremities warm and well perfused. Pulses equal. No JVD. GI: Soft, non-distended. No tenderness to palpation. No rebound or guarding. No masses. RECTAL: Deferred. MUSCULOSKELETAL: Atraumatic. Chest examination reveals no tenderness. The back is symmetrical on inspection without obvious abnormality. There is no CVA tenderness to palpation. No joint edema. LOWER EXTREMITIES: Calves are equal size bilaterally and non-tender. 1+ right lower extremity and 2+ left lower extremity edema which patient states is chronic. No discoloration. NEURO: Normal sensorium. Patient is mildly weak in a generalized standpoint. No focal sensory or motor deficits noted. Mild tremor of the upper extremities noted. No drift. Speech normal. SKIN: No rash or jaundice noted. PROCEDURES: none CRITICAL CARE: none OBSERVATION NOTE: none Past Med/Surg History Problem List (Updated 04/26/25 @ 02:35 by Ralf aCrmichael MD) Hypokalemia Hypomagnesemia Elevated troponin (Acute) Chills (Acute) Generalized weakness (Acute) Status post left knee replacement Shoulder arthritis Hypertension controlled, stable per pt Hamstring tear Hyperlipidemia DJD of left shoulder Medical History Left knee DJD Carotid artery stenosis Tricompartment osteoarthritis of left knee Hyperlipidemia Hypertension Hearing loss Urinary urgency Irregular heart beat Neuropathy Surgical History S/P carotid endarterectomy (07/18/24) History of hysterectomy History of carpal tunnel release History of cholecystectomy History of colonoscopy History of tooth extraction History of cataract surgery History of shoulder surgery History of right hip replacement History of back surgery Family History Mother Uterine cancer Father Myocardial infarction Daughter Diabetes Social History Smoking Status: Never smoker Second Hand Exposure: No; Do You Dip or Chew Tobacco: No; Hx Alcohol Use: No Hx Substance Use: No Preferred Language: Montenegrin Communication Ability: Effective Internal Communications Manager Required: No Beliefs That Will Affect Care: None marital status: Current Living Situation: Spouse current occupational status: retired 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, 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64 Feels Safe at Home: Yes Safety Concerns: Feels Safe At This Time Assistive Devices: Glasses, Hearing Aid - Bilateral, Scooter/Electric Scooter and Walker Allergies Allergies Allergy/AdvReac Type Severity Reaction Status Date / Time adhesive Allergy Mild RASH Verified 11/14/24 15:42 capsaicin AdvReac Mild GI upset Verified 11/14/24 15:42 diclofenac AdvReac Mild GI upset Verified 11/14/24 15:42 Diclopak AdvReac Mild GI upset Verified 01/10/17 00:12 oxycodone AdvReac Mild GI upset Verified 11/14/24 15:42 pregabalin AdvReac Mild GI upset Verified 11/14/24 15:42 Home Meds Home Medications Medication Instructions Recorded Confirmed simvastatin 20 mg tablet 20 mg PO HS 07/27/18 04/25/25 calcium 600 mg (as 1 tab PO BID 04/13/22 04/25/25 carbonate)-vitamin D3 10 mcg (400 unit) tablet (Calcium 600 + D(3)) multivitamin 1 tab PO QAM 04/13/22 04/25/25 pantoprazole 40 mg tablet,delayed 40 mg PO QDL 04/13/22 04/25/25 release alendronate 35 mg tablet 35 mg PO WK 09/08/23 04/25/25 vitamins A,C,E-fciw-rakpzp 2,148 1 tab PO BIDM 06/18/24 04/25/25 mcg-113 mg-45 mg-17.4 mg tablet (PreserVision AREDS) acetaminophen 500 mg tablet 1,000 mg PO TID PRN pain 04/25/25 04/25/25 (Tylenol Extra Strength) lisinopril 10 mg tablet 10 mg PO BID 04/25/25 04/25/25 Previous Rx's Medication Instructions Recorded hydrochlorothiazide 25 mg tablet 25 mg PO QAM #30 tabs 04/16/22 clopidogrel 75 mg tablet 75 mg PO QAM #30 tabs 07/02/24 amoxicillin 500 mg tablet 2,000 mg (4 x 500 mg) PO ONCE 1 04/22/25 day #4 tabs Results & Data (ED) Vital Signs Vital Signs - 24 hr 04/25/25 18:40 04/25/25 18:50 04/25/25 18:51 Temperature 37.5 C Temperature Source Oral Pulse Rate 86 77 93 H Pulse Rate from SpO2 Sensor Respiratory Rate 16 20 Blood Pressure 183/86 H Blood Pressure Mean 118 Pulse Oximetry 96 96 Oxygen Delivery Method Room Air Room Air Sepsis Recent Fever Within 48 Hours No Sepsis New/Unexplained Change in Mental Status No Sepsis Action Taken by Nursing No Action Required 04/25/25 19:06 04/25/25 19:12 04/25/25 19:18 Temperature Temperature Source Pulse Rate 93 H 88 83 Pulse Rate from SpO2 Sensor 88 81 77 Respiratory Rate 22 21 23 Blood Pressure Blood Pressure Mean Pulse Oximetry 94 95 94 Oxygen Delivery Method Sepsis Recent Fever Within 48 Hours Sepsis New/Unexplained Change in Mental Status Sepsis Action Taken by Nursing 04/25/25 19:19 04/25/25 19:19 04/25/25 19:19 Temperature Temperature Source Pulse Rate Pulse Rate from SpO2 Sensor Respiratory Rate Blood Pressure 164/77 H 164/77 H 164/77 H Blood Pressure Mean 125 125 125 Pulse Oximetry Oxygen Delivery Method Sepsis Recent Fever Within 48 Hours Sepsis New/Unexplained Change in Mental Status Sepsis Action Taken by Nursing 04/25/25 19:27 04/25/25 19:30 04/25/25 19:30 Temperature Temperature Source Pulse Rate 77 77 Pulse Rate from SpO2 Sensor 75 76 Respiratory Rate 20 22 Blood Pressure 169/79 H Blood Pressure Mean 133 Pulse Oximetry 96 96 Oxygen Delivery Method Sepsis Recent Fever Within 48 Hours Sepsis New/Unexplained Change in Mental Status Sepsis Action Taken by Nursing 04/25/25 19:30 04/25/25 19:45 04/25/25 19:57 Temperature Temperature Source Pulse Rate 85 81 Pulse Rate from SpO2 Sensor 84 82 Respiratory Rate 23 25 H Blood Pressure 169/79 H Blood Pressure Mean 133 Pulse Oximetry 94 93 Oxygen Delivery Method Sepsis Recent Fever Within 48 Hours Sepsis New/Unexplained Change in Mental Status Sepsis Action Taken by Nursing 04/25/25 20:06 04/25/25 20:39 04/25/25 20:42 Temperature Temperature Source Pulse Rate 80 79 77 Pulse Rate from SpO2 Sensor 81 78 78 Respiratory Rate 18 24 21 Blood Pressure Blood Pressure Mean Pulse Oximetry 94 93 95 Oxygen Delivery Method Sepsis Recent Fever Within 48 Hours Sepsis New/Unexplained Change in Mental Status Sepsis Action Taken by Nursing 04/25/25 20:54 04/25/25 20:57 04/25/25 21:00 Temperature Temperature Source Pulse Rate 81 88 Pulse Rate from SpO2 Sensor 81 86 Respiratory Rate 24 17 Blood Pressure 187/93 H Blood Pressure Mean 155 Pulse Oximetry 92 92 Oxygen Delivery Method Sepsis Recent Fever Within 48 Hours Sepsis New/Unexplained Change in Mental Status Sepsis Action Taken by Nursing 04/25/25 21:03 04/25/25 21:18 04/25/25 21:30 Temperature Temperature Source Pulse Rate 80 77 Pulse Rate from SpO2 Sensor 80 79 Respiratory Rate 21 17 Blood Pressure 173/87 H Blood Pressure Mean 117 Pulse Oximetry 93 92 Oxygen Delivery Method Sepsis Recent Fever Within 48 Hours Sepsis New/Unexplained Change in Mental Status Sepsis Action Taken by Nursing 04/25/25 21:33 04/25/25 21:42 04/25/25 21:48 Temperature Temperature Source Pulse Rate 80 84 92 H Pulse Rate from SpO2 Sensor 84 86 96 H Respiratory Rate 23 25 H 26 H Blood Pressure Blood Pressure Mean Pulse Oximetry 92 94 91 Oxygen Delivery Method Sepsis Recent Fever Within 48 Hours Sepsis New/Unexplained Change in Mental Status Sepsis Action Taken by Nursing 04/25/25 22:00 04/25/25 22:00 04/25/25 22:03 Temperature Temperature Source Pulse Rate 84 Pulse Rate from SpO2 Sensor 84 Respiratory Rate 25 H Blood Pressure 163/77 H 163/77 H Blood Pressure Mean 117 117 Pulse Oximetry 93 Oxygen Delivery Method Sepsis Recent Fever Within 48 Hours Sepsis New/Unexplained Change in Mental Status Sepsis Action Taken by Nursing 04/25/25 22:24 04/25/25 22:39 04/25/25 22:49 Temperature Temperature Source Pulse Rate 83 86 82 Pulse Rate from SpO2 Sensor 84 86 Respiratory Rate 27 H 27 H Blood Pressure Blood Pressure Mean Pulse Oximetry 93 93 Oxygen Delivery Method Sepsis Recent Fever Within 48 Hours Sepsis New/Unexplained Change in Mental Status Sepsis Action Taken by Nursing 04/25/25 22:51 Temperature Temperature Source Pulse Rate 82 Pulse Rate from SpO2 Sensor 81 Respiratory Rate 27 H Blood Pressure Blood Pressure Mean Pulse Oximetry 92 Oxygen Delivery Method Sepsis Recent Fever Within 48 Hours Sepsis New/Unexplained Change in Mental Status Sepsis Action Taken by Nursing Laboratory Data 04/25/25 19:11 04/25/25 19:11 Lab Results 04/25/25 04/25/25 04/25/25 Range/Units 19:11 19:11 19:19 WBC 6.47 (4.8-10.8) K/ul RBC 4.16 L (4.20-5.40) M/uL Hgb 12.2 (12.0-16.0) g/dl Hct 37.5 (37.0-47.0) % MCV 90.1 (80.0-100.0) fL MCH 29.3 (25.0-34.0) pg MCHC 32.5 (32.0-36.0) g/dL RDW Std Deviation 48.8 H (36.4-46.3) fL RDW Coeff of Ruby 14.8 H (11.5-14.5) % Plt Count 177 (130-400) K/uL MPV 9.9 (9.4-12.4) fL Immature Gran % (Auto) 0.2 % Neut % (Auto) 60.2 % Lymph % (Auto) 26.3 % [place] % (Auto) 10.0 % Eos % (Auto) 2.8 % Baso % (Auto) 0.5 % Neut # (Auto) 3.90 (1.40-6.50) K/uL Lymph # (Auto) 1.70 (1.20-3.40) K/uL [place] # (Auto) 0.65 H (0.11-0.59) K/uL Eos # (Auto) 0.18 (0.00-0.50) K/uL Baso # (Auto) 0.03 (0.00-0.20) K/uL Immature Gran # (Auto) 0.01 (0.01-0.20) K/uL Sodium 136 (136-145) mmol/L Potassium 3.8 (3.5-5.1) mmol/L Chloride 100 (98-107) mmol/L Carbon Dioxide 28 (21-32) mmol/L Anion Gap 8 (3-11) BUN 20 (6-23) mg/dl Creatinine 0.97 (0.6-1.2) mg/dl Est Cr Clr Drug Dosing 40.3 ml/min eGFR 58.34 BUN/Creatinine Ratio 20.6 H (10-20) Glucose 195 H (70-99(Fasting)) mg/dl Lactate 2.1 H* (0.4-2.0) mmol/L Calcium 9.6 (8.6-10.3) mg/dl Magnesium 1.7 (1.7-2.4) mg/dl Total Bilirubin 0.5 (0.2-1.0) mg/dl AST 19 (13-39) U/L ALT 12 (7-52) U/L Alkaline Phosphatase 73 (34-104) U/L Total Creatine Kinase 35 (26-192) U/L Troponin I High Sens 32.5 H (0-14) pg/ml C-Reactive Protein 0.81 H (0-0.5) mg/dl Total Protein 7.2 (6.0-8.3) gm/dl Albumin 3.9 (3.4-5.0) gm/dl Globulin 3.3 (2.5-4.0) gm/dl Albumin/Globulin Ratio 1.2 (0.9-2) Procalcitonin 0.05 (0-0.5) ng/ml TSH 1.851 (0.300-4.500) uIu/ml Urine Color Urine Appearance (Clear) Urine pH (4.5-7.5) Ur Specific [place] (1.000-1.030) Urine Protein (Negative) Urine Glucose (UA) (Negative) Urine Ketones (Negative) Urine Blood (Negative) Urine Nitrite (Negative) Urine Bilirubin (Negative) Urine Urobilinogen (Negative) Ur Leukocyte Esterase (Negative) Urine WBC (Auto) (0-5) /hpf Urine RBC (Auto) (0-2) /hpf U Hyaline Cast (Auto) (0-2) /lpf U Epithel Cells (Auto) (0-2) /hpf Urine Bacteria (Auto) (None Seen) Urine Comment Adenovirus (PCR) Not Detected (NotDetected) Anaplasma Smear See Comment Babesia Smear See Comment B. pertussis DNA (PCR) Not Detected (NotDetected) B.parapertussis DNA PCR Not Detected (NotDetected) Lyme Disease Screen Negative Cancelled (Negative) C. pneumoniae DNA (PCR) Not Detected (NotDetected) Coronavirus OC43 (PCR) Not Detected (NotDetected) Coronavirus HKU1 (PCR) Not Detected (NotDetected) Coronavirus 229E (PCR) Not Detected (NotDetected) SARS-CoV-2 (PCR) Not Detected (NotDetected) Coronavirus NL63 (PCR) Not Detected (NotDetected) Human Metapneumovir PCR Not Detected (NotDetected) Influenza Type A (PCR) Not Detected (NotDetected) Influenza Type B (PCR) Not Detected (NotDetected) M. pneumoniae (PCR) Not Detected (NotDetected) Parainfluenza 1 (PCR) Not Detected (NotDetected) Parainfluenza 2 (PCR) Not Detected (NotDetected) Parainfluenza 3 (PCR) Not Detected (NotDetected) Parainfluenza 4 (PCR) Not Detected (NotDetected) RSV (PCR) Not Detected (NotDetected) Entero/Rhino (PCR) Not Detected (NotDetected) 04/25/25 04/25/25 Range/Units 20:00 20:52 WBC (4.8-10.8) K/ul RBC (4.20-5.40) M/uL Hgb (12.0-16.0) g/dl Hct (37.0-47.0) % MCV (80.0-100.0) fL MCH (25.0-34.0) pg MCHC (32.0-36.0) g/dL RDW Std Deviation (36.4-46.3) fL RDW Coeff of Ruby (11.5-14.5) % Plt Count (130-400) K/uL MPV (9.4-12.4) fL Immature Gran % (Auto) % Neut % (Auto) % Lymph % (Auto) % [place] % (Auto) % Eos % (Auto) % Baso % (Auto) % Neut # (Auto) (1.40-6.50) K/uL Lymph # (Auto) (1.20-3.40) K/uL [place] # (Auto) (0.11-0.59) K/uL Eos # (Auto) (0.00-0.50) K/uL Baso # (Auto) (0.00-0.20) K/uL Immature Gran # (Auto) (0.01-0.20) K/uL Sodium (136-145) mmol/L Potassium (3.5-5.1) mmol/L Chloride (98-107) mmol/L Carbon Dioxide (21-32) mmol/L Anion Gap (3-11) BUN (6-23) mg/dl Creatinine (0.6-1.2) mg/dl Est Cr Clr Drug Dosing ml/min eGFR BUN/Creatinine Ratio (10-20) Glucose (70-99(Fasting)) mg/dl Lactate 0.9 (0.4-2.0) mmol/L Calcium (8.6-10.3) mg/dl Magnesium (1.7-2.4) mg/dl Total Bilirubin (0.2-1.0) mg/dl AST (13-39) U/L ALT (7-52) U/L Alkaline Phosphatase (34-104) U/L Total Creatine Kinase 35 (26-192) U/L Troponin I High Sens 167.6 H* D (0-14) pg/ml C-Reactive Protein (0-0.5) mg/dl Total Protein (6.0-8.3) gm/dl Albumin (3.4-5.0) gm/dl Globulin (2.5-4.0) gm/dl Albumin/Globulin Ratio (0.9-2) Procalcitonin (0-0.5) ng/ml TSH (0.300-4.500) uIu/ml Urine Color Yellow Urine Appearance Clear (Clear) Urine pH 7.0 (4.5-7.5) Ur Specific [place] 1.018 (1.000-1.030) Urine Protein 1+ H (Negative) Urine Glucose (UA) Negative (Negative) Urine Ketones Negative (Negative) Urine Blood Negative (Negative) Urine Nitrite Negative (Negative) Urine Bilirubin Negative (Negative) Urine Urobilinogen Negative (Negative) Ur Leukocyte Esterase 1+ H (Negative) Urine WBC (Auto) 6-10 H (0-5) /hpf Urine RBC (Auto) 3-5 H (0-2) /hpf U Hyaline Cast (Auto) 0-2 (0-2) /lpf U Epithel Cells (Auto) 0-2 (0-2) /hpf Urine Bacteria (Auto) None Seen (None Seen) Urine Comment Adenovirus (PCR) (NotDetected) Anaplasma Smear Babesia Smear B. pertussis DNA (PCR) (NotDetected) B.parapertussis DNA PCR (NotDetected) Lyme Disease Screen (Negative) C. pneumoniae DNA (PCR) (NotDetected) Coronavirus OC43 (PCR) (NotDetected) Coronavirus HKU1 (PCR) (NotDetected) Coronavirus 229E (PCR) (NotDetected) SARS-CoV-2 (PCR) (NotDetected) Coronavirus NL63 (PCR) (NotDetected) Human Metapneumovir PCR (NotDetected) Influenza Type A (PCR) (NotDetected) Influenza Type B (PCR) (NotDetected) M. pneumoniae (PCR) (NotDetected) Parainfluenza 1 (PCR) (NotDetected) Parainfluenza 2 (PCR) (NotDetected) Parainfluenza 3 (PCR) (NotDetected) Parainfluenza 4 (PCR) (NotDetected) RSV (PCR) (NotDetected) Entero/Rhino (PCR) (NotDetected) Administered Medications Sodium Chloride (Nss) 1,000 mls @ 125 mls/hr IV .Q8H LESA Stop: 04/28/25 19:29 Last Admin: 04/25/25 19:33 Dose: 125 mls/hr Documented By: WHITNEY Lisinopril (Lisinopril 10 Mg Tab) 10 mg PO BID LESA Stop: 05/26/25 00:44 Last Admin: 04/26/25 01:16 Dose: 10 mg Documented By: NIRANJAN Simvastatin (Simvastatin 20 Mg Tab) 20 mg PO HS LESA Stop: 05/26/25 00:44 Last Admin: 04/26/25 01:16 Dose: 20 mg Documented By: NIRANJAN Discontinued Medications Sodium Chloride (Nss) 500 mls @ 999 mls/hr IV .Q31M ONE Stop: 04/25/25 19:57 Last Infusion: 04/25/25 20:48 Dose: Infused Documented By: Admin: 04/25/25 19:30 Dose: 999 mls/hr Documented By: WHITNEY Ceftriaxone Sodium (Rocephin) 2,000 mg in 50 mls @ 100 mls/hr IV NOW STA Stop: 04/25/25 22:25 Last Infusion: 04/25/25 22:29 Dose: Infused Documented By: Admin: 04/25/25 22:02 Dose: 100 mls/hr Documented By: WHITNEY Magnesium Sulfate/Dextrose (Magnesium Sulfate / D5w) 1 gm in 100 mls @ 50 mls/hr IV ONE ONE Stop: 04/26/25 00:46 Last Infusion: 04/26/25 01:32 Dose: Infused Documented By: Admin: 04/25/25 23:17 Dose: 50 mls/hr Documented By: SARAH Potassium Chloride (Potassium Chloride Crtab 20 Meq Tabcr) 20 meq PO NOW STA Stop: 04/25/25 22:48 Last Admin: 04/25/25 23:16 Dose: 20 meq Documented By: SARAH Imaging Data Radiologist's Impression: Chest X-Ray 04/25/25 18:50 EXAM: XR chest 1V portable CLINICAL HISTORY: weakness TECHNIQUE: An X-ray image of the chest is obtained in AP projection. COMPARISON: No prior studies are available for comparison. FINDINGS: Pulmonary Parenchyma: Right lower lung zone atelectasis. No evidence of consolidation, collapse, or focal opacities. No pulmonary nodules are identified. No evidence of pleural effusion or pleural thickening. Heart and Mediastinum: Heart size and shape are normal. No mediastinal widening or masses. No hilar or mediastinal lymphadenopathy. Bony Thorax: Rightward curvature of the thoracic spine, could be positional or real thoracic dextroscoliosis. Spinal fixation hardwares at the lower thoracic and upper lumbar vertebrae. Left shoulder joint prosthesis. Soft Tissues: Soft tissues overlying the chest wall are unremarkable. IMPRESSION: 1. Right lower lung zone atelectasis. 2. Otherwise, no acute cardiopulmonary abnormalities are identified. Electronically signed by Pako Gee 04-25-2025 8:29 PM Discharge Plan Visit Data Chief Complaint: Leg Weakness, Bilateral Stated Complaint: LEG WEAKNESS ED Provider: Ralf Carmichael Discharge Problem: Generalized weakness, Chills, Elevated troponin Patient Disposition: Admitted As Inpatient Condition: Good Discharge Instructions Interventions: ED Discharge Assessment Last Done: 04/26/25 00:20
[2025-04-25] MEDS: SODIUM CHLORIDE 0.9% 500 ML IV ONE (19:30)
[2025-04-25] MEDS: SODIUM CHLORIDE 0.9% 1,000 ML IV SCH (19:33)
[2025-04-25 19:44] LABS: Alanine Aminotransferase 12.0 U/L (7-52); Albumin Globulin Ratio 1.2 (0.9-2); Alkaline Phosphatase 73.0 U/L (34-104); Anion Gap 8.0 (3-11); Bilirubin,Total 0.5 mg/dl (0.2-1.0); Blood Urea Nitrogen 20.0 mg/dl (6-23); Calcium 9.6 mg/dl (8.6-10.3); Carbon Dioxide 28.0 mmol/L (21-32); Chloride 100.0 mmol/L (98-107); Creatine Kinase 35.0 U/L (26-192); Creatinine Clr Calc Pharmacy 40.3 ml/min; Globulin 3.3 gm/dl (2.5-4.0); Glucose 195.0 mg/dl (70-99(Fasting)); Magnesium 1.7 mg/dl (1.7-2.4); Potassium 3.8 mmol/L (3.5-5.1); Sodium 136.0 mmol/L (136-145); Total Protein 7.2 gm/dl (6.0-8.3)
[2025-04-25 19:49] LABS: Procalcitonin 0.05 ng/ml (0-0.5)
[2025-04-25 20:00] LABS: Thyroid Stimulating Hormone 1.851 uIu/ml (0.300-4.500)
[2025-04-25 20:14] LABS: Chlamydia pneumoniae PCR Not Detected (NotDetected); Coronavirus 229E PCR Not Detected (NotDetected); Coronavirus CoV-2 (COVID19)PCR Not Detected (NotDetected); Coronavirus HKU1 PCR Not Detected (NotDetected); Coronavirus NL63 PCR Not Detected (NotDetected); Coronavirus OC43PCR Not Detected (NotDetected); Human Metapneumovirus PCR Not Detected (NotDetected); Parainfluenza Virus 1 PCR Not Detected (NotDetected); Parainfluenza Virus 2 PCR Not Detected (NotDetected); Parainfluenza Virus 3 PCR Not Detected (NotDetected); Parainfluenza Virus 4 PCR Not Detected (NotDetected); Respiratory Syncytial VirusPCR Not Detected (NotDetected); Rhinovirus/Enterovirus PCR Not Detected (NotDetected)
[2025-04-25 20:26] LABS: Appearance Urine Clear (Clear); Bacteria Urine Automated None Seen (None Seen); Cast Urine Automated 0-2 /lpf (0-2); Epithelial Cell Urine Auto 0-2 /hpf (0-2); Glucose Urine UA Negative (Negative)
--- NOTE | 2025-04-25 20:29 | XRay Report ---
EXAM: XR chest 1V portable CLINICAL HISTORY: weakness TECHNIQUE: An X-ray image of the chest is obtained in AP projection. COMPARISON: No prior studies are available for comparison. FINDINGS: Pulmonary Parenchyma: Right lower lung zone atelectasis. No evidence of consolidation, collapse, or focal opacities. No pulmonary nodules are identified. No evidence of pleural effusion or pleural thickening. Heart and Mediastinum: Heart size and shape are normal. No mediastinal widening or masses. No hilar or mediastinal lymphadenopathy. Bony Thorax: Rightward curvature of the thoracic spine, could be positional or real thoracic dextroscoliosis. Spinal fixation hardwares at the lower thoracic and upper lumbar vertebrae. Left shoulder joint prosthesis. Soft Tissues: Soft tissues overlying the chest wall are unremarkable. IMPRESSION: 1. Right lower lung zone atelectasis. 2. Otherwise, no acute cardiopulmonary abnormalities are identified. Electronically signed by Pako Gee 04-25-2025 8:29 PM
[2025-04-25] MEDS: cefTRIAXone SODIUM 2,000 MG/50 ML BAG IV STA (22:02)
--- NOTE | 2025-04-25 22:44 | History & Physical Report ---
Date of Service April 25, 2025 Assessment & Plan (1) Elevated troponin: (2) Hypomagnesemia: (3) Hypokalemia: (4) Generalized weakness: Plan Patient is an 84-year-old female with past medical history of hyperlipidemia and hypertension who presented due to bilateral leg weakness when she could not get up from her chair at dinner this evening, now resolved. Workup in the ED revealed troponin increased from 32.5-167.6, lactate 2.1, magnesium 1.7, K+ 3.8, CRP 0.1. She is being admitted for further workup including troponin trend and echocardiogram. #elevated troponin - trop 32.5 -> 167.6. patient denies any chest pain, dyspnea, symptoms on exertion. EKG shows sinus rhythm with PVCs, no ischemic changes. Patient did have recent dental visit and took prophylactic amoxicillin. Differential includes but not limited to demand ischemia, endocarditis, NSTEMI. Trend troponin every 6 hours EKG with chest pain as needed Correct electrolytes as below Echocardiogram ordered - defer abx coverage for endocarditis on admission given non-septic presentation clinically, no leukocytosis, afebrile. Patient it asymptomatic. - defer heparin drip on admission given no EKG changes and patient asymptomatic. Monitor on telemetry #electrolyte abnormalities mag 1.7, K+ 3.8. Patient with recent diarrhea and on diuretics. Renal function stable. 1G IV magnesium on admission 20 mEq p.o. KCl on admission Hold HCTZ Trend BMP and magnesium #weakness patient with bilateral weakness of both lower extremities, now resolved at time of admission. Initial lactate 2.1, down trended to 0.9. CRP 0.81. CXR negative, UA low concern for infection/no dysuria. Empirically covered with Rocephin 2G IV in ED which will cover patient for 24 hours Follow blood and urine cultures PT/OT consulted 500 mL NSS bolus in ED, followed by NSS at 125 mL/hour; patient does appear clinically dry and reports poor fluid intake - ordered CK (35) and tick panel #HTN holding HCTZ, continue lisinopril and amlodipine #HLD continue Plavix and statin VTE ppx: SCDs, low risk Dispo: PCU Admission and Anticipated Discharge Date Admission Date: 04/25/25 History of Present Illness Chief Complaint: leg weakness Primary Care Provider: Kelechi Haile MD Patient is an 84-year-old female with past medical history of hyperlipidemia and hypertension who presented due to bilateral leg weakness when she could not get up from her chair at dinner this evening, now resolved. Workup in the ED revealed troponin increased from 32.5-167.6, lactate 2.1, magnesium 1.7, K+ 3.8, CRP 0.1. She is being admitted for further workup including troponin trend and echocardiogram. Patient did have recent dental procedure and did take prophylactic amoxicillin. Patient seen at bedside with her family member present who is an EMS worker. Patient stated she had bilateral leg weakness, denies any pain, numbness, tingling they just felt weak after dinner. She stated she was walking slow today however otherwise felt normal. Symptoms are now resolved and she has 5/5 strength. Patient also endorses diarrhea for the past few days, resolved today. She denies any dizziness, lightheadedness, fevers, chest pain, shortness of breath, chest pain on exertion, dyspnea on exertion, orthopnea, abdominal pain, nausea, vomiting, dysuria, difficulty urinating, hematuria. She does have +2 bilateral pitting edema to lower extremities that her family member stated has b een chronic for several years since her hip procedure. Patient denies any nicotine or alcohol use. Is due for her evening medications. Wishes to be DNR/DNI. Allergies Allergy/AdvReac Type Severity Reaction Status Date / Time adhesive Allergy Mild RASH Verified 11/14/24 15:42 capsaicin AdvReac Mild GI upset Verified 11/14/24 15:42 diclofenac AdvReac Mild GI upset Verified 11/14/24 15:42 Diclopak AdvReac Mild GI upset Verified 01/10/17 00:12 oxycodone AdvReac Mild GI upset Verified 11/14/24 15:42 pregabalin AdvReac Mild GI upset Verified 11/14/24 15:42 Home Medications Medication Instructions Recorded Confirmed Type simvastatin 20 mg tablet 20 mg PO HS 07/27/18 04/25/25 History calcium 600 mg (as 1 tab PO BID 04/13/22 04/25/25 History carbonate)-vitamin D3 10 mcg (400 unit) tablet (Calcium 600 + D(3)) multivitamin 1 tab PO QAM 04/13/22 04/25/25 History pantoprazole 40 mg tablet,delayed 40 mg PO QDL 04/13/22 04/25/25 History release hydrochlorothiazide 25 mg tablet 25 mg PO QAM #30 tabs 04/16/22 04/25/25 Rx alendronate 35 mg tablet 35 mg PO WK 09/08/23 04/25/25 History vitamins A,C,N-jdmm-szrrrf 2,148 1 tab PO BIDM 06/18/24 04/25/25 History mcg-113 mg-45 mg-17.4 mg tablet (PreserVision AREDS) clopidogrel 75 mg tablet 75 mg PO QAM #30 tabs 07/02/24 04/25/25 Rx amoxicillin 500 mg tablet 2,000 mg (4 x 500 mg) PO ONCE 1 04/22/25 04/25/25 Rx day #4 tabs acetaminophen 500 mg tablet 1,000 mg PO TID PRN pain 04/25/25 04/25/25 History (Tylenol Extra Strength) lisinopril 10 mg tablet 10 mg PO BID 04/25/25 04/25/25 History Past Med/Surg History Problem List (Updated 04/25/25 @ 23:05 by Diane Ordoñez PA-C) Hypokalemia Hypomagnesemia Elevated troponin Chills (Acute) Generalized weakness (Acute) Status post left knee replacement Shoulder arthritis Hypertension controlled, stable per pt Hamstring tear Hyperlipidemia DJD of left shoulder Medical History Left knee DJD Carotid artery stenosis Tricompartment osteoarthritis of left knee Hyperlipidemia Hypertension Hearing loss Urinary urgency Irregular heart beat Neuropathy Surgical History S/P carotid endarterectomy (07/18/24) History of hysterectomy History of carpal tunnel release History of cholecystectomy History of colonoscopy History of tooth extraction History of cataract surgery History of shoulder surgery History of right hip replacement History of back surgery Family History Mother Uterine cancer Father Myocardial infarction Daughter Diabetes Social History Smoking Status: Never smoker Second Hand Exposure: No; Do You Dip or Chew Tobacco: No; Hx Alcohol Use: No Hx Substance Use: No Preferred Language: [place] Communication Ability: Effective Windows Vmware Engineer Required: No Beliefs That Will Affect Care: None marital status: Current Living Situation: Spouse current occupational status: retired 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 Non-toxic appearing. HEENT- EOMI, mucous membranes dry. Hearing grossly intact. Heart-normal S1 and S2. No murmurs, rubs or gallops. Lungs-clear bilaterally, no respiratory distress, no accessory muscle use. Abdomen-normal bowel sounds and soft. No ascites noted. Non-tender. Extremities- no clubbing, cyanosis. +2 pitting edema bl LE. Rheumatologic-normal range of motion. Psychiatric-normal affect. Musculoskeletal: no cyanosis or clubbing, extremities motor strength 5/5 Results & Data Results & Data Vital Signs (Past 12 Hours) Vital Signs Temp Pulse Resp BP Pulse Ox O2 Del Method 04/25/25 22:39 86 27 H 93 04/25/25 22:24 83 27 H 93 04/25/25 22:03 84 25 H 93 04/25/25 22:00 163/77 H 04/25/25 22:00 163/77 H 04/25/25 21:48 92 H 26 H 91 04/25/25 21:42 84 25 H 94 04/25/25 21:33 80 23 92 04/25/25 21:30 173/87 H 04/25/25 21:18 77 17 92 04/25/25 21:03 80 21 93 04/25/25 21:00 187/93 H 04/25/25 20:57 88 17 92 04/25/25 20:54 81 24 92 04/25/25 20:42 77 21 95 04/25/25 20:39 79 24 93 04/25/25 20:06 80 18 94 04/25/25 19:57 81 25 H 93 04/25/25 19:45 85 23 94 04/25/25 19:30 169/79 H 04/25/25 19:30 169/79 H 08/01/25 19:30 77 22 96 04/25/25 19:27 77 20 96 04/25/25 19:19 164/77 H 04/25/25 19:19 164/77 H 04/25/25 19:19 164/77 H 04/25/25 19:18 83 23 94 04/25/25 19:12 88 21 95 04/25/25 19:06 93 H 22 94 04/25/25 18:51 93 H 04/25/25 18:50 77 20 96 Room Air 04/25/25 18:40 37.5 C 86 16 183/86 H 96 Room Air Laboratory Results Reviewed CBC, CMP, troponin, magnesium, CRP, lactate, procalcitonin, TSH, UA, bio fire Diagnostic Findings reviewed CXR Medications Administered EDRocephin 2G IV, 500 mL NSS bolus, NSS at 125 mL/hour [id number] IV magnesium, 20 mEq p.o. KCl ECG Additional Comments: sinus rhythm with PVCs Rate 86 QTc 435 Code Status & VTE Plan Code Status DNR/DNI VTE Prophylaxis Plan VTE Prophylaxis will be ordered: Yes Supervising Physician Co-Signing Physician Notes Attending addendum: I have physically seen this patient, have supervised the OMAIRA's activities, and agree with the H&P unless as otherwise noted. Assessment and Plan: The patient is an 84-year-old female with past medical history including hyperlipidemia, hypertension, osteoporosis, and GERD. She presented to the emergency department with complaint of bilateral lower extremity weakness and fatigue, and reports she was not able to get up from her chair at dinner this evening. In the emergency department her symptoms are improved. Elevated troponin/hypertension- The patient will be admitted to telemetry for serial cardiac enzymes, serial EKG's, cardiac rhythm monitoring and a 2-D echocardiogram with Dopplers. Initial troponin 32.5, with follow-up 167.6 Continue Plavix and simvastatin Patient denies any chest pain, shortness of breath or dyspnea on exertion. EKG shows normal sinus rhythm with PVCs but no signs of ischemia Differential including but not limited to: NSTEMI, endocarditis, vasospasm. Optimize magnesium and potassium Patient did have a dental cleaning 2 days ago, leading to the possibility of endocarditis. She did take amoxicillin 2 g for prophylaxis Bilateral lower extremity weakness- No suggestion of a neurologic component, appears to be more related to generalized medical issues Will optimize electrolytes with magnesium 1.7 and potassium 3.8 on admission Follow urinalysis, urine culture and sensitivity Patient did empirically receive ceftriaxone 2 g IV from the ED, with further dosing to be determined Consult PT/OT Patient received 1000 mL bolus followed by 500 mL bolus from the ED Continue rehydration with normal saline at 125 mL/h x 1 L Electrolyte disturbances/hypertension Magnesium 1.7 and potassium 3.8 Give magnesium sulfate 1 g IV Give potassium chloride 20 mill equivalents p.o. Hold HCTZ Repeat BMP and magnesium level in the a.m. Continue lisinopril and amlodipine PG Care Time/CCT Total # of Minutes Spent Total Time Spent with Patient: Total time spent is greater than 50% in coordination of care (as documented) at patient's floor/unit and/or counseling patient: Coding Level of Care Code 28446 INT INP/OBS CARE 375MIN Diagnoses Elevated troponin R79.89 Hypomagnesemia E83.42 Hypokalemia E87.6 Generalized weakness R53.1
[2025-04-25 23:15] LABS: Creatine Kinase 35.0 U/L (26-192)
[2025-04-25] MEDS: POTASSIUM CHLORIDE CRTAB 20 MEQ TABCR PO STA (23:16)
[2025-04-25] MEDS: MAGNESIUM SULFATE / D5W 1 GM/100 ML BAG IV ONE (23:17)
[2025-04-25 23:51] LABS: Lyme Screen Rflx Confirmation Negative (Negative)
[2025-04-26] MEDS ORDERED: MELATONIN 3 MG TAB PO PRN (00:45)
[2025-04-26] MEDS ORDERED: ONDANSETRON INJ 2 MG/ML 2 ML VIAL IV PRN (00:45)
[2025-04-26] MEDS ORDERED: ACETAMINOPHEN 325 MG TAB PO PRN (00:45)
[2025-04-26] MEDS: SIMVASTATIN 20 MG TAB PO SCH (01:16)
[2025-04-26 02:33] LABS: Hematocrit (blood only) 34.6 % (37.0-47.0); Hemoglobin 11.3 g/dl (12.0-16.0); Immature Granulocytes # (auto) 0.01 K/uL (0.01-0.20); Immature Granulocytes % (auto) 0.2 %; Mean Corpuscular Hemoglobin 29.4 pg (25.0-34.0); Mean Corpuscular Volume 90.1 fL (80.0-100.0); Platelet Count 172 K/uL (130-400); RDW Standard Deviation 49.1 fL (36.4-46.3); Red Blood Count 3.84 M/uL (4.20-5.40); White Blood Count 6.52 K/ul (4.8-10.8)
[2025-04-26 03:12] LABS: Alanine Aminotransferase 12.0 U/L (7-52); Alkaline Phosphatase 62.0 U/L (34-104); Bilirubin,Total 0.3 mg/dl (0.2-1.0); Blood Urea Nitrogen 21.0 mg/dl (6-23); Calcium 8.7 mg/dl (8.6-10.3); Carbon Dioxide 27.0 mmol/L (21-32); Chloride 103.0 mmol/L (98-107); Creatinine Clr Calc Pharmacy 42.9 ml/min; Glucose 121.0 mg/dl (70-99(Fasting)); Magnesium 2.0 mg/dl (1.7-2.4); Potassium 3.6 mmol/L (3.5-5.1); Sodium 136.0 mmol/L (136-145); Total Protein 6.3 gm/dl (6.0-8.3)
[2025-04-26 03:21] LABS: Albumin Globulin Ratio 1.2 (0.9-2); Anion Gap 6.0 (3-11); Globulin 2.9 gm/dl (2.5-4.0)
[2025-04-26] MEDS: CLOPIDOGREL BISULFATE 75 MG TAB PO SCH (09:57)
--- NOTE | 2025-04-26 11:21 | Hospitalist Progress Note ---
Date of Service April 26, 2025 Assessment & Plan (1) Type 2 myocardial infarction: (2) Chills: (3) Generalized weakness: Plan In summary this is an 84-year-old female who presented with bilateral lower extremity weakness resulting in an inability ambulate, subsequently found to have progressive troponin rise concerning for type II myocardial infarction #Type II myocardial infarction//hyperlipidemia//hypertension the patient's initial symptomatology began in the late afternoon/early evening on 04/25 while sitting out of crowley in a restaurant; this is not specifically associated with activity nor did the patient experience any chest pain, dyspnea on exertion, orthopnea, refer to anginal pain; the patient has never had similar episodes to this in the past; the patient's initial EKG was not concerning for an occlusive myocardial infarction; the patient's troponin was initially measured 167 with trend 601, 516; KB score 137 -Maintain continuous cardiac sonographer -Nursing to contact attending if patient develops recurrent or new anginal equi valent - Start [id number] mg p.o. daily - Continue clopidogrel 75 mg p.o. daily - TTE pending at this time, results will inform need for cardiology consultation #Generalized chills and malaise Patient presented with the subjective complaints; at this time there is no objective information on laboratory assessment nor on physical exam that is consistent with an acute infectious process; blood cultures are currently pending as ordered by admitting team as well as a urine culture; there is no indication for prophylactic antibiotic coverage at this time, continue to monit or during her hospitalization for evidence of an infectious process Admission and Anticipated Discharge Date Admission Date: April 25, 2025 Anticipated date of discharge: 04/28/25 Subjective Ms. tSyles is an 84-year-old female whose active medical conditions include hyperlipidemia, hypertension, osteoarthritis of multiple joints among other chronic medical conditions who presented to [facility] on 04/25 due to acute onset bilateral lower extremity weakness resulting in inability to ambulate. The patient was subsequently admitted for observation in the setting of a progressively rising troponin without associated anginal equi valents. There were no acute overnight events; this morning the patient feels well with no specific complaints or concerns. She has been able to ambulate in her room to the bedside commode without significant difficulty with the assistance of their nurse. They describe significant fatigue, malaise, chills over the past 48 hours after dental cleaning was performed on 04/23. They were prescribed a preprocedural amoxicillin tablet for prophylaxis which they did take. Review of Systems Review of Systems: Constitutional: endorses chills prior to hospitalization, none have occurred after admission; denies fevers, malaise, fatigue Cardiovascular: denies angina, palpitations, syncope, changing peripheral edema, orthopnea, platypnea Pulmonary: denies cough, dyspnea on exertion, pleuritic chest pain Gastrointestinal: denies nausea, emesis, dysphagia, dyspepsia, abdominal distension, constipation, diarrhea Neurologic: denies focal weakness Musculoskeletal: denies arthralgias, recent falls Integumentary: denies new or developing rashes or lesions Physical Exam Physical Exam: General: Elderly female in no acute distress Vital Signs: Reviewed HEENT: Normocephalic, atraumatic; pupils equally reactive to light, extraocular motions intact; moist mucous membranes Neck: No palpable lymphadenopathy Pulmonary: symmetric chest wall excursion; CTAB Cardiovascular: Regular rate and rhythm with grade 1/6 systolic murmur best heard in the right second intercostal space parasternally; no rubs or gallops; S1 and S2 normal; bilateral radial and posterior tibial pulses 2+; trace bilateral lower extremity edema distal of the knee with underlying lipedema Gastrointestinal: Soft, nondistended Neurologic: CN II-XII grossly intact; no discernible focal weakness nor paresthesias Results & Data Results & Data Vital Signs (Past 12 Hours) Vital Signs Temp Pulse Pulse Resp BP BP Pulse Ox 04/26/25 09:55 65 16 145/79 H 96 04/26/25 08:19 37.1 C 65 21 170/102 H 94 04/26/25 07:35 68 04/26/25 03:56 36.8 C 68 18 138/74 95 04/26/25 00:59 76 04/26/25 00:30 37.4 C 80 16 157/86 H 91 04/26/25 00:20 04/26/25 00:00 74 24 145/69 H 94 04/25/25 23:30 78 21 155/69 H 94 O2 Del Method 04/26/25 09:55 Room Air 04/26/25 08:19 Room Air 04/26/25 07:35 04/26/25 03:56 Room Air 04/26/25 00:59 08/02/25 00:30 Room Air 04/26/25 00:20 Room Air 04/26/25 00:00 Room Air 04/25/25 23:30 Room Air PG Care Time/CCT Total # of Minutes Spent Total Time Spent with Patient: Total time spent is greater than 50% in coordination of care (as documented) at patient's floor/unit and/or counseling patient: Coding Level of Care Code 00996 SUB INP/OBS CARE 3/50MIN Diagnoses Type 2 myocardial infarction I21.A1 Chills R68.83 Generalized weakness R53.1
--- NOTE | 2025-04-26 11:35 | XCELERA ---
[id number] [id number]
[2025-04-26] MEDS: ASPIRIN 81 MG ECTAB PO SCH (11:49)
--- NOTE | 2025-04-26 12:10 | Electrocardiogram Report ---
Test Reason : Blood Pressure : */* mmHG Vent. Rate : 86 BPM Atrial Rate : 86 BPM P-R Int : 188 ms QRS Dur : 86 ms QT Int : 364 ms P-R-T Axes : 88 3 52 degrees QTcB Int : 435 ms Sinus rhythm with Premature supraventricular complexes Nonspecific ST abnormality Abnormal ECG When compared with ECG of 25-Apr-2025 19:08, (unconfirmed) Premature ventricular complexes are no longer Present Confirmed by Kelechi Meier ([id number]) on 04/26/2025 12:10:41 PM Referred By: REFERRED SELF Confirmed By: Kelechi Meier
[2025-04-27 08:24] VITALS: RESP 20; O2SAT 96
--- NOTE | 2025-04-27 09:02 | Hospitalist Progress Note ---
Date of Service April 27, 2025 Assessment & Plan (1) Type 2 myocardial infarction: (2) Generalized weakness: (3) Frailty syndrome in geriatric patient: Plan In summary this is an 84-year-old female who presented with bilateral lower extremity weakness resulting in an inability ambulate, subsequently found to have progressive troponin rise concerning for type II myocardial infarction #Type II myocardial infarction//hyperlipidemia//hypertension the patient's initial symptomatology began in the late afternoon/early evening on 04/25 while sitting out of crow[place] in a restaurant; this is not specifically associated with activity nor did the patient experience any chest pain, dyspnea on exertion, orthopnea, refer to anginal pain; the patient has never had similar episodes to this in the past; the patient's initial EKG was not concerning for an occlusive myocardial infarction; the patient's troponin was initially measured 167 with trend 601, 516; KB score 137; TTE on 04/26 without significant abnormal findings -Maintain continuous cardiac/vascular sonographer -Nursing to contact attending if patient develops recurrent or new anginal equivalent - Continue aspirin 81 mg p.o. daily - Continue clopidogrel 75 mg p.o. daily #Generalized weakness // Frailty syndrome Persistent generalized weakness in the setting of recent type II OR, superimposed on chronic physical weakness and frailty in a geriatric patient; pending PT and OT evaluations for recommendations regarding discharge disposition #Generalized chills and malaise Resolved Admission and Anticipated Discharge Date Admission Date: April 25, 2025 Anticipated date of discharge: 04/27/25 Subjective Ms. Styles is an 84-year-old female whose active medical conditions include hyperlipidemia, hypertension, osteoarthritis of multiple joints among other chronic medical conditions who presented to [facility] on 04/25 due to acute onset bilateral lower extremity weakness resulting in inability to ambulate. The patient was subsequently admitted for observation in the setting of a progressively rising troponin without associated anginal equivalents. There were no acute overnight events; this morning the patient feels improved compared to 04/26 without new complaints or concerns. They are hopeful for discharge. Review of Systems Review of Systems: Constitutional: denies fevers, malaise, fatigue Cardiovascular: denies angina, palpitations, syncope, changing peripheral edema, orthopnea, platypnea Pulmonary: denies cough, dyspnea on exertion, pleuritic chest pain Gastrointestinal: denies nausea, emesis, dysphagia, dyspepsia, abdominal distension, constipation, diarrhea Neurologic: denies focal weakness Musculoskeletal: denies arthralgias, recent falls Integumentary: denies new or developing rashes or lesions Physical Exam Physical Exam: General: Elderly female in no acute distress Vital Signs: Reviewed HEENT: Normocephalic, atraumatic; pupils equally reactive to light, extraocular motions intact; moist mucous membranes Neck: No palpable lymphadenopathy Pulmonary: symmetric chest wall excursion; CTAB Cardiovascular: Regular rate and rhythm with grade 1/6 systolic murmur best heard in the right second intercostal space parasternally; no rubs or gallops; S1 and S2 normal; bilateral radial and posterior tibial pulses 2+; trace bilateral lower extremity edema distal of the knee with underlying lipedema Gastrointestinal: Soft, nondistended Neurologic: CN II-XII grossly intact; no discernible focal weakness nor paresthesias Results & Data Results & Data Vital Signs (Past 12 Hours) Vital Signs Temp Pulse Pulse Resp BP Pulse Ox O2 Del Method 04/27/25 08:23 36.6 C 63 20 186/74 H 96 Room Air 04/27/25 07:39 72 04/27/25 03:35 36.8 C 65 18 152/74 H 99 Room Air 04/26/25 22:41 79 04/26/25 22:17 36.6 C 66 18 179/81 H 98 Room Air 04/26/25 21:25 Room Air PG Care Time/CCT Total # of Minutes Spent Total Time Spent with Patient: Total time spent is greater than 50% in coordination of care (as documented) at patient's floor/unit and/or counseling patient: Coding Level of Care Code 68067 SUB INP/OBS CARE 2/35MIN Diagnoses Type 2 myocardial infarction I21.A1 Generalized weakness R53.1 Frailty syndrome in geriatric patient R54
[2025-04-27 12:14] VITALS: PULSE 77; TEMP 97.3
[2025-04-27 12:54] VITALS: BP 128/60
--- NOTE | 2025-04-27 13:04 | Discharge Summary ---
Discharge Summary Date of Service April 27, 2025 Principal Dx & Hospital Course #1 = Principal Diagnosis (1) Type 2 myocardial infarction: (2) Generalized weakness: (3) Frailty syndrome in geriatric patient: Plan In summary this is an 84-year-old female who presented with bilateral lower extremity weakness resulting in an inability ambulate, subsequently found to have progressive troponin rise concerning for type II myocardial infarction #Type II myocardial infarction//hyperlipidemia//hypertension the patient's initial symptomatology began in the late afternoon/early evening on 04/25 while sitting out of [place] in a restaurant; this is not specifically associated with activity nor did the patient experience any chest pain, dyspnea on exertion, orthopnea, refer to anginal pain; the patient has never had similar episodes to this in the past; the patient's initial EKG was not concerning for an occlusive myocardial infarction; the patient's troponin was initially measured 167 with trend 601, 516; KB score 137; TTE on 04/26 without significant abnormal findings -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 daily - Continue clopidogrel 75 mg p.o. daily #Generalized weakness // Frailty syndrome Persistent generalized weakness in the setting of recent type II LA, superimposed on chronic physical weakness and frailty in a geriatric patient; Physical and Occupational therapy recommended discharge to an acute rehabilitation center, but the patient prefers discharge to home with home health #Generalized chills and malaise Resolved Notes For Next Care Provider Patient identified high risk for 30- day readmission given their preference for home health rather than discharge to an acute rehabilitation facility. Our hospitalist team would be glad to discuss any details of the hospital stay with you, please reach out by [facility] with a good call back number and we will return your call. Medication Changes From Visit Discontinue simvastatin Start atorvastatin 40 mg p.o. daily Admission HPI Per Admitting Provider Patient is an 84-year-old female with past medical history of hyperlipidemia and hypertension who presented due to bilateral leg weakness when she could not get up from her chair at dinner this evening, now resolved. Workup in the ED revealed troponin increased from 32.5-167.6, lactate 2.1, magnesium 1.7, K+ 3.8, CRP 0.1. She is being admitted for further workup including troponin trend and echocardiogram. Patient did have recent dental procedure and did take prophylactic amoxicillin. Patient seen at bedside with her family member present who is an EMS worker. Patient stated she had bilateral leg weakness, denies any pain, numbness, tingling they just felt weak after dinner. She stated she was walking slow today however otherwise felt normal. Symptoms are now resolved and she has 5/5 strength. Patient also endorses diarrhea for the past few days, resolved today. She denies any dizziness, lightheadedness, fevers, chest pain, shortness of breath, chest pain on exertion, dyspnea on exertion, orthopnea, abdominal pain, nausea, vomiting, dysuria, difficulty urinating, hematuria. She does have +2 bilateral pitting edema to lower extremities that her family member stated has been chronic for several years since her hip procedure. Patient denies any nicotine or alcohol use. Is due for her evening medications. Wishes to be DNR/DNI. Discharge Exam General: Elderly female in no acute distress Vital Signs: Reviewed HEENT: Normocephalic, atraumatic; pupils equally reactive to light, extraocular motions intact; moist mucous membranes Neck: No palpable lymphadenopathy Pulmonary: symmetric chest wall excursion; CTAB Cardiovascular: Regular rate and rhythm with grade 1/6 systolic murmur best heard in the right second intercostal space parasternally; no rubs or gallops; S1 and S2 normal; bilateral radial and posterior tibial pulses 2+; trace bilateral lower extremity edema distal of the knee with underlying lipedema Gastrointestinal: Soft, nondistended Neurologic: CN II-XII grossly intact; no discernible focal weakness nor paresthesias Discharge Plan Discharge Items Patient Disposition: Home - Home Health Services Reason For Visit: ELEVATED TROP Discharge Diagnosis: Type II myocardial infarction Condition on Discharge: Good Activity: Per Instructions section Lifting: Gradually increase as tolerated Bathing: No limitations Exercise/Sports: None Driving/Machine Use: No limitations Weightbearing: Full weightbearing Non-emergency contact: Primary Care Provider Call non-emergency contact if: you have any medication questions and your symptoms worsen Follow-up/Referrals: Jose Rosario MD [Physician] - (Type II LA, establish care after hospitalization) Kelechi Haile MD [Primary Care Provider] - Diet: Heart Healthy Fluids: 1800ml (7 cups) Addtl Attending Provider Instructions: Home Care: * Take your medications exactly as directed. Don't skip doses. * Remember that recovery after a heart attack takes time. Plan to rest for at l ease 4-8 weeks while you recover. Then return to normal activity when your doctor says it's okay. * Ask your doctor about joining a heart rehabilitation program. * Tell your doctor if you are feeling depressed. Feelings of sadness are common after a heart attack, but it is important that you speak to someone if you are feeling overwhelmed by these feelings. * If you are having chest pain, call 911 for an ambulance. Do NOT drive yourself to the hospital. * Ask your family members to learn CPR. * Learn to take your own blood pressure and pulse. Keep a record of your results. Ask your doctor when you should seek emergency medical attention. He or she will tell you which blood pressure reading is dangerous. Lifestyle Changes: * Maintain a healthy weight. Get help to lose any extra pounds. * Cut back on salt. * Limit canned, dried, packaged, and fast foods. * Don't add salt to your food. * Season foods with herbs instead of salt when you cook. * Break the smoking habit. Enroll in a stop-smoking program to improve your chances of success. * Limit fatty foods. * Ask your doctor about having your lipid levels checked regularly. * Build up your activity according to your doctor's recommendation. * Ask your doctor when it's okay to resume sexual activity. * Tell your doctor about any erectile dysfunction (ED) medication you are taking. Some ED medications are not safe if you take certain heart medications. * Try to manage stress. Follow Up: It is important for you to keep your follow up appointments with your medical provider. Pending Studies at Discharge: No Stand-Alone Forms: My [facility] Medications and DC Order Prescriptions: New atorvastatin 40 mg tablet 40 mg PO DAILY Qty: 30 0RF Continued amoxicillin 500 mg tablet 2,000 mg PO ONCE 1 Days Qty: 4 4RF Rx Instructions: take all 4 tablets one hour prior to dental procedure alendronate 35 mg tablet 35 mg PO WK Patient Comments: takes on mondays Rx Instructions: MONDAYS pantoprazole 40 mg tablet,delayed release (DR/EC) 40 mg PO QDL Patient Comments: lunch time calcium carbonate-vitamin D3 [Calcium 600 + D(3)] 600 mg-10 mcg (400 unit) Tablet 1 tab PO BID multivitamin Tablet 1 tab PO QAM Patient Comments: lunch time hydrochlorothiazide 25 mg Tablet 25 mg PO QAM Qty: 30 2RF Rx Instructions: for high blood pressure PreserVision AREDS 2,148 mcg-113 mg-45 mg-17.4mg Tablet 1 tab PO BIDM Patient Comments: lunch time Rx Instructions: administer with AM and PM meals clopidogrel 75 mg Tablet 75 mg PO QAM Qty: 30 0RF acetaminophen [Tylenol Extra Strength] 500 mg tablet 1,000 mg PO TID PRN (Reason: pain) lisinopril 10 mg tablet 10 mg PO BID Discontinued simvastatin 20 mg Tablet 20 mg PO HS Discharge Orders: Discharge Order (Routine); Ordered 04/27/25 Ordered By: Brandon Underwood Admission Data Admit Date/Time: 04/25/25 22:55 Attending Provider: Brandon Underwood Admit Provider: Milo Medel Primary Care Provider: Kelechi Haile Other Providers: Milo Medel Other Interventions: Discharge Summary Assessment (RN) Last Done: 04/27/25 12:53 Hospital Stay Data Consultations 04/25/25 22:42 ED Decision to Admit Stat Pending Results Patient Have Any Pending Studies at Discharge: No Discharge Instructions Given to Patient (Per Discharging Provider) Home Care: * Take your medications exactly as directed. Don't skip doses. * Remember that recovery after a heart attack takes time. Plan to rest for at lease 4-8 weeks while you recover. Then return to normal activity when your doctor says it's okay. * Ask your doctor about joining a heart rehabilitation program. * Tell your doctor if you are feeling depressed. Feelings of sadness are common after a heart attack, but it is important that you speak to someone if you are feeling overwhelmed by these feelings. * If you are having chest pain, call 911 for an ambulance. Do NOT drive yourself to the hospital. * Ask your family members to learn CPR. * Learn to take your own blood pressure and pulse. Keep a record of your results. Ask your doctor when you should seek emergency medical attention. He or she will tell you which blood pressure reading is dangerous. Lifestyle Changes: * Maintain a healthy weight. Get help to lose any extra pounds. * Cut back on salt. * Limit canned, dried, packaged, and fast foods. * Don't add salt to your food. * Season foods with herbs instead of salt when you cook. * Break the smoking habit. Enroll in a stop-smoking program to improve your chances of success. * Limit fatty foods. * Ask your doctor about having your lipid levels checked regularly. * Build up your activity according to your doctor's recommendation. * Ask your doctor when it's okay to resume sexual activity. * Tell your doctor about any erectile dysfunction (ED) medication you are taking. Some ED medications are not safe if you take certain heart medications. * Try to manage stress. Follow Up: It is important for you to keep your follow up appointments with your medical provider. Total Time Total Time Spent Total Time Spent (In Minutes): 55 Coding Level of Care Code 59651 INP/OBS DISCH >30 MIN Diagnoses Type 2 myocardial infarction I21.A1 Generalized weakness R53.1 Frailty syndrome in geriatric patient R54
--- NOTE | 2025-04-28 07:39 | Electrocardiogram Report ---
Test Reason : Blood Pressure : */* mmHG Vent. Rate : 91 BPM Atrial Rate : 91 BPM P-R Int : 202 ms QRS Dur : 84 ms QT Int : 356 ms P-R-T Axes : 103 9 67 degrees QTcB Int : 437 ms Sinus rhythm with frequent Premature ventricular complexes and Premature atrial complexes Nonspecific ST abnormality Abnormal ECG When compared with ECG of 01-Jul-2024 11:39, No significant change was found Confirmed by Kelechi Meier ([id number]) on 04/26/2025 12:09:10 PM Referred By: REFERRED SELF Confirmed By: Kelechi Meier
== END 2025-04-27 13:49 | disposition home health service (06) | DRG 282 ==
LOC: SUATTDRO → ED 18:45 → SUATTDRO 22:55 → 4W 22:55 → 2W 04-26 22:22